=== PATIENT | female | born 1980 | race Caucasian/White ===

== ENCOUNTER 2019-01-19 21:00 | Emergency (ER) | payer SELFPAY ==
[2019-01-19 21:01] VITALS: BP 145/100; PULSE 97; RESP 17; TEMP 36.6; O2SAT 99; BMI 20.9
--- NOTE | 2019-01-19 21:36 | ED.DEP ---
ED Disposition - Plan for ED Patient: Instructions: ED Tooth Pain Prescriptions: Naproxen [Naprosyn] 500 mg PO BID PRN #20 tablet Referrals: Care Physician,No Primary [Primary Care Provider] -
--- NOTE | 2019-01-19 21:39 | ED.VISSUMM ---
- ER Visit Summary Date of Service: 01/19/19 Chief Complaint: Toothache History of Present Illness: The patient is a 38 F presenting with toothache. Patient states she chipped her top left and lower left teeth last week. She went to [facility] urgent care and was started on clindamycin. She has been taking ibuprofen at home. She is going to call tomorrow to try to get into a dentist. She has had no fever or swelling. No other complaints. Physical Examination: Vitals are stable. Patient is afebrile. Alert no acute distress. HEENT exam chip fracture left upper molar and left lower molar. No surrounding fluctuance. No sublingual edema. Widespread dental decay. Neck is supple. Lungs are clear and equal bilaterally. Heart is regular rate and rhythm. Skin is warm and dry. Remainder of exam is unremarkable. Emergency Department Course and Treatment: Patient was given OxyIR x1. She is given a prescription for Naprosyn. She is advised to take her antibiotics until complete. She is given a dental referral list. Advised to return to the ED for worsening complaints. Disposition: Discharge home Impression: Odontalgia This note was generated with [employer] dictation software. It may contain incorrect words, spelling, and punctuation that were not noted in review of the chart prior to signing ED Disposition - Plan for ED Patient: Instructions: ED Tooth Pain Prescriptions: Naproxen [Naprosyn] 500 mg PO BID PRN #20 tablet Referrals: Care Physician,No Primary [Primary Care Provider] -
[2019-01-19 21:53] VITALS: BP 138/90
[2019-01-19] MEDS: oxyCODONE 5 MG Tablet PO (21:53)
== END 2019-01-19 21:54 | disposition home or self-care (01) ==
PROVIDERS: Emergency Provider Emergency Medicine
DX: K08.89 Other specified disorders of teeth and supporting structures (principal); K02.9 Dental caries, unspecified; S02.5XXA Fracture of tooth (traumatic), initial encounter for closed fracture; X58.XXXA Exposure to other specified factors, initial encounter; Y93.9 Activity, unspecified; Y92.9 Unspecified place or not applicable; Y99.9 Unspecified external cause status; Z72.0 Tobacco use
CPT/HCPCS: 99283

== ENCOUNTER 2019-04-04 15:22 | Emergency (ER) | payer MEDICAID, SELFPAY ==
[2019-04-04 15:23] VITALS: BP 129/79; PULSE 107; RESP 16; TEMP 36.8; O2SAT 98; BMI 20.7
--- NOTE | 2019-04-04 15:36 | ED.VIS.DENTA ---
History of Present Illness Informant: Patient Onset: Weeks - 1 Context: Gradual Onset Timing: Continuous Quality: aching Location: right side of mouth Current Severity: Moderate Maximum Severity: Severe Worsened by: eating Relieved by: Topicals Associated Symptoms: Hot, Cold, Sensitivity Narrative: 38-year-old female approximately 5 weeks presents to the emergency department with 1 week of right-sided dental pain. Patient also endorses hot and cold sensitivity. She has no fevers or facial swelling. She has not had any difficulty breathing or swallowing or opening and closing her mouth. She denies trauma. Patient states that this is her first and she has not taken anything for pain yet because she was not sure which she was allowed to take. She has already seen an [facility] and is not having any abdominal pain or vaginal bleeding or vomiting. She has an appointment on Saturday with her dentist Prior similar symptoms: Yes Recent Illness/Hospitalization: No <Grady Devlin - Last Filed: 04/04/19 15:36> <Curtis Parra - Last Filed: 04/04/19 15:55> Chief Complaint: Dental Past Medical History Prior records reviewed: Yes Past Medical History: None Surgical History: no surgical history Smoking Status: Current every day smoker <Grady Devlin - Last Filed: 04/04/19 15:36> <Curtis Parra - Last Filed: 04/04/19 15:55> - Allergies and Home Meds Allergies/Adverse Reactions: Allergies aloe vera Allergy (Verified 01/19/19 21:03) Rash aspirin [ASA] Adverse Reaction (Verified 01/19/19 21:03) Upset Stomach Primary Care Physician: Care Physician,No Primary [Primary Care Provider] - Review of Systems All systems negative except as indicated General: Denies: Chills, Fever ENT: Reports: - - Dental pain <Grady Devlin - Last Filed: 04/04/19 15:36> Physical Exam Vital Signs/Narrative: Vital Signs Temp Pulse Resp BP Pulse Ox 04/04/19 15:23 98.2 F 107 H 16 129/79 H 98 Inital Vital Signs reviewed: Yes General: Well nourished, Well developed Head: Normocephalic, Atraumatic ENT: Moist mucous membranes, No nasal trauma, No rhinorrhea. Negative for: Nasal congestion, Sinus tenderness Mouth/Throat: Normal oral mucosa, No focal abscess, Normal posterior oropharynx, No sublingual edema, Normal Stensen's duct, Widespread dental decay Neck: Supple, No lymphadenopathy, Nontender Cardiovascular: Regular rate, Regular rhythm Respiratory: No distress, CTA bilaterally, Chest nontender Abdomen: Soft, Nontender, Nondistended, Normal bowel sounds, No masses Back: Nontender Extremities: Nontender, No edema Skin: Normal color, No rash Neurological: Alert, Oriented x3 Psychological: Normal affect <Grady Devlin - Last Filed: 04/04/19 15:36> Vital Signs/Narrative: Vital Signs Temp Pulse Resp BP Pulse Ox 04/04/19 15:23 98.2 F 107 H 16 129/79 H 98 <Curtis Parra - Last Filed: 04/04/19 15:55> Diagnostic/Tx/Re-eval - Medical Decision Making Patient has widespread dental decay but there is no focal abscess or dental decay there is no sublingual edema or trismus patient is able to swallow normally. I told her that because she is she should only take Tylenol and we did give her a dose here and she will be prescribed penicillin and have close follow-up on Saturday with her dentist. <Grady Devlin - Last Filed: 04/04/19 15:36> - Medical Decision Making Patient was seen with me. I did a [id number] examination of the patient. Patient presents with right-sided dental pain that has been getting worse. Patient states she is unable to see a dentist. Patient states she is . Patient denies any fevers or chills. Vital signs are stable. Patient is afebrile. Patient is in no acute distress. Oral mucosa is pink and moist. Oropharynx is clear. There is a large dental carry over the right lower second premolar area. There is some gingival edema around the tooth. There is no discharge or drainage. There is no fluctuance. There is no sublingual edema. There is no evidence of any abscess. Patient was given a dose of Tylenol. Patient was given a prescription for Pen-Vee K. Patient was instructed to continue Tylenol as needed for pain. Patient was instructed to follow-up with her dentist in 2 days. Patient understood and was agreeable with the plan. All questions were answered. <Curtis Parra - Last Filed: 04/04/19 15:55> ED Disposition <Grady Devlin - Last Filed: 04/04/19 15:36> <Curtis Parra - Last Filed: 04/04/19 15:55> - Plan for ED Patient: Disposition: Home or Assisted Living Diagnosis: Odontalgia, Dental caries Instructions: Dental Pain Prescriptions: Penicillin V Potassium 500 mg PO 4X/DAY #40 tab Prescription Printed Referrals: Care Physician,No Primary [Primary Care Provider] -
[2019-04-04] MEDS: Penicillin Vk 250 MG Tablet 500 MG PO (16:01)
[2019-04-04] MEDS: Acetaminophen 325 MG Tablet 650 MG PO (16:01)
== END 2019-04-04 16:03 | disposition home or self-care (01) ==
LOC: ED 15:48
PROVIDERS: Emergency Provider Physician Assistant Medical
DX: O99.611 Diseases of the digestive system complicating pregnancy, first trimester (principal); K08.89 Other specified disorders of teeth and supporting structures; K02.9 Dental caries, unspecified; O99.331 Smoking (tobacco) complicating pregnancy, first trimester; F17.200 Nicotine dependence, unspecified, uncomplicated; Z3A.01 Less than 8 weeks gestation of pregnancy
CPT/HCPCS: 99283

== ENCOUNTER 2019-04-04 22:57 | Emergency (ER) | payer MEDICAID, SELFPAY ==
[2019-04-04 15:23] VITALS: BMI 20.7
[2019-04-04 22:58] VITALS: BP 124/82; PULSE 105; RESP 15; TEMP 36.8; BMI 20.5
--- NOTE | 2019-04-04 23:05 | ED.VIS.GEN ---
History of Present Illness Chief Complaint: Dental Informant: Patient Onset: Yesterday Narrative: Worsening right lower dental pain since 430 yesterday. Hot and cold sensitivities. Tobacco history. 5 weeks . On vitamins. Seen early in the ED today started on penicillin status post 2 doses. No fevers. Reports calling a dentist on Saturday. Using Tylenol. Requests dental block. Prior similar symptoms: Yes Past Medical History - Allergies and Home Meds Allergies/Adverse Reactions: Allergies aloe vera Allergy (Verified 04/04/19 23:00) Rash aspirin [ASA] Adverse Reaction (Verified 04/04/19 23:00) Upset Stomach Primary Care Physician: Care Physician,No Primary [Primary Care Provider] - Surgical History: no surgical history Smoking Status: Current every day smoker Review of Systems All systems negative except as indicated General: Denies: Chills, Fever, Sweats Eyes: Denies: Visual changes - bilaterally, Diplopia ENT: Denies: Rhinorrhea, Sore throat Cardiovascular: Denies: Chest pain, Palpitations Respiratory: Denies: Dyspnea, Cough, Dyspnea on exertion Gastrointestinal: Denies: Abdominal pain, Nausea, Vomiting, Diarrhea, Melena, Hematochezia Genitourinary: Denies: Dysuria, Hematuria, Frequency Musculoskeletal: Denies: Back pain, Extremity Pain Skin: Denies: Rash, Wounds Neurological: Denies: Headache, Weakness, Numbness Physical Exam Vital Signs/Narrative: Vital Signs Temp Pulse Resp BP 04/04/19 22:58 98.3 F 105 H 15 124/82 H Inital Vital Signs reviewed: Yes General: Well nourished, Well developed, - - Uncomfortable Head: Normocephalic, Atraumatic, - - Decayed tooth #29, missing 30 and 31. No fluctuance, no sublingual edema. Airway patent. Missing tooth #2 and 3, mild decay of 4 through 6. Eyes: Perrl, EOMI ENT: Moist mucous membranes, No rhinorrhea Neck: Supple, Nontender Cardiovascular: Regular rate, Regular rhythm, No murmurs Respiratory: No distress, CTA bilaterally, Chest nontender Abdomen: Soft, Nontender, Nondistended, Normal bowel sounds Back: Nontender, Normal Inspection Extremities: Nontender, No edema Skin: Normal color, No rash Neurological: Alert, Oriented x3, Cranial nerves II-XII grossly intact, Normal Strength, Normal Sensation Psychological: Normal affect, Normal Mood Diagnostic/Tx/Re-eval - Medical Decision Making Patient nontoxic, here for increasing dental pain both upper and lower. Request dental block, performed with bupivacaine with both inferior alveolar block and local block on the lower with good improvement. Patient will finish her antibiotics. She will continue Tylenol. She will call her dentist on Saturday for follow-up. Procedure note: Verbal consent: Dental block. Normal sterile conditions, 2 cc dental block syringe of bupivacaine 0.5% was used. 1.5 cc inferior right infraorbital was used along with 0.5 cc periapical tooth #29 with good improvement. Patient tolerated procedure well. ED Disposition - Plan for ED Patient: Disposition: Home or Assisted Living Diagnosis: Dental caries subsequent encounter, First trimester Instructions: Dental Cavity Referrals: Care Physician,No Primary [Primary Care Provider] - Additional Instructions: Finish your antibiotics. Continue Tylenol every 6 hours as needed. Status post dental block in the ED. Call your dentist on Saturday for follow-up for definitive treatment.
[2019-04-04] MEDS: Bupivacaine Mpf 0.5% 30 ML VIAL INFILT (23:13)
[2019-04-04 23:40] VITALS: BP 132/75; PULSE 90; O2SAT 100
== END 2019-04-04 23:41 | disposition home or self-care (01) ==
PROVIDERS: Emergency Provider Emergency Medicine
DX: O99.611 Diseases of the digestive system complicating pregnancy, first trimester (principal); K08.89 Other specified disorders of teeth and supporting structures; K02.9 Dental caries, unspecified; O99.331 Smoking (tobacco) complicating pregnancy, first trimester; F17.200 Nicotine dependence, unspecified, uncomplicated; Z3A.01 Less than 8 weeks gestation of pregnancy
CPT/HCPCS: 64402; 99282; 99283

== ENCOUNTER 2019-04-05 12:40 | Emergency (ER) | payer MEDICAID, SELFPAY ==
[2019-04-04 22:58] VITALS: BMI 20.5
[2019-04-05 12:40] VITALS: BP 118/89; PULSE 117; RESP 17; TEMP 37.2; O2SAT 99; BMI 20.7
--- NOTE | 2019-04-05 14:54 | ED.VIS.DENTA ---
History of Present Illness Chief Complaint: Dental Informant: Patient Onset: Days - several Context: Gradual Onset Timing: Continuous Quality: ache/throb Location: right upper row of teeth, and one tooth on bottom right Current Severity: Severe Maximum Severity: Severe Worsened by: eating Narrative: Patient seen here twice recently for the same symptoms, she had a dental injection which helped but now the pain is back and excruciating again. She denies any new symptoms, this is the same pain she was seen for before. She has developed no fevers or bleeding or discharge, and she thinks maybe she had a little bit of swelling in her right face before but states nothing is worse there. She is , first trimester. Past Medical History - Allergies and Home Meds Allergies/Adverse Reactions: Allergies aloe vera Allergy (Verified 04/05/19 12:40) Rash aspirin [ASA] Adverse Reaction (Verified 04/05/19 12:40) Upset Stomach Primary Care Physician: Care Physician,No Primary [Primary Care Provider] - Past Medical History: None Surgical History: no surgical history Lives: Spouse/ Significant Other Smoking Status: Current every day smoker Review of Systems General: Denies: Chills, Fever ENT: Reports: - - dental pain. Denies: Rhinorrhea, Sore throat Respiratory: Denies: Dyspnea, Cough Musculoskeletal: Denies: Neck pain - or stiffness Skin: Denies: Rash, Wounds Neurological: Denies: Headache, Weakness Physical Exam Vital Signs/Narrative: Vital Signs Temp Pulse Resp BP Pulse Ox 04/05/19 12:40 99.0 F 117 H 17 118/89 H 99 Inital Vital Signs reviewed: Yes General: Well nourished, Well developed, - - mild painful distress Head: Normocephalic, Atraumatic ENT: Moist mucous membranes, No rhinorrhea, TM's clear Mouth/Throat: Normal inspection lips/gums, Normal oral mucosa, No focal abscess, No sublingual edema, Tenderness on tooth percussion - Right maxillary row of teeth without obvious dental disease, and tooth #30, approximately. No palpable abscess. No objective facial or jaw swelling.. Negative for: Trismus Neck: Supple, No lymphadenopathy, Nontender Skin: Normal color, No rash, No Trauma Neurological: Alert, Oriented x3, Cranial nerves II-XII grossly intact, Normal Strength, Normal Sensation Psychological: Normal affect, Normal Mood Diagnostic/Tx/Re-eval - Medical Decision Making Regional and Local Dental Anesthesia: Marcaine - 0.5% with epinephrine, Local Supraperiosteal Dental Injection - Total of 1.8 cc from dental cartridge given, the majority of it was deployed in the infraorbital nerve area with intraoral approach, the rest of it was deployed in the supraperiosteal region above the right maxillary teeth. After infraorbital nerve block and periapical block, patient is feeling much better she says her pain is resolved for now and stable to be discharged home. Since she does not have any obvious abscess that would indicate failure of outpatient therapy on the penicillin, I would advise continuing the penicillin as prescribed and follow-up with dentist as soon as she is able. She was given a dental resource list. She is very comfortable with that plan. ED Disposition - Plan for ED Patient: Disposition: Home or Assisted Living Diagnosis: Odontalgia Instructions: Dental Pain Referrals: Care Physician,No Primary [Primary Care Provider] - Irina Arizmendi [NON-STAFF] - As soon as possible (for dental care, or other dentist of your choosing)
== END 2019-04-05 15:00 | disposition home or self-care (01) ==
PROVIDERS: Emergency Provider Emergency Medicine
DX: K08.89 Other specified disorders of teeth and supporting structures (principal); F17.200 Nicotine dependence, unspecified, uncomplicated
CPT/HCPCS: 64402; 99282

== ENCOUNTER 2019-04-06 01:26 | Emergency (ER) | payer MEDICAID, SELFPAY ==
[2019-04-05 12:40] VITALS: BMI 20.7
[2019-04-06 01:26] VITALS: TEMP 37.3
[2019-04-06 01:27] VITALS: BP 148/102; PULSE 113; RESP 19; TEMP 37.6; O2SAT 99; BMI 20.5
--- NOTE | 2019-04-06 01:34 | ED.DCSUM_ITS ---
History of Present Illness Chief Complaint: Dental Onset: Days Context: Sudden Onset Timing: Continuous Quality: Pain Location: Right upper front teeth Current Severity: Severe Maximum Severity: Severe Worsened by: Air and cold Relieved by: - - Nothing Associated Symptoms: Facial Swellling, Cold, - - Otherwise negative Narrative: This is patient's third ER visit no past 48 hours for dental pain. She states she is a walk-in client at [facility] for later today. She is requesting injection to anesthetize her teeth. She denies fever, chills night sweats. She denies a traumatic fever, murmur, SBE, IV drug use or being immune suppressed. She denies inability to open or close her mouth completely. She denies ocular or visual symptoms. Prior similar symptoms: Yes Recent Illness/Hospitalization: Yes - Past Medical History (1) Apical alveolar abscess Status: Acute Past Medical History - Allergies and Home Meds Allergies/Adverse Reactions: Allergies aloe vera Allergy (Verified 04/05/19 12:40) Rash aspirin [ASA] Adverse Reaction (Verified 04/05/19 12:40) Upset Stomach Primary Care Physician: Care Physician,No Primary [Primary Care Provider] - Surgical History: no surgical history Smoking Status: Current every day smoker Review of Systems General: Denies: Chills, Fever, Malaise, Sweats Eyes: Denies: Visual changes - bilaterally, Blurred Vision - bilaterally, Diplopia ENT: Denies: Rhinorrhea, Sore throat Musculoskeletal: Denies: Myalgias, Arthralgias, Neck pain Skin: Denies: Rash, Wounds Neurological: Denies: Headache, Parasthesia, Numbness Physical Exam Vital Signs/Narrative: Vital Signs Temp Pulse Resp BP Pulse Ox 04/06/19 01:27 99.6 F H 113 H 19 H 148/102 H 99 Inital Vital Signs reviewed: Yes General: Well nourished, Well developed Head: Normocephalic, Atraumatic ENT: Moist mucous membranes, Nasal congestion, No nasal trauma, No rhinorrhea, Sinus tenderness, TM's clear. Negative for: TM erythema left, TM erythema right Mouth/Throat: Normal oral mucosa, Normal posterior oropharynx, No sublingual edema, Normal Stensen's duct, Dental abscess, Gingivitis, Tenderness on tooth percussion, Widespread dental decay. Negative for: Normal inspection lips/gums, No dental tenderness, Apthous ulcer, Dental trauma, Dental avulsion, Dentral fracture, Filling loss, Focal dental decay, Trismus Neck: Supple, No lymphadenopathy, Nontender, No JVD, Soft tissue swelling - Upper lip predominantly right side. Negative for: Anterior submandibular lymphadenopathy, Posterior submandibular lymphadenopathy, Anterior submental lymphadenopathy, Posterior submental lymphadenopathy, Submandibular soft tissue swelling, Submental soft tissue swelling, Parotid tenderness Cardiovascular: Regular rhythm, No murmurs, Normal S1, Normal S2, Tachycardia, Bradycardia Respiratory: No distress, CTA bilaterally Skin: Normal color, No rash Neurological: Alert, Oriented x3, Cranial nerves II-XII grossly intact, Normal Strength, Normal Sensation, Normal DTR, Normal Gait Psychological: Normal affect, Normal Mood Diagnostic/Tx/Re-eval - Medical Decision Making Regional and Local Dental Anesthesia: Carbocaine, - - Right infraorbital nerve block Patient has dental caries with apical abscess. There is swelling of the upper lip. Patient was anesthetized by right infraorbital nerve block to numb her upper incisors canine and bicuspid tooth. Patient is . Patient was discharged to home. There is no evidence of facial cellulitis. There is no documented elevated temperature./Fever ED Disposition - Plan for ED Patient: Disposition: Home or Assisted Living Diagnosis: Apical alveolar abscess Instructions: Dental Abscess Referrals: Care Physician,No Primary [Primary Care Provider] -
[2019-04-06 01:53] VITALS: BP 138/90; PULSE 93; RESP 18; O2SAT 100
== END 2019-04-06 01:54 | disposition home or self-care (01) ==
LOC: ED 01:43
PROVIDERS: Emergency Provider Emergency Medicine
DX: K04.7 Periapical abscess without sinus (principal); K02.9 Dental caries, unspecified; F17.200 Nicotine dependence, unspecified, uncomplicated; Z88.6 Allergy status to analgesic agent
CPT/HCPCS: 64402; 99282

== ENCOUNTER → 2019-04-24 08:54 | Outpatient (CLI) | payer MEDICAID, SELFPAY ==
[2019-04-24 08:25] VITALS: BMI 20.9
[2019-04-24 12:34] LABS: Absolute Lymphocyte Count 1.43 X10^3/uL (0.83-4.51); Absolute Neutrophil Count 8.9 X10^3/uL (2.0-7.7); Basophil# 0.02 X10^3/uL; Basophil% 0.2 % (0-1); Eosinophils% 1.8 % (0-5); Hematocrit 35.3 % (37-47); Hemoglobin 11.6 g/dL (12.0-15.0); Lymphocyte # 1.43 X10^3/ul (4.0); Lymphocyte % 12.6 % (19-41); Mean Corp Hgb Conc 32.9 g/dL (32-36); Mean Corpuscular Volume 88.3 fL (81-99); Mean Platelet Vol. 10.1 fl (6.2-12.0); Monocyte% 6.2 % (0-10); NRBC Flagged by Analyzer 0 % (0-5); Neutrophil % 78.6 % (47-70); Platelet Count 338 K/mm3 (150-450); RBC Distribution Width CV 12.4 % (11.6-14.6); White Blood Count 11.3 K/mm3 (4.4-11.0)
[2019-04-24 12:51] LABS: ALB/GLOB Ratio 0.8 RATIO (0.9-2.4); AST(SGOT) 18 U/L (15-37); Alanine Aminotransfer ALT/SGPT 33 U/L (13-56); Alkaline Phosphatase 85 U/L (45-117); Anion Gap 5 (5-15); BUN 9 mg/dL (7-18); Calcium,Total 9.5 mg/dL (8.5-10.1); Chloride 110 mmol/L (98-107); Creatinine, Serum 0.53 mg/dL (0.55-1.02); EST Glomerular Filtration Rate 138 mL/min (>60); Est Glom Filt Rate - Afr Amer 167 mL/min (>60); Globulin 3.6 g/dL (2.2-4.2); Glucose 86 mg/dL (74-106); Potassium 3.5 mmol/L (3.5-5.1); Protein, Total 6.6 g/dL (6.4-8.2); Sodium Level 139 mmol/L (136-145)
== END ==
PROVIDERS: PCP Internal Medicine; Visit Provider Internal Medicine
DX: D13.4 Benign neoplasm of liver (principal)
CPT/HCPCS: 36415; 80053; 85025

== ENCOUNTER → 2019-04-30 09:21 | Outpatient (CLI) | payer MEDICAID, SELFPAY ==
[2019-04-24 08:25] VITALS: BMI 20.9
--- NOTE | 2019-04-30 09:24 | US_ITS ---
STUDY: ABDOMINAL ULTRASOUND REASON FOR EXAM: Female, 38 years old. Liver mass TECHNIQUE: Transabdominal ultrasound was performed with real-time and static chi scale imaging. COMPARISON: None. FINDINGS: Liver: The liver measures 14.2 cm. There is normal echogenicity of the liver. There is no intrahepatic biliary ductal dilatation. Multiple liver masses, heterogeneous, isoechoic to mildly hyperechoic compared to surrounding parenchyma, several having partially obscured margins. Right liver anteriorly 30 x 27 x 29 mm, laterally 62 x 51 53 mm. Left liver 51 51 x 40 mm anteriorly. Each of these exhibits internal vascularity. Gallbladder: Normal distended gallbladder. The gallbladder wall measures 1.8 mm. There is a negative sonographic Diamond's sign. There is no pericholecystic fluid. There are no gallstones. Common Bile Duct (C.B.D.): The common bile duct measures 4.6 mm. Pancreas: There is normal echogenicity of the pancreas. Spleen: Normal size of the spleen. The spleen measures 8.3 cm. Right Kidney: The right kidney measures 12.2 cm. Normal renal cortex. The renal cortex measures 1.4 cm. There is no demonstrated renal mass or cyst. There is no right hydronephrosis. Left Kidney: The left kidney measures 12.0 cm. Normal renal cortex. The renal cortex measures 1.4 cm. There is no demonstrated renal mass or cyst. There is no left hydronephrosis. Aorta: Nondilated I.V.C.: The IVC is patent. US/Abdomen Complete IMPRESSION: Multiple hepatic masses. Follow-up complete characterization is recommended with multiphase contrast-enhanced CT or MRI of the liver, hemangioma/mass protocol. Electronically Signed: Sherif Bautista MD at 12:24 EDT Tel , Service support ,
== END ==
PROVIDERS: Family Provider Internal Medicine; PCP Internal Medicine; Referring Provider Internal Medicine; Visit Provider Internal Medicine
DX: D13.4 Benign neoplasm of liver (principal)
CPT/HCPCS: 76700

== ENCOUNTER → 2019-07-10 18:32 | Outpatient (CLI) | payer MEDICAID, SELFPAY ==
[2019-04-24 08:25] VITALS: BMI 20.9
--- NOTE | 2019-07-10 18:35 | US_ITS ---
HISTORY: WELL BEING ---DECREASED MOVEMENT EXAMINATION: US Biophysical Profile W/O Nonst TECHNIQUE: Transabdominal pelvic ultrasound was performed. COMPARISON: None LMP: 01/15/2019 Beta-hCG: Unknown. Provided EGA: 25 W1D FINDINGS: INTRAUTERINE GESTATION(s): Single. ESTIMATED GESTATIONAL AGE: Not estimated. ESTIMATED DUE DATE (JIGNESH): Not estimated. HEART MOTION is 147 bpm. AMNIOTIC FLUID INDEX (SVETLANA): 15.3 cm. The largest fluid pocket was 4.6 x 6.1 cm. BIOPHYSICAL PROFILE (BPP): 02/14. -- breathin. -- movement: 2/2. -- tone: 2/2. --SVETLANA: 2/2. PRESENTATION: cephalic. CERVIX: The cervix is closed. The closed cervix measured 4 cm US/Biophysical Prof W/O Non Stres IMPRESSION: Single live intrauterine . Biophysical profile: 02/14 breathing was not demonstrated. at [id number] Reported and signed by: Rudy Smith MD Electronically Signed: Rudy Smith MD at 6:05 EDT Tel , Service support ,
== END ==
PROVIDERS: Family Provider Internal Medicine; PCP Internal Medicine
DX: O36.8120 Decreased fetal movements, second trimester, not applicable or unspecified (principal); Z3A.00 Weeks of gestation of pregnancy not specified
CPT/HCPCS: 76819

== ENCOUNTER 2019-10-10 15:30 | Outpatient (CLI) | payer MEDICAID, SELFPAY ==
[2019-04-24 08:25] VITALS: BMI 20.9
[2019-10-10 16:04] LABS: Bacteria 0 SEEN /hpf (None Seen); Mucous, Urine 0 SEEN /hpf (<or=2+)
[2019-10-10 16:13] VITALS: BMI 21.2
[2019-10-10 16:16] LABS: Color, Urine Yellow (Yellow); Glucose, Dipstick Normal (Normal); Ketone-Dipstick Negative (Negative); Leukocyte Esterase-Dipstick 500 /ul (Negative); Nitrite-Dipstick Negative (Negative); Occult Blood-Urine 250 /ul (Negative); Protein-Dipstick 100 mg/dl (Negative); Urine Bilirubin Dipstick Negative (Negative); Urine Clarity Cloudy (Clear); Urine Urobilinogen Normal (Normal); Urine pH 6.5 (5.0 - 8.0)
[2019-10-10 16:20] LABS: Hematocrit 41.9 % (37-47); Hemoglobin 13.1 g/dL (12.0-15.0); Mean Corp Hgb Conc 31.3 g/dL (32-36); Mean Corpuscular Hgb 26.3 pg (27.0-32.0); Mean Corpuscular Volume 84.1 fL (81-99); POSITIVE COUNT YES; RBC Distribution Width SD 39.5 fl (35.1-43.9); Red Blood Count 4.98 M/mm3 (4.2-5.4)
[2019-10-10 16:23] LABS: Protein, Urine (Random) 12.3 mg/dL (<11.9); Protein:Creat Ratio 672 mg/g CRE (0-200)
[2019-10-10 16:25] LABS: Scan Indicated on CBC? Y/N NO
[2019-10-10 16:26] LABS: Platelet Count 795 K/mm3 (150-450)
[2019-10-10 16:35] LABS: AST(SGOT) 21 U/L (15-37); Alanine Aminotransfer ALT/SGPT 34 U/L (13-56); Creatinine, Serum 0.81 mg/dL (0.55-1.02); EST Glomerular Filtration Rate 85 mL/min (>60); Est Glom Filt Rate - Afr Amer 102 mL/min (>60); Estimated Creatinine Clearance 82.12 ml/min; Uric Acid 4.9 mg/dL (2.6-6.0)
[2019-10-10 16:38] LABS: Squamous Epithelial Cells - UA 0-5 SEEN /hpf (5-10); Transitional Epithelial - Ur 5-10 SEEN /hpf (0-5)
[2019-10-10 16:39] LABS: Red Blood Cells-Urine 5-10 SEEN /hpf (0-5); White Blood Cells 25-50 SEEN /hpf (0-5)
[2019-10-10 16:53] LABS: Prothrombin Time (Protime)PT. 13.5 SECONDS (11.7-14.9)
[2019-10-10 16:54] LABS: Partial Thromboplast Time 32.4 Seconds (24.1-36.2)
--- NOTE | 2019-10-10 17:05 | OB.TRI.NOTE ---
- Problem List (1) Hypertension Status: Chronic History of Present Illness Date of Service: 10/10/19 Was patient seen by the physician?: Yes Reason For Visit: PREECLAMPSIA Date of Service: 10/10/19 Final JIGNESH: 09/27/19 Gestational age: delivered History of Present Illness: delivered via 09-27-19 at [facility] for pre-eclampsia at 36 weeks gestation. Went home and was checking BPs. Today BP 152/107 at home. Came into ER where BP was 152/101. On unit in triage first two BPs 153/95 and 153/94. After resting Bps were 128/83, 124/82 and 125/85. Allergies aloe vera Allergy (Verified 04/24/19 08:19) Rash aspirin [ASA] Adverse Reaction (Verified 04/24/19 08:19) Upset Stomach - Pertinent Past Medical History Medical History: Past Medical History (Last Updated 04/24/19 @ 08:24 by Bernie Garcia) Anxiety (Chronic) Weight loss (Chronic) Vision problems (Chronic) Tumors (Resolved) Polycystic ovarian disease (Chronic) Pancreatitis (Resolved) Kidney stones (Resolved) Recurrent infections (Chronic) Hives (Resolved) Chronic headaches (Chronic) GERD (gastroesophageal reflux disease) (Chronic) H/O emotional problems (Chronic) Chronic bronchitis (Chronic) Breast lump (Resolved) Back problem (Chronic) Asthma (Chronic) Allergies (Chronic) Surgical History: Past Surgical History (Last Updated 04/24/19 @ 08:12 by Bernie Garcia) History of knee surgery Metal plate & 5 screws on Rt Knee - 02/09 History of needle biopsy 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, tumor left breast - non cancer Laboratory Studies: Laboratory Tests 10/10/19 10/10/19 10/10/19 Range/Units 16:00 16:00 16:00 WBC (4.4-11.0) K/mm3 RBC (4.2-5.4) M/mm3 Hgb (12.0-15.0) g/dL Hct (37-47) % MCV (81-99) fL MCH (27.0-32.0) pg MCHC (32-36) g/dL RDW Std Deviation (35.1-43.9) fl RDW Coeff of Alfonso (11.6-14.6) % Plt Count (150-450) K/mm3 MPV (6.2-12.0) fl PT (11.7-14.9) SECONDS INR APTT (24.1-36.2) Seconds Creatinine 0.81 (0.55-1.02) mg/dL Estim Creat Clear Calc 82.12 ml/min Est GFR (MDRD) Af Amer 102 (>60) mL/min Est GFR (MDRD) Non-Af 85 (>60) mL/min Uric Acid 4.9 (2.6-6.0) mg/dL AST 21 (15-37) U/L ALT 34 (13-56) U/L Urine Color Yellow (Yellow) Urine Clarity Cloudy (Clear) Urine pH 6.5 (5.0 - 8.0) Ur Specific [place] 1.010 (1.002-1.030) Urine Protein 100 H (Negative) mg/dl Urine Glucose (UA) Normal (Normal) mg/dl Urine Ketones Negative (Negative) mg/dl Urine Occult Blood 250 H (Negative) /ul Urine Nitrite Negative (Negative) Urine Bilirubin Negative (Negative) mg/dL Urine Urobilinogen Normal (Normal) mg/dl Ur Leukocyte Esterase 500 H (Negative) /ul Urine RBC 5-10 SEEN (0-5) /hpf Urine WBC 25-50 SEEN (0-5) /hpf Ur Squamous Epith Cells 0-5 SEEN (5-10) /hpf Ur Transition Epith Cell 5-10 SEEN (0-5) /hpf Urine Bacteria 0 SEEN (None Seen) /hpf Urine Mucus 0 SEEN (<or=2+) /hpf U Random Total Protein 12.3 H (<11.9) mg/dL Urine Creatinine 18.30 (NO RANGE EST.) mg/dL Protein/Creatinin Ratio 672 H (0-200) mg/g CRE 10/10/19 10/10/19 Range/Units 16:00 16:00 WBC 11.0 (4.4-11.0) K/mm3 RBC 4.98 (4.2-5.4) M/mm3 Hgb 13.1 (12.0-15.0) g/dL Hct 41.9 (37-47) % MCV 84.1 (81-99) fL MCH 26.3 L (27.0-32.0) pg MCHC 31.3 L (32-36) g/dL RDW Std Deviation 39.5 (35.1-43.9) fl RDW Coeff of Alfonso 13.0 (11.6-14.6) % Plt Count 795 H* (150-450) K/mm3 MPV 9.0 (6.2-12.0) fl PT 13.5 (11.7-14.9) SECONDS INR 1.0 APTT 32.4 (24.1-36.2) Seconds Creatinine (0.55-1.02) mg/dL Estim Creat Clear Calc ml/min Est GFR (MDRD) Af Amer (>60) mL/min Est GFR (MDRD) Non-Af (>60) mL/min Uric Acid (2.6-6.0) mg/dL AST (15-37) U/L ALT (13-56) U/L Urine Color (Yellow) Urine Clarity (Clear) Urine pH (5.0 - 8.0) Ur Specific [place] (1.002-1.030) Urine Protein (Negative) mg/dl Urine Glucose (UA) (Normal) mg/dl Urine Ketones (Negative) mg/dl Urine Occult Blood (Negative) /ul Urine Nitrite (Negative) Urine Bilirubin (Negative) mg/dL Urine Urobilinogen (Normal) mg/dl Ur Leukocyte Esterase (Negative) /ul Urine RBC (0-5) /hpf Urine WBC (0-5) /hpf Ur Squamous Epith Cells (5-10) /hpf Ur Transition Epith Cell (0-5) /hpf Urine Bacteria (None Seen) /hpf Urine Mucus (<or=2+) /hpf U Random Total Protein (<11.9) mg/dL Urine Creatinine (NO RANGE EST.) mg/dL Protein/Creatinin Ratio (0-200) mg/g CRE Review of Systems Constitutional: Denies: Chills, Fever, Weight Change HEENT: Denies: Head Aches, Sinus Congestion, Sinus Drainage Cardiovascular: Denies: Chest Pain, Palpitations Respiratory: Denies: Cough, Shortness of breath at rest, Sputum production Gastrointestinal: Reports: Abdominal Pain - pain behind incision site. Denies: Nausea, Vomiting Genitourinary: Denies: Dysuria Musculoskeletal: Denies: Joint Pain, Joint Tenderness Skin: Reports: Wounds - csection incision. Denies: Rash Neurological: Denies: Numbness, Tingling, Focal weakness Psychiatric: Denies: Anxiety, Depression, Homicidal Ideations, Suicidal Ideations Hematologic/ Lymphatic: Denies: Easy Bruising, Easy Bleeding Physical Exam General: Alert, Oriented x3, No apparent distress HEENT: Atraumatic, Normocephalic. Negative for: Thyromegaly, Lymphadenopathy Cardiovascular: Regular rate, Regular Rhythm Lungs: Clear to auscultation Abdomen: Bowel Sounds Present, Gravid Neurological: Deep Tendon Reflexes 2+/4 and Symmetrical, Neuro grossly intact ORTHOTIC/PROSTHETIC PRACTITIONER: Normal external genitalia. Negative for: Vulvar lesions Impression/Plan A: Labs suggest UTI and dehydration Hypertension persists at home P: Discussed with attending Dr. Francisco. Will discharge home on bedrest with Procardia XL 30mg and Cipro 500mg BID x 7days. To follow up with OBGYN on Saturday for eval. To continue to monitor BPs at home. Encouraged to increase fluid intake.
--- NOTE | 2019-10-10 17:20 | OB.TRI.PN ---
Progress Notes Date of Service: 10/10/19 Progress Note: On discharge patient asked for prophylactic Diflucan to prevent yeast infection with antibiotic as well as something for bladder pain. Rx sent for Diflucan 150mg x 2 and Pyridium 200mg TID x 3 days. Laboratory Studies: Laboratory Tests 10/10/19 10/10/19 10/10/19 Range/Units 16:00 16:00 16:00 WBC (4.4-11.0) K/mm3 RBC (4.2-5.4) M/mm3 Hgb (12.0-15.0) g/dL Hct (37-47) % MCV (81-99) fL MCH (27.0-32.0) pg MCHC (32-36) g/dL RDW Std Deviation (35.1-43.9) fl RDW Coeff of Alfonso (11.6-14.6) % Plt Count (150-450) K/mm3 MPV (6.2-12.0) fl PT (11.7-14.9) SECONDS INR APTT (24.1-36.2) Seconds Creatinine 0.81 (0.55-1.02) mg/dL Estim Creat Clear Calc 82.12 ml/min Est GFR (MDRD) Af Amer 102 (>60) mL/min Est GFR (MDRD) Non-Af 85 (>60) mL/min Uric Acid 4.9 (2.6-6.0) mg/dL AST 21 (15-37) U/L ALT 34 (13-56) U/L Urine Color Yellow (Yellow) Urine Clarity Cloudy (Clear) Urine pH 6.5 (5.0 - 8.0) Ur Specific [place] 1.010 (1.002-1.030) Urine Protein 100 H (Negative) mg/dl Urine Glucose (UA) Normal (Normal) mg/dl Urine Ketones Negative (Negative) mg/dl Urine Occult Blood 250 H (Negative) /ul Urine Nitrite Negative (Negative) Urine Bilirubin Negative (Negative) mg/dL Urine Urobilinogen Normal (Normal) mg/dl Ur Leukocyte Esterase 500 H (Negative) /ul Urine RBC 5-10 SEEN (0-5) /hpf Urine WBC 25-50 SEEN (0-5) /hpf Ur Squamous Epith Cells 0-5 SEEN (5-10) /hpf Ur Transition Epith Cell 5-10 SEEN (0-5) /hpf Urine Bacteria 0 SEEN (None Seen) /hpf Urine Mucus 0 SEEN (<or=2+) /hpf U Random Total Protein 12.3 H (<11.9) mg/dL Urine Creatinine 18.30 (NO RANGE EST.) mg/dL Protein/Creatinin Ratio 672 H (0-200) mg/g CRE 10/10/19 10/10/19 Range/Units 16:00 16:00 WBC 11.0 (4.4-11.0) K/mm3 RBC 4.98 (4.2-5.4) M/mm3 Hgb 13.1 (12.0-15.0) g/dL Hct 41.9 (37-47) % MCV 84.1 (81-99) fL MCH 26.3 L (27.0-32.0) pg MCHC 31.3 L (32-36) g/dL RDW Std Deviation 39.5 (35.1-43.9) fl RDW Coeff of Alfonso 13.0 (11.6-14.6) % Plt Count 795 H* (150-450) K/mm3 MPV 9.0 (6.2-12.0) fl PT 13.5 (11.7-14.9) SECONDS INR 1.0 APTT 32.4 (24.1-36.2) Seconds Creatinine (0.55-1.02) mg/dL Estim Creat Clear Calc ml/min Est GFR (MDRD) Af Amer (>60) mL/min Est GFR (MDRD) Non-Af (>60) mL/min Uric Acid (2.6-6.0) mg/dL AST (15-37) U/L ALT (13-56) U/L Urine Color (Yellow) Urine Clarity (Clear) Urine pH (5.0 - 8.0) Ur Specific [place] (1.002-1.030) Urine Protein (Negative) mg/dl Urine Glucose (UA) (Normal) mg/dl Urine Ketones (Negative) mg/dl Urine Occult Blood (Negative) /ul Urine Nitrite (Negative) Urine Bilirubin (Negative) mg/dL Urine Urobilinogen (Normal) mg/dl Ur Leukocyte Esterase (Negative) /ul Urine RBC (0-5) /hpf Urine WBC (0-5) /hpf Ur Squamous Epith Cells (5-10) /hpf Ur Transition Epith Cell (0-5) /hpf Urine Bacteria (None Seen) /hpf Urine Mucus (<or=2+) /hpf U Random Total Protein (<11.9) mg/dL Urine Creatinine (NO RANGE EST.) mg/dL Protein/Creatinin Ratio (0-200) mg/g CRE - Problem List (1) Hypertension Status: Chronic
[2019-10-12 13:23] LABS: Pathologist Review Reviewed
== END 2019-10-10 17:10 | disposition home or self-care (01) ==
LOC: WPOUT 15:43 → OBT 15:43
PROVIDERS: Obstetrics & Gynecology; PCP Internal Medicine; Visit Provider Obstetrics & Gynecology
DX: O14.95 Unspecified pre-eclampsia, complicating the puerperium (principal); O86.20 Urinary tract infection following delivery, unspecified
CPT/HCPCS: 81001; 82565; 82570; 84156; 84450; 84460; 84550; 85027; 85610; 85730; 87077; 87086; 87088; 87186; 99218; G0378

== ENCOUNTER → 2020-04-01 09:25 | Outpatient (CLI) | payer MEDICAID, SELFPAY ==
[2020-04-01 09:04] VITALS: BMI 21.2
[2020-04-01 12:48] LABS: Cholesterol 148 mg/dL (200); High Density Lipoprotein 52 mg/dL; Triglycerides 49 mg/dL; Very Low Density Lipoprotein 10 mg/dL (5-40)
== END ==
PROVIDERS: PCP Internal Medicine; Referring Provider Internal Medicine; Visit Provider Internal Medicine
DX: I10 Essential (primary) hypertension (principal)
CPT/HCPCS: 36415; 80061

== ENCOUNTER → 2020-06-24 10:37 | Outpatient (CLI) | payer MEDICAID, SELFPAY ==
[2020-06-24 10:29] VITALS: BMI 24.9
[2020-06-24 12:26] LABS: Absolute Lymphocyte Count 1.43 X10^3/uL (0.83-4.51); Absolute Neutrophil Count 4.7 X10^3/uL (2.0-7.7); Basophil# 0.04 X10^3/uL; Basophil% 0.6 % (0-1); Eosinophil# 0.27 X10^3/uL; Eosinophils% 3.8 % (0-5); Hematocrit 44.2 % (37-47); Lymphocyte # 1.43 X10^3/ul (4.0); Lymphocyte % 20.3 % (19-41); Mean Corp Hgb Conc 31.7 g/dL (32-36); Mean Corpuscular Hgb 27.2 pg (27.0-32.0); Mean Corpuscular Volume 85.8 fL (81-99); Mean Platelet Vol. 9.6 fl (6.2-12.0); Monocyte# 0.55 X10^3/uL; Monocyte% 7.8 % (0-10); NRBC Flagged by Analyzer 0 % (0-5); Neutrophil # 4.72 X10^3/uL (2.7-7.7); Neutrophil % 67.2 % (47-70); Platelet Count 368 K/mm3 (150-450); RBC Distribution Width CV 13.1 % (11.6-14.6); RBC Distribution Width SD 40.9 fl (35.1-43.9); Red Blood Count 5.15 M/mm3 (4.2-5.4)
[2020-06-24 12:52] LABS: AST(SGOT) 13 U/L (15-37); Alanine Aminotransfer ALT/SGPT 31 U/L (13-56); Albumin, Serum 3.6 g/dL (3.2-5.0); Alkaline Phosphatase 122 U/L (45-117); Anion Gap 4 (5-15); BUN 13 mg/dL (7-18); BUN/Creat Ratio 16.6 RATIO (10-20); Calcium,Total 8.5 mg/dL (8.5-10.1); Chloride 113 mmol/L (98-107); Creatinine, Serum 0.78 mg/dL (0.55-1.02); EST Glomerular Filtration Rate 87 mL/min (>60); Est Glom Filt Rate - Afr Amer 106 mL/min (>60); Globulin 3.5 g/dL (2.2-4.2); Glucose 107 mg/dL (74-106); Protein, Total 7.1 g/dL (6.4-8.2); Sodium Level 140 mmol/L (136-145)
== END ==
PROVIDERS: PCP Internal Medicine; Referring Provider Internal Medicine; Visit Provider Internal Medicine
DX: N93.9 Abnormal uterine and vaginal bleeding, unspecified (principal)
CPT/HCPCS: 36415; 80053; 85025

== ENCOUNTER 2020-08-03 00:40 | Emergency (ER) | payer MEDICAID, SELFPAY ==
[2020-08-03 00:40] VITALS: BP 126/82; PULSE 96; RESP 18; TEMP 36.3; O2SAT 97; BMI 23.1
--- NOTE | 2020-08-03 01:01 | ED.DCSUM_ITS ---
- ER Visit Summary Date of Service: 08/03/20 Chief Complaint: Back pain History of Present Illness: The patient is a 39 F who complains of back pain. Started 4 hours ago. She describes sharp pain in her lumbar region up into her lower thoracic region. It does not radiate anywhere else. Does not radiate into her buttock or down her leg. She denies any fecal or urine incontinence. She has not had a fever. Nothing makes the pain better or worse. She denies any history of any back issues. She has been coughing a lot recently due to a diagnosis of bronchitis. She took Tylenol at home without any relief. Physical Examination: Vital signs reviewed. HEENT exam unremarkable. Heart is regular rate and rhythm without murmurs. Lungs are clear to auscultation. Abdomen is soft and nontender. Her back is tender in the lumbar paraspinal regions. She has no spinal tenderness. Extremities reveal no edema. Skin exam normal. Neurologic exam normal. Test Results: None performed Emergency Department Course and Treatment: The patient is tender in her muscular regions of her lower back. She has no spinal tenderness. Do not feel that x- rays are needed as there was no trauma and she has no bony tenderness. I will treat her with Norflex and Toradol. I will give her naproxen and Flexeril to take at home. She will use ice and heat and will follow up with her PCP. This is likely a muscular strain. Treatment Plan: [] Disposition: Discharge Impression: Lumbar strain This note was generated with SnowGate dictation software. It may contain incorrect words, spelling, and punctuation that were not noted in review of the chart prior to signing ED Disposition - Plan for ED Patient: Disposition: Home or Assisted Living Instructions: ED LUMBAR SPRAIN/STRAIN Prescriptions: cycloBENZAPRine HCl [Flexeril] 10 mg PO TID PRN #20 tab PRN Reason: Muscle Spasm Transmission Status: Pending to [facility] Naproxen [Naprosyn] 500 mg PO BID PRN #20 tab Transmission Status: Pending to [facility] Referrals: Sacha Martínez MD [Primary Care Provider] -
[2020-08-03] MEDS: Ketorolac 30 MG/ML Syringe IM (01:03)
[2020-08-03] MEDS: Orphenadrine 60 MG/2 ML Ampul IM (01:05)
== END 2020-08-03 01:30 | disposition home or self-care (01) ==
LOC: ED 01:27
PROVIDERS: Emergency Provider Emergency Medicine; PCP Internal Medicine
DX: S39.012A Strain of muscle, fascia and tendon of lower back, initial encounter (principal); X58.XXXA Exposure to other specified factors, initial encounter; Y93.9 Activity, unspecified; Y92.9 Unspecified place or not applicable; Y99.9 Unspecified external cause status; K21.9 Gastro-esophageal reflux disease without esophagitis; Z72.0 Tobacco use
CPT/HCPCS: 96372; 99282

== ENCOUNTER → 2021-02-14 12:26 | Outpatient (CLI) | payer MEDICAID, SELFPAY ==
[2020-12-08 14:49] VITALS: BMI 24.9
--- NOTE | 2021-02-14 12:27 | MRI_ITS ---
EXAM: MR ABDOMEN WITHOUT AND WITH INTRAVENOUS CONTRAST : 1980 CLINICAL INDICATION: Multiple known non-cancerous liver masses. Pt also has palpable, painful a lump on left side of torso TECHNIQUE: Multiplanar and multisequence MR images of the abdomen without and with intravenous contrast. This report was created using [employer] report generation technology. CONTRAST: 13ml DOtarem via IV COMPARISON: None. FINDINGS: LOWER THORAX: Unremarkable. No pleural effusion. LIVER: Multiple liver lesions are noted within the right and left lobes demonstrating relatively isointense signal intensity on T1, isointense or mildly hyperintense on T2. Contrast images demonstrates prominent hyperintense enhancement on early phase imaging and becoming relatively hypointense to isointense on delayed contrast imaging. The 5 cm lesion involving hepatic segment 2 demonstrates characteristic spoke wheel enhancement pattern with central scar typical of focal nodular hyperplasia. Similar appearing lesion measuring 4 cm within hepatic segment 4B. Uniformly contrast-enhancing 7 cm lesion noted within hepatic segment 5. 2 additional contrast-enhancing lesions within hepatic segment 3 measuring 1.7 and 1.5 cm in diameter. No evidence of hepatic steatosis. GALLBLADDER AND BILE DUCTS: Unremarkable. No gallstones. No gallbladder distention or wall edema. No intra- or extrahepatic biliary ductal dilation. PANCREAS: Unremarkable. No focal cystic or solid mass. SPLEEN: Unremarkable. Normal size without focal cystic or solid mass. ADRENALS: Unremarkable. No nodules. KIDNEYS AND URETERS: Small cystic lesions noted within the left kidney. Normal renal size and position. No hydronephrosis. INTRAPERITONEAL SPACE: Unremarkable. No ascites or other fluid collection. No free air. VASCULATURE: Unremarkable. Abdominal aorta is non-dilated. LYMPH NODES: No enlarged lymph nodes. MRI/MRI Abd WITH and W/O Contrast IMPRESSION: Multiple hepatic mass lesions consistent with focal nodular hyperplasia. at 1354 Reported and signed by: Tanner Yarbrough MD Electronically Signed: Tanner Yarbrough MD at 13:53 EDT Tel , Service support ,
== END ==
PROVIDERS: PCP Internal Medicine; Referring Provider Internal Medicine; Visit Provider Internal Medicine
DX: D13.4 Benign neoplasm of liver (principal)
CPT/HCPCS: 74183; A9575

== ENCOUNTER → 2021-03-09 15:14 | Outpatient (CLI) | payer MEDICAID, SELFPAY ==
[2021-03-09 13:16] VITALS: BMI 24.9
--- NOTE | 2021-03-09 15:16 | RAD_ITS ---
STUDY: X-RAY - RIGHT KNEE REASON FOR EXAM: Female, 40 years old. Right Knee Pain TECHNIQUE: 4 view(s) of the knee. COMPARISON: None. FINDINGS: Normal visualized distal femur. Healed fracture the proximal tibia with a lateral plate and screws. Normal proximal tibiofibular articulation. There is mild degenerative arthrosis of the medial femorotibial compartment. There is mild degenerative arthrosis of the lateral femorotibial compartment. There is mild degenerative arthrosis of the patellofemoral articulation. The soft tissue structures are unremarkable. RAD/Knee 4 or More Views IMPRESSION: Degenerative arthrosis. Electronically Signed: Sherif Medina MD at 10:04 EDT Tel , Service support ,
== END ==
PROVIDERS: PCP Internal Medicine; Referring Provider Internal Medicine; Visit Provider Internal Medicine
DX: M25.561 Pain in right knee (principal)
CPT/HCPCS: 73564

== ENCOUNTER 2021-09-22 10:26 | Outpatient (CLI) | payer MEDICAID, SELFPAY ==
[2021-09-22 11:08] LABS: Absolute Lymphocyte Count 1.53 X10^3/uL (0.83-4.51); Absolute Neutrophil Count 4.5 X10^3/uL (2.0-7.7); Basophil# 0.03 X10^3/uL; Basophil% 0.4 % (0-1); Eosinophil# 0.13 X10^3/uL; Eosinophils% 1.9 % (0-5); Hematocrit 44.9 % (37-47); Hemoglobin 14.5 g/dL (12.0-15.0); Lymphocyte # 1.53 X10^3/ul (0.83-4.51); Mean Corp Hgb Conc 32.3 g/dL (32-36); Mean Corpuscular Hgb 27.9 pg (27.0-32.0); Mean Corpuscular Volume 86.5 fL (81-99); Mean Platelet Vol. 9.5 fl (6.2-12.0); Monocyte# 0.71 X10^3/uL; Monocyte% 10.2 % (0-10); NRBC Flagged by Analyzer 0 % (0-5); Neutrophil # 4.53 X10^3/uL (2.7-7.7); Neutrophil % 65.2 % (47-70); Platelet Count 337 K/mm3 (150-450); RBC Distribution Width CV 13.2 % (11.6-14.6); RBC Distribution Width SD 41.9 fl (35.1-43.9); Red Blood Count 5.19 M/mm3 (4.2-5.4)
[2021-09-22 11:26] LABS: ALB/GLOB Ratio 1.1 RATIO (0.9-2.4); AST(SGOT) 13 U/L (15-37); Alanine Aminotransfer ALT/SGPT 24 U/L (13-56); Albumin, Serum 3.7 g/dL (3.2-5.0); Alkaline Phosphatase 92 U/L (45-117); Anion Gap 2 (5-15); BUN 12 mg/dL (7-18); BUN/Creat Ratio 16.9 RATIO (10-20); Calcium,Total 8.8 mg/dL (8.5-10.1); Chloride 112 mmol/L (98-107); Cholesterol 135 mg/dL (200); Creatinine, Serum 0.71 mg/dL (0.55-1.02); EST Glomerular Filtration Rate 97 mL/min (>60); Est Glom Filt Rate - Afr Amer 117 mL/min (>60); Globulin 3.5 g/dL (2.2-4.2); Glucose 86 mg/dL (74-106); High Density Lipoprotein 54 mg/dL; Potassium 3.9 mmol/L (3.5-5.1); Protein, Total 7.2 g/dL (6.4-8.2); Sodium Level 141 mmol/L (136-145); Triglycerides 92 mg/dL; Very Low Density Lipoprotein 18 mg/dL (5-40)
== END 2021-09-22 23:59 | disposition short-term general hospital (02) ==
LOC: BIMLAB 10:27
PROVIDERS: PCP Internal Medicine; Referring Provider Internal Medicine; Visit Provider Internal Medicine
DX: I10 Essential (primary) hypertension (principal)
CPT/HCPCS: 36415; 80053; 80061; 85025

== ENCOUNTER 2021-10-02 07:11 | Outpatient (RCR) | payer MEDICAID, SELFPAY ==
--- NOTE | 2021-10-02 07:57 | HP.PTEVAL_ITS ---
Patient's Visit Information JOSE CARLOS HAIRSTON is a 40 year old F referred to Physical Therapy by Dr. Sacha Martínez MD with a diagnosis of R knee pain. Date of Evaluation: 10/02/21 Physical Therapist: Curtis Milligan, DPT, OCS, CSCS - Visit Plan Frequency: 2x /Week Duration: 4-6 Weeks Plan: 2x/week for 4-6 weeks for... 1. [place] and progress to HEP hip stab program and knee strength. 2. R quad/hip flexor rollout and stretch. 3. TENS and ice if needed. 4. Will consider knee brace for patellar stabs(pt t ask doctor for script) - Subjective I have issues with my right knee. R knee swells up and hurts. X ray showed mild OA. Wanted to try therapy before ortho. It has been hurting 2-3 years since she got . Not daily but worse with bad weather and activitiy. dislocates more the last couple months. Has h/o knee pain and dislocations when she was a teenager. It also has been broken in and has metal plate and 5 screws in 2002. Today 3/10 whole R knee. Usually 0 in am. Gets up to 7/10 if on it all day. Sleep is fine. Avoids hiking and fun stuff. Has 2 yo who is active. 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 Has 3 steps to get into house which are no problem. - Pain R knee Pain Intensity (Out of 10): 3 Pain Intensity Range: 0, 7 - Objective Walks normal this am and I. Trasnfers ced and bed I. Steps reciprocal without rail easily this am. patella moves well B but distal on R is painful. Full aROM B knees today with slight endrange flexion pain on R. R quad with hip extended much tighter than L. Full extension B knees. 0 ext lag with SLR. reflexes 2/3 patella and achilles B. [id number] LE WNL to gross light touch. Strength ankles 4+/5, knees 4/5 ext and flexion. Hips 4- abd, 4 flexion wbut opposite goes into deep IR, ext 4- B. Ext rotation 3+ and IR 4 B. No pain increase. - varus and valgus. - ant drawer. - post sag. - bounce home. slight positive patellar grind R vs L. - Balance/Special Test Scores Lower Extremity Functional Score: 73 - Goals Goal 1:: I approp HEP for hip stab and strength without increased pain Goal Time Frame: 4-6 Weeks Goal 2:: Pain in knee 0-2/10 at all times Goal Time Frame: 4-6 Weeks Goal 3:: Pt feel knee is 75% improved in pain and function at work. Goal Time Frame: 4-6 Weeks Goal 4:: LEFS 79/80 Goal Time Frame: 4-6 Weeks - Rehabilitation Potential Physical Therapy Diagnosis: R knee pain limiting function later in day with work. Rehabilitation Potential: Fair - Anticipated Interventions Patient/Client Instruction: Educate patient on: Condition, Plan of Care For the Purpose of:: To decrease pain, To improve muscle performance and motor function, To increase tolerance to activity/condition/position, To improve ability of physical actions for home/community/work/leisure Therapeutic Exercise to Include: Strength training, Flexibilty training For the Purpose of:: To decrease pain, To improve muscle performance and motor function, To increase tolerance to activity/condition/position Manual Therapy Techniques to Include: Soft tissue mobilization For the Purpose of:: To improve nutrient delivery to tissue Orthotics: Brace For the Purpose of:: To decrease pain TENS: Yes Cryotherapy (ice pack, ice massage): Yes For the Purpose of:: To decrease pain Thank you for the opportunity to evaluate your patient. For Medicare and Medicare HMO plans, please review the plan of care and approve it. It will need to be FAXED BACK to us at [phone] for Medicare purposes. For Medicare only, by signing this I certify the plan of care. Please let me know if there are questions or concerns regarding this plan of care. Physician Signature: Date:
--- NOTE | 2021-11-30 11:36 | HP.PT.NRP ---
JOSE CARLOS HAIRSTON was seen in my office for initial evaluation on 10/02/21. The following Plan of Care was established for this patient: Initial Frequency: 2x /Week Initial Duration: 4-6 Weeks Patient/Client Instruction: Educate patient on: Condition, Plan of Care For the Purpose of:: To decrease pain, To improve muscle performance and motor function, To increase tolerance to activity/condition/position, To improve ability of physical actions for home/community/work/leisure Therapeutic Exercise to Include: Strength training, Flexibilty training For the Purpose of:: To decrease pain, To improve muscle performance and motor function, To increase tolerance to activity/condition/position Manual Therapy Techniques to Include: Soft tissue mobilization For the Purpose of:: To improve nutrient delivery to tissue Orthotics: Brace For the Purpose of:: To decrease pain TENS: Yes Cryotherapy (ice pack, ice massage): Yes For the Purpose of:: To decrease pain This patient was last seen in our office 10/02/21. Pertinent comments regarding their Physical therapy will appear below: Pt seen for initial evaluation and approval for visits received. Pt did not return for therapy or return phone calls to schedule. At this point it has been two months and I will discontinue due to nonattendance. At this point I will be discontinuing this patient from physical therapy. I would be happy to see this patient again in the future if found appropriate by the physician. Thank you! Curtis Milligan, DPT, OCS, CSCS Balance/Gait/Functional tests - Balance/Special Test Scores Lower Extremity Functional Score: 73
== END 2021-10-02 19:00 | disposition home or self-care (01) ==
LOC: PT 07:11
PROVIDERS: PCP Internal Medicine; Referring Provider Internal Medicine; Visit Provider Internal Medicine
DX: M25.561 Pain in right knee (principal)
CPT/HCPCS: 97110; 97161

== ENCOUNTER 2021-12-25 12:31 | Emergency (ER) | payer MEDICAID, SELFPAY ==
[2021-12-25 12:32] VITALS: BP 127/93; PULSE 96; RESP 18; TEMP 36.3; O2SAT 99; BMI 23.1
--- NOTE | 2021-12-25 13:14 | EX.ED.DYSGE1 ---
HPI History of Present Illness Chief Complaint: Abd Pain Informant: patient Narrative Narrative: 41-year-old female presenting to the emergency department with vomiting and diarrhea. Symptoms began this morning. She notes significant abdominal discomfort. She states she had pancreatitis about 3 years ago has not had a reoccurrence. She states that she still has her gallbladder. She denies any known bad food exposure. No fever or rashes. No blood in the stool or the emesis PFSH [facility] Medical History Allergies Anxiety Asthma Back problem Breast lump Chronic bronchitis Chronic headaches GERD (gastroesophageal reflux disease) H/O emotional problems Hives Kidney stones Pancreatitis Polycystic ovarian disease Recurrent infections Right knee pain Seasonal allergies Tobacco abuse Tumors Vision problems Weight loss Home Medications montelukast 10 mg tablet 10 mg PO DAILY #90 tab 03/09/21 [Rx Last Taken Unknown] Saccharomyces boulardii 250 mg capsule 250 mg PO BID 09/22/21 [History Last Taken Unknown] ProAir HFA 90 mcg/actuation aerosol inhaler 1 - 2 puff INHALATION Q6H PRN #8.5 g NS 09/28/21 [Rx Last Taken Unknown] dicyclomine 20 mg PO TIDAC #20 capsule 12/25/21 [Rx Last Taken Unknown] hydrocodone-acetaminophen 1 tab PO Q6H PRN PRN 3 Days #12 tablet 12/25/21 [Rx Last Taken Unknown] ondansetron 4 mg PO Q6H PRN PRN #15 tab 12/25/21 [Rx Last Taken Unknown] Allergy/AdvReac Type Severity Reaction Status Date / Time aloe vera Allergy Rash Verified 12/25/21 12:33 aspirin [ASA] AdvReac Upset Verified 12/25/21 12:33 Stomach Family History Father Anemia Anxiety Arthritis Blood clot in vein Depression Diabetes Heart disease CVA (cerebral vascular accident) Kidney disease Mother Anxiety Asthma Arthritis Depression Hypertension Severe allergy Grandfather Arthritis Brain aneurysm Leukemia Grandmother Arthritis Hypertension CVA (cerebral vascular accident) Grandfather Arthritis Respiratory disease Grandmother Arthritis Kidney disease Surgical History History of History of esophagogastroduodenoscopy (EGD) History of knee surgery History of needle biopsy history of salivary gland removal Social History Smoking Status: Current every day smoker tobacco type: cigarettes alcohol intake: never substance use type: does not use what type of physical activity do you participate in: none ROS ROS ED Constitutional Constitutional ED: Denies chills, fever(s) or weight loss Eyes Eyes: Denies change in vision or diplopia ENT ENT ED: Denies ear pain, rhinorrhea or sore throat Cardiovascular Cardiovascular: Denies chest pain, orthopnea, palpitations or racing heartbeat Respiratory/Chest Respiratory/Chest: Denies cough, dyspnea or orthopnea Gastrointestinal Gastrointestinal: Reports abdominal pain, diarrhea, nausea and vomiting Genitourinary Genitourinary ED: Denies dysuria, hematuria or urinary frequency Musculoskeletal Musculoskeletal: Denies arthralgias or myalgias Integumentary Denies abscess or rash Neurologic Neurologic: Denies headache(s) or weakness Psychiatric Psychiatric: Denies anxiety, depression, suicidal ideation or suicidal thoughts Endocrine Endocrinology: Denies polydipsia, polyphagia or polyuria Allergic/Immunologic Allergic/Immunologic ED: Denies mouth swelling, tongue swelling or urticaria EXAM Physical Exam Const Vital Signs: 12/25/21 12:32 12/25/21 14:40 12/25/21 15:35 Temperature 97.3 F L Temperature Source Temporal Pulse Rate 96 82 Respiratory Rate 18 16 Blood Pressure 127/93 H 113/84 H 117/75 Blood Pressure Mean 104 93 Pulse Ox 99 100 99 Oxygen Delivery Method Room Air Room Air Positive well nourished and well developed General Appearance ED: well developed HEENT Reports normocephalic, head/scalp atraumatic, TM's clear and moist mucous membranes Negative for trauma Tympanic Membrane ED: Yes TM's clear Eyes PERRL and EOMs intact bilaterally Neck no lymphadenopathy, supple and no JVD Resp normal respiratory effort and clear to auscultation bilaterally Cardio regular rate, regular rhythm and no murmurs GI Palpation: soft, tender and guarding; Negative for rebound tenderness present Back/Spine no CVA tenderness and normal ROM Extremity normal to inspection General Extremety ED: Negative for edema General Extremity: Negative for edema Neuro oriented x3 and CN's II-XII intact bilaterally Sensorium / Orientation: alert Motor Exam: strength 5/5 throughout Psych mental status grossly normal Mood & Affect: Negative for depressed or tearful Skin no rashes or lesions noted and no wounds MDM MDM MDM Narrative Medical decision making narrative: Basic blood work showed a white count of 9.9. Lipase was 87 with an amylase of 54. CO2 of 22 gap of 4. test was negative. Urinalysis with 25-50 white cells but no bacteria negative nitrates. And she is asymptomatic from a urinary standpoint. Patient received IV fluids morphine Zofran Bentyl. Patient most likely has a viral gastroenteritis. Patient to be discharged home with Bentyl Zofran and a few [place]. Follow-up with primary care Imodium as needed Lab Data Attestation: I reviewed the patient's lab results. Labs: Laboratory Results - last 24 hr 12/25/21 12/25/21 12/25/21 13:22 13:22 13:22 WBC 9.9 RBC 5.64 H Hgb 15.4 H Hct 48.0 H MCV 85.1 MCH 27.3 MCHC 32.1 RDW Std Deviation 43.8 RDW Coeff of Alfonso 14.2 Plt Count 332 MPV 9.4 Immature Gran % (Auto) 0.400 Neut % (Auto) 81.1 H Lymph % (Auto) 12.3 L Martin % (Auto) 5.3 Eos % (Auto) 0.7 Baso % (Auto) 0.2 Absolute Neuts (auto) 8.1 H Absolute Lymphs (auto) 1.22 Nucleated RBC % 0 Sodium 140 Potassium 3.9 Chloride 114 H Carbon Dioxide 22.0 Anion Gap 4 L BUN 10 Creatinine 0.66 Estim Creat Clear Calc 97.84 Est GFR (MDRD) Af Amer 126 Est GFR (MDRD) Non-Af 104 BUN/Creatinine Ratio 15.0 Glucose 99 Calcium 8.8 Total Bilirubin 1.00 AST 11 L ALT 28 Alkaline Phosphatase 95 Total Protein 7.8 Albumin 3.9 Globulin 3.9 Albumin/Globulin Ratio 1.0 Amylase 54 Lipase 87 Serum , Qual NEGATIVE Urine Color Urine Clarity Urine pH Ur Specific [place] Urine Protein Urine Glucose (UA) Urine Ketones Urine Occult Blood Urine Nitrite Urine Bilirubin Urine Urobilinogen Ur Leukocyte Esterase Urine RBC Urine WBC Ur Squamous Epith Cells Urine Bacteria Urine Mucus 12/25/21 13:30 WBC RBC Hgb Hct MCV MCH MCHC RDW Std Deviation RDW Coeff of Alfonso Plt Count MPV Immature Gran % (Auto) Neut % (Auto) Lymph % (Auto) Martin % (Auto) Eos % (Auto) Baso % (Auto) Absolute Neuts (auto) Absolute Lymphs (auto) Nucleated RBC % Sodium Potassium Chloride Carbon Dioxide Anion Gap BUN Creatinine Estim Creat Clear Calc Est GFR (MDRD) Af Amer Est GFR (MDRD) Non-Af BUN/Creatinine Ratio Glucose Calcium Total Bilirubin AST ALT Alkaline Phosphatase Total Protein Albumin Globulin Albumin/Globulin Ratio Amylase Lipase Serum , Qual Urine Color Yellow Urine Clarity Clear Urine pH 6.0 Ur Specific [place] 1.010 Urine Protein Negative Urine Glucose (UA) Normal Urine Ketones Negative Urine Occult Blood 50 H Urine Nitrite Negative Urine Bilirubin Negative Urine Urobilinogen Normal Ur Leukocyte Esterase 500 H Urine RBC 0-5 SEEN Urine WBC 25-50 SEEN Ur Squamous Epith Cells 0-5 SEEN Urine Bacteria 0 SEEN Urine Mucus 0 SEEN Discharge Plan Triage Chief Complaint: Abd Pain ED Provider: Sarwat Marin Dx/Rx/DC Orders Clinical Impression: Gastroenteritis, Abdominal pain Instructions: ED Gastroenteritis, Viral (Adult) Prescriptions: New hydrocodone-acetaminophen [hydrocodone-acetaminophen] 1 TABLET tablet 1 tab PO Q6H PRN PRN (Reason: Pain) 3 Days Qty: 12 RF: 0 dicyclomine 10 MG capsule 20 mg PO TIDAC Qty: 20 RF: 0 ondansetron [ondansetron] 4 MG tablet 4 mg PO Q6H PRN PRN (Reason: Nausea) Qty: 15 RF: 0 No Action montelukast [Singulair] 10 mg tablet 10 mg PO DAILY Qty: 90 RF: 3 Saccharomyces boulardii [Daily Probiotic (S. boulardii)] 250 mg capsule 250 mg PO BID RF: 0 albuterol sulfate [ProAir HFA] 90 mcg/actuation HFA aerosol inhaler 1 - 2 puff INHALATION Q6H PRN (Reason: shortness of breath or wheezing) Qty: 8.5 RF: 3 Primary Care Provider: Sacha Martínez Referrals: Sacha Martínez MD [Primary Care Provider] - As Needed Disposition Disposition: Home, Self Care
[2021-12-25] MEDS: Ondansetron 4 MG/2 ML Vial IV (13:28)
[2021-12-25] MEDS: 0.9% Normal Saline 1,000 ML 1000 ML IV (13:28)
[2021-12-25] MEDS: Morphine 4 MG/ML Syringe IV ×2 (13:28→14:36)
[2021-12-25 13:42] LABS: Bacteria 0 SEEN /hpf (None Seen); Mucous, Urine 0 SEEN /hpf (<or=2+)
[2021-12-25 13:44] LABS: Absolute Lymphocyte Count 1.22 X10^3/uL (0.83-4.51); Absolute Neutrophil Count 8.1 X10^3/uL (2.0-7.7); Basophil# 0.02 X10^3/uL; Basophil% 0.2 % (0-1); Eosinophil# 0.07 X10^3/uL; Eosinophils% 0.7 % (0-5); Hemoglobin 15.4 g/dL (12.0-15.0); Lymphocyte # 1.22 X10^3/ul (0.83-4.51); Lymphocyte % 12.3 % (19-41); Mean Corp Hgb Conc 32.1 g/dL (32-36); Mean Corpuscular Hgb 27.3 pg (27.0-32.0); Mean Corpuscular Volume 85.1 fL (81-99); Mean Platelet Vol. 9.4 fl (6.2-12.0); Monocyte# 0.53 X10^3/uL; Monocyte% 5.3 % (0-10); NRBC Flagged by Analyzer 0 % (0-5); Neutrophil # 8.06 X10^3/uL (2.7-7.7); Neutrophil % 81.1 % (47-70); Platelet Count 332 K/mm3 (150-450); RBC Distribution Width CV 14.2 % (11.6-14.6); RBC Distribution Width SD 43.8 fl (35.1-43.9); Red Blood Count 5.64 M/mm3 (4.2-5.4); White Blood Count 9.9 K/mm3 (4.4-11.0)
[2021-12-25 13:51] LABS: AST(SGOT) 11 U/L (15-37); Alanine Aminotransfer ALT/SGPT 28 U/L (13-56); Albumin, Serum 3.9 g/dL (3.2-5.0); Alkaline Phosphatase 95 U/L (45-117); Amylase 54 U/L (25-115); Anion Gap 4 (5-15); BUN 10 mg/dL (7-18); Calcium,Total 8.8 mg/dL (8.5-10.1); Chloride 114 mmol/L (98-107); Creatinine, Serum 0.66 mg/dL (0.55-1.02); EST Glomerular Filtration Rate 104 mL/min (>60); Est Glom Filt Rate - Afr Amer 126 mL/min (>60); Estimated Creatinine Clearance 97.84 ml/min; Globulin 3.9 g/dL (2.2-4.2); Glucose 99 mg/dL (74-106); Lipase 87 U/L (73-393); Potassium 3.9 mmol/L (3.5-5.1); Protein, Total 7.8 g/dL (6.4-8.2); Sodium Level 140 mmol/L (136-145)
[2021-12-25 14:05] LABS: Color, Urine Yellow (Yellow); Glucose, Dipstick Normal (Normal); Ketone-Dipstick Negative (Negative); Leukocyte Esterase-Dipstick 500 /ul (Negative); Nitrite-Dipstick Negative (Negative); Occult Blood-Urine 50 /ul (Negative); Protein-Dipstick Negative (Negative); Urine Bilirubin Dipstick Negative (Negative); Urine Clarity Clear (Clear); Urine Urobilinogen Normal (Normal)
[2021-12-25 14:17] LABS: Internal QC Validated? YES +Cl - CLEAR BKGD; Pregnancy, Serum, hCG Quali. NEGATIVE Negative
[2021-12-25 14:18] LABS: Red Blood Cells-Urine 0-5 SEEN /hpf (0-5); Squamous Epithelial Cells - UA 0-5 SEEN /hpf (5-10); White Blood Cells 25-50 SEEN /hpf (0-5)
[2021-12-25] MEDS: Dicyclomine 10 MG Capsule 20 MG PO (14:36)
[2021-12-25 14:40] VITALS: BP 113/84; PULSE 82; RESP 16; O2SAT 100
[2021-12-25 15:35] VITALS: BP 117/75; O2SAT 99
== END 2021-12-25 15:41 | disposition home or self-care (01) ==
PROVIDERS: Emergency Provider Emergency Medicine; PCP Internal Medicine; Visit Provider Emergency Medicine
DX: K52.9 Noninfective gastroenteritis and colitis, unspecified (principal); F17.210 Nicotine dependence, cigarettes, uncomplicated
CPT/HCPCS: 80053; 81001; 82150; 83690; 84703; 85025; 96361; 96374; 96375; 96376; 99283; A4216; J2405

== ENCOUNTER 2022-02-22 17:49 | Emergency (ER) | payer MEDICAID, SELFPAY ==
[2022-02-22 17:50] VITALS: BP 123/95; PULSE 106; RESP 16; TEMP 36.9; BMI 21.8
--- NOTE | 2022-02-22 18:00 | EDS_ITS ---
HPI History of Present Illness Chief Complaint: Rash Informant: patient Narrative Narrative: Patient states that she has been contact dermatitis due to probable poison pari. She was seen at outside medical facility and prescribed prednisone. She is been taking 40 mg for the past 2 days but states that it continues to spread and is now on her face and chest. She states that she is very sensitive to poison pari. No difficulty breathing. [facility] Medical History Allergies Anxiety Asthma Back problem Breast lump Chronic bronchitis Chronic headaches GERD (gastroesophageal reflux disease) H/O emotional problems Hives Kidney stones Pancreatitis Poison pari Polycystic ovarian disease Recurrent infections Right knee pain Seasonal allergies Tobacco abuse Tumors Vision problems Weight loss Home Medications montelukast 10 mg tablet (Singulair) 10 mg PO DAILY #90 tabs 03/09/21 [Rx Last Taken Unknown] Saccharomyces boulardii 250 mg capsule (Daily Probiotic (S. boulardii)) 250 mg PO BID 09/22/21 [History Last Taken Unknown] ProAir HFA 90 mcg/actuation aerosol inhaler (albuterol sulfate) 1 - 2 puff inhalation Q6H PRN shortness of breath or wheezing #8.5 grams 09/28/21 [Rx Last Taken Unknown] dicyclomine 10 mg capsule 20 mg PO TIDAC #20 CAPSULES 12/25/21 [Rx Last Taken Unknown] hydrocodone-acetaminophen 5-325mg 5mg-325mg 1 tab PO Q6H PRN PRN Pain 3 days #12 TABLETS 12/25/21 [Rx Last Taken Unknown] ondansetron 4 mg disintegrating tablet 4 mg PO Q6H PRN PRN Nausea #15 tabs 12/25/21 [Rx Last Taken Unknown] prednisone 10 mg tablet 10 mg PO QDAY 12 days #30 tabs 02/19/22 [Rx Last Taken Unknown] prednisone 20 mg tablet See Rx Instructions .Route .COMPLEX #24 TABLETS 02/22/22 [Rx Last Taken Unknown] Allergy/AdvReac Type Severity Reaction Status Date / Time aloe vera Allergy Rash Verified 12/25/21 12:33 aspirin [ASA] AdvReac Upset Verified 12/25/21 12:33 Stomach Family History Father Anemia Anxiety Arthritis Blood clot in vein Depression Diabetes Heart disease CVA (cerebral vascular accident) Kidney disease Mother Anxiety Asthma Arthritis Depression Hypertension Severe allergy Grandfather Arthritis Brain aneurysm Leukemia Grandmother Arthritis Hypertension CVA (cerebral vascular accident) Grandfather Arthritis Respiratory disease Grandmother Arthritis Kidney disease Surgical History History of History of esophagogastroduodenoscopy (EGD) History of knee surgery History of needle biopsy history of salivary gland removal Social History Smoking Status: Current every day smoker tobacco type: cigarettes alcohol intake: never substance use type: does not use what type of physical activity do you participate in: none ROS ROS ED Constitutional Constitutional ED: Denies chills or weight loss Eyes Eyes: Denies change in vision or diplopia ENT ENT ED: Denies ear pain, rhinorrhea or sore throat Cardiovascular Cardiovascular: Denies chest pain, orthopnea, palpitations or racing heartbeat Respiratory/Chest Respiratory/Chest: Denies cough, dyspnea or orthopnea Gastrointestinal Gastrointestinal: Denies abdominal pain, diarrhea, nausea or vomiting Genitourinary Genitourinary ED: Denies dysuria, hematuria or urinary frequency Musculoskeletal Musculoskeletal: Denies arthralgias or myalgias Integumentary Reports rash; Denies abscess Neurologic Neurologic: Denies headache(s) or weakness Psychiatric Psychiatric: Denies anxiety, depression, suicidal ideation or suicidal thoughts Endocrine Endocrinology: Denies polydipsia, polyphagia or polyuria Allergic/Immunologic Allergic/Immunologic ED: Denies mouth swelling, tongue swelling or urticaria EXAM Physical Exam Const Vital Signs: 02/22/22 17:50 02/22/22 17:50 Temperature 98.4 F 98.4 F Temperature Source Temporal Temporal Pulse Rate 106 H 106 H Respiratory Rate 16 16 Blood Pressure 123/95 H 123/95 H Blood Pressure Mean 104 104 Positive well nourished and well developed General Appearance ED: well developed HEENT Reports normocephalic, head/scalp atraumatic and moist mucous membranes Eyes PERRL and EOMs intact bilaterally Neck no lymphadenopathy, supple and no JVD Resp normal respiratory effort and clear to auscultation bilaterally Cardio regular rate, regular rhythm and no murmurs GI normal to inspection, nondistended, normoactive bowel sounds and non-tender Palpation: soft Back/Spine no CVA tenderness and normal ROM Extremity normal to inspection General Extremety ED: Negative for edema General Extremity: Negative for edema Neuro oriented x3 and CN's II-XII intact bilaterally Sensorium / Orientation: alert Motor Exam: strength 5/5 throughout Psych mental status grossly normal Mood & Affect: Negative for depressed or tearful Skin no wounds Skin Narrative: Patient has evidence of contact dermatitis on the face chest and arms. MDM MDM MDM Narrative Medical decision making narrative: Patient will be given a dose of Kenalog and we will start her on higher dose prednisone. Discharge Plan Triage Chief Complaint: Rash ED Provider: Sarwat Marin Dx/Rx/DC Orders Clinical Impression: Contact dermatitis Instructions: ED Poison Pari Rash Prescriptions: New prednisone 20 MG tablet See Rx Instructions .ROUTE .COMPLEX Qty: 24 0RF Rx Instructions: 3 tabs p.o. daily days 1 through 4, then 2 tabs p.o. daily days 5 through 8, then 1 tab p.o. daily day 9 through 12 No Action montelukast [Singulair] 10 mg tablet 10 mg PO DAILY Qty: 90 3RF Saccharomyces boulardii [Daily Probiotic (S. boulardii)] 250 mg capsule 250 mg PO BID prednisone 10 mg tablet 10 mg PO QDAY 12 Days Qty: 30 0RF Rx Instructions: Take 4 tabs once daily days 1-3 3 tabs once daily days 4-6 2 tabs once daily days 7-9 and 1 tab once daily days 10-12. hydrocodone-acetaminophen [hydrocodone-acetaminophen] 1 TABLET tablet 1 tab PO Q6H PRN PRN (Reason: Pain) 3 Days Qty: 12 0RF dicyclomine 10 MG capsule 20 mg PO TIDAC Qty: 20 0RF ondansetron [ondansetron] 4 MG tablet 4 mg PO Q6H PRN PRN (Reason: Nausea) Qty: 15 0RF albuterol sulfate [ProAir HFA] 90 mcg/actuation HFA aerosol inhaler 1 - 2 puff INHALATION Q6H PRN (Reason: shortness of breath or wheezing) Qty: 8.5 3RF Primary Care Provider: Sacha Martínez Referrals: Sacha Martínez MD [Primary Care Provider] - As Needed Activity Restrictions/Additional Instructions: Ideally we would want to use prednisone 60 mg daily day 1 through 4 Then 40 mg day 5 through 8 then 20 mg day 9 through 12. Since you have 10 mg tablets I have written this standardized prednisone plan for you out and you can use the combination of the new prednisone or the old prednisone tablets to complete the course but you will have leftover pills. Disposition Disposition: Home, Self Care
[2022-02-22] MEDS: Triamcinolone Acetonide 40 MG/ML Vial 80 MG IM (18:05)
== END 2022-02-22 18:28 | disposition home or self-care (01) ==
LOC: ED 18:12
PROVIDERS: Emergency Provider Emergency Medicine; PCP Internal Medicine; Visit Provider Emergency Medicine
DX: L23.7 Allergic contact dermatitis due to plants, except food (principal); F17.210 Nicotine dependence, cigarettes, uncomplicated
CPT/HCPCS: 96372; 99282

== ENCOUNTER → 2022-04-03 | Outpatient (CLI) | payer MEDICAID, SELFPAY ==
--- NOTE | 2022-04-03 07:23 | MRI_ITS ---
STUDY: MRI ABDOMEN WITH AND WITHOUT CONTRAST REASON FOR EXAM: Female, 41 years old. Liver Masses. Focal nodular hyperplasia TECHNIQUE: Standardized fat and water weighted pulse sequences were obtained in all 3 orthogonal planes post contrast administration. IV contrast (type and volume not documented by technologist) was administered for the contrast portion of the examination. COMPARISON: 02/14/2021 FINDINGS: Visualized lung bases are unremarkable. Multiple slightly hypointense T1 and hyperintense T2 signal intensity masses in the left and right hepatic lobes are redemonstrated. The largest mass is in the right hepatic lobe measuring 5.0 x 6.4 cm, not significantly changed. Hypointense capsule identified abdominal left and right hepatic lesions. Postcontrast imaging again demonstrates early arterial enhancement with lesions becoming inconspicuous on venous and delayed images. One of the lesions in the anterior left hepatic lobe demonstrates fibrotic scar with contrast retention on delayed images, typical of FNH. There are also 2 subcentimeter lesions in the anterior right hepatic lobe on image [id number] of series 1001 with imaging pattern typical of hemangiomata. No new lesion is identified. Normal gallbladder and extrahepatic biliary system. Normal spleen. Normal pancreas. Normal bilateral adrenal glands. No hydronephrosis. Nonenhancing simple cysts of the left kidney (Bosniak I). No required imaging follow-up needed given high likelihood of benign nature. Visualized hollow viscus structures are unremarkable. Normal abdominal aorta. Normal inferior vena cava. Normal retroperitoneum. Normal abdominal wall. Normal osseous structures. MRI/MRI Abd WITH and W/O Contrast IMPRESSION: 1. Stable multifocal typical focal nodular hyperplasia (FNH) of the liver. Lesions are considered benign with no imaging follow-up recommendations; recommend follow-up according to clinical guidelines. 2. Subcentimeter hemangiomata of the right hepatic lobe, stable. 3. No suspicious or enlarging hepatic mass. Electronically Signed: Leandro Salazar MD ([place]) at 15:32 EDT ,
== END | disposition home or self-care (01) ==
LOC: MRI 07:23
PROVIDERS: PCP Internal Medicine; Referring Provider Internal Medicine; Visit Provider Internal Medicine
DX: K76.89 Other specified diseases of liver (principal); D13.4 Benign neoplasm of liver
CPT/HCPCS: 74183; A9575; A4216

== ENCOUNTER → 2022-04-06 | Outpatient (CLI) | payer MEDICAID, SELFPAY ==
--- NOTE | 2022-04-06 10:13 | BI_ITS ---
MAMMOGRAPHY - BILATERAL SCREENING REASON FOR EXAM: Female, 41 years old. Routine annual screening examination. PERTINENT HISTORY: Non-contributory. Remote left needle biopsy. TECHNIQUE: Digital bilateral breast evans (3D mammographic acquisition) in the CC and MLO projections. 2-D mediolateral oblique (MLO) and craniocaudad (CC) views of both breasts were obtained. CAD: Full Field Digital Mammography with Computer Added Detection was performed. COMPARISON: No comparison mammograms available at this time. If any prior films become available, an addendum to this report can be generated. FINDINGS: Breast Composition: The breasts are extremely dense, which lowers the sensitivity of mammography. There are no dominant masses or suspicious calcifications. No other significant abnormalities are identified. BI/SCRN MAMM (CAD)W/EVANS BILAT IMPRESSION: Negative screening mammogram. Yearly followup mammogram recommended. (A) ASSESSMENT CATEGORY: BIRADS Category 1: Negative. A letter regarding these results will be sent to the patient by the facility within 30 days. Approximately 10% of breast cancers are not detected by mammography. A normal mammogram should not delay biopsy of a clinically suspicious abnormality. [id number] Electronically Signed: Antonio Clark MD at 12:13 EDT ,
== END | disposition home or self-care (01) ==
LOC: OPBI 10:12
PROVIDERS: PCP Internal Medicine; Visit Provider Internal Medicine
DX: Z12.31 Encounter for screening mammogram for malignant neoplasm of breast (principal)
CPT/HCPCS: 77063; 77067

== ENCOUNTER 2022-04-13 15:30 | Outpatient (RCR) | payer MEDICAID, SELFPAY ==
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
--- NOTE | 2022-07-11 09:52 | HP.PT.NRP ---
JOSE CARLOS HAIRSTON was seen in my office for initial evaluation on 01/29/22. The following Plan of Care was established for this patient: Initial Frequency: 2x /Week Initial Duration: 4 Weeks Patient/Client Instruction: Educate patient on: Benefits of Fitness Program Therapeutic Exercise to Include: Strength training, Endurance training, Balance training, Coordination, Agility training, Body mechanics, Postural training, Flexibilty training, Gait and locomotor training, Neuromotor development, In an aquatic setting, Passive ROM, Active ROM, Dynamic Lumbar Stabilization, Scapular Strength/Stabilization For the Purpose of:: To improve muscle performance and motor function This patient was last seen in our office . Pertinent comments regarding their Physical therapy will appear below: Patient has not attended PT in over 30 days appropriate for d/c and return to MD for further evaluation PRN At this point I will be discontinuing this patient from physical therapy. I would be happy to see this patient again in the future if found appropriate by the physician. Thank you! Jana Genao DPT Balance/Gait/Functional tests - Balance/Special Test Scores Lower Extremity Functional Score: 77 Tug Test: <10 sec.=free mobile
== END 2022-04-13 19:00 | disposition home or self-care (01) ==
LOC: PT 15:30
PROVIDERS: PCP Internal Medicine; Referring Provider Internal Medicine; Visit Provider Internal Medicine
DX: M25.561 Pain in right knee (principal)
CPT/HCPCS: 97113; 97161

== ENCOUNTER 2022-04-20 05:12 | Emergency (ER) | payer MEDICAID, SELFPAY ==
[2022-04-20 05:12] VITALS: BP 126/88; PULSE 93; RESP 18; TEMP 36.9; O2SAT 97; BMI 22.4
--- NOTE | 2022-04-20 05:19 | EDS_ITS ---
HPI History of Present Illness Chief Complaint: Complaint Detail of Chief Complaint: hematuria Informant: patient Onset/Context/Timing Onset: Today Context: Sudden Onset (when urinated this AM) Timing: Continuous Quality: burning Location: suprapubic Current Severity: Moderate Maximum Severity: Moderate Worsened by: urinating Relieved by: nothing Associated Symptoms Associated Symptoms: hematuria w/ a few clots; left flank pain; nausea Narrative Narrative: Patient states she started having dysuria, burning suprapubic pain, hematuria this morning just prior to coming into the ER. She has had nausea for 3 weeks, she states that she has annual abdominal MRI is in order to follow noncancerous masses in her liver, and the contrast often makes her nauseated, she is not sure if it was related to that or not it was done 2 or 3 weeks ago. She states for longer than that, she has been having intermittent pain in her left flank without associated urinary symptoms at the time or vomiting. She states that for the past 2 months she has had abnormal menstrual cycles; she had a normal cycle and then only went 3 days or so without bleeding and then has bled heavily for 3 weeks, that stopped 2 days ago. She has felt a little malaised but not had any lightheadedness or dyspnea with exertion. No abrupt onset of pains. No fevers or chills. No vomiting. [facility] Medical History Allergies Anxiety Asthma Back problem Breast lump Chronic bronchitis Chronic headaches Contact dermatitis due to poison oak Contact dermatitis due to poison [place] Focal nodular hyperplasia of liver Generalized anxiety disorder with panic attacks GERD (gastroesophageal reflux disease) H/O emotional problems Hives Kidney stones Oral thrush Pancreatitis Poison taylor Polycystic ovarian disease Recurrent infections Right knee pain Seasonal allergies Tobacco abuse Tumors Vision problems Weight loss Home Medications montelukast 10 mg tablet (Singulair) 10 mg PO DAILY #90 tabs 03/09/21 [Rx Last Taken Unknown] Saccharomyces boulardii 250 mg capsule (Daily Probiotic (S. boulardii)) 250 mg PO BID 09/22/21 [History Last Taken Unknown] ProAir HFA 90 mcg/actuation aerosol inhaler (albuterol sulfate) 1 - 2 puff inhalation Q6H PRN shortness of breath or wheezing #8.5 grams 09/28/21 [Rx Last Taken Unknown] hydrocodone-acetaminophen 5-325mg 5mg-325mg 1 tab PO Q6H PRN PRN Pain 3 days #12 TABLETS 12/25/21 [Rx Last Taken Unknown] fluoxetine 20 mg capsule 20 mg PO DAILY #30 caps 03/23/22 [Rx Last Taken Unknown] hydroxyzine HCl 50 mg tablet 50 mg PO TID PRN anxiety #90 tabs 03/23/22 [Rx Last Taken Unknown] fluconazole 150 mg tablet 150 mg PO .once #1 TAB 04/20/22 [Rx Last Taken Unknown] phenazopyridine 200 mg tablet (Pyridium) 200 mg PO TID #10 tabs 04/20/22 [Rx Last Taken Unknown] sulfamethoxazole 800 mg-trimethoprim 160 mg tablet 1 tab PO BID #20 TABLETS 04/20/22 [Rx Last Taken Unknown] Allergy/AdvReac Type Severity Reaction Status Date / Time aloe vera Allergy Rash Verified 04/20/22 05:15 aspirin [ASA] AdvReac Upset Verified 04/20/22 05:15 Stomach Family History Father Anemia Anxiety Arthritis Blood clot in vein Depression Diabetes Heart disease CVA (cerebral vascular accident) Kidney disease Mother Anxiety Asthma Arthritis Depression Hypertension Severe allergy Grandfather Arthritis Brain aneurysm Leukemia Grandmother Arthritis Hypertension CVA (cerebral vascular accident) Grandfather Arthritis Respiratory disease Grandmother Arthritis Kidney disease Surgical History History of History of esophagogastroduodenoscopy (EGD) History of knee surgery History of needle biopsy history of salivary gland removal Social History Smoking Status: Current every day smoker tobacco type: cigarettes alcohol intake: never substance use type: does not use what type of physical activity do you participate in: none ROS ROS ED Constitutional Constitutional ED: Denies chills or fever(s) Eyes Eyes: Denies change in vision or diplopia ENT ENT ED: Denies rhinorrhea or sore throat Cardiovascular Cardiovascular: Denies chest pain or palpitations Respiratory/Chest Respiratory/Chest: Denies cough or dyspnea Gastrointestinal Gastrointestinal: Reports abdominal pain and nausea; Denies diarrhea or vomiting Genitourinary Genitourinary ED: Reports as per HPI, dysuria, flank pain and hematuria Musculoskeletal Musculoskeletal: Reports back pain; Denies neck pain Integumentary Denies abscess or rash Neurologic Neurologic: Denies headache(s), paresthesias or weakness Psychiatric Psychiatric: Reports anxiety; Denies suicidal thoughts EXAM Physical Exam Const Vital Signs: 04/20/22 05:12 Temperature 98.5 F Temperature Source Temporal Pulse Rate 93 Respiratory Rate 18 Blood Pressure 126/88 H Blood Pressure Mean 100 Pulse Ox 97 Oxygen Delivery Method Room Air Positive well nourished and well developed General Appearance ED: well developed and NAD HEENT Reports moist mucous membranes normocephalic and atraumatic Eyes PERRL and EOMs intact bilaterally Neck full ROM and supple Resp normal respiratory effort and clear to auscultation bilaterally Cardio regular rate, regular rhythm and no murmurs GI non-tender and non-distended Auscultation: normoactive bowel sounds Palpation: soft Back/Spine no CVA tenderness General Back: other FROM Extremity normal to inspection General Extremety ED: Negative for edema, pulses abnormal or tenderness General Extremity: Negative for edema or pulses abnormal Neuro oriented x3, CN's II-XII intact bilaterally, no sensory deficits noted and gait normal Sensorium / Orientation: awake and alert Motor Exam: strength 5/5 throughout Skin no rashes or lesions noted and no wounds MDM MDM MDM Narrative Medical decision making narrative: Urinalysis and were obtained, the is negative, the urinalysis is significantly positive for infection. Culture was sent, she was started on Bactrim and since she has been having lots of flank pain and nausea, I am extending her course to 10 days to cover against the possibility of an upper tract involvement. She has normal vital signs, and no significant symptoms of dangerous anemia, so with regards to the menorrhagia that is now resolved, she can follow-up. She was asking for a prescription for Diflucan due to getting yeast infections with antibiotics in the past. Lab Data Attestation: I reviewed the patient's lab results. Labs: Laboratory Results - last 24 hr 04/20/22 04/20/22 05:22 05:22 Urine Color Yellow Urine Clarity Cloudy Urine pH 6.0 Ur Specific [place] 1.015 Urine Protein 100 H Urine Glucose (UA) Normal Urine Ketones Negative Urine Occult Blood 250 H Urine Nitrite Negative Urine Bilirubin Negative Urine Urobilinogen 1 H Ur Leukocyte Esterase 500 H Urine RBC > 100 SEEN Urine WBC >100 SEEN Ur Squamous Epith Cells 0-5 SEEN Urine Bacteria 3+ Urine Mucus 0 SEEN Urine Test Negative Discharge Plan Triage Chief Complaint: Complaint ED Provider: Kamran Kamara Dx/Rx/DC Orders Clinical Impression: Acute hemorrhagic cystitis, Left flank pain, Menorrhagia Instructions: ED Cystitis Female Adult Prescriptions: New phenazopyridine [Pyridium] 200 mg tablet 200 mg PO TID Qty: 10 0RF sulfamethoxazole-trimethoprim [sulfamethoxazole-trimethoprim] 800-160 mg tablet 1 tab PO BID Qty: 20 0RF fluconazole 150 mg tablet 150 mg PO .once Qty: 1 0RF Continued montelukast [Singulair] 10 mg tablet 10 mg PO DAILY Qty: 90 3RF Saccharomyces boulardii [Daily Probiotic (S. boulardii)] 250 mg capsule 250 mg PO BID fluoxetine 20 mg capsule 20 mg PO DAILY Qty: 30 2RF hydrocodone-acetaminophen 1 TABLET tablet 1 tab PO Q6H PRN PRN (Reason: Pain) 3 Days Qty: 12 0RF albuterol sulfate [ProAir HFA] 90 mcg/actuation HFA aerosol inhaler 1 - 2 puff INHALATION Q6H PRN (Reason: shortness of breath or wheezing) Qty: 8.5 3RF Held hydroxyzine HCl 50 mg tablet 50 mg PO TID PRN (Reason: anxiety) Qty: 90 1RF Hold Instructions: Resume on 04/27/22. if you take the yeast infection prevention pill Primary Care Provider: Sacha Martínez Referrals: Sacha Martínez MD [Primary Care Provider] - 3-5 Days if not improving Disposition Disposition: Home, Self Care
[2022-04-20 05:27] LABS: Mucous, Urine 0 SEEN /hpf (<or=2+)
[2022-04-20 05:29] LABS: Color, Urine Yellow (Yellow); Glucose, Dipstick Normal (Normal); Ketone-Dipstick Negative (Negative); Leukocyte Esterase-Dipstick 500 /ul (Negative); Nitrite-Dipstick Negative (Negative); Occult Blood-Urine 250 /ul (Negative); Protein-Dipstick 100 mg/dl (Negative); Specific Gravity, Urine 1.015 (1.002-1.030); Urine Bilirubin Dipstick Negative (Negative); Urine Clarity Cloudy (Clear); Urine Urobilinogen 1 mg/dl (Normal)
[2022-04-20 05:40] LABS: Bacteria 3+ /hpf (None Seen); Internal QC Validated? YES +Cl - CLEAR BKGD; Pregnancy, Urine Negative Negative; Red Blood Cells-Urine > 100 SEEN /hpf (0-5); Squamous Epithelial Cells - UA 0-5 SEEN /hpf (5-10); White Blood Cells >100 SEEN /hpf (0-5)
[2022-04-20] MEDS: Smz/Tmp Ds Tablet 1 TABLET PO (06:02)
[2022-04-20] MEDS: Phenazopyridine 95 MG Tablet 190 MG PO (06:02)
[2022-04-20 06:06] VITALS: BP 124/80; PULSE 79; RESP 18; O2SAT 96
== END 2022-04-20 06:07 | disposition home or self-care (01) ==
PROVIDERS: Emergency Provider Emergency Medicine; PCP Internal Medicine; Visit Provider Emergency Medicine
DX: N30.01 Acute cystitis with hematuria (principal); N92.0 Excessive and frequent menstruation with regular cycle; F17.210 Nicotine dependence, cigarettes, uncomplicated
CPT/HCPCS: 81001; 81025; 87086; 87088; 87186; 99282

== ENCOUNTER → 2022-05-02 | Outpatient (CLI) | payer MEDICAID, SELFPAY ==
[2022-05-02 12:20] LABS: Bacteria 0 SEEN /hpf (None Seen); Mucous, Urine 0 SEEN /hpf (<or=2+)
[2022-05-02 15:09] LABS: Color, Urine Yellow (Yellow); Glucose, Dipstick Normal (Normal); Ketone-Dipstick Negative (Negative); Leukocyte Esterase-Dipstick 25 /ul (Negative); Nitrite-Dipstick Negative (Negative); Occult Blood-Urine 150 /ul (Negative); Protein-Dipstick 15 mg/dl (Negative); Urine Bilirubin Dipstick Negative (Negative); Urine Clarity Clear (Clear); Urine Urobilinogen Normal (Normal)
[2022-05-02 15:10] LABS: Absolute Lymphocyte Count 1.82 X10^3/uL (0.83-4.51); Absolute Neutrophil Count 5.7 X10^3/uL (2.0-7.7); Basophil# 0.05 X10^3/uL; Basophil% 0.6 % (0-1); Eosinophil# 0.12 X10^3/uL; Eosinophils% 1.5 % (0-5); Lymphocyte # 1.82 X10^3/ul (0.83-4.51); Mean Corp Hgb Conc 33.3 g/dL (32-36); Mean Corpuscular Hgb 29.9 pg (27.0-32.0); Mean Corpuscular Volume 89.6 fL (81-99); Mean Platelet Vol. 10.2 fl (6.2-12.0); Monocyte# 0.53 X10^3/uL; Monocyte% 6.4 % (0-10); NRBC Flagged by Analyzer 0 % (0-5); Neutrophil # 5.72 X10^3/uL (2.7-7.7); Neutrophil % 69.1 % (47-70); Platelet Count 360 K/mm3 (150-450); RBC Distribution Width SD 42.4 fl (35.1-43.9); Red Blood Count 5.02 M/mm3 (4.2-5.4); White Blood Count 8.3 K/mm3 (4.4-11.0)
[2022-05-02 15:15] LABS: Red Blood Cells-Urine 0-5 SEEN /hpf (0-5); Squamous Epithelial Cells - UA 0-5 SEEN /hpf (5-10); White Blood Cells 0-5 SEEN /hpf (0-5)
[2022-05-02 15:29] LABS: ALB/GLOB Ratio 1.1 RATIO (0.9-2.4); AST(SGOT) 16 U/L (15-37); Alanine Aminotransfer ALT/SGPT 28 U/L (13-56); Albumin, Serum 3.7 g/dL (3.2-5.0); Alkaline Phosphatase 96 U/L (45-117); Anion Gap 4 (5-15); BUN 11 mg/dL (7-18); BUN/Creat Ratio 14.6 RATIO (10-20); Calcium,Total 8.9 mg/dL (8.5-10.1); Chloride 111 mmol/L (98-107); Creatinine, Serum 0.75 mg/dL (0.55-1.02); EST Glomerular Filtration Rate 90 mL/min (>60); Est Glom Filt Rate - Afr Amer 109 mL/min (>60); Globulin 3.4 g/dL (2.2-4.2); Glucose 86 mg/dL (74-106); Potassium 4.4 mmol/L (3.5-5.1); Protein, Total 7.1 g/dL (6.4-8.2); Sodium Level 142 mmol/L (136-145)
== END | disposition home or self-care (01) ==
LOC: BIMLAB 12:02
PROVIDERS: PCP Internal Medicine; Referring Provider Internal Medicine; Visit Provider Internal Medicine
DX: N39.0 Urinary tract infection, site not specified (principal)
CPT/HCPCS: 36415; 80053; 81001; 85025; 87077; 87086; 87088

== ENCOUNTER 2022-05-03 00:27 | Emergency (ER) | payer MEDICAID, SELFPAY ==
[2022-05-03 00:27] VITALS: BP 134/95; PULSE 99; RESP 15; TEMP 36.6; O2SAT 99; BMI 22.6
[2022-05-03 00:29] VITALS: BP 134/95; PULSE 99; RESP 15; TEMP 36.6; O2SAT 99
--- NOTE | 2022-05-03 00:51 | CT_ITS ---
EXAM: CT ABDOMEN AND PELVIS WITHOUT INTRAVENOUS CONTRAST CLINICAL INDICATION: flank pain TECHNIQUE: Helically acquired images were obtained of the abdomen and pelvis without intravenous contrast. This CT exam was performed using one or more of the following dose reduction techniques: automated exposure control, adjustment of the mA and/or kV according to patient size, and/or use of iterative reconstruction technique. This report was created using [employer] report generation technology. COMPARISON: None. FINDINGS: LOWER THORAX: Unremarkable. Lung bases are clear. No cardiomegaly. No significant pericardial effusion. ABDOMEN: LIVER: Unremarkable. Homogeneous. GALLBLADDER AND BILE DUCTS: Unremarkable. No calcified gallstones. No gallbladder distention or wall edema. No intra- or extrahepatic biliary ductal dilation. PANCREAS: Unremarkable. No focal cystic mass. SPLEEN: Unremarkable. Normal size without focal cystic or solid mass. ADRENALS: Unremarkable. No nodules. KIDNEYS AND URETERS: There is mild right-sided hydronephrosis. The ureter is normal in caliber. There is no obstructing stone identified. Normal renal size and position. STOMACH AND BOWEL: Unremarkable. No stomach or bowel distention. No focal inflammatory change. PELVIS: APPENDIX: No evidence of acute appendicitis. BLADDER: Unremarkable. REPRODUCTIVE: Unremarkable as visualized. No mass. ABDOMEN and PELVIS: INTRAPERITONEAL SPACE: Unremarkable. No ascites or other fluid collection. No free air. BONES/JOINTS: Unremarkable. No suspicious lytic or blastic abnormality. SOFT TISSUES: Unremarkable. No discrete abdominal or pelvic wall hernia. VASCULATURE: Unremarkable. Abdominal aorta is non-dilated. LYMPH NODES: Unremarkable. No enlarged lymph nodes. CT/Abdomen/Pelvis without Cont IMPRESSION: Mild right-sided hydronephrosis. There is no obstructing stone identified. If indicated further evaluation with retrograde pyelogram may be beneficial. No other acute abnormalities are identified. Electronically Signed: Alessio Leiva MD at 1:53 EDT ,
[2022-05-03] MEDS: Ondansetron 4 MG/2 ML Vial IV (00:58)
[2022-05-03] MEDS: Ketorolac 30 MG/ML Syringe IV (00:59)
[2022-05-03] MEDS: 0.9% Normal Saline 1,000 ML 1000 ML IV (01:00)
--- NOTE | 2022-05-03 01:04 | EX.ED.DYSGE1 ---
HPI History of Present Illness Chief Complaint: Complaint Informant: patient Onset/Context/Timing Onset: Weeks Context: Gradual Onset Timing: Waxes and wanes Current Severity: Moderate Maximum Severity: Moderate Narrative Narrative: Which.Patient presents secondary to continued flank pain and now nausea and vomiting. 2 weeks ago she developed flank pain. She was found to have hematuria and was diagnosed with a kidney infection. She completed 10 days of Bactrim. She completed this antibiotic approximately 3 days ago. Has resolved but she continues to have pain. She was seen by her PCP and had repeat lab work and urinalysis performed. She was also given a antibiotic. Patient states she was told if she develops nausea or vomiting she should come to the emergency room. She was scheduled for a CT scan of the flank tomorrow. Patient states approximate hour prior to arrival she developed nausea and vomiting. [facility] Medical History Allergies Anxiety Asthma Back problem Breast lump Chronic bronchitis Chronic headaches Contact dermatitis due to poison [place] Contact dermatitis due to poison [place] Focal nodular hyperplasia of liver Generalized anxiety disorder with panic attacks GERD (gastroesophageal reflux disease) H/O emotional problems Hematuria Hives Kidney stones Left flank pain Oral thrush Pancreatitis Poison taylor Polycystic ovarian disease Recurrent infections Right knee pain Seasonal allergies Tobacco abuse Tumors UTI (urinary tract infection) Vision problems Weight loss Home Medications montelukast 10 mg tablet (Singulair) 10 mg PO DAILY #90 tabs 03/09/21 [Rx Last Taken Unknown] Saccharomyces boulardii 250 mg capsule (Daily Probiotic (S. boulardii)) 250 mg PO BID 09/22/21 [History Last Taken Unknown] ProAir HFA 90 mcg/actuation aerosol inhaler (albuterol sulfate) 1 - 2 puff inhalation Q6H PRN shortness of breath or wheezing #8.5 grams 09/28/21 [Rx Last Taken Unknown] hydrocodone-acetaminophen 5-325mg 5mg-325mg 1 tab PO Q6H PRN PRN Pain 3 days #12 TABLETS 12/25/21 [Rx Last Taken Unknown] fluoxetine 20 mg capsule 20 mg PO DAILY #30 caps 03/23/22 [Rx Last Taken Unknown] hydroxyzine HCl 50 mg tablet 50 mg PO TID PRN anxiety #90 tabs 03/23/22 [Rx Last Taken Unknown] phenazopyridine 200 mg tablet (Pyridium) 200 mg PO TID #10 tabs 04/20/22 [Rx Last Taken Unknown] sulfamethoxazole 800 mg-trimethoprim 160 mg tablet 1 tab PO BID #20 TABLETS 04/20/22 [Rx Last Taken Unknown] ciprofloxacin HCl 500 mg tablet 500 mg PO BID #14 tabs 05/02/22 [Rx Last Taken Unknown] hydrocodone-acetaminophen 5-325mg 5mg-325mg 1 tab PO Q6H PRN pain 3 days #10 tabs 05/03/22 [Rx Last Taken Unknown] Allergy/AdvReac Type Severity Reaction Status Date / Time aloe vera Allergy Rash Verified 05/03/22 00:30 aspirin [ASA] AdvReac Upset Verified 05/03/22 00:30 Stomach Family History Father Anemia Anxiety Arthritis Blood clot in vein Depression Diabetes Heart disease CVA (cerebral vascular accident) Kidney disease Mother Anxiety Asthma Arthritis Depression Hypertension Severe allergy Grandfather Arthritis Brain aneurysm Leukemia Grandmother Arthritis Hypertension CVA (cerebral vascular accident) Grandfather Arthritis Respiratory disease Grandmother Arthritis Kidney disease Surgical History History of History of esophagogastroduodenoscopy (EGD) History of knee surgery History of needle biopsy history of salivary gland removal Social History Smoking Status: Current every day smoker tobacco type: cigarettes alcohol intake: never substance use type: does not use what type of physical activity do you participate in: none ROS ROS ED Constitutional Constitutional ED: Denies chills or fever(s) Eyes Eyes: Denies change in vision or discharge from eye(s) ENT ENT ED: Denies discharge from eye(s), rhinorrhea or sore throat Cardiovascular Cardiovascular: Denies chest pain or palpitations Respiratory/Chest Respiratory/Chest: Denies cough or dyspnea Gastrointestinal Gastrointestinal: Reports abdominal pain, nausea and vomiting; Denies diarrhea Genitourinary Genitourinary ED: Reports dysuria; Denies difficulty urinating Musculoskeletal Musculoskeletal: Reports back pain; Denies extremity pain Integumentary Denies Abrasions or rash Neurologic Neurologic: Denies headache(s) or weakness Psychiatric Psychiatric: Denies anxiety or depression Allergic/Immunologic Allergic/Immunologic ED: Denies lip swelling or urticaria EXAM Physical Exam Const Vital Signs: 05/03/22 00:27 05/03/22 00:29 Temperature 97.9 F 97.9 F Temperature Source Temporal Temporal Pulse Rate 99 99 Respiratory Rate 15 15 Blood Pressure 134/95 H 134/95 H Blood Pressure Mean 108 108 Pulse Ox 99 99 Oxygen Delivery Method Room Air Room Air Positive well nourished and well developed General Appearance ED: well developed HEENT Reports normocephalic and head/scalp atraumatic Eyes PERRL and EOMs intact bilaterally Neck supple Chest Wall inspection of chest normal and palpation of chest normal Resp normal respiratory effort and clear to auscultation bilaterally Cardio regular rate and regular rhythm GI normal to inspection, nondistended, normoactive bowel sounds Palpation: soft Back/Spine Back/Spine Narrative: Bilateral flank pain, left greater than right Extremity normal to inspection Neuro oriented x3 and no sensory deficits noted Sensorium / Orientation: alert Motor Exam: strength 5/5 throughout Psych mental status grossly normal Skin no rashes or lesions noted MDM MDM MDM Narrative Medical decision making narrative: Patient is given Toradol, morphine, Zofran, IV fluids. Lab work and urinalysis from earlier today are reviewed. Renal function is normal. No white count. Urinalysis reveals 0 bacteria. Patient sent for CT scan of the flank. Radiography Diagnostic Testing: Clinical Impression(s) from Imaging Studies Abdomen/Pelvis CT 05/03/22 00:51 IMPRESSION: Mild right-sided hydronephrosis. There is no obstructing stone identified. If indicated further evaluation with retrograde pyelogram may be beneficial. No other acute abnormalities are identified. Electronically Signed: Alessio Leiva MD at 1:53 EDT , Treatment and Re-Evaluation Narrative: CT flank reveals mild right-sided hydronephrosis with no obstructing stone. Retrograde pyelogram recommended for further testing. Test results are discussed with the patient. I will write her for some analgesics to help control pain and refer her to urology for follow-up. At this time with no sign of infection I do not feel she needs to be on this antibiotic that she was started on. I did advise her that if her urine culture grows something that may change her course of treatment. Patient comfortable with the plan. Return instructions provided. Discharge Plan Triage Chief Complaint: Complaint ED Provider: Michelle Vizcaino Dx/Rx/DC Orders Clinical Impression: Flank pain Instructions: ED Flank Pain, Uncertain Cause Prescriptions: New hydrocodone-acetaminophen 5-325 mg tablet 1 tab PO Q6H PRN (Reason: pain) 3 Days Qty: 10 0RF No Action montelukast [Singulair] 10 mg tablet 10 mg PO DAILY Qty: 90 3RF Saccharomyces boulardii [Daily Probiotic (S. boulardii)] 250 mg capsule 250 mg PO BID fluoxetine 20 mg capsule 20 mg PO DAILY Qty: 30 2RF hydroxyzine HCl 50 mg tablet 50 mg PO TID PRN (Reason: anxiety) Qty: 90 1RF Hold Instructions: Resume on 04/27/22. if you take the yeast infection prevention pill ciprofloxacin HCl 500 mg tablet 500 mg PO BID Qty: 14 0RF hydrocodone-acetaminophen 1 TABLET tablet 1 tab PO Q6H PRN PRN (Reason: Pain) 3 Days Qty: 12 0RF phenazopyridine [Pyridium] 200 mg tablet 200 mg PO TID Qty: 10 0RF sulfamethoxazole-trimethoprim [sulfamethoxazole-trimethoprim] 800-160 mg tablet 1 tab PO BID Qty: 20 0RF albuterol sulfate [ProAir HFA] 90 mcg/actuation HFA aerosol inhaler 1 - 2 puff INHALATION Q6H PRN (Reason: shortness of breath or wheezing) Qty: 8.5 3RF Primary Care Provider: Sacha Martínez Referrals: Sacha Martínez MD [Primary Care Provider] - Aicha Maya MD [Med Staff - Active Staff] - As soon as possible Disposition Disposition: Home, Self Care
[2022-05-03] MEDS: Morphine 4 MG/ML Syringe IV (01:56)
[2022-05-03 02:32] VITALS: BP 122/78; PULSE 86; RESP 15; O2SAT 98
== END 2022-05-03 02:37 | disposition home or self-care (01) ==
PROVIDERS: Emergency Provider Emergency Medicine; PCP Internal Medicine; Visit Provider Emergency Medicine
DX: R10.9 Unspecified abdominal pain (principal); R11.2 Nausea with vomiting, unspecified; F17.210 Nicotine dependence, cigarettes, uncomplicated; Z87.440 Personal history of urinary (tract) infections
CPT/HCPCS: 74176; 96361; 96374; 96375; 99282; J7030; A4216; J2405

== ENCOUNTER → 2022-05-04 | Outpatient (CLI) | payer MEDICAID, SELFPAY ==
--- NOTE | 2022-05-04 14:25 | CT_ITS ---
STUDY: CT ABDOMEN AND PELVIS WITH AND WITHOUT CONTRAST REASON FOR EXAM: Female, 41 years old. HYDRONEPHROSIS RADIATION DOSAGE (If Supplied By Facility): CTDIvol = ( 9.69 ) mGy, DLP = ( 1100.99 ) mGycm TECHNIQUE: Transaxial images were obtained from the dome of the diaphragm to the symphysis pubis without oral contrast. IV 100mL Isovue-300 was administered. Sagittal and coronal images were reconstructed. Individualized dose optimization techniques were used for this CT. COMPARISON: Comparison is made with prior examination 05/03/2022. FINDINGS: The visualized lung bases are unremarkable. The visualized portions of the heart are within normal limits. Normal liver. Normal gallbladder and extrahepatic biliary system. Normal spleen. Normal pancreas. Normal bilateral adrenal glands. Normal right kidney. There is a 1.6 mL cyst in the anterior midportion of the left kidney. There is a 1.2 cm cyst in the mid posterior aspect of the left kidney as well as a 1 7 m cyst in the anterior midportion of the left kidney. Normal visualized stomach. Normal small intestine. There are multiple colonic diverticula consistent with diverticulosis. The appendix is visualized and appears normal. Normal abdominal aorta. Normal inferior vena cava. Normal retroperitoneum. Normal urinary bladder. Normal abdominal wall. Normal osseous structures. CT/CT Abd/Pelvis W/WO Contrast IMPRESSION: Left renal cysts. Electronically Signed: Antonio Clark MD at 15:07 EDT ,
== END | disposition home or self-care (01) ==
LOC: CT 14:23
PROVIDERS: PCP Internal Medicine; Referring Provider Urology; Visit Provider Urology
DX: N13.30 Unspecified hydronephrosis (principal); R31.9 Hematuria, unspecified
CPT/HCPCS: 74178; Q9967

== ENCOUNTER 2022-05-08 13:15 | Emergency (ER) | payer MEDICAID, SELFPAY ==
[2022-05-08 13:17] VITALS: BP 115/86; PULSE 103; RESP 16; TEMP 36.4; O2SAT 100; BMI 21.4
[2022-05-08 13:57] LABS: Absolute Lymphocyte Count 1.83 X10^3/uL (0.83-4.51); Absolute Neutrophil Count 7.3 X10^3/uL (2.0-7.7); Basophil# 0.04 X10^3/uL; Basophil% 0.4 % (0-1); Eosinophil# 0.12 X10^3/uL; Eosinophils% 1.2 % (0-5); Lymphocyte # 1.83 X10^3/ul (0.83-4.51); Lymphocyte % 18.1 % (19-41); Mean Corp Hgb Conc 33.3 g/dL (32-36); Mean Corpuscular Hgb 29.2 pg (27.0-32.0); Mean Corpuscular Volume 87.5 fL (81-99); Mean Platelet Vol. 9.3 fl (6.2-12.0); Monocyte# 0.74 X10^3/uL; Monocyte% 7.3 % (0-10); NRBC Flagged by Analyzer 0 % (0-5); Neutrophil # 7.33 X10^3/uL (2.7-7.7); Neutrophil % 72.6 % (47-70); Platelet Count 385 K/mm3 (150-450); RBC Distribution Width CV 12.7 % (11.6-14.6); RBC Distribution Width SD 40.7 fl (35.1-43.9); Red Blood Count 5.14 M/mm3 (4.2-5.4); White Blood Count 10.1 K/mm3 (4.4-11.0)
[2022-05-08 14:16] LABS: Anion Gap 6 (5-15); BUN 10 mg/dL (7-18); BUN/Creat Ratio 14.5 RATIO (10-20); Calcium,Total 9.4 mg/dL (8.5-10.1); Chloride 112 mmol/L (98-107); Creatinine, Serum 0.69 mg/dL (0.55-1.02); EST Glomerular Filtration Rate 100 mL/min (>60); Est Glom Filt Rate - Afr Amer 121 mL/min (>60); Estimated Creatinine Clearance 93.59 ml/min; Glucose 94 mg/dL (74-106); Potassium 3.8 mmol/L (3.5-5.1); Sodium Level 142 mmol/L (136-145)
--- NOTE | 2022-05-08 14:40 | EDS_ITS ---
HPI History of Present Illness Chief Complaint: Nausea/Vomiting Narrative Narrative: 41-year-old female with past medical history of GERD, nephrolithiasis, pancreatitis presents with nausea vomiting the patient states she has had 2 days of epigastric pain is constant severe nonradiating. Pain is rated as 10/10 associateed with nonbloody nonbilious vomitus. Denies any trouble urinating any change in bowel or bladder habits. Denies any chest pain or shortness of breath. Denies any recent alcohol or other drug use. States she had similar symptoms in the past and has been told she is without hydronephrosis. Old chart reviewed: Frequent ED utilizer Patient recently seen on 05/03/2022 for flank . Noted to have just completed a 10-day course of Bactrim pain. CT scan at that visit revealed hydronephrosis. Patient was discharged on analgesics and urology follow-up No urology follow-up noted in the chart Prior similar symptoms: Yes PFSH PFSH Medical History Allergies Anxiety Asthma Back problem Breast lump Chronic bronchitis Chronic headaches Contact dermatitis due to poison oak Contact dermatitis due to poison sumac Focal nodular hyperplasia of liver Generalized anxiety disorder with panic attacks GERD (gastroesophageal reflux disease) H/O emotional problems Hematuria Hives Kidney stones Left flank pain Oral thrush Pancreatitis Poison taylor Polycystic ovarian disease Recurrent infections Right knee pain Seasonal allergies Tobacco abuse Tumors UTI (urinary tract infection) Vision problems Weight loss Home Medications montelukast 10 mg tablet (Singulair) 10 mg PO DAILY #90 tabs 03/09/21 [Rx Last Taken Unknown] Saccharomyces boulardii 250 mg capsule (Daily Probiotic (S. boulardii)) 250 mg PO BID 09/22/21 [History Last Taken Unknown] ProAir HFA 90 mcg/actuation aerosol inhaler (albuterol sulfate) 1 - 2 puff inhalation Q6H PRN shortness of breath or wheezing #8.5 grams 09/28/21 [Rx Last Taken Unknown] fluoxetine 20 mg capsule 20 mg PO DAILY #30 caps 03/23/22 [Rx Last Taken Unknown] hydroxyzine HCl 50 mg tablet 50 mg PO TID PRN anxiety #90 tabs 03/23/22 [Rx Last Taken Unknown] phenazopyridine 200 mg tablet (Pyridium) 200 mg PO TID #10 tabs 04/20/22 [Rx Last Taken Unknown] promethazine 25 mg tablet 25 mg PO BID PRN nausea and vomiting #20 tabs 05/04/22 [Rx Last Taken Unknown] Allergy/AdvReac Type Severity Reaction Status Date / Time aloe vera Allergy Rash Verified 05/08/22 13:17 aspirin [ASA] AdvReac Upset Verified 05/08/22 13:17 Stomach Family History Father Anemia Anxiety Arthritis Blood clot in vein Depression Diabetes Heart disease CVA (cerebral vascular accident) Kidney disease Mother Anxiety Asthma Arthritis Depression Hypertension Severe allergy Grandfather Arthritis Brain aneurysm Leukemia Grandmother Arthritis Hypertension CVA (cerebral vascular accident) Grandfather Arthritis Respiratory disease Grandmother Arthritis Kidney disease Surgical History History of History of esophagogastroduodenoscopy (EGD) History of knee surgery History of needle biopsy history of salivary gland removal Social History Smoking Status: Current every day smoker tobacco type: cigarettes alcohol intake: never substance use type: does not use what type of physical activity do you participate in: none ROS ROS ED Eyes Eyes: Denies other visual disturbances ENT ENT ED: Denies ear pain Cardiovascular Cardiovascular: Denies chest pain Respiratory/Chest Respiratory/Chest: Denies dyspnea Gastrointestinal Gastrointestinal: Reports abdominal pain, nausea and vomiting; Denies constipation, diarrhea or melena Genitourinary Genitourinary ED: Denies dysuria, hematuria or urinary frequency Musculoskeletal Musculoskeletal: Denies joint pain Integumentary Denies rash Neurologic Neurologic: Denies dizziness, focal weakness, numbness, syncope or weakness Psychiatric Psychiatric: Denies homicidal ideation or suicidal ideation EXAM Physical Exam Const Vital Signs: 05/08/22 13:17 05/08/22 15:16 05/08/22 17:16 Temperature 97.6 F L Temperature Source Temporal Pulse Rate 103 H Respiratory Rate 16 16 16 Blood Pressure 115/86 H Blood Pressure Mean 95 Pulse Ox 100 Oxygen Delivery Method Room Air Negative for alert or oriented x3 General Appearance ED: Negative for comfortable Orientation / Consciousness: Negative for awake HEENT Denies normocephalic Face and Sinus: Negative for face symmetric External Ear: Negative for external ears normal Mouth ED: No moist mucous membranes normal Throat: Negative for posterior oropharynx normal Eyes Negative for PERRL or EOMs intact bilaterally Neck No full ROM Carotids: other Other Details: no carotid bruits Chest Wall Negative for inspection of chest normal Resp No normal respiratory effort, No no retractions, No no use of accessory muscles and No clear to auscultation bilaterally Cardio Negative for no murmurs or peripheral pulses 2+ throughout GI Negative for normal to inspection, nondistended, normoactive bowel sounds, non- tender, non-distended, hepatosplenomegaly, no masses or no bruits GI Narrative: no pulsatile abdominal masses mild epigastric tenderness noted no peritoneal signs Inspection: Negative for abdominal distention Palpation: soft and tender Negative for no CVA tenderness Back/Spine Cervical Spine: Negative for cervical ROM normal Extremity Negative for normal to inspection or full ROM MDM MDM MDM Narrative Medical decision making narrative: 41-year-old female here with 2 days of epigastric abdominal pain. She was hemodynamically stable, afebrile, nontoxic-appearing. Abdominal exam was benign and not consistent with an acute intra-abdominal surgical process. Considered dehydration, electrode abnormalities, pancreatitis. There is no Diamond sign or jaundice to suggest hepatobiliary pathology did obtain LFTs which showed no evidence of hepatobiliary pathology. Renal function within normal limits. Obtain urinalysis and urine test however patient cannot provide urine sample while in the emergency department. Lipase WNL. Repeat abdominal exam was benignn. symptoms improved after Phenergan, fluids, pepcid. Dc's with pepcid and PCP f/u I see nothing that would suggest an acute abdomen at this time. Based on history physical exam, risk factors, I have a low for bowel obstruction, incarcerated hernia, acute pancreatitis, intra-abdominal abscess, perforated viscus, diverticulitis, cholecystitis, appendicitis, PID, ovarian torsion, ectopic and tubo-ovarian abscess is very low. There is no evidence of peritonitis sepsis or toxicity at this time. I feel the patient can be managed as an outpatient with follow-up with her primary physician in the next 24 to 40 hours or soon as possible. Instructions have been given for the patient to return to the ED for worsening pain high fevers intractable vomiting or bleeding Lab Data Attestation: I reviewed the patient's lab results. Lab results narrative: CBC without leukocytosis, severe anemia, no thrombocytopenia. Urine test is negative BMP without evidence of significant electrolyte abnormalities, no anion gap, no acute kidney injury. Lipase within normal limits, not suggestive of acute pancreatitis CMP without evidence of acute kidney injury, significant electrolyte abnormality, anion gap, no evidence hepatobiliary pathology. Labs: Laboratory Results - last 24 hr 05/08/22 05/08/22 05/08/22 13:35 13:35 13:35 WBC 10.1 RBC 5.14 Hgb 15.0 Hct 45.0 MCV 87.5 MCH 29.2 MCHC 33.3 RDW Std Deviation 40.7 RDW Coeff of Alfonso 12.7 Plt Count 385 MPV 9.3 Immature Gran % (Auto) 0.400 Neut % (Auto) 72.6 H Lymph % (Auto) 18.1 L [place] % (Auto) 7.3 Eos % (Auto) 1.2 Baso % (Auto) 0.4 Absolute Neuts (auto) 7.3 Absolute Lymphs (auto) 1.83 Nucleated RBC % 0 Sodium 142 Potassium 3.8 Chloride 112 H Carbon Dioxide 24.0 Anion Gap 6 BUN 10 Creatinine 0.69 Estim Creat Clear Calc 93.59 Est GFR (MDRD) Af Amer 121 Est GFR (MDRD) Non-Af 100 BUN/Creatinine Ratio 14.5 Glucose 94 Calcium 9.4 Total Bilirubin Direct Bilirubin AST ALT Alkaline Phosphatase Total Protein Albumin Globulin Lipase Serum , Qual NEGATIVE 05/08/22 13:35 WBC RBC Hgb Hct MCV MCH MCHC RDW Std Deviation RDW Coeff of Alfonso Plt Count MPV Immature Gran % (Auto) Neut % (Auto) Lymph % (Auto) [place] % (Auto) Eos % (Auto) Baso % (Auto) Absolute Neuts (auto) Absolute Lymphs (auto) Nucleated RBC % Sodium Potassium Chloride Carbon Dioxide Anion Gap BUN Creatinine Estim Creat Clear Calc Est GFR (MDRD) Af Amer Est GFR (MDRD) Non-Af BUN/Creatinine Ratio Glucose Calcium Total Bilirubin 1.00 Direct Bilirubin 0.24 AST 14 L ALT 28 Alkaline Phosphatase 86 Total Protein 7.2 Albumin 4.0 Globulin 3.2 Lipase 125 Serum , Qual Treatment and Re-Evaluation Narrative: Repeat abdominal exam was benign, appropriate for discharge home. Discharge Plan Triage Chief Complaint: Nausea/Vomiting ED Provider: Luke Wing Dx/Rx/DC Orders Clinical Impression: Abdominal pain, Nausea & vomiting Prescriptions: No Action montelukast [Singulair] 10 mg tablet 10 mg PO DAILY Qty: 90 3RF Saccharomyces boulardii [Daily Probiotic (S. boulardii)] 250 mg capsule 250 mg PO BID fluoxetine 20 mg capsule 20 mg PO DAILY Qty: 30 2RF hydroxyzine HCl 50 mg tablet 50 mg PO TID PRN (Reason: anxiety) Qty: 90 1RF Hold Instructions: Resume on 04/27/22. if you take the yeast infection prevention pill phenazopyridine [Pyridium] 200 mg tablet 200 mg PO TID Qty: 10 0RF albuterol sulfate [ProAir HFA] 90 mcg/actuation HFA aerosol inhaler 1 - 2 puff INHALATION Q6H PRN (Reason: shortness of breath or wheezing) Qty: 8.5 3RF promethazine 25 mg tablet 25 mg PO BID PRN (Reason: nausea and vomiting) Qty: 20 0RF Primary Care Provider: Sacha Martínez Referrals: Sacha Martínez MD [Primary Care Provider] - Disposition Disposition: Home, Self Care
[2022-05-08 14:47] LABS: Internal QC Validated? YES +Cl - CLEAR BKGD; Pregnancy, Serum, hCG Quali. NEGATIVE Negative
[2022-05-08] MEDS: proMETHazine 25 MG/ML Syringe IM (15:09)
[2022-05-08] MEDS: 0.9% Normal Saline 1,000 ML 1000 ML IV (15:09)
[2022-05-08] MEDS: Morphine 4 MG/ML Syringe IV (15:09)
[2022-05-08 15:16] VITALS: RESP 16
[2022-05-08 17:16] VITALS: RESP 16
[2022-05-08 17:27] LABS: AST(SGOT) 14 U/L (15-37); Alanine Aminotransfer ALT/SGPT 28 U/L (13-56); Alkaline Phosphatase 86 U/L (45-117); Bilirubin, Direct 0.24 mg/dL (0.00-0.30); Globulin 3.2 g/dL (2.2-4.2); Lipase 125 U/L (73-393); Protein, Total 7.2 g/dL (6.4-8.2)
[2022-05-08] MEDS: Famotidine 20 MG Tablet 40 MG PO (17:51)
[2022-05-08 18:02] VITALS: RESP 14
== END 2022-05-08 18:15 | disposition home or self-care (01) ==
PROVIDERS: Emergency Provider Emergency Medicine; PCP Internal Medicine; Visit Provider Emergency Medicine
DX: R11.2 Nausea with vomiting, unspecified (principal); K21.9 Gastro-esophageal reflux disease without esophagitis; Z79.899 Other long term (current) drug therapy; N13.30 Unspecified hydronephrosis; R10.13 Epigastric pain; J45.909 Unspecified asthma, uncomplicated; F17.210 Nicotine dependence, cigarettes, uncomplicated
CPT/HCPCS: 80048; 80076; 83690; 84703; 85025; 96361; 96374; 96375; 99282; J7030; A4216

== ENCOUNTER → 2022-05-31 | Outpatient (CLI) | payer MEDICAID, SELFPAY ==
--- NOTE | 2022-05-31 07:30 | US_ITS ---
STUDY: ULTRASOUND OF THE FEMALE PELVIS - COMPLETE REASON FOR EXAM: Female, 41 years old. AUB LMP: 05/08/2022 TECHNIQUE: Transabdominal TECHNICAL QUALITY: Adequate. COMPARISON: None. FINDINGS: The uterus is anteverted and is in a midline position. The uterus measures 9.6 x 6.4 x 3.1 cm. Normal uterine cervix. The endometrium measures 8 mm in thickness, and is hyperechoic. There is no demonstrated endometrial mass. There is no demonstrated myometrial mass. I.U.D. - The patient does not have an I.U.D. The right ovary is visualized. The right ovary measures 4.1 x 2.5 x 2.5 cm. There is no right ovarian cyst or ovarian mass. There is no visualized right adnexal mass or complex lesion. There is normal arterial and normal venous vascularity. The left ovary is visualized. The left ovary measures 3.2 x 2.4 x 2.1 cm. There is no left ovarian cyst or ovarian mass. There is no visualized left adnexal mass or complex lesion. There is normal arterial and normal venous vascularity. There is no fluid in the cul-de-sac. The pre void volume of the bladder was ml. The post void volume of the bladder was ml. Polycystic ovary disease: No. US/Pelvic (Non ) IMPRESSION: Normal female pelvis. Electronically Signed: Sherif Medina MD at 9:41 EDT ,
== END | disposition home or self-care (01) ==
PROVIDERS: PCP Internal Medicine
DX: N92.1 Excessive and frequent menstruation with irregular cycle (principal)
CPT/HCPCS: 76856

== ENCOUNTER 2022-10-26 17:22 | Emergency (ER) | payer MEDICAID, SELFPAY ==
[2022-10-26 17:24] VITALS: BP 107/75; PULSE 131; RESP 26; TEMP 38.8; O2SAT 100; BMI 21.3
--- NOTE | 2022-10-26 18:33 | EKG12_ITS ---
Test Reason : DYSRHYTHMIA Blood Pressure : / mmHG Vent. Rate : 106 BPM Atrial Rate : 106 BPM P-R Int : 130 ms QRS Dur : 082 ms QT Int : 336 ms P-R-T Axes : 065 090 053 degrees QTc Int : 446 ms Sinus tachycardia Otherwise normal ECG Confirmed by MODESTA HERNANDEZ, CISCO ([id number]), medical editor MARYLIN JOHN ([id number]) on 10/29/2022 1:56:53 PM Referred By: KAREN Confirmed By:CISCO BYERS MD
--- NOTE | 2022-10-26 18:35 | EX.ED.DYSGE1 ---
HPI History of Present Illness Chief Complaint: Nausea/Vomiting Informant: patient and spouse/S.O. Narrative Narrative: Presenting with nausea and vomiting started this morning at least 10 times no hematemesis. No diarrhea. Yesterday with a cough. On presentation ED fever 102. No urinary symptoms. Reports myalgias. Nonvaccinated for COVID or flu had COVID back in 2019. Denies asthma or COPD. Denies abdominal pain. Denies sick contacts. PFSH PFS Medical History Allergies Anxiety Asthma Back problem Breast lump Chronic bronchitis Chronic headaches Contact dermatitis due to poison [place] Contact dermatitis due to poison [place] Focal nodular hyperplasia of liver Generalized anxiety disorder with panic attacks GERD (gastroesophageal reflux disease) H/O emotional problems Hematuria Hives Kidney stones Left flank pain Oral thrush Pancreatitis Poison taylor Polycystic ovarian disease Recurrent infections Right knee pain Seasonal allergies Tobacco abuse Tumors UTI (urinary tract infection) Vision problems Weight loss Home Medications nirmatrelvir 300 mg (150 mg x2)-ritonavir 100 mg tablet,dose pack(EUA) (Paxlovid) See Rx Instructions PO .COMPLEX #30 tabs 10/26/22 [Rx Last Taken Unknown] ondansetron 4 mg disintegrating tablet 4 mg PO Q8H PRN PRN Nausea #10 tabs 10/26/22 [Rx Last Taken Unknown] Allergy/AdvReac Type Severity Reaction Status Date / Time aloe vera Allergy Rash Verified 10/26/22 17:24 aspirin [ASA] AdvReac Upset Verified 10/26/22 17:24 Stomach Family History Father Anemia Anxiety Arthritis Blood clot in vein Depression Diabetes Heart disease CVA (cerebral vascular accident) Kidney disease Mother Anxiety Asthma Arthritis Depression Hypertension Severe allergy Grandfather Arthritis Brain aneurysm Leukemia Grandmother Arthritis Hypertension CVA (cerebral vascular accident) Grandfather Arthritis Respiratory disease Grandmother Arthritis Kidney disease Surgical History History of History of esophagogastroduodenoscopy (EGD) History of knee surgery History of needle biopsy history of salivary gland removal Social History Smoking Status: Current every day smoker tobacco type: cigarettes alcohol intake: never substance use type: does not use what type of physical activity do you participate in: none ROS ROS ED Constitutional Constitutional ED: Reports fever(s); Denies chills or sweats Eyes Eyes: Denies change in vision ENT ENT ED: Denies dysphagia or sore throat Cardiovascular Cardiovascular: Denies chest pain, leg edema, palpitations or racing heartbeat Respiratory/Chest Respiratory/Chest: Reports cough; Denies dyspnea or dyspnea on exertion Gastrointestinal Gastrointestinal: Reports nausea and vomiting; Denies abdominal pain or diarrhea Genitourinary Genitourinary ED: Denies dysuria, hematuria or urinary frequency Musculoskeletal Musculoskeletal: Reports myalgias; Denies back pain, extremity pain or neck pain Integumentary Denies rash or wounds Neurologic Neurologic: Denies headache(s), paresthesias or weakness EXAM Physical Exam Const Vital Signs: 10/26/22 17:24 10/26/22 18:52 10/26/22 20:53 Temperature 102 F H Temperature Source Temporal Pulse Rate 131 H 107 H 85 Respiratory Rate 26 H 16 19 H Blood Pressure 107/75 108/75 110/60 Blood Pressure Mean 85 86 Pulse Ox 100 99 95 Oxygen Delivery Method Room Air Room Air Positive well nourished and well developed Constitutional Narrative: Nontoxic General Appearance ED: well developed HEENT Reports moist mucous membranes normocephalic and atraumatic Eyes PERRL, EOMs intact bilaterally and conjunctivae normal General Eye ED: Yes normal appearance of both eyes Neck no lymphadenopathy and supple General: Negative for tenderness Chest Wall Chest: Negative for tenderness Resp normal respiratory effort and normal air movement Effort and Inspection: symmetric chest movement; Negative for respiratory distress Auscultation: Negative for rales, rhonchi or wheezes Cardio regular rhythm and no murmurs Rate: tachycardic Peripheral Pulses: pulses 2+ throughout GI normal to inspection, nondistended, normoactive bowel sounds and non-tender GI Narrative: Negative Diamond's or McBurney's tenderness Palpation: Negative for guarding or rebound tenderness present Back/Spine no CVA tenderness and no thoracic nor lumbar tenderness Extremity normal to inspection General Extremety ED: Negative for edema or tenderness General Extremity: Negative for edema Neuro oriented x3, CN's II-XII intact bilaterally and no sensory deficits noted Sensorium / Orientation: awake and alert Skin no rashes or lesions noted and no wounds MDM MDM MDM Narrative Medical decision making narrative: Interventions / MDM: Differential diagnosis: COVID, influenza, pneumonia, viral syndrome, gastritis Diagnosis considered but do not suspect: No signs otitis media or posterior pharyngeal erythema for concerns for strep. No urine symptoms for UTI concerns. My EKG interpretation: Sinus rate of 106, no ST or T wave changes. Imaging independently reviewed and interpreted by myself: 1 view chest x-ray no acute process. External documents reviewed: N/A Test considered but not ordered:N/A ED course: Patient febrile and tachycardic EKG sinus rate of 106. She meets SIRS criteria however she is not toxic or septic appearing. She was given IV fluids antiemetics. Labs are stable white 7.7 creatinine 175. She had no symptoms or concerns for infection. Chest x-ray negative for infection. Influenza is negative however COVID did return positive. She has history of asthma. She is day 2 of symptoms. I discussed treatment with Paxlovid with side effects for which she agreed. Meds to bed medications along with prescription for Zofran to take. She will monitor for worsening respiratory symptoms with return precautions. All questions were answered. Re-evaluation: stable Disposition discussed with patient/family/significant other: Patient and significant other Case discussed with consulting clinician: N/A Lab Data Labs: Laboratory Results - last 24 hr 10/26/22 10/26/22 18:44 18:44 WBC 7.7 RBC 5.08 Hgb 14.2 Hct 43.2 MCV 85.0 MCH 28.0 MCHC 32.9 RDW Std Deviation 41.6 RDW Coeff of Alfonso 13.3 Plt Count 310 MPV 9.6 Immature Gran % (Auto) 0.400 Neut % (Auto) 87.5 H Lymph % (Auto) 2.5 L [place] % (Auto) 8.7 Eos % (Auto) 0.6 Baso % (Auto) 0.3 Absolute Neuts (auto) 6.8 Absolute Lymphs (auto) 0.19 L Nucleated RBC % 0 Differential Comment SCANNED Sodium 140 Potassium 3.6 Chloride 110 H Carbon Dioxide 21.0 Anion Gap 9 BUN 7 Creatinine 0.75 Estim Creat Clear Calc 86.10 Est GFR (MDRD) Af Amer 109 Est GFR (MDRD) Non-Af 90 BUN/Creatinine Ratio 9.3 L Glucose 92 Calcium 9.1 Total Bilirubin 0.70 AST 14 L ALT 24 Alkaline Phosphatase 84 Total Protein 7.5 Albumin 4.0 Globulin 3.5 Albumin/Globulin Ratio 1.1 Radiography Diagnostic Testing: Clinical Impression(s) from Imaging Studies Chest X-Ray 10/26/22 18:50 IMPRESSION: No radiographic evidence of acute cardiopulmonary disease. Electronically Signed: Darci Nair MD at 19:10 EST , EKG Initial EKG: Attestation: I personally reviewed and interpreted this EKG as follows: Comments: Sinus rate of 106, no ST or T wave changes. Discharge Plan Triage Chief Complaint: Nausea/Vomiting ED Provider: Jack Francisco Dx/Rx/DC Orders Clinical Impression: COVID-19 virus infection, Fever, Nausea & vomiting, Myalgia Instructions: Coronavirus Disease 2019 (COVID-19): Caring for Yourself or Others, ED Vomiting (Adult) Prescriptions: New Paxlovid (EUA) 300 mg (150 mg x 2)-100 mg tablets,dose pack See Rx Instructions .ROUTE .COMPLEX Qty: 30 0RF Rx Instructions: take TWO 150 mg tablets of nirmatrelvir with ONE 100 mg tablet of ritonavir twice daily for 5 days ondansetron [ondansetron] 4 mg tablet,disintegrating 4 mg PO Q8H PRN PRN (Reason: Nausea) Qty: 10 0RF Primary Care Provider: Sacha Martínez Referrals: Sacha Martínez MD [Primary Care Provider] - 1 Week if not improving Activity Restrictions/Additional Instructions: COVID-positive. Take medications as prescribed. X-ray negative. Continue oral fluids for hydration. Tylenol or ibuprofen as needed. Monitor respiratory symptoms return if worsens. Otherwise follow-up with your doctor. Disposition Disposition: Home, Self Care Discharge Date/Time: 10/26/22 21:25
[2022-10-26] MEDS: Ondansetron 4 MG/2 ML Vial IV (18:46)
[2022-10-26] MEDS: 0.9% Normal Saline 1,000 ML 1000 ML IV (18:46)
[2022-10-26] MEDS: Ketorolac 15 MG/ML Vial IV (18:46)
--- NOTE | 2022-10-26 18:50 | RAD_ITS ---
EXAM: XR CHEST, 1 VIEW CLINICAL INDICATION: cough TECHNIQUE: Frontal view of the chest. This report was created using [employer] report generation technology. COMPARISON: None. FINDINGS: LUNGS AND PLEURAL SPACES: Unremarkable. No consolidation or edema. No pneumothorax. No effusion. HEART: Unremarkable. Cardiac silhouette not enlarged. MEDIASTINUM: Central airways and mediastinal contour are unremarkable. BONES/JOINTS: Unremarkable. SOFT TISSUES: Unremarkable. RAD/Chest 1 View (Portable) IMPRESSION: No radiographic evidence of acute cardiopulmonary disease. Electronically Signed: Darci Nair MD at 19:10 EST ,
[2022-10-26 18:52] VITALS: BP 108/75; PULSE 107; RESP 16; O2SAT 99
[2022-10-26 19:05] LABS: Absolute Lymphocyte Count 0.19 X10^3/uL (0.83-4.51); Absolute Neutrophil Count 6.8 X10^3/uL (2.0-7.7); Basophil# 0.02 X10^3/uL; Basophil% 0.3 % (0-1); Eosinophil# 0.05 X10^3/uL; Eosinophils% 0.6 % (0-5); Hematocrit 43.2 % (37-47); Hemoglobin 14.2 g/dL (12.0-15.0); Lymphocyte # 0.19 X10^3/ul (0.83-4.51); Lymphocyte % 2.5 % (19-41); Mean Corp Hgb Conc 32.9 g/dL (32-36); Mean Platelet Vol. 9.6 fl (6.2-12.0); Monocyte# 0.67 X10^3/uL; Monocyte% 8.7 % (0-10); NRBC Flagged by Analyzer 0 % (0-5); Neutrophil # 6.78 X10^3/uL (2.7-7.7); Neutrophil % 87.5 % (47-70); POSITIVE DIFFERENTIAL YES; Platelet Count 310 K/mm3 (150-450); RBC Distribution Width CV 13.3 % (11.6-14.6); RBC Distribution Width SD 41.6 fl (35.1-43.9); Red Blood Count 5.08 M/mm3 (4.2-5.4); White Blood Count 7.7 K/mm3 (4.4-11.0)
[2022-10-26 19:07] LABS: Differential Indicated SCAN CRITERIA MET
[2022-10-26 19:26] LABS: ALB/GLOB Ratio 1.1 RATIO (0.9-2.4); AST(SGOT) 14 U/L (15-37); Alanine Aminotransfer ALT/SGPT 24 U/L (13-56); Alkaline Phosphatase 84 U/L (45-117); Anion Gap 9 (5-15); BUN 7 mg/dL (7-18); BUN/Creat Ratio 9.3 RATIO (10-20); Calcium,Total 9.1 mg/dL (8.5-10.1); Chloride 110 mmol/L (98-107); Creatinine, Serum 0.75 mg/dL (0.55-1.02); EST Glomerular Filtration Rate 90 mL/min (>60); Est Glom Filt Rate - Afr Amer 109 mL/min (>60); Globulin 3.5 g/dL (2.2-4.2); Glucose 92 mg/dL (74-106); Potassium 3.6 mmol/L (3.5-5.1); Protein, Total 7.5 g/dL (6.4-8.2); Sodium Level 140 mmol/L (136-145)
[2022-10-26 19:32] LABS: Differential Comment SCANNED
[2022-10-26 20:53] VITALS: BP 110/60; PULSE 85; RESP 19; O2SAT 95
--- NOTE | 2022-10-26 21:24 | ED.RN ---
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
== END 2022-10-26 21:25 | disposition home or self-care (01) ==
PROVIDERS: Emergency Provider Emergency Medicine; PCP Internal Medicine; Visit Provider Emergency Medicine
DX: U07.1 COVID-19 (principal); F17.210 Nicotine dependence, cigarettes, uncomplicated
CPT/HCPCS: 71045; 80053; 85025; 87428; 93005; 96361; 96374; 96375; 99284; J7030; A4216; J2405

== ENCOUNTER 2022-10-27 12:36 | Emergency (ER) | payer MEDICAID, SELFPAY ==
[2022-10-27 12:36] VITALS: BP 122/85; PULSE 106; RESP 22; TEMP 37.2; O2SAT 98; BMI 20.5
--- NOTE | 2022-10-27 13:07 | EDS_ITS ---
HPI HPI - URI History of Present Illness Chief Complaint: Other, Pain/Inj Detail of Chief Complaint: Complaining of bilateral flank pain. Diagnosed with COVID yesterday. Informant: patient Onset/Context/Timing Onset: Days Context: Gradual Onset Timing: Continuous Current Severity: Moderate Maximum Severity: Moderate Associated Symptoms Associated Symptoms: Positive for Nausea, Vomiting and Diarrhea Narrative Narrative: 41-year-old female history of anxiety and kidney stones. Was seen and treated yesterday in this emergency department for nausea vomiting diarrhea. Was diagnosed with COVID. She states she just cannot take the flank pain she is having now. She developed bilateral flank pain. Said the nausea and vomiting is much better since she was treated with Zofran yesterday. She denies any dysuria or hematuria. Prior similar symptoms: No Recent Illness/Hospitalization: No ROS ROS ED ROS Narrative Nausea and vomiting resolved. Flank pain. URI symptoms. Review of Systems ROS Unobtainable: Denies due to encephalopathy Constitutional Constitutional ED: Reports chills and fever(s) Eyes Eyes: Denies blurry vision ENT ENT ED: Denies ear pain Cardiovascular Cardiovascular: Denies chest pain Respiratory/Chest Respiratory/Chest: Reports cough Gastrointestinal Gastrointestinal: Reports nausea and vomiting; Denies abdominal pain Genitourinary Genitourinary ED: Denies dysuria or hematuria Musculoskeletal Musculoskeletal: Reports back pain; Denies arthralgias Integumentary Denies abscess Neurologic Neurologic: Denies headache(s) Psychiatric Psychiatric: Denies anxiety Endocrine Endocrinology: Denies cold intolerance Hematologic/Lymphatic Hematologic/Lymphatic: Denies easy bleeding Allergic/Immunologic Allergic/Immunologic ED: Denies mouth swelling or tongue swelling PFSH PFSH Medical History Allergies Anxiety Asthma Back problem Breast lump Chronic bronchitis Chronic headaches Contact dermatitis due to poison [place] Contact dermatitis due to poison [place] Focal nodular hyperplasia of liver Generalized anxiety disorder with panic attacks GERD (gastroesophageal reflux disease) H/O emotional problems Hematuria Hives Kidney stones Left flank pain Oral thrush Pancreatitis Poison taylor Polycystic ovarian disease Recurrent infections Right knee pain Seasonal allergies Tobacco abuse Tumors UTI (urinary tract infection) Vision problems Weight loss Home Medications nirmatrelvir 300 mg (150 mg x2)-ritonavir 100 mg tablet,dose pack(EUA) (Paxlovid) See Rx Instructions PO .COMPLEX #30 tabs 10/26/22 [Rx Last Taken Unknown] ondansetron 4 mg disintegrating tablet 4 mg PO Q8H PRN PRN Nausea #10 tabs 10/26/22 [Rx Last Taken Unknown] Allergy/AdvReac Type Severity Reaction Status Date / Time aloe vera Allergy Rash Verified 10/27/22 12:45 aspirin [ASA] AdvReac Upset Verified 10/27/22 12:45 Stomach Family History Father Anemia Anxiety Arthritis Blood clot in vein Depression Diabetes Heart disease CVA (cerebral vascular accident) Kidney disease Mother Anxiety Asthma Arthritis Depression Hypertension Severe allergy Grandfather Arthritis Brain aneurysm Leukemia Grandmother Arthritis Hypertension CVA (cerebral vascular accident) Grandfather Arthritis Respiratory disease Grandmother Arthritis Kidney disease Surgical History History of History of esophagogastroduodenoscopy (EGD) History of knee surgery History of needle biopsy history of salivary gland removal Social History Smoking Status: Current every day smoker tobacco type: cigarettes alcohol intake: never substance use type: does not use what type of physical activity do you participate in: none EXAM Physical Exam Narrative Exam Narrative: 41-year-old female no acute distress. Complaining of pain. Vital signs are stable and afebrile. Pulse ox 90% on room air no hypoxia. She does not look septic. She does not look toxic. Does not look severely dehydrated. H EENT exam mild dry mucous membranes. Neck nontender no lymphadenopathy. No meningismus. Lungs clear to auscultation bilaterally. Heart tachycardic rate of 105 no murmur. Chest wall nontender. Abdomen soft, nontender, nondistended, normal bowel sounds no peritoneal signs. No signs of obstruction. Back she has bilateral flank tenderness. There is no signs of trauma. Spines nontender. Moving all 4 extremities. Nontender without edema. Neurologically she is awake and alert. Const Vital Signs: 10/27/22 12:36 Temperature 98.9 F Temperature Source Temporal Pulse Rate 106 H Respiratory Rate 22 H Blood Pressure 122/85 H Blood Pressure Mean 97 Pulse Ox 98 Oxygen Delivery Method Room Air Positive well nourished and well developed General Appearance ED: well developed; Negative for pallor HEENT Reports dry mucous membranes; Denies moist mucous membranes normocephalic and atraumatic Face and Sinus: Negative for sinus tenderness Mouth ED: Yes dry mucous membranes Mouth: dry mucous membranes Teeth and Gingiva: Negative for caries Throat: posterior oropharynx normal Eyes PERRL and EOMs intact bilaterally General Eye ED: Negative for pale conjunctiva or scleral icterus Neck no lymphadenopathy, supple, no meningeal signs and no JVD General: Negative for anterior neck swelling or lymphadenopathy Resp normal respiratory effort and clear to auscultation bilaterally Effort and Inspection: Negative for retractions Auscultation: Negative for rales, rhonchi or wheezes Cardio S1 normal heart sound, S2 normal heart sound and no murmurs Rate: tachycardic Rhythm: regular rhythm GI non-tender, non-distended and no masses Inspection: Negative for abdominal distention Auscultation: normoactive bowel sounds Palpation: soft; Negative for tender or guarding Back/Spine no CVA tenderness and normal ROM Back/Spine Narrative: Bilateral flank pain. No signs of trauma. General Back: Negative for CVA tenderness Cervical Spine: Negative for cervical spine tenderness Thoracic Spine / Upper Back: Negative for thoracic spinal tenderness Lumbar Spine / Lower Back: Negative for lumbar spinal tenderness Sacrum: Negative for tenderness Extremity normal to inspection and full ROM General Extremety ED: Yes cyanosis; Negative for tenderness General Extremity: cyanosis Neuro oriented x3, CN's II-XII intact bilaterally and no sensory deficits noted Sensorium / Orientation: alert, oriented to person, oriented to place and oriented to time Sensory Exam: No sensory level loss detected Motor Exam: strength 5/5 throughout Psych mental status grossly normal Appearance: Negative for other Attitude: No agitated Mood & Affect: Negative for depressed, anxious or tearful Skin General Skin Exam: Negative for jaundice or pallor Lesions: no lesions Rashes: no rashes MDM MDM MDM Narrative Medical decision making narrative: 41-year-old female COVID complaining of body aches primarily flank pain. I think this is primarily from the COVID. However I will obtain a urinalysis and screening labs. Treated with IV Toradol. Repeat exam at 2:00 and 2:45 PM. Patient is doing well. Improved after IV fluids and IV Toradol. She and I went over her labs. They are unremarkable no significant change from yesterday. Her urinalysis is negative. She does not need any imaging. She does not need a CAT scan because she has normal kidney function and no signs of infection. Patient is comfortable being discharged home. Her abdomen is benign. A repeat exam she clinically looks improved. She has Zofran at home for nausea. She will use Tylenol and Motrin for the body aches. Follow-up as needed. Return if worse. Lab Data Attestation: I reviewed the patient's lab results. Lab results narrative: CBC shows a white count 3.3. H&H 13.9 and 41. Platelets 249. No significant change from prior labs from yesterday. Electrolytes show potassium 3.4 gap is 7 normal BUN 10 creatinine 0.82 liver enzymes are unremarkable. Again no significant change from Labs reviewed from yesterday. Urinalysis negative for any signs of infection. Is occult blood on the macroscopic but no white or red cells or bacteria nor nitrates on the microscopic. Labs: Laboratory Results - last 24 hr 10/27/22 10/27/22 10/27/22 13:20 13:20 14:10 WBC 3.3 L RBC 4.86 Hgb 13.9 Hct 41.8 MCV 86.0 MCH 28.6 MCHC 33.3 RDW Std Deviation 41.9 RDW Coeff of Alfonso 13.4 Plt Count 249 MPV 9.3 Immature Gran % (Auto) 0.300 Neut % (Auto) 74.3 H Lymph % (Auto) 9.4 L Holmes % (Auto) 15.4 H Eos % (Auto) 0.3 Baso % (Auto) 0.3 Absolute Neuts (auto) 2.5 Absolute Lymphs (auto) 0.31 L Nucleated RBC % 0 [address] Review May foll Sodium 142 Potassium 3.4 L Chloride 111 H Carbon Dioxide 24.0 Anion Gap 7 BUN 10 Creatinine 0.82 Estim Creat Clear Calc 78.36 Est GFR (MDRD) Af Amer 100 Est GFR (MDRD) Non-Af 82 BUN/Creatinine Ratio 12.3 Glucose 95 Calcium 8.4 L Total Bilirubin 0.60 AST 13 L ALT 23 Alkaline Phosphatase 75 Total Protein 7.1 Albumin 3.8 Globulin 3.3 Albumin/Globulin Ratio 1.2 Urine Color Yellow Urine Clarity Clear Urine pH 6.5 Ur Specific [place] 1.015 Urine Protein 15 H Urine Glucose (UA) Normal Urine Ketones 15 H Urine Occult Blood 150 H Urine Nitrite Negative Urine Bilirubin Negative Urine Urobilinogen Normal Ur Leukocyte Esterase 25 H Urine RBC 0 SEEN Urine WBC 0-5 SEEN Ur Squamous Epith Cells 0-5 SEEN Urine Bacteria 0 SEEN Urine Mucus 0 SEEN Discharge Plan Triage Chief Complaint: Other, Pain/Inj ED Provider: Marcell Islas Dx/Rx/DC Orders Clinical Impression: COVID, Bilateral flank pain, History of renal calculi Instructions: Human Coronaviruses Prescriptions: No Action Paxlovid (EUA) 300 mg (150 mg x 2)-100 mg tablets,dose pack See Rx Instructions .ROUTE .COMPLEX Qty: 30 0RF Rx Instructions: take TWO 150 mg tablets of nirmatrelvir with ONE 100 mg tablet of ritonavir twice daily for 5 days ondansetron [ondansetron] 4 mg tablet,disintegrating 4 mg PO Q8H PRN PRN (Reason: Nausea) Qty: 10 0RF Primary Care Provider: Sacha Martínez Referrals: Sacha Martínez MD [Primary Care Provider] - 1 Week if not improving Activity Restrictions/Additional Instructions: Plenty of fluids and rest. Zofran that you have at home as needed for nausea. Tylenol 3-4 times a day. Motrin 3-4 times a day as needed. You may alternate every 2-3 hours. Follow-up with your doctor if not improving. Your labs today were unremarkable. No significant change from yesterday. Your urine showed no signs of infection. Disposition Disposition: Home, Self Care
[2022-10-27] MEDS: Ketorolac 30 MG/ML Syringe IV (13:27)
[2022-10-27] MEDS: 0.9% Normal Saline 1,000 ML 1000 ML IV (13:27)
[2022-10-27 13:28] LABS: Absolute Lymphocyte Count 0.31 X10^3/uL (0.83-4.51); Absolute Neutrophil Count 2.5 X10^3/uL (2.0-7.7); Basophil# 0.01 X10^3/uL; Basophil% 0.3 % (0-1); Eosinophil# 0.01 X10^3/uL; Eosinophils% 0.3 % (0-5); Hematocrit 41.8 % (37-47); Hemoglobin 13.9 g/dL (12.0-15.0); Lymphocyte # 0.31 X10^3/ul (0.83-4.51); Lymphocyte % 9.4 % (19-41); Mean Corp Hgb Conc 33.3 g/dL (32-36); Mean Corpuscular Hgb 28.6 pg (27.0-32.0); Mean Platelet Vol. 9.3 fl (6.2-12.0); Monocyte# 0.51 X10^3/uL; Monocyte% 15.4 % (0-10); NRBC Flagged by Analyzer 0 % (0-5); Neutrophil # 2.46 X10^3/uL (2.7-7.7); Neutrophil % 74.3 % (47-70); POSITIVE DIFFERENTIAL YES; Platelet Count 249 K/mm3 (150-450); RBC Distribution Width CV 13.4 % (11.6-14.6); RBC Distribution Width SD 41.9 fl (35.1-43.9); Red Blood Count 4.86 M/mm3 (4.2-5.4); White Blood Count 3.3 K/mm3 (4.4-11.0)
[2022-10-27 13:30] LABS: Differential Indicated SCAN CRITERIA MET
[2022-10-27 13:45] LABS: ALB/GLOB Ratio 1.2 RATIO (0.9-2.4); AST(SGOT) 13 U/L (15-37); Alanine Aminotransfer ALT/SGPT 23 U/L (13-56); Albumin, Serum 3.8 g/dL (3.2-5.0); Alkaline Phosphatase 75 U/L (45-117); Anion Gap 7 (5-15); BUN 10 mg/dL (7-18); BUN/Creat Ratio 12.3 RATIO (10-20); Calcium,Total 8.4 mg/dL (8.5-10.1); Chloride 111 mmol/L (98-107); Creatinine, Serum 0.82 mg/dL (0.55-1.02); EST Glomerular Filtration Rate 82 mL/min (>60); Est Glom Filt Rate - Afr Amer 100 mL/min (>60); Estimated Creatinine Clearance 78.36 ml/min; Globulin 3.3 g/dL (2.2-4.2); Glucose 95 mg/dL (74-106); Potassium 3.4 mmol/L (3.5-5.1); Protein, Total 7.1 g/dL (6.4-8.2); Sodium Level 142 mmol/L (136-145)
[2022-10-27 14:21] LABS: Bacteria 0 SEEN /hpf (None Seen); Mucous, Urine 0 SEEN /hpf (<or=2+); Red Blood Cells-Urine 0 SEEN /hpf (0-5)
[2022-10-27 14:22] LABS: Color, Urine Yellow (Yellow); Glucose, Dipstick Normal (Normal); Ketone-Dipstick 15 mg/dl (Negative); Leukocyte Esterase-Dipstick 25 /ul (Negative); Nitrite-Dipstick Negative (Negative); Occult Blood-Urine 150 /ul (Negative); Protein-Dipstick 15 mg/dl (Negative); Specific Gravity, Urine 1.015 (1.002-1.030); Urine Bilirubin Dipstick Negative (Negative); Urine Clarity Clear (Clear); Urine Urobilinogen Normal (Normal); Urine pH 6.5 (5.0 - 8.0)
[2022-10-27 14:29] LABS: Squamous Epithelial Cells - UA 0-5 SEEN /hpf (5-10); White Blood Cells 0-5 SEEN /hpf (0-5)
[2022-10-29 13:25] LABS: Pathologist Review Reviewed
== END 2022-10-27 15:01 | disposition home or self-care (01) ==
PROVIDERS: Emergency Provider Emergency Medicine; PCP Internal Medicine; Visit Provider Emergency Medicine
DX: U07.1 COVID-19 (principal); R10.9 Unspecified abdominal pain; F17.210 Nicotine dependence, cigarettes, uncomplicated
CPT/HCPCS: 80053; 81001; 85025; 96361; 96374; 99283

== ENCOUNTER → 2023-08-14 | Outpatient (CLI) | payer MEDICAID, SELFPAY ==
--- NOTE | 2023-08-14 09:46 | BI_ITS ---
MAMMOGRAPHY - BILATERAL SCREENING REASON FOR EXAM: Female, 42 years old. Routine annual screening examination. PERTINENT HISTORY: Non-contributory. TECHNIQUE: Digital bilateral breast evans (3D mammographic acquisition) in the CC and MLO projections. 2-D mediolateral oblique (MLO) and craniocaudad (CC) views of both breasts were obtained. CAD: Full Field Digital Mammography with Computer Added Detection was performed. COMPARISON: Comparison is made with prior study dated April 06, 2022. FINDINGS: Breast Composition: The breasts are extremely dense, which lowers the sensitivity of mammography. There are no dominant masses or suspicious calcifications. No other significant abnormalities are identified. There has been no significant change since the prior study. BI/SCRN MAMM (CAD)W/EVANS BILAT IMPRESSION: Stable bilateral screening mammogram. Yearly follow-up mammogram recommended. (A) ASSESSMENT CATEGORY: BIRADS Category 1: Negative. A letter regarding these results will be sent to the patient by the facility within 30 days. Approximately 10% of breast cancers are not detected by mammography. A normal mammogram should not delay biopsy of a clinically suspicious abnormality. [id number] Electronically Signed: Antonio Clark MD at 10:51 EST ,
== END | disposition home or self-care (01) ==
LOC: OPBI 09:43
PROVIDERS: PCP Internal Medicine; Referring Provider Internal Medicine; Visit Provider Internal Medicine
DX: Z12.31 Encounter for screening mammogram for malignant neoplasm of breast (principal)
CPT/HCPCS: 77063; 77067

== ENCOUNTER 2023-11-08 21:40 | Emergency (ER) | payer MEDICAID, SELFPAY ==
[2023-11-08 21:43] VITALS: TEMP 37.5; BMI 19.9
--- NOTE | 2023-11-08 22:14 | EDS_ITS ---
HPI History of Present Illness Chief Complaint: Meds Only Informant: patient Narrative Narrative: Patient is a 43-year-old female who states she struggles with recurrent ear infections and fluid on the ears. She states she went to an urgent care a few days ago secondary to the congestion and ear pain as well as sore throat. She states they did a strep swab which was negative but started her on Augmentin secondary to the sinus congestion pressure and ear pain. She states she has had roughly 1 day of this and has had improvement she still feels a large amount of pressure. She reports in the past steroids have helped with this and therefore presents at this time to discuss obtaining those. [facility] Medical History (Updated 11/08/23 @ 22:[address] Silvano Mosquera, DO) Acute sinusitis, unspecified Allergies Anxiety Asthma Back problem Breast lump Chronic bronchitis Chronic headaches Contact dermatitis due to poison [place] Contact dermatitis due to poison [place] Focal nodular hyperplasia of liver Generalized anxiety disorder with panic attacks GERD (gastroesophageal reflux disease) H/O emotional problems Hematuria Hives Impetigo Kidney stones Left flank pain Oral thrush Pancreatitis Pharyngitis Poison taylor Polycystic ovarian disease Recurrent infections Right knee pain Seasonal allergies Tobacco abuse Tumors UTI (urinary tract infection) Vision problems Weight loss Home Medications albuterol sulfate 90 mcg/actuation aerosol inhaler 2 puff inhalation Q6H PRN 03/15/23 [History Last Taken Unknown] fluconazole 200 mg tablet 200 mg PO DAILY #1 TAB 10/01/23 [Rx Last Taken Unknown] amoxicillin 875 mg-potassium clavulanate 125 mg tablet 1 tab PO Q12H 10 days #20 tabs 11/07/23 [Rx Last Taken Unknown] fluconazole 150 mg tablet 150 mg PO Q3D 2 doses #2 tabs 11/07/23 [Rx Last Taken Unknown] prednisone 20 mg tablet 40 mg (2 x 20 mg) PO DAILY 5 days #10 tabs 11/08/23 [Rx Last Taken Unknown] Allergy/AdvReac Type Severity Reaction Status Date / Time aloe vera Allergy Rash Verified 11/08/23 21:43 aspirin [ASA] AdvReac Upset Verified 11/08/23 21:43 Stomach Family History Father Anemia Anxiety Arthritis Blood clot in vein Depression Diabetes Heart disease CVA (cerebral vascular accident) Kidney disease Mother Anxiety Asthma Arthritis Depression Hypertension Severe allergy Grandfather Arthritis Brain aneurysm Leukemia Grandmother Arthritis Hypertension CVA (cerebral vascular accident) Grandfather Arthritis Respiratory disease Grandmother Arthritis Kidney disease Surgical History History of History of esophagogastroduodenoscopy (EGD) History of knee surgery History of needle biopsy history of salivary gland removal Social History Smoking Status: Current every day smoker tobacco type: cigarettes alcohol intake: never substance use type: does not use what type of physical activity do you participate in: none ROS ROS ED Constitutional Constitutional ED: Denies chills or fever(s) Eyes Eyes: Denies change in vision ENT ENT ED: Reports ear pain, rhinorrhea and sore throat Cardiovascular Cardiovascular: Denies chest pain Respiratory/Chest Respiratory/Chest: Denies cough or dyspnea Gastrointestinal Gastrointestinal: Denies abdominal pain, diarrhea, nausea or vomiting Genitourinary Genitourinary ED: Denies dysuria Musculoskeletal Musculoskeletal: Denies myalgias Integumentary Denies rash Neurologic Neurologic: Reports headache(s) Hematologic/Lymphatic Hematologic/Lymphatic: Denies easy bleeding or easy bruising EXAM Physical Exam Const Vital Signs: 11/08/23 21:43 11/08/23 22:30 11/08/23 22:32 Temperature 99.5 F H 99.5 F H Temperature Source Temporal Pulse Rate 81 81 Respiratory Rate 16 16 Blood Pressure 121/82 H 121/82 H Blood Pressure Mean 95 95 Pulse Ox 98 98 Oxygen Delivery Method Room Air Positive well nourished and well developed General Appearance ED: well developed; Negative for pallor HEENT HEENT Narrative: Bilateral TMs are retracted left greater than right without obvious signs of secondary infection. No mastoid tenderness bilaterally Nasal mucosa is hyperemic and boggy with enlarged inferior nasal turbinates Posterior pharynx displays diffuse erythema with right-sided tonsil hypertrophy and loss of the tonsillar crypt concerning for small peritonsillar abscess. Patient also has slight derangement to her voice but there is no trismus or difficulty with secretions. Eyes PERRL and EOMs intact bilaterally Neck supple Neck Narrative: Positive anterior cervical with adenopathy noted No nuchal rigidity or meningeal signs present Resp normal respiratory effort and clear to auscultation bilaterally Cardio regular rate and regular rhythm Extremity normal to inspection Neuro oriented x3, CN's II-XII intact bilaterally and no sensory deficits noted Sensorium / Orientation: alert Motor Exam: strength 5/5 throughout Psych mental status grossly normal Skin no rashes or lesions noted General Skin Exam: Negative for jaundice or pallor MDM MDM MDM Narrative Medical decision making narrative: Patient arrived to the ER with low-grade temperature but otherwise stable vitals. She reported she is already on Augmentin and has had mild improvement of symptoms after just 1 day of treatment. She was requesting steroids as she has been on these in the past to help with her pressure sensation. Her exam does show eustachian tube dysfunction without obvious signs of otitis media. As she also reported sore throat when that exam was performed she does show changes concerning for small peritonsillar abscess. She is currently on a proper antibiotic she does not have trismus or difficulty with secretions and this would indicate that the abscess is small less than 2 cm not requiring intervention. Also there is no obvious physical exam findings to suggest epiglottitis. Therefore at this time I do not feel there is need for further testing or CT scan of the neck but she can be prescribed steroids to reduce inflammation and pressure and follow-up with her ENT in the next few days especially as she is on proper antibiotics History & Record Review Discussion w/independent historian: Patient Discharge Plan Triage Chief Complaint: Meds Only ED Provider: Silvano Mosquera Dx/Rx/DC Orders Clinical Impression: Peritonsillar abscess, Acute dysfunction of both eustachian tubes Instructions: Anatomy of the Ear, ED Peritonsillar Abscess Prescriptions: New prednisone 20 mg tablet 40 mg PO DAILY 5 Days Qty: 10 0RF No Action albuterol sulfate 90 mcg/actuation HFA aerosol inhaler 2 puff inhalation Q6H PRN fluconazole 200 mg tablet 200 mg PO DAILY Qty: 1 0RF Rx Instructions: AFTER finishing antibiotic should symptoms develop as discussed in office today amoxicillin-pot clavulanate 875-125 mg tablet 1 tab PO Q12H 10 Days Qty: 20 0RF fluconazole 150 mg tablet 150 mg PO Q3D 0 Days Qty: 2 0RF Rx Instructions: may repeat second dose 72 hrs after first dose if symptoms persist Primary Care Provider: Sacha Martínez Referrals: Sacha Martínez MD [Primary Care Provider] - Activity Restrictions/Additional Instructions: Please continue your Augmentin secondary to your physical exam showing signs of infection in your throat. Add the steroid for improved inflammatory and pressure control. Keep your appointment with the ENT for repeat evaluation and return to the ER should you have any further concerns or worsening of symptoms Disposition Disposition: Home, Self Care Discharge Date/Time: 11/08/23 22:32
--- OUTSIDE RECORDS SUMMARY | 2023-11-08 22:20 | XMS RPT_ITS | CCD ---
Demographics Address [address] [place] [address] Preferred Language en Marital Status Single Zoroastrian Affiliation Unknown Race White Ethnic Group Not or Lati no Author Name Unknown Address [address] [place] [address] Organization [facility] Care Team Providers Care Detective Narcotics And Vice Name Role Phone GEETHA TORRES Unavailable Unavailable WILIAM, LO WO [id number] Unavailable Unava ilable GEETHA TORRES Unavailable Unavailable PHYSICIAN, NONE Unavailable Unavailable GEETHA TORRES Unavailable Unavailable PHYSICIAN, NONE Unavailable Unavailable ELIN PRUITT Unavailable Unavailable PHYSICIAN, NONE Unavailable Unavailable Sacha Martínez Primary Care Provider Unavailable Primary Care Provider SCAHA Charles MD Primary Care Physician [phone] Allergies Allergy Classification Reported Allergen(s) Allergy Type Date of Onset Reaction(s) Facility (2 sources) Aloe Extract Drug Allergy 0 Anaphylaxis [facility] Work Phone: (2 sources) Aluminum aspirin Drug Allergy 0 Other (See Comments) [facility] Work Phone: (1 source) Aspirin; Translations: [aspirin] Drug Allergy [facility] (1 source) aloe vera topical; Translations: [aloe vera topical] Allergy to substance Hives [facility] Medications Current Medications Medication Drug Class(es) Dates Sig (Normalized) Sig (Original) acetaminophen 325 mg oral tablet (2 sources) Start: 09-28-2019 take 325 mg by mouth every four hours 325 mg, Oral, EVERY 4 HOURS, First dose on 09/28/19 at 0130 Maximum dose of acetaminophen is 4000 mg from all sources in 24 hours. Completed/Discontinued Medications Medication Drug Class(es) Dates Sig (Normalized) Sig (Original) aluminum hydroxide 40 mg/ml / magnesium hydroxide 40 mg/ml / simethicone 4 mg/ml oral suspension (1 source) Start: 09-25-2019 End: 09-25-2019 aluminum & magnesium hydroxide-simethic one (MAALOX) 200-200-20 MG/5ML suspension 30 mL atropine sulfate 0.44514 mg/ml / hyoscyamine sulfate 0.0207 mg/ml / PHENobarbital 3.24 mg/ml / scopolamine hydrobromide 0.0013 mg/ml oral solution (1 source) Anticholinergic, Cholinergic Muscarinic Antagonist Start: 09-25-2019 End: 09-25-2019 PHENobarbital-hutchins adonna alkaloids elixir 10 mL azithromycin 500 mg injection (1 source) Macrolide Antimicrobial Start: 09-27-2019 End: 09-27-2019 azithromycin (ZITHROMAX) 500 MG injection calcium chloride 0.0014 meq/ml / potassium chloride 0.004 meq/ml / sodium chloride 0.103 meq/ml / sodium lactate 0.028 meq/ml injectable solution (1 source) Start: 09-25-2019 End: 09-28-2019 Intravenous, at 125 mL/hr, CONTINUOUS, Starting Sat09/25/19 at 2245, Labor and Delivery citric acid 66.8 mg/ml / sodium citrate 100 mg/ml oral solution (3 sources) Calculi Dissolution Agent, Anti-coagulant Start: 09-27-2019 End: 09-27-2019 citric acid-sodium citrate (BICITRA) solution 30 mL Problems Active Problems Problem Classification Problem Date Documented Da te Episodic/Chronic Disorders of teeth and jaw (1 source) Disorder of teeth AND/OR supporting structures; Translations: [Other specified disorders of teeth and supporting structures] Onset: 10-11-2023 Episodic Hypertension complicating ; childbirth and the puerperium (3 sources) Pre-eclampsia; Translations: [Pre-eclampsia in third trimester] 09-28-2019 Episodic Other and unspecified benign neoplasm (1 source) Hemangioma of liver; Translations: [Hemangioma of liver] Episodic Other liver diseases (4 sources) Lesion of liver; Translations: [Liver lesion] 09-28-2019 Chronic Other liver diseases (1 source) Focal nodular hyperplasia of liver; Translations: [Focal nodular hyperplasia of liver] Chronic Past or Other Problems Problem Classification Problem Date Documented Da te Episodic/Chronic distress and abnormal forces of labor (3 sources) Arrested active phase of labor; Translations: [Arrest of dilation, delivered, current hospitalization] Resolved: 09-30-2019 09-30-2019 Episodic Other complications of ; puerperium affecting management of mother (3 sources) Indication for care AND/OR intervention in labor AND/OR delivery; Translations: [Labor and delivery, indication for care] Onset: 09-25-2019 Resolved: 09-30-2019 09-30-2019 Episodic Other conditions (3 sources) dysrhythmia; Translations: [Abnormal heart rate complicating ] Resolved: 09-30-2019 09-30-2019 Episodic Results Test Name Value Interpretation Reference Range Facil ity Vital Signs Date Time Vital Sign Value Performing Clinician Faci lity 10-11-2023 12:14-0500 Body temperature 97.34 [degF] DR ELIN PRUITT MD [facility] 10-11-2023 12:14-0500 Body weight 54.[address] ELIN PRUITT MD [facility] 10-11-2023 12:14-0500 Diastolic Blood Pressure Non-Invasive 81 mm[Hg] DR ELIN PRUITT MD [facility] 10-11-2023 12:14-0500 Heart rate 94 /min DR ELIN PRUITT MD [facility] 10-11-2023 12:14-0500 Respiratory rate 16 /min DR ELIN PRUITT MD [facility] 10-11-2023 12:14-0500 Systolic Blood Pressure Non-Invasive 141 mm[Hg] DR ELIN PRUITT MD [facility] 09-30-2019 08:48-0500 Body temperature 98.2 [degF] Celena Garcia MD Work Phone: [employer] Work Phone: 09-30-2019 08:48-0500 Diastolic blood pressure 88 mm[Hg] Celena Garcia MD Work Phone: [employer] Work Phone: 09-30-2019 08:48-0500 Heart rate 85 /min Celena Garcia MD Work Phone: [employer] Work Phone: 09-30-2019 08:48-0500 Respiratory rate 18 /min Celena Garcia MD Work Phone: [employer] Work Phone: 09-30-2019 08:48-0500 SaO2% (BldA) [Mass fraction] 98 % Celena Garcia MD Work Phone: [employer] Work Phone: 09-30-2019 08:48-0500 Systolic blood pressure 130 mm[Hg] Celena Garcia MD Work Phone: [employer] Work Phone: 09-25-2019 22:15-0500 Body height 162.6 cm Celena Garcia MD Work Phone: [employer] Work Phone: 09-25-2019 22:15-0500 Body mass index (BMI) [Ratio] 25.83 kg/m2 Celena Garcia MD Work Phone: [employer] Work Phone: 09-25-2019 22:15-0500 Body weight 68.27 kg Celena Garcia MD Work Phone: [employer] Work Phone: Encounters Encounter Date Encounter Type Care Provider Facility Start: 10-11-2023 End: 10-11-2023 Emergency department patient visit DR ELIN PRUITT [facility] Start: 02-19-2020 End: 02-19-2020 Subsequent hospital visit by physician Amberly Farrell Work Phone: [facility] Procedures Date Procedure Procedure Detail Performing Clinician Start: 02-19-2020 Mri abdomen w/o & w/contrast material Amberly Farrell Work Phone: Start: 02-19-2020 Blood count complete auto&auto difrntl wbc Amberly Farrell Work Phone: Start: 02-19-2020 Comprehensive metabo lic panel Amberly Farrell Work Phone: Start: 09-28-2019 Mri abdomen w/o & w/contrast material Nohmei Herrera MD Work Phone: Start: 09-28-2019 Alpha-fetoprotein serum Nohemi Herrera MD Work Phone: Start: 09-28-2019 Us abdominal real ti me w/image limited Rebecca Durbin MD Work Phone: Start: 09-28-2019 Comprehensive metabo lic panel Kip Low MD Work Phone: Start: 09-27-2019 Assay of magnesium Gustavo derrell Low MD Work Phone: Start: 09-27-2019 ADD ON LAB TEST Suresh Arana MD Work Phone: Start: 09-27-2019 Comprehensive metabo lic panel Suresh Arana MD Work Phone: Start: 09-27-2019 Ecg routine ecg w/le ast 12 lds w/i&r Suresh Arana MD Work Phone: Start: 09-26-2019 Blood count platelet automated Karri Ha MD Work Phone: Start: 09-26-2019 Blood count platelet automated Karri Ha MD Work Phone: Start: 09-26-2019 Iaad ia hepatitis b surface antigen Jewel Marroquin MD Work Phone: Start: 09-26-2019 Comprehensive metabo lic panel Jewel Marroquin MD Work Phone: Start: 09-26-2019 PROTIME/INR & PTT Vonda kilo Marroquin MD Work Phone: Start: 09-26-2019 Antibody screen Celena montez MD Work Phone: Plan of Treatment Date Care Activity Detail Author Start: 09-30-2029 DTaP/Tdap/Td vaccine (2 - Td) DTaP/Tdap/Td vaccine (2 - Td) [facility] Work Phone: Start: 05-10-2020 Influenza vaccination Flu vacc ine (Season Ended) [place], [place] Start: 05-10-2019 Influenza vaccination Flu vaccine (# 1) [facility] Work Phone: Start: 2002 Cervical cancer screen Cervical canc er screen [facility] Work Phone: Start: 2002 Screening for malign ant neoplasm of cervix Cervical cancer screen [place], [place] Start: 1996 HIV screen HIV screen [facility] Work Phone: Start: 1996 [facility] [place] [place] Start: 1987 Pneumococcal 0-64 ye ars Vaccine (1 of 1 - PPSV23) Pneumococcal 0-64 years Vaccine (1 of 1 - PPSV23) [place], [place] Start: 1982 Varicella vaccine (1 of 2 - 2-dose childhood series) Varicella vaccine (1 of 2 - 2-dose childhood series) [facility] Work Phone: End: 02-19-2020 AFP Tumor Marker AFP Tumor Marker Lab Routine Liver lesion 1 Occurrences starting 02/19/2020 until 02/19/2020 [place], [place] Immunizations Immunization Date Immunization Notes Care Provider Fa cility 09-30-2019 tetanus toxoid, reduced diphtheria toxoid, and acellular pertussis vaccine, adsorbed Celena Garcia MD Work Phone: [facility] Work Phone: 09-28-2019 diphtheria, tetanus toxoids and acellular pertussis vaccine, unspecified formulation Celena Garcia MD Work Phone: [facility] Work Phone: 09-28-2019 measles, mumps and rubella virus vaccine Celena Garcia MD Work Phone: [facility] Work Phone: NEGATED: Highlighted row has not occurred!09-30-2019 measles, mumps and rubella virus vaccine Celena Garcia MD Work Phone: [facility] Work Phone: Payers Date Payer Category Payer Private Health Insurance [facility] xxxxxxxxx 2019-Present [phone] [address] [place] [address] xxxxxxxxx [id number] 2017 Self-pay Social History Date Type Detail Facility Start: 02-05-2020 Tobacco smoking stat [facility] Current every day smoker [employer] Work Phone: History of tobacco use Cigarette Smoker M [place] Start: 02-05-2020 Cigarettes smoked current (pack per day) - Reported [place], [place] Start: 02-05-2020 Alcohol intake Ex-drinker (finding) [place], [place] Start: 02-05-2020 Alcohol Comment quit in year 2008 Me [place], [place] Sex Assigned At Not on file [employer] Work Phone: Start: 09-28-2019 Tobacco smoking stat [facility] Unknown if ever smoked [facility] Phone: Start: 10-11-2023 Tobacco smoking status Heavy t obacco smoker (finding) [facility] Sex Assigned At Sex [facility] Functional Status Date Assessment Result Facility 10-11-2023 Functional Status Standard Safet y ID band on, Call device within reach, Bed in low position, Wheels locked, Upper/Half-Length side-rails up, Bedside Cart Locked, Safety level maintained [facility] Mental Status Date Assessment Result Facility 10-11-2023 Mental Status Orientation Oriented x 4 [facility] Discharge instructions 10-11-2023 Note Date & Type Note Facility 10-11-2023 Hospital Discharg e instructions Patient Education 10/11/2023 12:28:15 Dental Pain Dental Pain A crack or cavity in a tooth can cause tooth pain. This is because the crack or cavity exposes the sensitive inner area of the tooth. An infection in the gum or the root of the tooth can cause pain and swelling. The pain is often made worse when you drink hot or cold beverages. It can also be worse when you bite on hard foods. Pain may spread from the tooth to your ear or the area of the jaw on the same side. Home care Follow these tips when caring for yourself at home: Don't have hot and cold foods and drinks. Your tooth may be sensitive to changes in temperature. Use toothpaste made for sensitive teeth. [place] gently up and down instead of sideways. Brushing sideways can wear away root surfaces if they are exposed. If your tooth is chipped or cracked, or if there is a large open cavity, put oil of cloves directly on the tooth to relieve pain. You can buy oil of cloves at drugstores. Some pharmacies carry an zagg-ool-tszyvtd toothache kit. This contains a paste that you can put on the exposed tooth to make it less sensitive. Put a cold pack on your jaw over the sore area to help reduce pain. You may use pdwd-nup-dhbpazi medicine to ease pain, unless your doctor prescribed another medicine. If you have chronic liver or kidney disease, talk with your healthcare provider before using acetaminophen or ibuprofen. Also talk with your provider if you ve had a stomach ulcer or GI bleeding. If you have signs of an infection, you will be given an antibiotic. Take it as directed. Follow-up care Follow up with your dentist, or as advised. Your pain may go away with the treatment given today. But only a dentist can fully look at and treat the cause of your pain. This will keep the pain from coming back. Call 911 Call 911 if any of these occur: Unusual drowsiness Headache or stiff neck Weakness or fainting Difficulty swallowing or breathing When to seek medical advice Call your health care provider right away if any of these occur: Your face becomes swollen or red Pain gets worse or spreads to your neck Fever of 100.4 F (38.0 C) or higher, or as directed by your healthcare provider Pus drains from the tooth [phone] The [employer]. [address] [place] [address], [place] [address]. All rights reserved. This information is not intended as a substitute for professional medical care. Always follow your healthcare professional's instructions. Follow Up Care 10/11/2023 12:12:25 With:SACHA MARTÍNEZ Address: [address] [place] [address] [place] [address]- [phone] Business (1) When:2-4 days Comments:Follow-up closely with your dentist, return if any worsening or concerning symptoms. [facility] Clinical Note 10-11-2023 Note Date & Type Note Facility 10-11-2023 Note Discharge Instructions Thank you for allowing [facility] to assist you with your healthcare needs. The following is important discharge information regarding your hospital visit. Diagnosis from Today's Visit Mouth pain Pain, dental What to Do Next Instructions from Your Care Team No qualifying data available. Post Acute Orders No qualifying data available. You Need to Schedule the Following Appointments Follow Up with SACHA MARTÍNEZ When Within 2-4 days Why: Follow-up closely with your dentist, return if any worsening or concerning symptoms. Where: [address] [place] [address]- [phone] [facility] (1) Allergies aloe vera topical (Hives) aspirin Medications Please ask your primary doctor or pharmacist before taking any other medication not listed, including over the counter drugs, herbal medications, vitamins and or supplements as they may interact with your home medications. Please take this list to your next doctor s visit. Bring all medications you take, including over the counter medications, herbals and other supplements with you to your doctor s visit. Patients and families are reminded to discard old lists and to update any records with all medication providers or retail pharmacies. Education Materials Dental Pain A crack or cavity in a tooth can cause tooth pain. This is because the crack or cavity exposes the sensitive inner area of the tooth. An infection in the gum or the root of the tooth can cause pain and swelling. The pain is often made worse when you drink hot or cold beverages. It can also be worse when you bite on hard foods. Pain may spread from the tooth to your ear or the area of the jaw on the same side. Home care Follow these tips when caring for yourself at home: Don't have hot and cold foods and drinks. Your tooth may be sensitive to changes in temperature. Use toothpaste made for sensitive teeth. [place] gently up and down instead of sideways. Brushing sideways can wear away root surfaces if they are exposed. If your tooth is chipped or cracked, or if there is a large open cavity, put oil of cloves directly on the tooth to relieve pain. You can buy oil of cloves at drugstores. Some pharmacies carry an tizp-diy-vtlyaez toothache kit. This contains a paste that you can put on the exposed tooth to make it less sensitive. Put a cold pack on your jaw over the sore area to help reduce pain. You may use pcvt-yqr-wrzylpq medicine to ease pain, unless your doctor prescribed another medicine. If you have chronic liver or kidney disease, talk with your healthcare provider before using acetaminophen or ibuprofen. Also talk with your provider if you ve had a stomach ulcer or GI bleeding. If you have signs of an infection, you will be given an antibiotic. Take it as directed. Follow-up care Follow up with your dentist, or as advised. Your pain may go away with the treatment given today. But only a dentist can fully look at and treat the cause of your pain. This will keep the pain from coming back. Call 911 Call 911 if any of these occur: Unusual drowsiness Headache or stiff neck Weakness or fainting Difficulty swallowing or breathing When to seek medical advice Call your health care provider right away if any of these occur: Your face becomes swollen or red Pain gets worse or spreads to your neck Fever of 100.4 F (38.0 C) or higher, or as directed by your healthcare provider Pus drains from the tooth [phone] The [employer]. [address] [place] [address]. All rights reserved. This information is not intended as a substitute for professional medical care. Always follow your healthcare professional's instructions. Additional Information VACCINATE! IT SAVES LIVES! Members of the community who have not yet received the COVID-19 vaccine and would like to receive it can visit one of [facility] vaccine clinics. There are many vaccine clinic locations within the [facility]. For locations and available times, please visit www.gettheshot.coronavirus.[place].gov/. It is important to note that some COVID mobile vaccine clinics are held outdoors and may be canceled in rainy or stormy conditions. To learn more about pediatric vaccinations (ages 5-11), we invite you to visit the [facility] webpage. [email or web address].[email or web address].org/pages/2 754-Jldam-Qfepjthueoh-Frequently-Asked -Questions.html To learn more about the COVID-19 vaccine, we invite you to visit the CDC website for a list of frequently asked questions. https://www.cdc.gov/coronavirus/2019-n cov/vaccines/faq.html [facility] Patient Portal Access Instructions: Stay connected with your healthcare team and access your personal medical information anytime with the [facility] Patient Portal. If you would like a full copy of your medical records please contact the [facility] Medical Records Department Saturday through Saturday between 8a.m. and 4:30p.m. Please follow the directions below to access the portal: 1.Access the email account you provided upon registration to the [facility].2.Look for an invitation email from [facility].3.Open the email and access the invitation link: Accept Invitation to [facility]4.Fill in the required avery to create your account. Sign into www.Vend with your username and password that you created in the above steps to stay up to date. You can then view a summary of results, a summary of your visits, and the ability to download your summaries to your computer or send the information securely to a physician. Remember that your healthcare information is confidential, so carefully consider who you will allow to register on the [facility] Patient Portal for access to your information. You can also access the [facility] Patient Portal on the [employer]. Simply click on Health Records under Health Data and then click on the [employer] logo. HOW TO SAFELY DISPOSE OF PRESCRIPTION MEDICATIONS Please use one of the following methods to safely dispose of your unused medications. 1.Use a drug disposal kit: the drug disposal pouch allows you to safely discard your old and unused drugs. Ask your nurse to give you one when you are discharged.2.Visit a local take-back location: Many local pharmacies and police departments have programs that collect old and unwanted prescription drugs. Call your local pharmacy or go to http://bit.Hoard/8G3Pp6f to find one close to you.3.Make use of household items: Use cat litter or old coffee grounds to dispose medications if other options are not available. Mix your drugs with these household products, seal them in an airtight container and throw it into the garbage. Call [facility]: [phone] to be sure your drugs can be disposed of in this way. Some medicines may require a different approach.4.Never flush your medications down the toilet. IF YOU HAVE BEEN PRESCRIBED AN OPIOIDS FOR PAIN If you have been prescribed an opioid (such as hydrocodone, oxycodone or morphine), it is critical to understand the possible side effects and risks of opioid pain medications. Even when taken as directed, opioids can have several side effects including: Tolerance, meaning you might need to take more of a medication for the same pain relief. Nausea, vomiting and/or constipation. Sleepiness, dizziness, dry mouth, confusion, depression or itching. Physical dependence, meaning you have withdrawal symptoms when a medication is stopped ? this can develop within a few days. KNOW YOUR RESPONSIBILITIES It is important to know exactly how much and how often to take the opioid pain medications you are prescribed. Never take opioids in higher amounts or more often than prescribed. Do not combine opioids with alcohol or other drugs that cause drowsiness, such as benzodiazepines, also known as benzos, including diazepam and alprazolam, muscle relaxants or sleep aids. Never sell or share prescription opioids. This is illegal. Store opioids in a secure place and out of reach of others (including children, family, friends and visitors). The last page(s) of this document has been signed and retained as a CHART COPY Signatures Patient Education Materials Dental Pain Medication Leaflets My discharge plan and instructions have been reviewed and explained to me and IYOVANNY GWEN understand my current condition and have read and understand these discharge instructions. I have received a written copy of the plan/instructions. If I have questions, I am aware that I should contact my doctor. Patient/Legal Executive Assistant Signature: _ Date/Time: Relationship to Patient: Witness Name/Signature: Date/Time: [facility] History of Present illness Narrative 09-30-2019 Luisa Doran, SHAHNAZ - 09/30/2019 10:20 AM Caitlin Baptiste DO - 09/30/2019 6:08 AM Luisa Bucio IBCLC - 09/29/2019 11:44 AM Nina Keating PA-C - 09/29/2019 8:38 AM EST Note Date & Type Note Facility 09-30-2019 History of Present illness Narrative Pt states baby is nursing well and she is now able to feed the baby her pumped milk. She continues to bf, pump and supplement d/t weight loss of 8%. Discussed signs of mature milk arrival. Reviewed plan, questions answered. Reviewed feeding cues, I&O. Enc bf group for pre and post weight checks. Questions answered about pumping bra. Denies questions or needs. Informed of availability and contact phone number after dc. Informed of bf center in [place]. Verbalizes understanding. POST DAY # 3 Jose Carlos Troy is a 38 y.o. female This patient was seen & examined today. Her was complicated by: Patient Active Problem List Diagnosis Labor and delivery, indication for care Arrest of dilation, delivered, current hospitalization Abnormal heart rate complicating Pre-eclampsia in third trimester Liver lesion Today she is doing well without any chief complaint. Her lochia is light. She denies chest pain, shortness of breath, headache, lightheadedness and blurred vision. She is ambulating well. Flatus present. Bowel movement absent. Voiding without difficulty yes. She is tolerating solids. Pain is controlled yes. Vital Signs: Vitals: 09/29/19 1219 09/29/19 1614 09/29/19 2115 09/30/19 0136 BP: (!) 140/95 (!) 132/97 (!) 141/93 (!) 143/78 Pulse: 102 101 98 90 Resp: 16 16 16 Temp: 98.5 F (36.9 C) 98.1 F (36.7 C) 99.1 F (37.3 C) TempSrc: Temporal Temporal Temporal Temporal SpO2: 98% 96% 98% Weight: Height: Urine Input & Output last 24hrs: Intake/Output Summary (Last 24 hours) at 09/30/2019 0608 Last data filed at 09/29/2019 2111 Gross per 24 hour Intake 960 ml Output 925 ml Net 35 ml Physical Exam: General: no apparent distress, alert and cooperative Affect: appropriate Lungs: No increased work of breathing, good air exchange, clear to auscultation bilaterally, no crackles or wheezing Heart: regular rate and rhythm Abdomen: abdomen soft, non-distended, non-tender Fundus: non-tender, normal size, firm, below umbilicus Incision: clean, dry and intact Extremities: no calf tenderness, non edematous Labs: Lab Results Component Value Date WBC 21.1 (H) 09/26/2019 HGB 9.5 (L) 09/28/2019 HCT 35.5 09/26/2019 MCV 82.0 09/26/2019 PLT 405 09/27/2019 O POS Antibody Screen: Antibody Screen Date Value Ref Range Status 09/25/2019 NEG NA Final Comment: Test Performed by [facility], [address] [place] [id number] No results found for: RUBELLAIGG Assessment/Plan: 1. Jose Carlos Troy is a POD # 3 s/p pLTCS 2/2 Failed Induction - Doing well, VSS - female infant - Encourage ambulation and use of incentive spirometer - D/C montalvo catheter and saline lock IV on POD #1 - Postop Hb 9.5 2. PreEwSF - s/p magnesium sulfate for seizure prophylaxis - pre E labs wnl on admission - bps mild range 140s/90s 3. Liver Tumors - known liver masses since 2012; bx benign - antepartum seen by GI; hepatic masses increased in size and quantity on 08/19/19 - GI c/s recs appreciated AFp 130 - RUQ u/s Multiple lesions; mild right calectasis; and mild gallbladder dilation - MRI: multiple lesions likely representing focal nodular hyperplasia and small flash filling hemangioma; no suspicious liver lesions seen - pt to f/u outpatient with GI 4. Ventricular Bigeminy - EKG ordered intrapartum - reviewed with residential sales rep; no actue intervention at this time ; electrolytes wnl 5. Bottle feeding 6. Contraception:per private attending 7. VTE Prophylaxis: Not Indicate 8. Anticipate discharge today per private attending's discretion pending bps remain stable Provider's Name: MD Caitlin Hdz DO 09/30/2019, 6:08 AM Pt instructed to pump and dumb d/t MRI today for 24 hours. Her baby is [id number], she is bf , pumping and offering sayda when permitted. Reviewed pump regimen, settings, flange fit and breast milk storage guidelines. Questions answered about settings. Pt states baby is latching well with bf and she denies need for assistance. Pt has her own personal use pump at home, questions answered about storage containers for the freezer. Reviewed feeding cues, I&O, late infant and . Denies further questions at this time. Bf mother's groups encouraged. Department of Internal Medicine Gastroenterology Attending Progress Note SUBJECTIVE: No acute events overnight. States she is tolerating her diet but advancing slowly as she is still experiencing some lower abdominal pain. Otherwise no nausea or vomiting. No bowel movements. Significant other at bedside Medications Current Facility-Administered Medications: sodium chloride flush 0.9 % injection 10 mL, 10 mL, Intravenous, 2 times per day sodium chloride flush 0.9 % injection 10 mL, 10 mL, Intravenous, PRN acetaminophen (TYLENOL) tablet 325 mg, 325 mg, Oral, Q4H ibuprofen (ADVIL;MOTRIN) tablet 600 mg, 600 mg, Oral, Q6H oxyCODONE (ROXICODONE) immediate release tablet 5 mg, 5 mg, Oral, Q4H PRN OR oxyCODONE (ROXICODONE) immediate release tablet 10 mg, 10 mg, Oral, Q4H PRN HYDROmorphone (DILAUDID) injection 0.25 mg, 0.25 mg, Intravenous, Q3H PRN OR HYDROmorphone (DILAUDID) injection 0.5 mg, 0.5 mg, Intravenous, Q3H PRN diphenhydrAMINE (BENADRYL) injection 25 mg, 25 mg, Intravenous, Q6H PRN simethicone (MYLICON) chewable tablet 80 mg, 80 mg, Oral, Q6H PRN docusate sodium (COLACE) capsule 100 mg, 100 mg, Oral, BID PRN ondansetron (ZOFRAN) injection 4 mg, 4 mg, Intravenous, Q6H PRN vitamin 27-1 MG tablet 1 tablet, 1 tablet, Oral, Daily oxytocin (PITOCIN) 30 units in 500 mL infusion, 125 mL/hr, Intravenous, Continuous ferrous sulfate tablet 325 mg, 325 mg, Oral, BID WC lanolin ointment, , Topical, Q1H PRN measles, mumps & rubella vaccine (MMR) injection 0.5 mL, 0.5 mL, Subcutaneous, Prior to discharge Thtxmpi-Pjwcly-Vryhb Pertussis (BOOSTRIX) injection 0.5 mL, 0.5 mL, Intramuscular, Prior to discharge naloxone (NARCAN) injection 0.4 mg, 0.4 mg, Intravenous, PRN diphenhydrAMINE (BENADRYL) injection 25 mg, 25 mg, Intravenous, Q6H PRN nalbuphine (NUBAIN) injection 5 mg, 5 mg, Intravenous, Q4H PRN nicotine (NICODERM CQ) 14 MG/24HR 1 patch, 1 patch, Transdermal, Daily OBJECTIVE VITALS: BP (!) 134/91 Pulse 85 Temp 98.6 F (37 C) (Temporal) Resp 16 Ht 5' 4 (1.626 m) Wt 150 lb 8 oz (68.3 kg) LMP (Exact Date) SpO2 96% Unknown BMI 25.83 kg/m TEMPERATURE: Current - Temp: 98.6 F (37 C); Max - Temp Av.4 F (36.9 C) Min: 97.9 F (36.6 C) Max: 98.9 F (37.2 C) RESPIRATIONS RANGE: Resp Av Min: 16 Max: 16 PULSE RANGE: Pulse Av.5 Min: 85 Max: 107 BLOOD PRESSURE RANGE: Systolic (24hrs), Av , Min:119 , Max:135 ; Diastolic (24hrs), Av, Min:72, Max:91 PULSE OXIMETRY RANGE: SpO2 Av.3 % Min: 96 % Max: 99 % 24HR INTAKE/OUTPUT: Intake/Output Summary (Last 24 hours) at 09/29/2019 0838 Last data filed at 09/29/2019 0556 Gross per 24 hour Intake 640 ml Output 1550 ml Net -910 ml GENERAL: Pleasant and NAD, sitting up holding infant HEENT: NCAT, PERRLA, EOMI, Scleral anicteric. Oropharhynx clear with no erythema or exudate. Neck supple, no cervical LAD or thyromegaly. CV: RRR, NL S1/S2, no murmurs. Distal pulses palpable and equal b/l. LUNGS: CTA b/l. Normal palpation. No W/R/R. ABD: + BS, soft, moderate LQ tenderness to palpation and non-distended. No hepatosplenomegaly. No mass felt. No rebound or guarding. EXT: No C/C/E. No muscle atrophy. Skin: No skin lesion or breakdown. Lymph: No cervical or supraclavicular LAD. Musculoskeletal: Strength 5/5 in all exts. No joint tenderness or effusions in LEs. Neurologic: A&O x 3, CN II-XII grossly intact. DTR +2 symmetric in patella. Normal cerebellar fxn. Non-focal. Data Recent blood work and radiologic study were reviewed with the patient. CBC: Recent Labs 09/26/19 2105 09/27/19 1836 09/28/19 0554 HGB -- -- 9.5* PLT 409 405 -- CMP: Recent Labs 09/27/19 1836 09/28/19 0554 NA 130* 133* K 3.7 3.7 CL 101 103 CO2 16* 23 BUN 9 10 CREATININE 0.97 0.89 GLUCOSE 78 137* CALCIUM 8.3* 8.1* PROT 6.7 5.8* LABALBU 3.4* 3.0* BILITOT 1.3 0.8 ALKPHOS 263* 178* AST 35 29 ALT 37 31 PT/INR: No results for input(s): INR in the last 72 hours. Radiology Review: MRI Abdomen W WO Contrast 09/28/2019 IMPRESSION: 1. Multiple liver lesions likely representing focal nodular hyperplasia, as well as a small flash filling hemangioma. No suspicious liver lesions are seen. Compare with the patient's prior imaging, if available. 2. Bilateral renal cysts including a left hemorrhagic cyst. 3. uterus, incompletely evaluated on this study. ASSESSMENT AND PLAN - Multiple livers masses - first diagnosed 2012, was told benign. MRI confirmed focal nodular hyperplasia. - Hx recurrent pancreatitis - Pre-eclampsia with recent - s/p failed labor induction resulting in PLAN - Obtain records from [facility] - AFP pending - Patient will need close f/u with PCP and GI clinic. Patient will contact own GI physician or call our GI clinic at [phone] to make f/u appointment as soon as patient is d/c'ed home. Patient voiced understanding and agreed of this recommendation. The GI/Liver consult service will sign off. Please call if there are any questions, concerns or change of patient's GI condition. Thanks. POST DAY # 2 Jose Carlos Troy is a 38 y.o. female This patient was seen & examined today. Her was complicated by: Patient Active Problem List Diagnosis Labor and delivery, indication for care Arrest of dilation, delivered, current hospitalization Abnormal heart rate complicating Pre-eclampsia in third trimester Liver lesion Today she is doing well without any chief complaint. Her lochia is light. She denies chest pain, shortness of breath, headache, lightheadedness, blurred vision and peripheral edema. She is ambulating well. Flatus present. Bowel movement absent. Voiding without difficulty yes. She is tolerating solids. Pain is controlled yes. Vital Signs: Vitals: 09/28/19 1239 09/28/19 1607 09/28/193 09/29/19 0015 BP: 122/80 135/89 119/72 126/80 Pulse: 107 98 105 95 Resp: 16 16 16 16 Temp: 98.9 F (37.2 C) 98.9 F (37.2 C) 98.1 F (36.7 C) 98.2 F (36.8 C) TempSrc: Temporal Temporal Temporal Temporal SpO2: 97% 98% 97% 97% Weight: Height: Urine Input & Output last 24hrs: Intake/Output Summary (Last 24 hours) at 09/29/2019 0609 Last data filed at 09/29/2019 0556 Gross per 24 hour Intake 690 ml Output 1550 ml Net -860 ml Physical Exam: General: no apparent distress, alert and cooperative Affect: appropriate Lungs: No increased work of breathing, good air exchange, clear to auscultation bilaterally, no crackles or wheezing Heart: regular rate and rhythm Abdomen: abdomen soft, non-distended, non-tender Fundus: non-tender, normal size, firm, below umbilicus Incision: clean, dry and intact , steri strips in place Extremities: no calf tenderness, non edematous Labs: Lab Results Component Value Date WBC 21.1 (H) 09/26/2019 HGB 9.5 (L) 09/28/2019 HCT 35.5 09/26/2019 MCV 82.0 09/26/2019 PLT 405 09/27/2019 O POS Antibody Screen: Antibody Screen Date Value Ref Range Status 09/25/2019 NEG NA Final Comment: Test Performed by [facility], [address] [place] [id number] No results found for: RUBELLAIGG LABOR DELIVERY ??? SCD's ONLY (labor through ambulation) SCD's PLUS Prophylactic Anticoagulation until discharge SCD's PLUS Prophylactic Anticoagulation for 6 weeks SCD's PLUS Therapeutic Anticoagulation for 6 weeks Vaginal Delivery [] BMI ? 40 kg/m2 Delivery All patients Vaginal Delivery [] BMI ? 40 kg/m2 AND [] Antepartum hospitalization ? 72 hours within the past month Delivery 1 Major Risk Factor: [] BMI ? 35 kg/m2 [] Low Risk Thrombophilia [] PPH+RBCs, IR, or operation [] Infection+Antibiotics [] Antepartum hospitalization ? 72 hours within the past month [] PMH: Sickle Cell, SLE, Cardiac Dz, Active IBD, Active Cancer, Nephrotic Syndrome OR 2 Minor Risk Factors: [] Multiple gestation [] Age > 40 [] PPH ? 1,000cc [] (+)FMH of VTE [] Smoker [x] Preeclampsia [] BMI ? 40 kg/m2 AND [] Low Risk Thrombophilia OR ANY OF THE FOLLOWING: [] High Risk Thrombophilia without prior VTE [] Low Risk Thrombophilia with (+)FMH of VTE [] Any single prior VTE ANY OF THE FOLLOWING: [] Already on LMWH/UFH [] Multiple prior VTE [] High Risk Thrombophilia with prior VTE Low Risk Thrombophilia: FVL (heterozygous), Prothrombin (heterozygous), Protein C, Protein S High Risk Thrombophilia: FVL (homozygous), Prothrombin (homozygous), FVL+Prothrombin (heterozygous), Antithrombin III, APLS Assessment/Plan: 1. Jose Carlos Troy is a POD # 2 s/p PLTCS 2/2 failed Induction - Doing well, VSS - female infant, - Encourage ambulation and use of incentive spirometer - D/C montalvo catheter and saline lock IV on POD #1 - Postop Hb 9.5 2. PreEwSF - s/p magnesium sulfate for seizure prophylaxis - pre E labs wnl on admission - bps rare mild range mainly normotensive 3. Liver Tumors - known liver masses since 2012; bx benign - antepartum seen by GI; hepatic masses increased in size and quantity on 08/19/19 - GI c/s recs appreciated AFp pending - RUQ u/s Multiple lesions; mild right calectasis; and mild gallbladder dilation - MRI: multiple lesions likely representing focal nodular hyperplasia and small flash filling hemangioma; no suspicious liver lesions seen 4. Ventricular Bigeminy - EKG ordered intrapartum - reviewed with residential sales rep; no actue intervention at this time recommended checking electrolytes - CMP with mild hyponatremia otherwise wnl 5. Bottle feeding 6. Contraception:per private attending 7. VTE Prophylaxis: Not Indicated 8. Continue current care Provider's Name: MD Caitlin Hdz DO 09/29/2019, 6:09 AM ATTENDING NOTE: I personally saw and evaluated the patient. I reviewed the care provided by the resident including the patient's medical history, physical exam findings, diagnosis and treatment plan. I also agree with the resident's documentation unless otherwise indicated: ? Liver tumor -- pt to f/u with GI outpt. ? Ventricular Bigeminy -- cardiology not concerned and told pt that it was d/t the stress of the IOL. ? PreEwSF -- currently stable and asymptomatic. --- Total time spent with the patient was 15 minutes, of which greater than 50% of the time was spent counseling and coordinating care. Patient to MRI with transport and [place] STONE @ 1610. Dr. Herrera to see patient @ 1604 to discuss order for MRI Shown section of Taking Care of Yourself and Baby booklet.Reviewed: hunger cues, feeding frequency, output parameters, breast engorgement, hand expression, contact information, and bf mothers group. Encouraged patient to call for assistance prn. Patient verbalized understanding. Discussed bf with pt. Infant has not latched to the breast yet. was fed in the nursery for a low blood sugar. Discussed bf with pt. Pt states she will bf. Discussed use of the breast pump as pt will be bf and pumping. Pt called to receive her personal use breast pump. Enc pt to call for assistance with pumping when her breast pump is available. Patient taken via transporter to ultrasound at this time. Baby taken to nursery. Per mom it is okay to feed formula while she is at ultrasound if infant is hungry. [facility] updated on POC and is aware patient will need nicoderm patch when back from ultrasound. POST DAY # 1 Jose Carlos Troy is a 38 y.o. female This patient was seen & examined today. Her was complicated by: Patient Active Problem List Diagnosis Labor and delivery, indication for care Arrest of dilation, delivered, current hospitalization Abnormal heart rate complicating Today she is doing well without any chief complaint. Her lochia is moderate. She denies chest pain, shortness of breath, headache, lightheadedness and blurred vision. She is ambulating well. Flatus absent. Bowel movement absent. Montalvo catheter still in place . She is tolerating solids. Pain is controlled yes. Vital Signs: Vitals: 09/27/19 2330 09/27/19 2345 09/28/19 0120 09/28/19 0549 BP: 131/77 (!) 140/72 (!) 148/92 123/82 Pulse: 108 110 109 108 Resp: 18 Temp: 98.4 F (36.9 C) 98.4 F (36.9 C) TempSrc: Oral Temporal SpO2: 96% 95% Weight: Height: Urine Input & Output last 24hrs: Intake/Output Summary (Last 24 hours) at 09/28/2019 0620 Last data filed at 09/28/2019 0200 Gross per 24 hour Intake 50 ml Output 2030 ml Net -1980 ml Physical Exam: General: no apparent distress, alert and cooperative Affect: appropriate Lungs: No increased work of breathing, good air exchange, clear to auscultation bilaterally, no crackles or wheezing Heart: regular rate and rhythm Abdomen: abdomen soft, non-distended, non-tender Fundus: non-tender, normal size, firm, below umbilicus Incision: clean, dry and intact , dressing still in place Extremities: no calf tenderness, non edematous Labs: Lab Results Component Value Date WBC 21.1 (H) 09/26/2019 HGB 11.8 09/26/2019 HCT 35.5 09/26/2019 MCV 82.0 09/26/2019 PLT 405 09/27/2019 O POS Antibody Screen: Antibody Screen Date Value Ref Range Status 09/25/2019 NEG NA Final Comment: Test Performed by [facility], [address] [place] [id number] No results found for: RUBELLAIGG LABOR DELIVERY ??? SCD's ONLY (labor through ambulation) SCD's PLUS Prophylactic Anticoagulation until discharge SCD's PLUS Prophylactic Anticoagulation for 6 weeks SCD's PLUS Therapeutic Anticoagulation for 6 weeks Vaginal Delivery [] BMI ? 40 kg/m2 Delivery All patients Vaginal Delivery [] BMI ? 40 kg/m2 AND [] Antepartum hospitalization ? 72 hours within the past month Delivery 1 Major Risk Factor: [] BMI ? 35 kg/m2 [] Low Risk Thrombophilia [] PPH+RBCs, IR, or operation [] Infection+Antibiotics [] Antepartum hospitalization ? 72 hours within the past month [] PMH: Sickle Cell, SLE, Cardiac Dz, Active IBD, Active Cancer, Nephrotic Syndrome OR 2 Minor Risk Factors: [] Multiple gestation [] Age > 40 [] PPH ? 1,000cc [] (+)FMH of VTE [] Smoker [x] Preeclampsia [] BMI ? 40 kg/m2 AND [] Low Risk Thrombophilia OR ANY OF THE FOLLOWING: [] High Risk Thrombophilia without prior VTE [] Low Risk Thrombophilia with (+)FMH of VTE [] Any single prior VTE ANY OF THE FOLLOWING: [] Already on LMWH/UFH [] Multiple prior VTE [] High Risk Thrombophilia with prior VTE Low Risk Thrombophilia: FVL (heterozygous), Prothrombin (heterozygous), Protein C, Protein S High Risk Thrombophilia: FVL (homozygous), Prothrombin (homozygous), FVL+Prothrombin (heterozygous), Antithrombin III, APLS Assessment/Plan: 1. Jose Carlos Troy is a POD # 1 s/p pLTCS 2/2 Failed Induction - Doing well, VSS - female , - Encourage ambulation and use of incentive spirometer - D/C montalvo catheter and saline lock IV on POD #1 - Postop Hb pending 2. Bottle feeding 3. PreEwSF - met criteria with persistent severe bps >4 hrs apart required no acute IV treatment - Pre E labs wnl on admission - Magnesium sulfate for seizure prophylaxis at 1g/hr through 09/28 @ 2200 - bps occasional mild range ; normotensive this am 4. Liver tumors - known liver masses since 2012; bx benign - antepartum seen by GI; hepatic masses increased in size and quantity on 08/19/19 - GI consulted recs appreciated; RUQ u/s Ordered 5. Ventricular Bigeminy - EKG ordered intrapartum - reviewed with residential sales rep; no actue intervention at this time recommended checking electrolytes - Cmp ordered for AM pending 6. Contraception:per private attending 7. VTE Prophylaxis: Not Indicated 8. Continue current care Provider's Name: MD Caitlin Hdz, 09/28/2019, 6:20 AM MFM I reviewed and agree with the care provided by the resident including the patient's medical history, the resident's findings in the physical exam, patient's diagnosis and treatment plan. She is currently , desires progesterone only OCP for contraception. BP all mild range currently and routine cares. Await formal consultation from GI regarding plan for liver tumors. Assisted patient in getting up to bathroom at this time and performing boni care. Patient tolerated well. Bleeding is scant, no clots present. Montalvo remains in place at this time. Encouraged patient to ask for staff assistance when getting out of bed while she still has montalvo in and IV running. No needs voiced currently, call light within reach. Pt received from L&D. Pt oriented to room and call light. Admission packet, It's My Health folder and A Guide To Caring for Yourself and Baby reviewed. Pt understands she is not to get out of bed without staff assistance later this morning around 0600. Reviewed intake parameters with patient while she is on magnesium and pitocin. Call light is within reach. Pt has no further questions at this time. Reviewed patient's labor course. Cervix 7 cm dilated with swelling, -1 station. +bloody urine. Contractions inadequate despite decreased magnesim dose and max pit dose. Multiple position changes were utilized. Membranes were ruptured 20 hours ago. Cat 2 heart rate tracing with minimal variability, occasional accelerations, and no decelerations. Given arrest of dilation for 4 hours and heart rate tracing category 2 remote from delivery I recommend primary C section. The patient is very grateful for being offered a C section. I reviewed the risks, benefits and alternatives to C section. She declines tubal ligation. She states understanding of our entire conversation. All her questions (and her family's questions) were answered to her stated satisfaction. We plan to proceed with C section. A safety huddle was called with resident, nurse, and anesthesia present. NICU was notified. Patient checked at now 6-7/80/-1, feels like baby is LOP. Pitocin at 30 mu/min, MVUs 150-186 over past few hours, but has changed since last check. Some bloody show also. Periods of minimal variability, but no decels in last hour, and +scalp stim/15X15 accel with check. Discussed labor not adequate but at limits of pitocin and magnesium likely making this harder to achieve, however cervix is changing and is now hopefully transitioning into a more rapid active labor. Given OP positioning, we discussed trying knee chest positioning and patient is agreeable to trying, nursing staff in to help move patient. Will continue to monitor. Nutrition rescreen completed. Chart reviewed. Patient here for induction. Patient to be monitored and followed by the diet catheterization laboratory technician. Dietitian available upon request. Cx:50/-3 FHT: Cat I Condon: none A/P: 1. IOL - PreEwSF - 60 cc FB placed at this note time with cytotec. BP continues to be mild range. Asymptotic, Magnesium for seizure prophylaxis. UO 300/2hrs deferred, FB in place. Now past 4h. Ctx 2 min, will start low dose pitocin when contractions decrease in frequency. Intermittent mild range BPs. PreE labs wnl at 0400. Will continue to trend q6h. Magnesium running for seizure ppx. CCM Cx:defer FHP:defer FHT: Cat I Condon:q2-3min A/P: 1. IOL-PreEwSF FB still in place at this time. Blood pressures mild range since last note time UOP 600 cc over last 4 hours. Patient concerned about increased heart rate. Heart rate 110s. She is asymptomatic. Also feeling some epigastric pain and states it is no different than her usual liver pain. States grasshopper she was given last night helped the pain. Ordered bicitra. Will continue to monitor. Cx: defer FHP: defer FHT: Cat I Condon: Q3min A/P: 1. IOL-PreEwSF: FB still in place, juan j Q2-3min. If Ctx space, will plan for low dose pitocin. Magnesium sulfate for seizure PPx. UOP adequate with 775cc out in last 4 hours. BPs mild range. CCM Cx: defer FHP: defer FHT: Cat I Condon: irregular, Q3-6min A/P: 1. IOL-PreEwSF: FB out at this time, will plan to start pitocin. Magnesium sulfate for seizure PPx. UOP adequate. BPs mild range. CCM Cx: defer FHP: defer FHT: Cat I Condon: Q4min A/P: 1. IOL-PreEwSF: Pit at 2mu/min, titrate per protocol. Magnesium sulfate for seizure PPx. UOP adequate with 200cc out in last 4 hours. BPs mild range to normotensive. Will plan to repeat SVE when becomes more uncomfortable. CCM Cx:defer FHP: defer FHT: Cat II Condon: irritable A/P: 1. IOL-PreEwSF: Pit at 8mu/min, titrate per protocol. Patient very comfortable, will defer SVE. Magnesium sulfate for seizure PPx. UOP adequate 200 cc in last 4 hours. BPs mild range. CCM Cx:defer FHT: Cat I Condon:q2-3mins A/P: 1. IOL-PreEwSF: Patient currently comfortable and asleep. Pit @ 12 mu/min and juan j regularly but patient not feeling them. Will plan to recheck and assess for AROM once patient awake. On mag for seizure prophylaxis. BP normotensive most recently. UOP 200cc over the past 4 hours. Cx:defer FHT: Cat II Condon:q2-3mins A/P: 1. IOL-PreEwSF: Patient remains very comfortable. Pit at 12 mu/min. Cat II for periods of minimal variability but otherwise reassuring with spontaneous accels. Will continue to titrate pitocin and recheck to assess for AROM once more uncomfortable. BP normotensive. Remains on maintenance mag. UOP 400cc over past 4 hours. Cx: defer FHP: defer FHT: Cat I Condon: Q2-3min A/P: 1. IOL-PreEwSF: Pit at 14mu/min, titrate per protocol. On magnesium sulfate for seizure PPx. BPs mild range to normotensive. UOP adequate with 200cc out in last 4 hours. CCM Cx: 4/70/-3 FHP: defer FHT: Cat II Condon: Q2min A/P: 1. IOL-PreEwSF: Pit at 18mu/min. Cat II FHT for recurrent late decels for 10 minutes with minimal variability. Patient repositioned. Accel noted with scalp stimulation. Will continue to use conservative interventions. Patient not feeling contractions despite frequency and 18mu/min of pitocin. Will switch out pitocin bag and consider pitocin holiday vs AROM when get to 20mu/min of pitocin. Magnesium sulfate for seizure PPx. BPs normotensive to mild range. UOP has been adequate, no recent UOP recorded - will discuss with RN. Will continue to monitor closely. Cx:defer FHT: Cat II Condon:not tracing well A/P: 1. IOL-PreEwSF: Pit @ 20mu/min for past hour. Patient more uncomfortable. Discussed labor plan with patient. She is desiring epidural at this time and then will assess for AROM once comfortable with epidural for 30mins. Bps normotensive most recently. Maintenance mag running. UOP 600cc over past 4hours. See Previous notes on paper 2 Epic downtime Cx: defer (SVE at 470/-3 aat 0132) FHP: defer FHT: Cat I Condon: Q4-5min A/P: 1. IOL-PreEwSF: Pit at 8mu/min, titrate per protocol (after pitocin holiday at 0210 for 1 hr). Comfortable and sleeping with epidural. Magnesium sulfate for seizure PPx. BPs normotensive. UOP adequate with 300cc out in last 4 hours. CCM Cx: defer FHP: defer FHT: Cat I Condon: Q5min A/P: 1. IOL-PreEwSF: pit at 10mu/min, titrate per protocol. MVUs inadeaute at 103. Magnesium sulfate for seizure PPx. BPs normotensive. UOP adequate with 300cc out in last 4 hours. CCM Cx:unchanged FHP:defer FHT: Cat II Condon:q5min A/P: 1. IOL-PreEwSF Cat II for periods of minimal variability. Otherwise reassuring with moderate variability and accels also present. Pit at 14cc/h, continue to titrate per standard protocol. Blood pressures normal since last note time UOP 300 cc over the last 4 hours. Will continue to monitor on IV Mag. Dr vargas updated at this time. Plan to recheck when pitocin at 20 and increase above 20 if unchanged and MVU inadequate. Cx:defer FHT: Cat I Condon: q 6 min A/P: 1. IOL - PreEwSF - pitocin now at 20 MVU inadequate will ensure epidural adequate and then evaluate for increasing pitocin above 20. Magnesium for seizure prophylaxis. UO 500/4hrs, asymptomatic. Cx: 4/70/-3 FHT: Cat I Condon: q 4 min A/P: 1. IOL - PreEwSF - pitocin remains at 20 pt very uncomfortable epidural redosed. Early decelerations noted. MVU remain inadequate but contractions increasing in frequency. Plan to increase pitocin above 20 when pt more comfortable. BP WNL overall, remains asymptomatic. Magnesium for seizure prophylaxis. UO adequate. Intermittent late decels for 20 minutes with moderate variability. Fluid bolus given and pt repositioned. Plan to safety huddle and increase pitocin above 20 after pattern improves. Continues to have periods of minimal variability but overall moderate. Intermittent late decels with contractions. Will continue conservative interventions. Dr Vargas in house with another patient will discuss labor course when available. AROM at 0100 therefore has been on pitocin after AROM for 11 hours at this time. Dr Vargas in to evaluate pt. Now 5-6/[address] Vargas, cervix soft and stretchy, appears to be making cervical change therefore no need to increase pitocin. MVU remain inadequate. Scalp stim achieved. Will continue with conservative interventions. Cx:unchanged FHP:defer FHT: Cat II Condon:q2-3min A/P: 1. IOL-PreEwSF Cat II for minimal variability and intermittent late decels. Periods of moderate variability still present. Acoustic stim without response. Scalp stim with positive response, accel present. Pit at 20cc/h, continue to titrate per standard protocol. Blood pressures normotensive since last note time. UOP not recorded over the last four hours. Safety huddle at this time with Dr Vargas, pe electrical engineer and primary RN. All concerns addressed. Plan to increase pitocin above 20 given unchanged and inadequate MVU. Periods of minimal variability with minimal scalp stim. Plan to do BPP at 1400 and recheck at 1430. Defer BPP at this time as FHT currently cat I with moderate variability for [address] Vargas remains in house. Cat II again with minimal variability. Cvx checked and unchanged. Pt feeling more pressure. Pit at 28cc/h. Dr. Vargas notified via [employer]. Cx:6-/-[address] Vargas FHP: OP FHT: Cat II Condon: q3-4m A/P: 1. IOL-PreEwSF. Cat II for periods of minimal variability. Overall reassuring with most recent moderate variability and accelerations. BP normotensive, on mag sulfate for seizure ppx with adequate UOP. Per Dr. Vargas fetus feels OP, currently being repositioned in attempt to turn fetus. MVUs inadequate at 150 however pt making change and now in active labor. Pit at 30cc/hr. Patient with abnormal heart rate at times 120 bpm others 60 bpm in room patient is currently asymptomatic, denies palpitations. On auscultation, sinus rhythm with no murmurs, rubs or gallops. EKG ordered with ventricular bigeminy, discussed with Dr. Vargas, Pitocin currently at 30cc/hr. Will half magnesium at this time, also will give 250cc bolus. CCU residents paged Reviewed EKG with CCU fellow. Bigeminy with PVCs, patient is asymptomatic. They state that at this time no further management. Recommend blood pressure control and repeat electrolyte panel. Will order CMP. Patient with severe range blood pressure 160/76, currently lying on side uncomfortable with contractions anesthesia has adjusted epidural. Repeat Normotensive Cx: /-1 FHT: Cat II Condon: q3-5m A/P: 1. IOL-PreEwSF. Cat II for periods of minimal variability and recurrent late decels for 20 minutes. Repositioned to right side, no late decel with last 2 ctx. Pit remains at 30cc/hr, maternal O2 on, receiving fluid bolus. Most recently normotensive. Mag level 8.8, Mag infusion rate halved. MVUs inadequate at 186. Reviewed labor course. Now making change in active phase labor. Pit at 30 cc/hr, MVUs remain inadequate (most recently 186). PreEwSF diagnosed based on severe range BPs >4 hrs apart, has never required acute treatment. Currently normotensive, did have non-persistent severe range BP at 1825. On mag sulfate for seizure ppx at 1g/hr per attending preference. Mag therapeutic at 8.8. Of note, Cr is increased at 0.97 (previously 0.65 yesterday morning). UOP adequate, 300 mL out at 1900. Recent EKG remarkable for ventricular bigeminy as noted above. Electrolytes checked and within normal limits: K 3.6, corrected Ca 8.8, phos 2.5. Per residential sales rep who reviewed EKG, no other interventions indicated in the absence of symptoms. FHT remains cat II for period of minimal variability and now intermittent late decels. Conservative interventions in place. Overall reassuring with periods of moderate variability - will continue to monitor and if this does not return will attempt to obtain scalp stim. Will continue conservative interventions and labor induction as moderate variability reliably rules out ongoing acidemia and she is making adequate progress in active phase labor. Positive scalp stimulation with acceleration and return of moderate variability. Negative scalp stim per Dr. Arana. Dr. Vargas updated and reviewed labor course. In light of prolonged induction, minimal variability, negative scalp stim, ROM for 19hr, Dr. Vargas will come and assess patient. Likely moving toward PCD, will reassess after Dr. Vargas evaluates pt. Per Dr. Vargas's SVE, pt unchanged and cervix becoming more edematous. Discussed with patient that we would recommend proceeding with a primary delivery for failed induction of labor given that she has had a prolonged induction course, been broken and on pit for 20 hours. MVUs remain inadequate and she has been 6-7 since 1714 today. FHT overall Cat II for minimal variability and now negative scalp stim at 2022. Safety huddle performed with Dr. Vargas, nurse discharge, patient's RN, and anesthesia to proceed with PCD. Does not need to be a 30min section. Consent signed at 2114. Patient consented for PCD and counseled on risks, including risk of bleeding, infection, and injury to surrounding structures. Pt also consented for blood products. Department of Obstetrics and Gynecology Labor and Delivery Triage Note CHIEF COMPLAINT: Elevated BP at home HISTORY OF PRESENT ILLNESS: Jose Carlos Troy is a 38 y.o. 36w1d OB History 1 Para Term AB Living SAB TAB Ectopic Molar Multiple Live Births Patient presents with a chief complaint as above. Elevated BP at home . Currently asymptomatic. Denies DFM/, VB, LOF and CTX No other complaints Detailed OB History: OB History Para Term AB Living 1 0 0 0 0 0 SAB TAB Ectopic Molar Multiple Live Births 0 0 0 0 0 0 # Outcome Date GA Lbr Varun/2nd Weight Sex Delivery Anes PTL Lv 1 Current Estimated Due Date: Estimated Date of Delivery: None noted., No LMP recorded. Patient is . PAST MEDICAL HISTORY: No past medical history on file. PAST SURGICAL HISTORY: No past surgical history on file. SOCIAL HISTORY: MEDICATIONS: Prior to Admission medications Not on File CARE: Complicated by: elevated BP and liver lesions REVIEW OF SYSTEMS: See HPI APPEARANCE: Pain: Resting comfortably PHYSICAL EXAM: Vital Signs: BP There were no vitals filed for this visit. Abdomen/Uterus: gravid/non-tender Edema: None Speculum Exam: defer heart rate: Category I Cervix: defer Contraction frequency: None Membranes: Intact RESULTS: NST: Reactive DVP: defer BPP: defer Lab Results Component Value Date WBC 14.3 (H) 09/25/2019 HGB 12.3 09/25/2019 HCT 36.9 09/25/2019 PLT 433 09/25/2019 No results found for: CREATININE, GLUCOSE, AST, ALT GENERAL LABS: Recent Results (from the past 24 hour(s)) CBC Collection Time: 09/25/19 8:16 PM Result Value Ref Range WBC 14.3 (H) 3.6 - 10.7 10*3/uL RBC 4.46 3.80 - 5.20 10*6/uL Hemoglobin 12.3 11.7 - 16.0 g/dL Hematocrit 36.9 35.0 - 47.0 % MCV 82.7 79.0 - 98.0 fL MCH 27.5 26.0 - 34.0 pg MCHC 33.3 32.0 - 36.0 % RDW 13.3 11.5 - 14.5 % Platelets 433 140 - 440 10*3/uL MPV 8.5 7.4 - 10.4 fL Creatinine, Random Urine Collection Time: 09/25/19 8:17 PM Result Value Ref Range CREATININE, RANDOM URINE 46.9 No Range mg/dL Protein, urine, random Collection Time: 09/25/19 8:17 PM Result Value Ref Range Protein, Urine, Random 30 (H) No Range mg/dL TRIAGE COURSE: Pt was seen in triage for elevated BP at home. Asymptomatic. Intermittently severe range BP. PreE labs pending. Admit for PreEwSF for induction IMPRESSION: Preeclampsia-with severe features DISCUSSED WITH PNC PROVIDER: Dr Garcia DISPOSITION: Admit to L&D Associated attestation - Roderick Jose MD - 09/28/2019 8:23 AM EST I reviewed and agree with the care provided by the resident/CNM/BECCA during the visit including the patient's medical history, the resident's findings in the physical exam, patient's diagnosis and treatment plan. documented in this encounter [facility] Work Phone: Hospital course Narrative 09-30-2019 Diogenes Lambert MD - 09/30/2019 9:44 AM EST Note Date & Type Note Facility 09-30-2019 Hospital course Narrative Obstetric Discharge Summary Jose Carlos Troy 09/25/2019 Reasons for Admission on 09/25/2019 7:04 PM Labor and delivery, indication for care [O75.9] No comment available Section (Primary) Surgical Operations & Procedures: Delivery Type: with labor Laceration(s): n/a Delivery Complications: none Pertinent Findings & Procedures: Information for the patient's : Lobito Troy [[id number]] female Weight: 6 lb 3.3 oz (2.815 kg) Apgars: Information for the patient's : Lobito Troy [[id number]] One Minute : 7 Five Minute : 8 course elevated BPs. Blood Type/Rh: No results found for: ABORH Antibody Screen: Antibody Screen Date Value Ref Range Status 09/25/2019 NEG NA Final Comment: Test Performed by [facility], [address] [place] [id number] Rubella: No results found for: RUBELLAIGG Discharge to: Home Contraception: no method : yes Meds: Jose Carlos Troy Home Medication Instructions JAYLAN:[id number] Printed on:09/30/19 0944 Medication Information famotidine (PEPCID) 40 MG tablet Take 40 mg by mouth daily oxyCODONE (ROXICODONE) 5 MG immediate release tablet Take 1 tablet by mouth every 4 hours as needed for Pain for up to 3 days. MV-Min-Fe Fum-FA-DHA ( 1 PO) Take by mouth Activity: activity as tolerated Diet: regular diet Follow up: [facility] within 1 week Condition on discharge: good and stable Discharge date: 09/30/19 Labor and delivery, indication for care [O75.9] Patient Active Problem List Diagnosis Pre-eclampsia in third trimester Liver lesion Diogenes Lambert MD on 09/30/2019 at 9:44 AM Comments: Home care, Follow-up care and control were reviewed. Signs and symptoms of mastitis and Post Depression were reviewed. The patient is to notify her physician if any of these occur. I reviewed and agree with the care provided by the resident/CNM/BECCA during the visit including the patient's medical history, the resident's findings in the physical exam, patient's diagnosis and treatment plan. documented in this encounter [facility] Work Phone: Hospital Discharge instructions 09-29-2019 Instructions Note Date & Type Note Facility 09-29-2019 Hospital Discharg e instructions Meghan Feliz, DO - 09/29/2019 After Your Delivery (the Period): Your Care Instructions Congratulations on the of your baby. Like , the period can be a time of excitement, mildred, and exhaustion. You may look at your wondrous little baby and feel happy. You may also be overwhelmed by your new sleep hours and new responsibilities. In these first weeks after delivery, try to take good care of yourself. It may take 4 to 6 weeks to feel like yourself again, and possibly longer if you had a . You will likely feel very tired for several weeks. Your days will be full of ups and downs, but lots of mildred as well. FOLLOW-UP: Your follow-up care is a parsons part of your treatment and safety. Follow-up with your OB doctor in 4-6 weeks or as specified by your physician. Be sure to make and go to all appointments, and call your doctor if you are having problems. It's also a good idea to know your test results and keep a list of the medicines you take. BLEEDING ? Vaginal bleeding will decrease in amount over the next few weeks but be present for as long as 8 weeks after delivery. Bleeding may pickling tank operator and then decrease again around 7-10 days . ? Use pads instead of tampons for the bloody flow that may last as long as 2 weeks. ? You will notice that as your activity increases, your flow may increase. ? Call your doctor if you are saturating one maxi pad in an hour & passing large clots for 3 hours or more. ACTIVITY ? NO SEXUAL activity for 6 weeks or until advised by your doctor. ? Nothing in the vagina vagina for 6 weeks: intercourse, tampons, or douching. ? Showering is okay; NO tub baths, swimming, or hot tubs. ? Gradually increase your activity. Resume exercise regimen only after advice by your doctor. ? Avoid lifting anything heavier than your baby or a gallon of milk for six weeks. ? Avoid driving 1 week for vaginal delivery and 2 weeks for section, or longer if you are on prescription pain medicine unless otherwise instructed by your doctor. ? Rise slowly from a lying to sitting and then a standing position. ? Climb stairs carefully. Use caution when carrying your baby up and down the stairs. ? You may feel tired or have a lack of energy. Nap when baby naps to catch up on sleep. ? You may continue your vitamin to replenish nutrients post delivery. EMOTIONS You may feel carrasquillo, sad, teary, & overwhelmed for the first 2 weeks ; however, feelings of post depression may occur any time within the first year after delivery. Contact your OB provider if you feel you may be showing signs of depression, or have thoughts of harming yourself or your . If will not stop crying, contact another adult for help or place infant in their crib on their back and take a break. NEVER shake your infant. WOUND CARE For Vaginal Delivery: ? Shower daily, and cleanse your perineum (bottom) with mild soap from front to Back. Use the plastic squirt bottle until bleeding stops each time you use the restroom instead of wiping with toilet paper. ? Ease soreness of hemorrhoids and the area between your vagina and rectum with ice compresses or witch karen pads. ? If used, stitches will dissolve in 4-6 weeks on their own. You may use a sitz bath or soak in a clean tub with drain open and water running for comfort. ? Kegel exercises will help restore bladder control. To do these tighten your muscles as if you were stopping your urine flow. Hold for a few seconds and then relax. Do these throughout the day. For Section Delivery: ? Keep your incision clean and dry. If you had steri-strips you may remove these once they start peeling off. If you have kodak they need to be removed 3-10 days after delivery. If you have steri-strips, remove after 10-14 days. ? Do not wear clothing that irritates the incision line. If your incision in in a crease that is not dry, use a hair-dryer to dry the area 3 times a day. ? If you develop fever, shaking chills, redness, swelling, drainage or discharge from your wound, or if your wound looks like it's coming apart call your doctor immediately. For Tubal Ligation: ? Remove dressing 3 days after being discharged from the hospital. ? If you develop fever, shaking chills, redness, swelling, drainage or discharge from your wound, or if your wound looks like it's coming apart call your doctor immediately. BREAST CARE If you develop a warm, red, tender area on your breast or develop a fever contact your doctor. For moms: ? If you become engorged, feeding may be more difficult or painful for 1-2 days. ? You may find it helpful to hand express some milk so that the can latch on more easily or ease soreness with wet, warm washcloths. ? While , continue to take your vitamins as directed by your doctor. For non- moms: ? You may apply ice packs to your breasts over you bra for twenty minutes at a time for comfort. ? Cabbage leaves may be applied to breasts, replace when wilted. ? Avoid stimulation to your breasts, when showering allow the water to strike your back not your breasts. ? Do not express milk or your body will make more. ? Wear a good fitting bra until your milk dries, such as a sports bra. DIET & CONSTIPATION ? Eat a well balanced diet focusing on foods high in fiber and protein such as: whole grain cereals and breads, fruits and vegetables and legumes (eg, beans, lentils) ? Drink 8-10 glasses of fluids daily, especially water. ? To avoid constipation you may take a mild goov-byk-rvmyfak stool softener (such as colace) as recommended by your doctor. SWELLING ? Try to keep your legs elevated when you are sitting or lying down. ? Stay hydrated and take walks. BABY ? Babies sleep safest on their back in a crib without bumpers, blankets or stuffed animals. ? DO NOT sleep with your baby in your bed or the couch. ? DO NOT expose baby to smoke, this can increase risks of asthma and sudden syndrome. If you or someone around baby smokes have them change their shirt and wash any facial hair before holding baby. Do not smoke inside the house and change the ventilation filters in the house before bringing baby home. WHEN TO CALL THE DOCTOR Signs of infection, including fever (101oF) and chills Increased bleeding: soaking more than one sanitary pad an hour Wounds that become red, swollen or drain pus Vaginal discharge that smells foul Headaches that lasts several hours and will not go away even with headache medications. Visual changes that last several hours and will not go away. Significant pain immediately below your rib cage. New pain, swelling, or tenderness in your legs Pain that you can't control with the medications you've been given Pain, burning, urgency or frequency of urination, or persistent bleeding in the urine Cough, shortness of breath, or chest pain Depression, suicidal thoughts, or feelings of harming your baby Breasts that are hot, red and accompanied by fever Any cracking or bleeding from the nipple or areola (the dark-colored area of the breast) You may have been given a magnet like this: If so, we encourage you to use it on your refrigerator as a reminder of when to call the doctor. In case of an emergency, call 911 immediately. documented in this encounter [facility] Work Phone: Evaluation + Plan note Note Date & Type Note Facility Evaluation + Plan note No data available for this section [facility] Evaluation note Note Date & Type Note Facility documented in this encounter [employer] Work Phone: Summary Purpose Family History No Family History Records FoundNo Family History Records FoundNo Family History Records FoundNo Family History Records FoundNo Family History Records Found No data available for this section Advance Directives Documents on File Type Date Recorded Patient Legal Executive Assistant Expl anation Advance Directives and Living Will Power of Library Services Dean Latest Code Status on File Code Status Date Activated Date Inactivated Comments Full Code 09/28/2019 1:02 AM 09/30/2019 5:55 PM Full Code 09/25/2019 10:25 PM 09/28/2019 1:01 AM Latest Code Status on File Code Status Date Activated Date Inactivated Comments Full Code 09/28/2019 1:02 AM Full Code 09/25/2019 10:25 PM 09/28/2019 1:01 AM Reason for Referral Status Reason Specialty Diagnoses / Procedures Referre d By Contact Referred To Contact Closed Radiology Diagnoses Liver lesion Focal nodular hyperplasia of liver Hemangioma of liver Procedures MRI Abdomen W WO Contrast Amberly Farrell PA-C [address] [place] [address] Assessments Diagnosis Liver lesion Other specified disorders of liver Focal nodular hyperplasia of liver Other specified disorders of liver Hemangioma of liver Hemangioma of intra-abdominal structures Additional Source Comments INFORMATION SOURCE (unrecogn ized section and content) DATE CREATED AUTHOR AUTHOR'S ORGANIZ ATION 08/19/2019 [employer] DATE CREATED AUTHOR AUTHOR'S ORGANIZ ATION 10/03/2019 [facility] DATE CREATED AUTHOR AUTHOR'S ORGANIZ ATION 11/18/2019 [facility] DATE CREATED AUTHOR AUTHOR'S ORGANIZ ATION 02/23/2020 [facility] Reason for Visit (unrecogniz ed section and content) Patient Care team informatio n (unrecognized section and content) Care Team Personnel Name: SACHA MARTÍNEZ MD Member Role: Primary Care Physician Address: Address: [address] [place] [id number]- Care Team Related Persons Name: NONE, Name: LA PEARL FOR RECORDS PERTAINING TO PATIENTS WHO ARE OR HAVE BEEN ENROLLED IN A CHEMICAL DEPENDENCY/SUBSTANCEABUSE PROGRAM, SOME INFORMATION MAY BE OMITTED. This clinical summary was aggregated from multiple sources. Caution should be exercised in using it in the provision of clinical care. This summary normalizes information from multiple sources, and as a consequence, information in this document may materially change the coding, format and clinical context of patient data. In addition, data may be omitted in some cases. CLINICAL DECISIONS SHOULD BE BASED ON THE PRIMARY CLINICAL RECORDS. [employer] provides no warranty or guarantee of the accuracy or completeness of information in this document.
[2023-11-08] MEDS: dexAMETHasone 10 MG/ML Vial PO.IVFORM (22:28)
[2023-11-08 22:30] VITALS: BP 121/82; PULSE 81; RESP 16; O2SAT 98
[2023-11-08 22:32] VITALS: BP 121/82; PULSE 81; RESP 16; TEMP 37.5; O2SAT 98
== END 2023-11-08 22:32 | disposition home or self-care (01) ==
LOC: ED 22:17
PROVIDERS: Emergency Provider Emergency Medicine; PCP Internal Medicine; Visit Provider Emergency Medicine
DX: J36 Peritonsillar abscess (principal); H69.83 Other specified disorders of Eustachian tube, bilateral; F17.210 Nicotine dependence, cigarettes, uncomplicated
CPT/HCPCS: 99281

== ENCOUNTER → 2023-11-20 | Outpatient (CLI) | payer MEDICAID, SELFPAY ==
[2023-11-20 15:46] LABS: Hematocrit 48.1 % (37-47); Hemoglobin 14.9 g/dL (12.0-15.0); Mean Corpuscular Hgb 27.9 pg (27.0-32.0); Mean Corpuscular Volume 89.9 fL (81-99); Mean Platelet Vol. 9.6 fl (6.2-12.0); Platelet Count 389 K/mm3 (150-450); RBC Distribution Width CV 12.6 % (11.6-14.6); RBC Distribution Width SD 41.1 fl (35.1-43.9); Red Blood Count 5.35 M/mm3 (4.2-5.4); White Blood Count 10.8 K/mm3 (4.4-11.0)
[2023-11-20 16:09] LABS: ALB/GLOB Ratio 1.1 RATIO (0.9-2.4); AST(SGOT) 18 U/L (15-37); Alanine Aminotransfer ALT/SGPT 26 U/L (13-56); Albumin, Serum 3.9 g/dL (3.2-5.0); Alkaline Phosphatase 90 U/L (45-117); Anion Gap 4 (5-15); BUN 14 mg/dL (7-18); BUN/Creat Ratio 16.9 RATIO (10-20); Calcium,Total 9.1 mg/dL (8.5-10.1); Chloride 109 mmol/L (98-107); Cholesterol 155 mg/dL (200); Creatinine, Serum 0.83 mg/dL (0.55-1.02); EST Glomerular Filtration Rate 81 mL/min (>60); Est Glom Filt Rate - Afr Amer 98 mL/min (>60); Globulin 3.6 g/dL (2.2-4.2); Glucose 105 mg/dL (74-106); High Density Lipoprotein 72 mg/dL; Potassium 4.6 mmol/L (3.5-5.1); Protein, Total 7.5 g/dL (6.4-8.2); Sodium Level 139 mmol/L (136-145); Triglycerides 52 mg/dL; Very Low Density Lipoprotein 10 mg/dL (5-40)
== END | disposition home or self-care (01) ==
LOC: BIMLAB 12:20
PROVIDERS: PCP Internal Medicine; Visit Provider Physician Assistant
DX: K76.89 Other specified diseases of liver (principal); Z83.49 Family history of other endocrine, nutritional and metabolic diseases; Z83.438 Family history of other disorder of lipoprotein metabolism and other lipidemia
CPT/HCPCS: 36415; 80053; 80061; 84443; 85027

== ENCOUNTER 2024-06-22 12:08 | Emergency (ER) | payer MEDICAID, SELFPAY ==
[2024-06-22 12:09] VITALS: BP 117/83; PULSE 84; RESP 18; TEMP 36.6; O2SAT 100; BMI 20.1
--- NOTE | 2024-06-22 12:50 | RAD_ITS ---
STUDY: X-RAY CHEST REASON FOR EXAM: Female, 43 years old. cough sob TECHNIQUE: Frontal and lateral views of the chest. COMPARISON: 10/26/2022. FINDINGS: The lungs are clear and expanded. There is no demonstrated pleural abnormality. Normal size heart. Normal mediastinum and magalie. Normal visualized pulmonary arteries. Normal visualized aortic arch and descending thoracic aorta. Normal visualized thoracic spine. Normal visualized ribs, clavicles, and shoulders. There is no demonstrated abnormality of the visualized soft tissue structures of the upper abdomen. RAD/Chest PA and Lateral IMPRESSION: Normal x-ray examination of the chest. Electronically Signed: Roosevelt Sampson MD at 14:44 EDT ,
--- NOTE | 2024-06-22 12:50 | EKG12_ITS ---
Test Reason : Blood Pressure : / mmHG Vent. Rate : 074 BPM Atrial Rate : 074 BPM P-R Int : 108 ms QRS Dur : 086 ms QT Int : 392 ms P-R-T Axes : 056 087 066 degrees QTc Int : 435 ms Poor data quality, interpretation may be adversely affected Sinus rhythm with short OK Otherwise normal ECG Confirmed by Anjum Marroquin ([id number]), editor continuity and script PETER HAIRSTON ([id number]) on 06/23/2024 8:25:49 AM Referred By: Confirmed By:Anjum Marroquin
--- NOTE | 2024-06-22 12:53 | ED.VIS.DYS ---
HPI History of Present Illness Chief Complaint: Shortness of Breath Informant: patient Narrative Narrative: 43-year-old female 3-4 days of illness where she is having a productive cough without blood and feeling short of breath with activities. She has some random left-sided sharp chest pains that are nonpleuritic and occur without an obvious trigger such as movement or coughing, last for maybe a minute or less and go away. She states she has had several sick contacts lately, they have been diagnosed with viral syndrome as well as pneumonia. She has asthma feels like it is worse but she does not feel like she needs a breathing treatment right now. She has been having some wheezing with this which has been the majority of her dyspnea. She denies any history of DVT or PE or recent leg pain or swelling or recent immobilization/surgery/hospitalization. [facility] Medical History Impetigo Pharyngitis Acute sinusitis, unspecified Left flank pain Hematuria UTI (urinary tract infection) Oral thrush Generalized anxiety disorder with panic attacks Focal nodular hyperplasia of liver Contact dermatitis due to [place] Contact dermatitis due to poison [place] Poison [place] Tobacco abuse Seasonal allergies Right knee pain Anxiety Weight loss Vision problems Tumors Polycystic ovarian disease Pancreatitis Kidney stones Recurrent infections Hives Chronic headaches GERD (gastroesophageal reflux disease) H/O emotional problems Chronic bronchitis Breast lump Back problem Asthma Allergies Home Medications ?Medication ?Instructions ?Recorded ?Last Taken ?Type fluconazole 150 mg tablet 150 mg PO Q3D 2 doses #2 tabs 11/07/23 Unknown Rx albuterol sulfate 90 mcg/actuation 2 puff inhalation Q6H PRN 04/20/24 Unknown Rx aerosol inhaler bronchospasm #8.5 grams prednisone 10 mg tablet 10 mg PO UD #30 tabs 06/22/24 Unknown Rx Allergy/AdvReac Type Severity Reaction Status Date / Time aloe vera Allergy Rash Verified 06/22/24 12:08 aspirin (ASA) AdvReac Upset Verified 06/22/24 12:08 Stomach Family History Father Anemia Anxiety Arthritis Blood clot in vein Depression Diabetes Heart disease CVA (cerebral vascular accident) Kidney disease Mother Anxiety Asthma Arthritis Depression Hypertension Severe allergy Grandfather Arthritis Brain aneurysm Leukemia Grandmother Arthritis Hypertension CVA (cerebral vascular accident) Grandfather Arthritis Respiratory disease Grandmother Arthritis Kidney disease Surgical History History of History of esophagogastroduodenoscopy (EGD) History of knee surgery History of needle biopsy history of salivary gland removal Social History Smoking Status: Current every day smoker tobacco type: cigarettes alcohol intake: never substance use type: does not use what type of physical activity do you participate in: none ROS ROS ED Constitutional Constitutional ED: Denies chills or fever(s) Eyes Eyes: Denies change in vision or diplopia ENT ENT ED: Denies rhinorrhea or sore throat Cardiovascular Cardiovascular: Reports chest pain; Denies leg edema, palpitations, radiating jaw, neck or arm pain or syncope Respiratory/Chest Respiratory/Chest: Reports cough, dyspnea and sputum Gastrointestinal Gastrointestinal: Denies abdominal pain, diarrhea, nausea or vomiting Genitourinary Genitourinary ED: Denies dysuria or hematuria Musculoskeletal Musculoskeletal: Denies back pain or neck pain Integumentary Denies abscess or rash Neurologic Neurologic: Denies headache(s), paresthesias or weakness Psychiatric Psychiatric: Denies anxiety or suicidal thoughts EXAM Physical Exam Const Vital Signs: 06/22/24 12:09 Temperature 97.9 F Temperature Source Oral Pulse Rate 84 Respiratory Rate 18 Blood Pressure 117/83 H Blood Pressure Mean 94 Pulse Ox 100 Oxygen Delivery Method Room Air Positive well nourished and well developed General Appearance ED: well developed and NAD HEENT Reports moist mucous membranes normocephalic and atraumatic Eyes PERRL and EOMs intact bilaterally Neck full ROM and supple Chest Wall Chest Narrative: No reproducible tenderness or subcutaneous emphysema. Not currently having chest discomfort. No splinting with deep inspiration. Resp normal respiratory effort and clear to auscultation bilaterally Cardio regular rate, regular rhythm and no murmurs GI non-tender and non-distended Auscultation: normoactive bowel sounds Palpation: soft Back/Spine no CVA tenderness General Back: other FROM Extremity normal to inspection Extremity Narrative: No calf tenderness or palpable cords. General Extremety ED: Negative for edema, pulses abnormal or tenderness General Extremity: Negative for edema or pulses abnormal Neuro oriented x3, CN's II-XII intact bilaterally and no sensory deficits noted Sensorium / Orientation: awake and alert Motor Exam: strength 5/5 throughout Skin no rashes or lesions noted and no wounds MDM MDM MDM Narrative Medical decision making narrative: Per PERC score is 0, thereby ruling out pulmonary embolus without further testing deemed necessary for this atypical intermittent left-sided chest pain she is having. Her EKG is normal. Her chest x-ray 2 views on interpretation shows no acute pneumonia, radiology in agreement. I ordered a troponin as well as basic labs and a COVID/influenza swab, however she is refusing all of that. We did discuss the possibility that this atypical pain is cardiac etiologies, which I think she is at relatively low risk for, that I would not be able to tell her without blood test she understands that and in shared decision making, she prefers to just take the medication I recommend and go home to her sick child. She understands antibiotics are not indicated for this if it is viral which I think it is. She understands that prednisone should help the asthma but not necessarily the URI symptoms. She is comfortable with that overall plan and treated with prednisone 40 mg here to begin with and then a taper. Rhythm Strip Rhythm Strip: Sinus Rhythm Ectopy: None EKG Initial EKG: Attestation: I personally reviewed and interpreted this EKG as follows: Interpretation: Sinus Rhythm and No Acute Injury Pattern Discharge Plan Triage Chief Complaint: Shortness of Breath ED Provider: Kamran Kamara Dx/Rx/DC Orders Clinical Impression: Acute asthma exacerbation, Viral URI with cough Instructions: ED Asthma, Acute (Adult), ED Bronchitis, No Antibiotic (Adult) Prescriptions: New prednisone 10 mg tablet 10 mg PO UD Qty: 30 0RF Rx Instructions: Take 4 tablets daily for 3 days, then 3 daily for 3 days, then 2 daily for 3 days, then 1 a day for 3 days No Action fluconazole 150 mg tablet 150 mg PO Q3D 0 Days Qty: 2 0RF Rx Instructions: may repeat second dose 72 hrs after first dose if symptoms persist albuterol sulfate 90 mcg/actuation HFA aerosol inhaler 2 puff inhalation Q6H PRN (Reason: bronchospasm) Qty: 8.5 1RF Primary Care Provider: Sacha Martínez Referrals: Sacha Martínez MD [Primary Care Provider] - 3-5 Days if not improving Print Language: Welsh Disposition Disposition: Home, Self Care
--- NOTE | 2024-06-22 13:23 | ED.RN ---
This RN in to collect covid, flu, rsv swab, start iv and collect bloodwork. Pt states I don't have covid, i've had covid 5 times this is not covid. When infomed that MD ordered bloodwork and an iv pt states why the fuck do I need any of that!!?? I have asthma! I'm just here for an xray and medicine so I can get home to my sick kid. This RN asked if pt was ok with telemetry monitoring as the md ordered. Pt states if you want to put it on for a few minutes you can but that's it.
[2024-06-22] MEDS: predniSONE 20 MG Tablet 40 MG PO (13:47)
[2024-06-22 13:52] VITALS: PULSE 66; RESP 18; O2SAT 99
== END 2024-06-22 13:53 | disposition home or self-care (01) ==
PROVIDERS: Emergency Provider Emergency Medicine; PCP Internal Medicine; Visit Provider Emergency Medicine
DX: J45.901 Unspecified asthma with (acute) exacerbation (principal); J06.9 Acute upper respiratory infection, unspecified; F17.210 Nicotine dependence, cigarettes, uncomplicated; Z20.828 Contact with and (suspected) exposure to other viral communicable diseases
CPT/HCPCS: 71046; 93005; 99282; A4216

== ENCOUNTER → 2024-08-11 | Outpatient (CLI) | payer MEDICAID, SELFPAY ==
--- NOTE | 2024-08-11 09:37 | BI_ITS ---
MAMMOGRAPHY - BILATERAL DIAGNOSTIC REASON FOR EXAM: Female, 43 years old. Pain/lump in the lateral aspect of the right breast. PERTINENT HISTORY: Non-contributory. TECHNIQUE: Digital bilateral breast laron (3D mammographic acquisition) in the CC and MLO projections. 2-D mediolateral oblique (MLO) and craniocaudad (CC) views of both breasts were obtained. CAD: Full Field Digital Mammography with Computer Added Detection was performed. COMPARISON: Comparison is made with prior study of August 14, 2023. FINDINGS: Breast Composition: The breasts are extremely dense, which lowers the sensitivity of mammography. There are no dominant masses or suspicious calcifications. No other significant abnormalities are identified. There has been no significant change since the prior study. BI/DIAG MAMM W/CAD, BILAT IMPRESSION: Negative diagnostic mammogram. With the patient''s history of a palpable lump in the right breast, targeted correlation with ultrasound recommended. ASSESSMENT CATEGORY: BIRADS Category 0: Incomplete. Need additional imaging evaluation. A letter regarding these results will be sent to the patient by the facility within 30 days. Approximately 10% of breast cancers are not detected by mammography. A normal mammogram should not delay biopsy of a clinically suspicious abnormality. Electronically Signed: Antonio Clark MD at 10:35 EST ,
--- NOTE | 2024-08-11 09:37 | US_ITS ---
STUDY: ULTRASOUND BREAST - RIGHT REASON FOR EXAM: Female, 43 years old. Painful lump in the lateral aspect of the right breast. TECHNIQUE: Axial and longitudinal images of the RIGHT breast were performed with a high resolution ultrasound transducer. # OF IMAGES: 21 COMPARISON: Comparison is made with prior mammogram done earlier today. FINDINGS: RIGHT Breast: The lateral aspect of the right breast was examined with ultrasound. There is an 8 mm x 9 mm x 5 mm cyst at the 11:00 position of the breast at 6 cm from the nipple. There is a 8 mm x 7 mm x 5 mm cyst at the 12:00 position breast at 6 cm from the nipple. US/Breast Limited Unilateral IMPRESSION: There are 2, subcentimeter cysts at the 11 and 12:00 position of the right breast. Routine annual mammogram recommended. ASSESSMENT CATEGORY: BIRADS Category 2: Benign. A letter regarding these results will be sent to the patient by the facility within 30 days. Electronically Signed: Antonio Clark MD at 13:56 EST ,
== END | disposition home or self-care (01) ==
LOC: OPBI 09:36
PROVIDERS: PCP Internal Medicine; Referring Provider Internal Medicine; Visit Provider Internal Medicine
DX: N64.4 Mastodynia (principal)
CPT/HCPCS: 77062; 76642; 77066; G0279

== ENCOUNTER 2024-08-21 11:14 | Day surgery (SDC) | payer MEDICAID, SELFPAY ==
[2024-08-21 11:32] VITALS: BP 119/69; PULSE 88; RESP 16; TEMP 37; O2SAT 100; BMI 20.4
--- NOTE | 2024-08-21 11:55 | CYST_PTH ---
PATIENT: JOSE CARLOS HAIRSTON LOC: [facility] [place] U#:[id number] AGE/SX: 43/F ROOM: RE08/21/[address]: Dr. La Nena Alcaraz MD : 1980 BED: DIS: 08/21/2024 SPEC #: [id number] RECD: 08/21/24 18:22 STATUS: MIMI PRICE #: [id number] MJ: 08/21/24 11:[address]: La Nena Alcaraz DEPT: SURGICAL PATHOLOGY RECD BY: Laci Parry ENTERED: 08/24/24 09:01 SP TYPE: Cyst OTHR DR: Dr. 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 AM. 08/25/2024 MICROSCOPIC DESCRIPTION Slides are reviewed. GROSS DESCRIPTION Received in fixative is one container labeled with the patient's name and designated Connective tissue neoplasm of scalp. The specimen consists of a piece of skin with underlying tissue measuring 2.0 x 0.5cm and up to 1.0cm in thickness. This specimen is inked, serially sectioned and reveal a cyst filled with whitish material. Kiln Placer sections are submitted in one cassette. 08/24/2024 TC:5 CPT:37661
--- NOTE | 2024-08-21 12:06 | PCM.HP.BLA ---
History and Physical Date of Admission: 08/21/24 The patient is examined and there are no changes from the H&P dated 08/11/2024. She presents with a subcutaneous lump on her scalp. Informed consent was obtained for excision of the lump of the scalp with submission for pathologic evaluation. 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
[2024-08-21 12:30] VITALS: BP 112/78; BP 115/90; O2SAT 100; O2SAT 98; O2SAT 99
[2024-08-21] MEDS: Lidocaine 1% /Epi 1:100 9 ML, Sodium Bicarbonate 1 MEQ OPERA.SITE (12:49)
[2024-08-21] MEDS: BACITRACIN/POLYMYXIN B 15 GM Tube 1 APPLIC (13:08)
--- NOTE | 2024-08-21 13:12 | EX.PCM.DISCH ---
Discharge Instructions Dressing / Incision Additional Dressing/Incision Instructions:: Keep your head elevated (recliner position) for the next 3-4 nights to prevent bleeding and swelling. May shower over the area??but do not scrub. Apply a thin layer of antibiotic ointment (like Neosporin, bacitracin, or triple antibiotic ointment) once a day. You can take Tylenol or ibuprofen as needed for pain. Follow Up Care Test Results: Test results from this visit will be discussed in further detail at your follow-up appointment, if applicable. Discharge Plan Admission Attending Provider: La Nena Alcaraz Primary Care Provider: Sacha Martínez Instructions Print Language: Austrian Discharge Orders/Prescriptions Prescriptions: No Action albuterol sulfate 90 mcg/actuation HFA aerosol inhaler 2 puff inhalation Q6H PRN (Reason: bronchospasm) Qty: 8.5 1RF budesonide-formoterol [Symbicort] 160-4.5 mcg/actuation HFA aerosol inhaler 2 puff inhalation BID Qty: 10.2 2RF (DME) Spacer See Rx Instructions .Route .MEDSUPPLY Qty: 1 0RF Rx Instructions: As directed fluconazole 150 mg tablet 150 mg PO ONCE Qty: 2 0RF Rx Instructions: can repeat in 3-5 days with continued symptoms. (DME) nebulizer Machine / compressor See Rx Instructions .Route .MEDSUPPLY Qty: 1 0RF Rx Instructions: As directed Referrals / Follow Up: Sacha Martínez MD [Primary Care Provider] - Disposition Disposition (needs filled in before D/C Order can be placed): Home, Self Care
--- NOTE | 2024-08-21 13:14 | OP.PCM_ITS ---
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: Operative Report (Standard) Operative Information Date of Procedure: 08/21/24 Pre-Operative Diagnosis: Subcutaneous neoplasm of posterior scalp Post-Operative Diagnosis: Same Surgery/Procedure Performed: Excision subcutaneous cyst of scalp (2.5 cm) melt room operator: No Type of Anesthesia: Local RN Documented Start/Stop Times: Operation Date: 08/21/24 11:55 Case Time Into Pre-Op 08/21/24 11:17 Into Room 08/21/24 12:27 Procedure Start 08/21/24 12:53 Procedure End 08/21/24 13:09 Procedure Start Time: :53 Procedure Stop Time: :09 Select all DRAINS/GRAFTS/IMPLANTS that apply: None Estimated Blood Loss: Minimal Specimen collected: Yes Description of specimen(s) removed: Subcutaneous cyst of scalp Description of surgery: The patient presents with a enlarging mass of the posterior scalp. She has had previous cysts of the scalp. The patient is brought to the operating room and placed on the operating room table in the supine position. The posterior scalp was prepped and draped in the usual sterile fashion. 1% Xylocaine with epinephrine is used for local anesthetic. Following this, an elliptical incision is made over top of the cyst and carried down through the subcutaneous tissue until the wall of the cyst is encountered. It is then excised and enucleated from its bed. Hemostasis is controlled with cautery. The site is then closed with a running chromic suture. Antibiotic ointment is placed on the site. She tolerated the procedure well was taken to the recovery area in an awake and stable condition. Needle and sponge counts are correct. Surgical Findings: Same as above Complications Complications: No Admit VTE Documentation VTE Mechan Device Prophylaxis: None Reason prophylaxis not ordered: Treatment Not Indicated
[2024-08-21 13:19] VITALS: BP 119/69; PULSE 88; RESP 16; TEMP 36.4; O2SAT 100
[2024-08-21 13:25] VITALS: BP 119/69
== END 2024-08-21 13:26 | disposition home or self-care (01) ==
LOC: SDC 11:15 → AC 11:16
PROVIDERS: PCP Internal Medicine; Referring Provider Plastic Surgery; Visit Provider Plastic Surgery
PROC: (CPT 21012; principal; 2024-08-21 11:45)
DX: L72.12 Trichodermal cyst (principal)
CPT/HCPCS: 21012; 88304

== ENCOUNTER 2024-12-03 14:56 | Emergency (ER) | payer MEDICAID, SELFPAY ==
[2024-12-03 14:57] VITALS: BP 118/91; PULSE 69; RESP 15; TEMP 36.5; O2SAT 100; BMI 21.4
[2024-12-03 15:08] VITALS: BP 118/91; PULSE 69; RESP 15; TEMP 36.5; O2SAT 100
--- NOTE | 2024-12-03 15:11 | CT_ITS ---
PROCEDURE: ABDOMEN/PELVIS WITHOUT CONT 12/03/2024 REASON FOR EXAM: PAIN TECHNIQUE: Abdomen and pelvis CT without intravenous contrast. Noncontrast technique limits evaluation of the abdominal and pelvic viscera. Coronal and Sagittal reconstruction series were provided. One or more dose reduction techniques were used (e.g., Automated exposure control, adjustment of the mA and/or kV according to patient size, use of iterative reconstruction technique). COMPARISON: 05/04/2022 FINDINGS: Lower chest: Unremarkable. Liver: Unremarkable. Biliary/gallbladder: Unremarkable. Pancreas: Unremarkable. Spleen: Unremarkable. Adrenal glands: Unremarkable. Kidneys: An intermediate density cyst at the upper pole of the left kidney appears similar to the prior exam measuring approximately 1 cm, possibly due to a proteinaceous cyst. A couple of additional cystic lesions also appear stable from the previous exam. No renal calculus or hydronephrosis is identified. Gastrointestinal/peritoneum: No acute abnormality.The appendix is unremarkable.No free air or free fluid. Vascular: Unremarkable. Lymph nodes: No enlarged lymph nodes by CT size criteria. Pelvic organs: Unremarkable. Bladder: Unremarkable. Bones: There is a chronic compression fracture at the superior endplate of L2. a benign appearing sclerotic lesion is present in the left iliac wing measuring 2.2 cm as well as a small bone island, both stable from the previous exam. Soft tissues: There is a small fat containing umbilical hernia measuring 1.[address]/Abdomen/Pelvis without Cont IMPRESSION: 1. No acute abnormality of the abdomen and pelvis. Reading Location: [facility]
--- NOTE | 2024-12-03 15:12 | EDS_ITS ---
HPI HPI - GI History of Present Illness Chief Complaint: Flank Pain Informant: patient Abdominal Pain/Flank Pain Onset: Days Context: Gradual Onset Timing: Continuous Quality: Sharp Location: See Diagram (Suprapubic abdominal pain radiating to both flanks.) Current Severity: Mild Maximum Severity: Moderate Worsened by: Nothing Relieved by: Nothing Nausea/Vomiting/Emesis GI Symptom: Positive for Nausea Onset: Days Severity: Mild Diarrhea/Melena/Hematochezia GI Symptom: Negative for Diarrhea, Melena or Hematochezia Associated Symptoms Associated Symptoms: Positive for Dysuria Narrative Narrative: 44-year-old female history of 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 States she has had lower pelvic pain suprapubic for the last 3 days. Radiates to both sides. Associated nausea. No vomiting or diarrhea. No constipation. Mild dysuria. No fever. Prior pain with UTI and/or kidney stone. The pain has been for 3 days and waxes and wanes. Nothing particular makes it better or worse. Prior similar symptoms: Yes Recent Illness/Hospitalization: No [facility] Medical History Skin lesion of scalp Breast pain, right Impetigo Pharyngitis Acute sinusitis, unspecified Left flank pain Hematuria UTI (urinary tract infection) Oral thrush Generalized anxiety disorder with panic attacks Focal nodular hyperplasia of liver Contact dermatitis due to [place] Contact dermatitis due to poison [place] Poison [place] Tobacco abuse Seasonal allergies Right knee pain Anxiety Weight loss Vision problems Tumors Polycystic ovarian disease Pancreatitis Kidney stones Recurrent infections Hives Chronic headaches GERD (gastroesophageal reflux disease) H/O emotional problems Chronic bronchitis Breast lump Back problem Asthma Allergies Home Medications ?Medication ?Instructions ?Recorded ?Last Taken ?Type Spacer #1 ea 07/17/24 Unknown Rx albuterol sulfate 90 mcg/actuation 2 puff inhalation Q 6H PRN 07/17/24 Unknown Rx aerosol inhaler bronchospasm #8.5 grams budesonide-formoterol HFA 160 2 puff inhalation BID #1 0.2 grams 07/17/24 08/21/24 Rx mcg-4.5 mcg/actuation aerosol inhaler (Symbicort) albuterol sulfate 2.5 mg/3 mL 2.5 mg (3 mL) inhalation Q4-6H PRN 08/31/24 Unknown Rx (0.083 %) solution for nebulization bronchospasm #30 m L nebulizer Machine / compressor #1 ea 10/23/24 Unknown Rx Allergy/AdvReac Type Severity Reaction Status Date / Time aloe vera Allergy Severe Rash Verified 12/03/24 15:00 aspirin (ASA) AdvReac Upset Verified 12/03/24 15:00 Stomach Family History Father Anemia Anxiety Arthritis Blood clot in vein Depression Diabetes Heart disease CVA (cerebral vascular accident) Kidney disease Mother Anxiety Asthma Arthritis Depression Hypertension Severe allergy Grandfather Arthritis Brain aneurysm Leukemia Grandmother Arthritis Hypertension CVA (cerebral vascular accident) Grandfather Arthritis Respiratory disease Grandmother Arthritis Kidney disease Surgical History history of salivary gland removal History of esophagogastroduodenoscopy (EGD) History of History of knee surgery History of needle biopsy Social History Smoking Status: Current every day smoker tobacco type: e-cigarettes how long ago did patient quit smoking: pt vapes alcohol intake: never substance use type: does not use what type of physical activity do you participate in: none additional social history: pt denies marijuana use, denies edibles, does use ibuprofen, does not use aspirin ROS ROS ED ROS Narrative Nausea. Suprapubic abdominal pain. Constitutional Constitutional ED: Denies chills or fever(s) ENT ENT ED: Denies ear pain Cardiovascular Cardiovascular: Denies chest pain Respiratory/Chest Respiratory/Chest: Denies cough or dyspnea Gastrointestinal Gastrointestinal: Reports abdominal pain and nausea; Denies constipation, diarrhea, melena or vomiting Genitourinary Genitourinary ED: Reports dysuria; Denies hematuria Musculoskeletal Musculoskeletal: Denies arthralgias or back pain Integumentary Denies abscess or Abrasions Neurologic Neurologic: Denies headache(s) Psychiatric Psychiatric: Denies anxiety Endocrine Endocrinology: Denies polydipsia Hematologic/Lymphatic Hematologic/Lymphatic: Denies easy bleeding Allergic/Immunologic Allergic/Immunologic ED: Denies mouth swelling, tongue swelling or urticaria EXAM Physical Exam Narrative Exam Narrative: Well-appearing 44-year-old female. Vital signs stable afebrile. H EENT exam pupils round react light. Moist with membranes. Neck nontender no lymphadenopathy. Lungs there to auscultation bilaterally. Heart regular rhythm no murmur. Chest wall ribs nontender. Back nontender. No CVA tenderness. No rashes. Abdomen is soft, nontender, nondistended, normal bowel sounds without peritoneal signs. No reproducible pain. No hernia or mass. No distention. Both the right upper and right lower quadrants are unremarkable. Moving all 4 extremities. Normal strength. Normal range of motion. She is awake and alert. Answering questions following commands. is present in the room. Const Vital Signs: 12/03/24 14:57 12/03/24 15:08 Temperature 97.7 F L 97.7 F L Temperature Source Oral Oral Pulse Rate 69 69 Respiratory Rate 15 15 Blood Pressure 118/91 H 118/91 H Blood Pressure Mean 100 100 Pulse Ox 100 100 Oxygen Delivery Method Room Air Room Air Positive well nourished and well developed; Negative for obese, cachectic, contractures or unkempt General Appearance ED: well developed and NAD; Negative for unkempt, cachectic, contractures or pallor Nutritional Appearance: Negative for cachectic or obese HEENT Reports moist mucous membranes normocephalic and atraumatic Eyes PERRL and EOMs intact bilaterally General Eye ED: Negative for pale conjunctiva or scleral icterus Neck no lymphadenopathy, supple and no JVD General: Negative for tenderness Carotids: Negative for other Resp normal respiratory effort and clear to auscultation bilaterally Effort and Inspection: Negative for respiratory distress Auscultation: Negative for rales, rhonchi or wheezes Cardio regular rate, regular rhythm, S1 normal heart sound, S2 normal heart sound and no murmurs Rate: Negative for bradycardia or tachycardic Rhythm: Negative for abnormal rhythm GI non-tender, non-distended and no masses Inspection: Negative for abdominal distention Auscultation: normoactive bowel sounds Palpation: soft; Negative for tender, guarding, rigid, hepatomegaly, splenomegaly, hernia, mass, pulsatile mass or rebound tenderness present Back/Spine no CVA tenderness General Back: Negative for CVA tenderness Cervical Spine: Negative for cervical spine tenderness Thoracic Spine / Upper Back: Negative for thoracic spinal tenderness Lumbar Spine / Lower Back: Negative for lumbar spinal tenderness Extremity full ROM General Extremety ED: Negative for edema or tenderness General Extremity: Negative for edema Neuro CN's II-XII intact bilaterally and moves all extremities Sensorium / Orientation: alert, oriented to person, oriented to place and oriented to time; Negative for orientation impaired, confused, lethargic or stuporous Motor Exam: strength 5/5 throughout Psych mental status grossly normal and thought process normal Appearance: Negative for unkempt Attitude: No agitated Mood & Affect: Negative for depressed, anxious or tearful Skin no wounds General Skin Exam: Negative for jaundice or pallor Lesions: no lesions and No lesion noted Rashes: no rashes Trauma: Negative for abrasion Nails: Negative for discolored MDM MDM MDM Narrative Medical decision making narrative: 44-year-old female with suprapubic abdominal pain that radiates to both flanks. Differential would include UTI, kidney stones, ovarian cyst. Clinically I do not think this is appendicitis. She has had a cholecystectomy. It is not a bowel obstruction clinically. UA and labs to be obtained. CT. Treated with Zo maycol for nausea. Morphine and Toradol for pain. Repeat exam patient is doing well at 5:16 PM. We went over her test results and her CAT scan. There is no specific cause for her pain. She be discharged home. Motrin and Tylenol for pain. She will follow-up with her primary care physician Dr. Martínez for further evaluation. History & Record Review Discussion w/independent historian: Patient Additional record(s) reviewed:: Prior inpatient record, Prior outpatient record, Prior ED visit and Prior labs Lab Data Attestation: I reviewed the patient's lab results. Lab results narrative: CBC shows white count 12.7. H&H 13 and 40. Platelets 324. Chemistries show a gap of 12. Normal BUN and creatinine. Glucose 95. Liver enzymes normal. Lipase 18. Serum test negative. UA shows 25 occult blood. No nitrites. 5-10 reds. No whites. 1+ bacteria. CT no acute abnormality. Labs: Laboratory Results - last 24 hr 12/03/24 12/03/24 15:18 15:43 WBC 12.7 H RBC 4.80 Hgb 13.7 Hct 40.8 MCV 85.0 MCH 28.5 MCHC 33.6 RDW Std Deviation 37.5 RDW Coeff of Alfonso 12.2 Plt Count 324 MPV 9.2 Immature Gran % (Auto) 0.500 Neut % (Auto) 77.7 H Lymph % (Auto) 13.8 L [place] % (Auto) 6.5 Eos % (Auto) 1.2 Baso % (Auto) 0.3 Absolute Neuts (auto) 9.9 H Absolute Lymphs (auto) 1.75 Nucleated RBC % 0 Sodium 140 Potassium 3.6 Chloride 108 Carbon Dioxide 19.9 L Anion Gap 12 BUN 10 Creatinine 0.74 Estim Creat Clear Calc 84.65 Est GFR (MDRD) Non-Af 103 BUN/Creatinine Ratio 13.3 Glucose 95 Calcium 8.7 Total Bilirubin 0.63 AST 16 ALT 18 Alkaline Phosphatase 89 Total Protein 6.1 Albumin 4.0 Globulin 2.0 L Albumin/Globulin Ratio 2.0 Lipase 18 Serum , Qual NEGATIVE Urine Color Yellow Urine Clarity Sl Cldy Urine pH 7.0 Ur Specific [place] 1.010 Urine Protein 15 H Urine Glucose (UA) Normal Urine Ketones Negative Urine Occult Blood 25 H Urine Nitrite Negative Urine Bilirubin Negative Urine Urobilinogen Normal Ur Leukocyte Esterase Negative Urine RBC 5-10 SEEN Urine WBC 0-5 SEEN Ur Squamous Epith Cells 5-10 SEEN Urine Bacteria 1+ Urine Mucus 0 SEEN Radiography Diagnostic Testing: Clinical Impression(s) from Imaging Studies Abdomen/Pelvis CT 12/03/24 15:11 IMPRESSION: 1. No acute abnormality of the abdomen and pelvis. Reading Location: [facility] Discharge Plan Triage Chief Complaint: Flank Pain ED Provider: Marcell Islas Dx/Rx/DC Orders Clinical Impression: Pelvic pain Instructions: Abdominal Pain, ED Pelvic Pain, Unknown Cause Prescriptions: No Action albuterol sulfate 90 mcg/actuation HFA aerosol inhaler 2 puff inhalation Q6H PRN (Reason: bronchospasm) Qty: 8.5 1RF budesonide-formoterol [Symbicort] 160-4.5 mcg/actuation HFA aerosol inhaler 2 puff inhalation BID Qty: 10.2 2RF (DME) Spacer See Rx Instructions .Route .MEDSUPPLY Qty: 1 0RF Rx Instructions: As directed albuterol sulfate 2.5 mg /3 mL (0.083 %) solution for nebulization 2.5 mg inhalation Q4-6H PRN (Reason: bronchospasm) Qty: 30 0RF (DME) nebulizer Machine / compressor See Rx Instructions .Route .MEDSUPPLY Qty: 1 0RF Rx Instructions: As directed Primary Care Provider: Sacha Martínez Referrals: Sacha Martínez MD [Primary Care Provider] - 3-5 Days if not improving Activity Restrictions/Additional Instructions: Your blood work, urinalysis and CAT scan look good. No specific cause for your pain. Motrin and Tylenol for your pain. Follow-up with your doctor. They may need to do further testing such as a pelvic ultrasound. Print Language: Moroccan Disposition Disposition: Home, Self Care
[2024-12-03 15:26] LABS: Mucous, Urine 0 SEEN /hpf (<or=2+)
[2024-12-03 15:30] LABS: Glucose, Dipstick Normal (Normal); Ketone-Dipstick Negative (Negative); Leukocyte Esterase-Dipstick Negative /ul (Negative); Nitrite-Dipstick Negative (Negative); Occult Blood-Urine 25 /ul (Negative); Protein-Dipstick 15 mg/dl (Negative); Urine Bilirubin Dipstick Negative (Negative); Urine Urobilinogen Normal (Normal)
[2024-12-03 15:40] LABS: Color, Urine Yellow (Yellow); Urine Clarity Sl Cldy (Clear)
[2024-12-03] MEDS: Morphine 4 MG/ML Syringe IV (15:48)
[2024-12-03] MEDS: Ketorolac 30 MG/ML Syringe IV (15:48)
[2024-12-03] MEDS: Ondansetron 4 MG/2 ML Vial IV (15:48)
[2024-12-03 15:57] LABS: Absolute Lymphocyte Count 1.75 X10^3/uL (0.83-4.51); Absolute Neutrophil Count 9.9 X10^3/uL (2.0-7.7); Basophil# 0.04 X10^3/uL; Basophil% 0.3 % (0-1); Eosinophil# 0.15 X10^3/uL; Eosinophils% 1.2 % (0-5); Hematocrit 40.8 % (37-47); Hemoglobin 13.7 g/dL (12.0-15.0); Lymphocyte # 1.75 X10^3/ul (0.83-4.51); Lymphocyte % 13.8 % (19-41); Mean Corp Hgb Conc 33.6 g/dL (32-36); Mean Corpuscular Hgb 28.5 pg (27.0-32.0); Mean Platelet Vol. 9.2 fl (6.2-12.0); Monocyte# 0.83 X10^3/uL; Monocyte% 6.5 % (0-10); NRBC Flagged by Analyzer 0 % (0-5); Neutrophil # 9.85 X10^3/uL (2.7-7.7); Neutrophil % 77.7 % (47-70); Platelet Count 324 K/mm3 (150-450); RBC Distribution Width CV 12.2 % (11.6-14.6); RBC Distribution Width SD 37.5 fl (35.1-43.9); White Blood Count 12.7 K/mm3 (4.4-11.0)
[2024-12-03 16:14] LABS: Internal QC Validated? YES +Cl - CLEAR BKGD; Pregnancy, Serum, hCG Quali. NEGATIVE Negative
[2024-12-03 16:20] LABS: AST(SGOT) 16 U/L (<=31); Alanine Aminotransfer ALT/SGPT 18 U/L (<=34); Alkaline Phosphatase 89 U/L (35-104); Anion Gap 12 (5-15); BUN 10 mg/dL (4-19); BUN/Creat Ratio 13.3 RATIO (10-20); Calcium,Total 8.7 mg/dL (7.6-11.0); Carbon Dioxide 19.9 mmol/L (21.0-32.0); Chloride 108 mmol/L (98-108); Creatinine, Serum 0.74 mg/dL (0.70-1.20); EST Glomerular Filtration Rate 103 (>60); Estimated Creatinine Clearance 84.65 ml/min (50-250); Glucose 95 mg/dL (70-99); Lipase 18 U/L (13-75); Potassium 3.6 mmol/L (3.3-5.1); Protein, Total 6.1 g/dL (5.9-8.4); Sodium Level 140 mmol/L (133-145); Total Bilirubin 0.63 mg/dL (0.00-1.30)
[2024-12-03 16:53] LABS: Squamous Epithelial Cells - UA 5-10 SEEN /hpf (5-10)
[2024-12-03 16:54] LABS: Bacteria 1+ /hpf (None Seen); White Blood Cells 0-5 SEEN /hpf (0-5)
[2024-12-03 16:55] LABS: Red Blood Cells-Urine 5-10 SEEN /hpf (0-5)
[2024-12-03 16:57] VITALS: BP 135/79; PULSE 85; RESP 14; O2SAT 100
[2024-12-03 17:29] VITALS: BP 132/81; PULSE 79; RESP 14; TEMP 36.6; O2SAT 100
== END 2024-12-03 17:35 | disposition home or self-care (01) ==
PROVIDERS: Emergency Provider Emergency Medicine; PCP Internal Medicine; Referring Provider Emergency Medicine; Visit Provider Emergency Medicine
DX: R10.2 Pelvic and perineal pain (principal); F17.290 Nicotine dependence, other tobacco product, uncomplicated
CPT/HCPCS: 74176; 80053; 81001; 83690; 84703; 85025; 96374; 96375; 99283; A4216; J2405

== ENCOUNTER → 2024-12-28 | Outpatient (CLI) | payer MEDICAID, SELFPAY ==
--- NOTE | 2024-12-28 | CYSPIN_PTH ---
PATIENT: JOSE CARLOS HAIRSTON LOC: [facility] U#:[id number] AGE/SX: 44/F ROOM: RE12/28/[address]: Dr. Aicha Maya MD : 1980 BED: DIS: 12/28/2024 SPEC #: [id number] RECD: 12/28/24 17:22 STATUS: MIMI REJodee #: [id number] MJ: 12/28/24 00:[address]: Aicha Maya DEPT: CYTOLOGY RECD BY: Laci Parry ENTERED: 12/29/24 07:21 SP TYPE: CYSPIN FL OTHR DR: Dr. Sacha Martínez MD Tissues: A - Urine Procedures: Pap Stain (control) Special Stain Group II Cytospin Fluid HEADER OPERATION: Not noted PRE-OP DIAGNOSIS: Gross hematuria TISSUE SUBMITTED: A- Urine for cytology - voided DIAGNOSIS CYTOLOGY A. Urine, voided: * No malignant cells are identified A. CYTOLOGY STUDY Slides are reviewed. CYTOLOGY GROSS A. Received is 70 ml of yellow-cloudy fluid labeled with the patient's name and and designated per the requisition as urine. Submitted for cytology preparation. Mr 12/29/2024 CPT: 47991
[2024-12-28 17:24] LABS: Cytology, Body Fluid / CSF SEE PATHOLOGY REPORT
== END | disposition home or self-care (01) ==
LOC: LABSPEC 17:20
PROVIDERS: PCP Internal Medicine; Visit Provider Urology
DX: R31.0 Gross hematuria (principal)
CPT/HCPCS: 88108; 88313

== ENCOUNTER → 2025-02-16 | Outpatient (CLI) | payer MEDICAID, SELFPAY ==
--- NOTE | 2025-02-16 13:06 | US_ITS ---
PROCEDURE: PELVIC (NON ) 02/16/2025 REASON FOR EXAM: ABNORMAL UTERINE AND VAGINAL BLEEDING, UNSPECIFIED TECHNIQUE: Transabdominal pelvic ultrasound COMPARISON: CT scan on 12/03/2024. FINDINGS: Uterus: Unremarkable measuring 8.8 x 5 x 3 cm. Endometrial Thickness: 2.1 mm Right Ovary: Unremarkable measuring 2.7 x 2 x 1.8 cm. Left Ovary: Unremarkable measuring 2.1 x 2.5 x 2.2 cm. Normal bilateral ovarian flow without evidence of ovarian torsion. No free fluid in the pelvic cul-de-sac. US/Pelvic (Non ) IMPRESSION: Unremarkable exam. [facility]
== END | disposition home or self-care (01) ==
LOC: US 13:05
PROVIDERS: PCP Internal Medicine; Referring Provider Urology; Visit Provider Urology
DX: N93.9 Abnormal uterine and vaginal bleeding, unspecified (principal)
CPT/HCPCS: 76856

== ENCOUNTER → 2025-04-05 | Outpatient (CLI) | payer MEDICAID, SELFPAY ==
--- OUTSIDE RECORDS SUMMARY | 2025-04-05 22:17 | XMS RPT_ITS | CCD ---
Author Organization [facility] Care Team Providers Care Director Sales Name Role Phone GEETHA TORRES Unavailable Unavailable REFERRING, LO WO ID~[id number] Unavailable Unava ilable GEETHA TORRES Unavailable Unavailable PHYSICIAN, NONE Unavailable Unavailable GEETHA TORRES Unavailable Unavailable PHYSICIAN, NONE Unavailable Unavailable ELIN PRUITT Unavailable Unavailable PHYSICIAN, NONE Unavailable Unavailable Lei Martínez Primary Care Provider Dr. Lei Martínez Primary Care Provider [phone] Dr. Lei Martínez Referring Provider [phone] DEIDER Coleman Attending Provider Dr. Lei Martínez Attending Provider [phone] Unavailable Primary Care Provider UnavailDr. Lei Rodas Primary Care Provider [phone]) Dr. Lei Martínez Referring Provider [phone] Dr. Lei Martínez Primary Care Provider [phone]) Dr. Lei Martínez Referring Provider [phone] DEIDRE Coleman Attending Provider Dr. Lei Martínez Attending Provider [phone] Dr. Lei Martínez Primary Care Provider [phone]) Dr. Lei Martínez Referring Provider [phone] Dr. Lei Martínez Primary Care Provider [phone] Dr. Lei Martínez Referring Provider [phone] DEIDRE Coleman Attending Provider Tyree DELICATESSEN CLERK, DELICATESSEN CLERK-C Jose Luis Thakkar Attending Provider LEI MARTÍNEZ MD Primary Care [phone] Dr. Lei Martínez Primary Care Provider [phone] Dr. Lei Martínez Referring Provider [phone] DEIDRE Pickens Attending Provider DEIDRE Coleman Attending Provider Dr. Lei Martínez Primary Care Provider [phone] Dr. Lei Martínez Referring Provider [phone] DEIDRE Pickens Attending Provider DEIDRE Coleman Attending Provider DEIDRE Martin Attending Provider [phone] Dr. Lei Martínez MD Primary Care Provider Tanya HERNANDEZ, Dr. Goncalves Referring Provider [phone] Dr. La Nena Alcaraz MD Attending Provider Tanya HERNANDEZ, Dr. Goncalves Attending Provider [phone] Lissa HERNANDEZ, Dr. Deutsch Referring Provider Lissa HERNANDEZ, Dr. Deutsch Other Provider Sedrick Martin Attending Provider Roshan HERNANDEZ, Dr. Faith Referring Provider Roshan HERNANDEZ, Dr. Faith Emergency Provider Tanya HERNANDEZ, Dr. Goncalves Primary Care Provider Roshan HERNANDEZ, Dr. Faith Attending Provider Francesco HERNANDEZ, Dr. Holcomb Attending Provider Dr. Aicha Maya MD Referring Provider Lei Martínez Primary Care Unavailable Aicha Maya Attending Unavailable Kamran Kamara Attending Unavailable Oleghe, Efewongbe Primary Care Unavailable Oleghe, Efewongbe Primary Care Unavailable Marcell Islas Referring Unavailable Marcell Islas Attending Unavailable Oleghe, Efewongbe Primary Care Unavailable Ghazoul, La Nena Attending Unavailable Ghazoul, La Nena Referring Unavailable Oleghe, Efewongbe Primary Care Unavailable Oleghe, Efewongbe Referring Unavailable Oleghe, Efewongbe Attending Unavailable Oleghe, Efewongbe Referring Unavailable Sedrick Martin Attending Unavailable Oleghe, Efewongbe Primary Care Unavailable Oleghe, Efewongbe Primary Care Unavailable Michelle Díaz Attending Unavailabl e Oleghe, Efewongbe Referring Unavailable Oleghe, Efewongbe Primary Care Unavailable Ghazoul, La Nena Referring Unavailable Ghazoul, La Nena Attending Unavailable Ghazoul, La Nena Consulting Unavailable Oleghe, Efewongbe Primary Care Unavailable Oleghe, Efewongbe Referring Unavailable Ghazoul, La Nena Attending Unavailable Oleghe, Efewongbe Primary Care Unavailable Oleghe, Efewongbe Referring Unavailable Ghazoul, La Nena Attending Unavailable Oleghe, Efewongbe Primary Care Unavailable Oleghe, Efewongbe Referring Unavailable Sedrick Martin Attending Unavailable Oleghe, Efewongbe Primary Care Unavailable Oleghe, Efewongbe Referring Unavailable Ghazoul, La Nena Attending Unavailable Oleghe, Efewongbe Primary Care Unavailable Oleghe, Efewongbe Referring Unavailable Oleghe, Efewongbe Attending Unavailable Oleghe, Efewongbe Primary Care Unavailable Aicha Maya Referring Unavailable Aicha Maya Attending Unavailable Dr. Lei Martínez MD Primary Care Provider Dr. Aciha Maya MD Attending Provider Dr. Aicha Maya MD Referring Provider Dr. Lei Martínez MD Referring Provider Dr. Michelle Díaz DO Attending Provider Allergies Allergy Classification Reported Allergen(s) Allergy Type Date of Onset Reaction(s) Facility (2 sources) Aloe Extract Drug Allergy 0 Anaphylaxis [facility] Work Phone: (2 sources) Aluminum aspirin Drug Allergy 0 Other (See Comments) [facility] Work Phone: (15 sources) Aloe vera preparation Drug Allergy 2 Rash, throat swelling [facility] Comment on above: breathing issues hives (16 sources) Aspirin; Translations: [aspirin] Drug Allergy 2 Upset Stomach [facility] (1 source) aloe vera topical; Translations: [aloe vera topical] Allergy to substance Hives [facility] (1 source) Aloe Extract Drug Allergy 5 [facility] Repository (1 source) Aspirin Drug Allergy 5 [facility] Medications Current Medications Medication Drug Class(es) Dates Sig (Normalized) Sig (Original) acetaminophen 325 mg oral tablet (2 sources) Start: 09-28-2019 take 325 mg by mouth every four hours 325 mg, Oral, EVERY 4 HOURS, First dose on 09/28/19 at 0130 Maximum dose of acetaminophen is 4000 mg from all sources in 24 hours. Start: 09-25-2019 End: 09-28-2019 take 650 mg by mouth every four hours as needed for pain, then take 4000 mg by mouth every twenty-four hours as needed for pain 650 mg, Oral, EVERY 4 HOURS PRN, Pain Mild (1-3), Fever, Fever >100.5 F (38 C), Starting Sat09/25/19 at 2222 Maximum dose of acetaminophen is 4000 mg from all sources in 24 hours. Labor and Delivery ascorbic acid 1000 mg oral capsule (1 source) Vitamin C Start: 04-05-2025 take 1 capsule by mouth once daily Ascorbic Acid (Vitamin C) 1,000 mg capsule Active 1000 mg PO daily April 05, 2025 12:00am clotrimazole 10 mg oral lozenge (13 sources) Azole Antifungal Start: 03-23-2022 Clotrimazole Active 10 MG MUCOUS MEM THREE TIMES A DAY March 23, 2022 12:00am Start: 02-28-2022 End: 03-14-2022 Clotrimazole 10 mg joseline Di scontinued 10 mg MUCOUS MEM THREE TIMES A DAY 42 14 0 February 28, 2022 12:00am March 13, 2022 12:00am March 14, 2022 12:02am d-mannose 350 mg capsule (1 source) Start: 04-05-2025 take 1 capsule by mouth once daily d-mannose 350 mg capsule Active PO .once a day April 05, 2025 12:00am 1 ml diphenhydrAMINE hydrochloride 50 mg/ml cartridge (3 sources) Histamine-1 Receptor Antagonist Start: 09-28-2019 diphenhydrAMINE (BENADRYL) injection 25 mg Start: 09-26-2019 End: 09-26-2019 diphenhydrAMINE (BENADRYL) i njection 25 mg docusate sodium 100 mg oral capsule (1 source) Start: 09-28-2019 take 100 mg by mouth twice daily as needed for constipation 100 mg, Oral, 2 TIMES DAILY PRN, Constipation, Starting Sat09/28/19 at 0101 Do not crush or break. famotidine 40 mg oral tablet (2 sources) Histamine-2 Receptor Antagonist take 1 tablet by mouth once daily famotidine (PEPCID) 40 MG tablet Take 40 mg by mouth daily 0 Active ferrous sulfate 325 mg oral tablet (1 source) Start: 09-28-2019 take 325 mg by mouth twice daily at mealtime 325 mg, Oral, 2 TIMES DAILY WITH MEALS, First dose on Sat09/28/19 at 0800 Start if Hgb less than 10. HYDROmorphone (DILAUDID) injection 0.25 mg (1 source) Start: 09-28-2019 HYDROmorphone (DILAUDID) injection 0.25 mg ibuprofen 600 mg oral tablet (1 source) Nonsteroidal Anti-inflammatory Drug Start: 09-28-2019 take 600 mg by mouth every six hours 600 mg, Oral, EVERY 6 HOURS, First dose on Sat09/28/19 at 0130 Do not crush or chew. Lactobacillus Combination No.4 (Probiotic) 3 billion cell capsule (1 source) Start: 04-05-2025 take 3 capsules by mouth once daily Lactobacillus Combination No.4 (Probiotic) 3 billion cell capsule Active 3000 NMA PO daily April 05, 2025 12:00am administer with a meal lanolin 0.5 mg/mg topical ointment (1 source) Start: 09-28-2019 Topical, EVERY 1 HOUR PRN, Dry Skin, nipple discomfort, Starting Sat09/28/19 at 0101, Multivitamin tablet (1 source) Start: 04-05-2025 Multivitamin tablet Active 1 {tbl} PO daily April 05, 2025 12:00am 1 ml nalbuphine hydrochloride 10 mg/ml injection (1 source) Opioid Agonist/Antagonis t Start: 09-28-2019 nalbuphine (NUBAIN) injection 5 mg 1 ml naloxone hydrochloride 0.4 mg/ml injection (1 source) Opioid Antagonist Start: 09-28-2019 naloxone (NARCAN) injection 0.4 mg oxyCODONE hydrochloride 5 mg oral tablet (2 sources) Opioid Agonist Start: 09-30-2019 End: 10-03-2019 take 1 tablet by mouth every four hours as needed for pain oxyCODONE (ROXICODONE) 5 MG immediate release tablet Indications: S/P section Take 1 tablet by mouth every 4 hours as needed for Pain for up to 3 days. 20 tablet 0 09/30/2019 10/03/2019 Active Start: 09-28-2019 oxyCODONE (STAR ICODONE) immediate release tablet 5 mg oxytocin (PITOCIN) 30 units in 500 mL infusion (3 sources) Start: 09-28-2019 125 mL/hr, Int ravenous, at 125 mL/hr, CONTINUOUS, Starting Sat09/28/19 at 0130 For Post Use Only To follow initial bolus immediately after delivery. Verify patient received oxytocin 250cc bolus at delivery followed by an additional 250ccover 1 hour (250cc/hr). Give after delivery of placenta. Start: 09-26-2019 End: 09-28-2019 oxytocin (PITOCIN) 30 units in 500 mL infusion Start: 09-25-2019 End: 09-28-2019 250 mL/hr, Intravenous, at 2 50 mL/hr, CONTINUOUS PRN, Bleeding, Starting Sat09/25/19 at 2222 For Post Use Only. Give after delivery of placenta. Oxytocin 250cc is administered as an IV bolus at delivery followed by an additional 250cc over 1 hour (250cc/hr) Post Delivery phenazopyridine hydrochloride 200 mg oral tablet (18 sources) Start: 04-20-2022 take 1 tablet by mouth three times daily Phenazopyridine (Pyridium) 200 mg tablet Active 200 MG PO THREE TIMES A DAY April 20, 2022 12:00am Start: 10-10-2019 End: 04-19-2020 take 1 tablet by mouth three times daily after mealtime Phenazopyridine 200 MG tablet Discontinued 200 mg PO THREE TIMES A DAY 9 0 October 10, 2019 1:00am April 19, 2020 9:33am Take three times a day after meals MV-Min-Fe Fum-FA-DHA ( 1 PO) (2 sources) MV-Min- Fe Fum-FA-DHA ( 1 PO) Take by mouth 0 Active vitamin 27-1 MG tablet 1 tablet (1 source) Start: 09-28-2019 take 1 tablet by mouth once daily 1 tablet, Oral, DAILY, First dose on Sat09/28/19 at 0900 Begin when normal bowel activity resumes. promethazine hydrochloride 25 mg oral tablet (3 sources) Phenothiazine Start: 05-04-2022 take 25 mg by mouth twice daily Promethazine Active 25 MG PO TWICE A DAY May 04, 2022 12:00am saccharomyces boulardii 250 mg oral capsule (7 sources) Start: 09-22-2021 take 1 capsule by mouth twice daily Saccharomyces Boulardii (Daily Probiotic (S. Boulardii)) 250 mg capsule Active 250 MG PO TWICE A DAY September 22, 2021 1:00am simethicone 80 mg chewable tablet (1 source) Start: 09-28-2019 take 80 mg by mouth every six hours as needed 80 mg, Oral, EVERY 6 HOURS PRN, Cramping, Flatulence, Starting Sat09/28/19 at 0101, 3 ml sodium chloride 9 mg/ml injection (2 sources) Start: 09-28-2019 10 mL, Intravenous, EVERY 12 HOURS SCHEDULED (2 times per day), First dose on Sat09/28/19 at 0900, Start: 09-28-2019 take 10 mL intravenously once 10 mL, Intravenous, PRN, Line Care, Starting Sat09/28/19 at 0101 After every IV line use Completed/Discontinued Medications Medication Drug Class(es) Dates Sig (Normalized) Sig (Original) acetaminophen 325 mg / HYDROcodone bitartrate 5 mg oral tablet (20 sources) Opioid Agonist Start: 12-25-2021 End: 05-08-2022 Hydrocodone-Acetami nophen 5-325 mg tablet Discontinued 1 {tbl} PO EVERY 6 HOURS as needed for pain 10 3 0 May 03, 2022 May 08, 2022 12:36pm Flank pain Unspecified abdominal pain Start: 12-25-2021 End: 05-08-2022 take 1 tablet by mouth every six hours Hydrocodone-Acetaminophen Discontinued 1 TABLET PO EVERY 6 HOURS 10 3 May 03, 2022 May 08, 2022 12:36pm [id number] 200 actuat albuterol 0.09 mg/actuat metered dose inhaler (20 sources) beta2-Adrenergic Agonist Start: 03-15-2023 End: 04-05-2025 Albuterol Sulfate 90 mcg/actuation HFA aerosol inhaler Discontinued 2 NMA INHALATION EVERY 6 HOURS as needed for bronchospasm 8.5 0 June 22, 2024 4:10pm July 17, 2024 9:44am Start: 03-15-2023 take 1 puff(s) by in halation every six hours Albuterol Sulfate Active 2 PUFF INHALATION EVERY 6 HOURS March 15, 2023 12:00am Start: 09-28-2021 take 1 puff(s) by in halation every six hours Albuterol Sulfate (Proair Hfa) 90 mcg/actuation HFA aerosol inhaler Active 1 - 2 PUFF INHALATION EVERY 6 HOURS 8.5 September 28, 2021 10:58am Start: 09-22-2021 End: 09-28-2021 take 1 puff(s) by inhalation every six hours Albuterol Sulfate (Proair Hfa) 90 mcg/actuation HFA aerosol inhaler Discontinued 1 - 2 PUFF INHALATION EVERY 6 HOURS 8.5 September 22, 2021 11:15am September 28, 2021 10:58am Start: 07-27-2020 End: 10-22-2022 Albuterol Sulfate (Proair Hf a) 90 mcg/actuation HFA aerosol inhaler Discontinued 1 - 2 NMA INHALATION EVERY 6 HOURS as needed for shortness of breath or wheezing 8.5 3 September 28, 2021 10:58am October 22, 2022 9:19am Start: 07-27-2020 End: 10-22-2022 take 1 puff(s) by inhalation every six hours Albuterol Sulfate (Proair Hfa) 90 mcg/actuation HFA aerosol inhaler Discontinued 1 - 2 PUFF INHALATION EVERY 6 HOURS 8.5 September 28, 2021 10:58am October 22, 2022 9:19am Albuterol Sulfate 2.5 mg /3 mL (0.083 %) solution for nebulization (3 sources) Start: 08-31-2024 End: 04-05-2025 take 2.5 mg by inhalation every four to six hours as needed Albuterol Sulfate 2.5 mg /3 mL (0.083 %) solution for nebulization Discontinued 2.5 mg INHALATION EVERY 4-6 HOURS as needed for bronchospasm August 31, 2024 1:00am April 05, 2025 11:39am Start: 08-31-2024 take 2.5 mg by inhal ation every four to six hours as needed Albuterol Sulfate 2.5 mg /3 mL (0.083 %) solution for nebulization Active 2.5 mg INHALATION EVERY 4-6 HOURS as needed for bronchospasm August 31, 2024 1:00am aluminum hydroxide 40 mg/ml / magnesium hydroxide 40 mg/ml / simethicone 4 mg/ml oral suspension (1 source) Start: 09-25-2019 End: 09-25-2019 aluminum & magnesium hydroxide-simethicone (MAALOX) 200-200-20 MG/5ML suspension 30 mL amoxicillin 500 mg oral capsule (5 sources) Penicillin-class Antibacterial Start: 10-01-2023 End: 10-11-2023 take 1 capsule by mouth three times daily Amoxicillin 500 mg capsule Discontinued 500 mg PO THREE TIMES A DAY 30 10 0 October 01, 2023 1:00am October 10, 2023 1:00am October 11, 2023 1:05am amoxicillin 875 mg / clavulanate 125 mg oral tablet (5 sources) Penicillin-class Antibacterial Start: 11-07-2023 End: 11-17-2023 Amoxicillin-Pot Clavulanate 875-125 mg tablet Discontinued 1 {tbl} PO Q12H 20 10 0 November 07, 2023 1:00am November 16, 2023 1:00am November 17, 2023 1:04am Acute sinusitis, unspecified Start: 11-07-2023 End: 11-17-2023 take 1 tablet by mouth every twelve hours Amoxicillin-Pot Clavulanate Discontinued 1 TABLET PO Q12H 20 November 07, 2023 1:00am November 17, 2023 1:04am atropine sulfate 0.83842 mg/ml / hyoscyamine sulfate 0.0207 mg/ml / PHENobarbital 3.24 mg/ml / scopolamine hydrobromide 0.0013 mg/ml oral solution (1 source) Anticholinergic, Cholinergic Muscarinic Antagonist Start: 09-25-2019 End: 09-25-2019 PHENobarbital-belladonna alkaloids elixir 10 mL azithromycin 500 mg injection (1 source) Macrolide Antimicrobial Start: 09-27-2019 End: 09-27-2019 azithromycin (ZITHROMAX) 500 MG injection Budesonide-Formote rol (3 sources) Corticosteroid, beta2-Adrenergic Agonist Start: 07-17-2024 End: 04-05-2025 Budesonide-Formoterol (Symbicort) 160-4.5 mcg/actuation HFA aerosol inhaler Discontinued 2 NMA INHALATION TWICE A DAY 10.2 2 July 17, 2024 1:00am April 05, 2025 11:39am Start: 07-17-2024 Budesonide-For moterol (Symbicort) 160-4.5 mcg/actuation HFA aerosol inhaler Active 2 NMA INHALATION TWICE A DAY 10.2 July 17, 2024 1:00am calcium chloride 0.0014 meq/ml / potassium chloride 0.004 meq/ml / sodium chloride 0.103 meq/ml / sodium lactate 0.028 meq/ml injectable solution (1 source) Start: 09-25-2019 End: 09-28-2019 Intravenous, at 125 mL/hr, CONTINUOUS, Starting Sat09/25/19 at 2245, Labor and Delivery ciprofloxacin 500 mg oral tablet (20 sources) Quinolone Antimicrobial Start: 05-02-2022 End: 05-08-2022 take 1 tablet by mouth twice daily Ciprofloxacin Hcl 500 mg tablet Discontinued 500 mg PO TWICE A DAY 14 0 May 02, 2022 12:00am May 08, 2022 12:36pm Start: 10-10-2019 End: 04-01-2020 take 1 tablet by mouth twice daily Ciprofloxacin Hcl 500 MG tablet Discontinued 500 mg PO TWICE A DAY 14 October 10, 2019 1:00am April 01, 2020 8:59am citric acid 66.8 mg/ml / sodium citrate 100 mg/ml oral solution (3 sources) Calculi Dissolution Agent, Anti-coagulant Start: 09-27-2019 End: 09-27-2019 citric acid-sodium citrate (BICITRA) solution 30 mL Start: 09-27-2019 End: 09-27-2019 citric acid-sodium citrate ( BICITRA) 500-334 MG/5ML solution Start: 09-26-2019 End: 09-26-2019 citric acid-sodium citrate ( BICITRA) solution 30 mL cyclobenzaprine hydrochloride 10 mg oral tablet (15 sources) Muscle Relaxant Start: 08-03-2020 End: 12-08-2020 take 1 tablet by mouth three times daily as needed for muscle spasms Cyclobenzaprine 10 MG tablet Discontinued 10 mg PO THREE TIMES A DAY as needed for Muscle Spasm August 03, 2020 1:00am December 08, 2020 2:35pm dexamethasone 6 mg oral tablet (6 sources) Corticosteroid Start: 11-02-2022 End: 11-12-2022 take 1 tablet by mouth once daily Dexamethasone 6 mg tablet Discontinued 6 mg PO DAILY 10 November 02, 2022 1:00am November 11, 2022 1:00am November 12, 2022 1:04am dicyclomine hydrochloride 10 mg oral capsule (14 sources) Anticholinergic Start: 12-25-2021 End: 03-23-2022 take 2 capsules by mouth three times daily before mealtime Dicyclomine 10 MG capsule Discontinued 20 mg PO THREE TIMES DAILY BEFORE MEALS December 25, 2021 12:00am March 23, 2022 8:47am Start: 12-25-2021 End: 03-23-2022 take 20 mg by mouth three times daily before mealtime Dicyclomine Discontinued 20 MG PO THREE TIMES DAILY BEFORE MEALS December 25, 2021 12:00am March 23, 2022 8:47am fluconazole 150 mg oral tablet (20 sources) Azole Antifungal Start: 07-17-2024 End: 08-28-2024 Fluconazole 150 mg tablet Discontinued 150 mg PO ONCE 2 0 July 17, 2024 1:00am August 28, 2024 9:04am can repeat in 3-5 days with continued symptoms. Start: 11-07-2023 End: 06-22-2024 Fluconazole 150 mg tablet Discontinued 150 mg PO Every 3 Days 2 0 0 November 07, 2023 1:00am June 22, 2024 1:53pm may repeat second dose 72 hrs after first dose if symptoms persist Start: 10-01-2023 End: 11-20-2023 take 1 tablet by mouth once daily Fluconazole 200 mg tablet Discontinued 200 mg PO DAILY 1 0 October 01, 2023 1:00am November 20, 2023 11:39am AFTER finishing antibiotic should symptoms develop as discussed in office today Start: 04-20-2022 End: 05-02-2022 take 1 tablet by mouth once Fluconazole 150 mg tablet Discontinued 150 mg PO .once 1 April 20, 2022 12:00am May 02, 2022 11:57am Start: 08-18-2021 End: 09-22-2021 Fluconazole (Diflucan) 150 m g tablet Discontinued 150 mg PO Every 3 Days 2 0 August 18, 2021 1:00am September 22, 2021 11:04am may repeat second dose 72 hrs after first dose if symptoms persist Start: 12-08-2020 End: 03-09-2021 Fluconazole 150 mg tablet Discontinued 150 mg PO Every 3 Days 2 0 0 December 08, 2020 12:00am March 09, 2021 1:15pm may repeat second dose 72 hrs after first dose if symptoms persist Start: 10-10-2019 End: 04-01-2020 Fluconazole 150 MG tablet Discontinued 150 mg PO DAILY 2 0 October 10, 2019 1:00am April 01, 2020 8:59am Take one tablet on day one and repeat in 72 hours Start: 09-30-2019 End: 09-30-2019 fluconazole (DIFLUCAN) table t 150 mg FLUoxetine 20 mg oral capsule (13 sources) Serotonin Reuptake Inhibitor Start: 03-23-2022 End: 06-15-2022 take 1 capsule by mouth once daily Fluoxetine 20 mg capsule Discontinued 20 mg PO DAILY 30 2 March 23, 2022 12:00am June 15, 2022 10:20am gadobutrol (GADAVIST) injection 6 mL (1 source) Start: 02-19-2020 End: 02-19-2020 gadobutrol (GADAVIST) injection 6 mL gadobutrol (GADAVIST) injection 7 mL (1 source) Start: 09-28-2019 End: 09-28-2019 gadobutrol (GADAVIST) injection 7 mL hydrOXYzine hydrochloride 50 mg oral tablet (4 sources) Antihistamine Start: 03-23-2022 take 1 dose by mouth three times daily Hydroxyzine Hcl Active 50 MG PO THREE TIMES A DAY March 23, 2022 12:00am On Hold: Resume on 04/27/22. if you take the yeast infection prevention pill 1 ml ketorolac tromethamine 30 mg/ml cartridge (1 source) Nonsteroidal Anti-inflammatory Drug, Cyclooxygenase Inhibitor Start: 09-28-2019 End: 09-29-2019 30 mg, Intravenous, EVERY 6 HOURS, First dose on Sat09/28/19 at 0130, For 24 hours Do not administer for more than 5 days. First dose should be administered 6 hours after anesthesia's administered dose in OR or PACU. Do NOT give with ibuprofen. lidocaine hydrochloride 20 mg/ml mucous membrane topical solution (1 source) Antiarrhythmic, Amide Local Anesthetic Start: 09-25-2019 End: 09-25-2019 lidocaine viscous hcl (XYLOCAINE) 2 % solution 5 mL 500 ml magnesium sulfate 40 mg/ml injection (3 sources) Start: 09-28-2019 End: 09-28-2019 1 g/hr (25 mL/hr), Intravenous, at 25 mL/hr, CONTINUOUS, Starting Sat09/28/19 at 0130 Start: 09-25-2019 End: 09-25-2019 magnesium sulfate 4 g in 100 mL IVPB premix Start: 09-25-2019 End: 09-28-2019 magnesium sulfate (20 G/500 mL) infusion methylPREDNISolone 4 mg oral tablet (6 sources) Corticosteroid Start: 03-15-2023 End: 03-21-2023 take 1 tablet by mouth once Methylprednisolone (Medrol (Issa)) 4 mg tablets,dose pack Discontinued 4 mg PO per package directions 21 6 0 March 15, 2023 12:00am March 20, 2023 12:00am March 21, 2023 12:04am 2 ml metoclopramide 5 mg/ml prefilled syringe (2 sources) Dopamine-2 Receptor Antagonist Start: 09-26-2019 End: 09-26-2019 metoclopramide (REGLAN) injection 10 mg misoprostol (CYTOTEC) pre-split tablet TABS 25 mcg (1 source) Start: 09-25-2019 End: 09-26-2019 25 mcg, Vaginal, EVERY 4 HOURS, First dose on Sat09/25/19 at 2245 montelukast 10 mg oral tablet (16 sources) Leukotriene Receptor Antagonist Start: 03-09-2021 End: 05-09-2022 take 1 tablet by mouth once daily Montelukast (Singulair) 10 mg tablet Discontinued 10 mg PO DAILY 90 March 09, 2021 12:00am May 09, 2022 1:45pm naproxen 500 mg oral tablet (15 sources) Nonsteroidal Anti-inflammatory Drug Start: 08-03-2020 End: 12-08-2020 take 1 tablet by mouth twice daily as needed Naproxen 500 MG tablet Discontinued 500 mg PO TWICE DAILY NEEDED August 03, 2020 1:00am December 08, 2020 2:35pm nebulizer (3 sources) Start: 07-17-2024 End: 07-17-2024 nebulizer Discontinued 0 .Route .MEDSUPPLY 1 0 July 17, 2024 1:00am July 17, 2024 4:56pm Asthma Unspecified asthma, uncomplicated asthma As directed Start: 07-17-2024 End: 07-17-2024 nebulizer Discontinued 0 .Ro prema .MEDSUPPLY 1 July 17, 2024 1:00am July 17, 2024 4:56pm As directed nebulizer Machine / compress or (6 sources) Start: 10-23-2024 End: 04-05-2025 nebulizer Machine / compress or Discontinued 0 .Route .MEDSUPPLY 1 0 October 23, 2024 4:14pm April 05, 2025 11:39am Asthma Unspecified asthma, uncomplicated asthma As directed Start: 10-23-2024 nebulizer Mach ine / compressor Active 0 .Route .MEDSUPPLY 1 October 23, 2024 4:14pm As directed Start: 07-17-2024 End: 10-23-2024 nebulizer Machine / compress or Discontinued 0 .Route .MEDSUPPLY 1 0 July 17, 2024 4:56pm October 23, 2024 4:14pm Asthma Unspecified asthma, uncomplicated asthma As directed Start: 07-17-2024 End: 10-23-2024 nebulizer Machine / compress or Discontinued 0 .Route .MEDSUPPLY July 17, 2024 4:56pm October 23, 2024 4:14pm As directed Nicotine (10 sources) Cholinergic Nicotinic Agonist Start: 09-15-2022 End: 09-15-2022 apply 1 dose transdermal route once daily, then apply 1 dose transdermal route once daily Nicotine 21-14-7 mg/24 hr patch, TD daily, sequential Discontinued 0 TD .COMPLEX 56 September 15, 2022 1:00am September 15, 2022 11:36am apply 1-21 mg NICOTINE PATCH daily for 28 days; follow with 1-14 mg PATCH daily for 14 days, then 1-7mg PATCH daily for 14 days transdermal Start: 09-15-2022 End: 09-15-2022 apply 1 dose transdermal route once daily, then apply 1 dose transdermal route once daily Nicotine 21-14-7 mg/24 hr patch, TD daily, sequential Discontinued 0 TD .COMPLEX September 15, 2022 1:00am September 15, 2022 11:36am apply 1-21 mg NICOTINE PATCH daily for 28 days; follow with 1-14 mg PATCH daily for 14 days, then 1-7mg PATCH daily for 14 days transdermal Start: 09-15-2022 End: 09-15-2022 apply 1 dose transdermal route once daily, then apply 1 dose transdermal route once daily Nicotine Discontinued 0 TD .COMPLEX September 15, 2022 1:00am September 15, 2022 11:36am apply 1-21 mg NICOTINE PATCH daily for 28 days; follow with 1-14 mg PATCH daily for 14 days, then 1-7mg PATCH daily for 14 days transdermal Start: 09-15-2022 End: 09-15-2022 apply 1 dose transdermal route once daily, then apply 1 dose transdermal route once daily Nicotine Discontinued 0 TD .COMPLEX September 15, 2022 12:00am September 15, 2022 10:36am apply 1-21 mg NICOTINE PATCH daily for 28 days; follow with 1-14 mg PATCH daily for 14 days, then 1-7mg PATCH daily for 14 days transdermal Start: 09-26-2019 End: 09-28-2019 nicotine (NICODERM CQ) 14 MG /24HR 1 patch NIFEdipine 30 mg osmotic 24 hr extended release oral tablet (15 sources) Dihydropyridine Calcium Channel Itzel Start: 10-10-2019 End: 04-19-2020 take 1 tablet by mouth once daily Nifedipine 30 MG tablet extended release 24hr Discontinued 30 mg PO DAILY 7 October 10, 2019 1:00am April 19, 2020 9:33am Nirmatrelvir-Jeff navir (8 sources) Start: 10-26-2022 End: 11-02-2022 Nirmatrelvir-Riton avir (Paxlovid (Eua)) 300 mg (150 mg x 2)-100 mg tablets,dose pack Discontinued 0 PO .COMPLEX 30 October 26, 2022 1:00am November 02, 2022 12:31pm take TWO 150 mg tablets of nirmatrelvir with ONE 100 mg tablet of ritonavir twice daily for 5 days Start: 10-26-2022 End: 11-02-2022 Nirmatrelvir-Ritonavir (Paxl ovid (Eua)) 300 mg (150 mg x 2)-100 mg tablets,dose pack Discontinued 0 PO .COMPLEX October 26, 2022 1:00am November 02, 2022 12:31pm take TWO 150 mg tablets of nirmatrelvir with ONE 100 mg tablet of ritonavir twice daily for 5 days Start: 10-26-2022 End: 11-02-2022 Nirmatrelvir-Ritonavir (Paxl ovid (Eua)) 300 mg (150 mg x 2)-100 mg tablets,dose pack Discontinued 0 PO .COMPLEX October 26, 2022 12:00am November 02, 2022 11:31am take TWO 150 mg tablets of nirmatrelvir with ONE 100 mg tablet of ritonavir twice daily for 5 days Start: 10-26-2022 Nirmatrelvir-R itonavir (Paxlovid (Eua)) 300 mg (150 mg x 2)- 100 mg tablets,dose pack Active 0 PO .COMPLEX October 26, 2022 12:00am take TWO 150 mg tablets of nirmatrelvir with ONE 100 mg tablet of ritonavir twice daily for 5 days omeprazole 20 mg delayed release oral tablet (15 sources) Proton Pump Inhibitor Start: 10-10-2019 End: 09-22-2021 take 1 tablet by mouth once daily Omeprazole 20 MG tablet,delayed release (DR/EC) Discontinued 20 mg PO DAILY October 10, 2019 1:00am September 22, 2021 11:04am Check with primary doctor ondansetron 4 mg disintegrating oral tablet (13 sources) Serotonin-3 Receptor Antagonist Start: 10-26-2022 End: 03-15-2023 take 1 tablet by mouth every eight hours as needed for nausea Ondansetron 4 mg tablet,disintegratin g Discontinued 4 mg PO EVERY 8 HOURS NEEDED as needed for Nausea 10 0 October 26, 2022 1:00am March 15, 2023 3:58pm Start: 12-25-2021 take 4 mg by mouth e very six hours as needed Ondansetron Active 4 MG PO EVERY 6 HOURS NEEDED December 25, 2021 3:34pm Start: 09-25-2019 End: 09-28-2019 4 mg, Intravenous, EVERY 6 H OURS PRN, Nausea, Starting 09/28/19 at 0101, penicillin v potassium 500 mg oral tablet (15 sources) Start: 04-04-2019 End: 04-24-2019 take 1 tablet by mouth four times daily Penicillin V Potassium 500 MG tablet Discontinued 500 mg PO 4 TIMES DAILY 40 0 April 04, 2019 12:00am April 24, 2019 8:05am predniSONE 10 mg oral tablet (20 sources) Start: 06-22-2024 End: 07-17-2024 take 4 tablets by mouth once daily, then take 3 tablets by mouth once daily, then take 2 tablets by mouth once daily, then take 1 tablet by mouth once daily Prednisone 10 mg tablet Discontinued 10 mg PO DIRECTED 30 0 June 22, 2024 12:00am July 17, 2024 9:29am Take 4 tablets daily for 3 days, then 3 daily for 3 days, then 2 daily for 3 days, then 1 a day for 3 days Start: 11-08-2023 End: 11-20-2023 take 2 tablets by mouth once daily Prednisone 20 mg tablet Discontinued 40 mg PO DAILY 10 5 November 08, 2023 1:00am November 20, 2023 11:39am Start: 11-08-2023 End: 11-20-2023 take 40 mg by mouth once daily Prednisone Discontinued 40 MG PO DAILY 10 November 08, 2023 1:00am November 20, 2023 11:39am Start: 02-22-2022 Prednisone Act chet 0 .ROUTE .COMPLEX February 22, 2022 12:00am 3 tabs p.o. daily days 1 through 4, then 2 tabs p.o. daily days 5 through 8, then 1 tab p.o. daily day 9 through 12 Start: 02-19-2022 End: 03-03-2022 Prednisone 10 mg tablet Disc ontinued 10 mg PO daily 30 12 0 February 19, 2022 12:00am March 02, 2022 12:00am March 03, 2022 12:05am Unspecified contact dermatitis, unspecified cause Take 4 tabs once daily days 1-3 3 tabs once daily days 4-6 2 tabs once daily days 7-9 and 1 tab once daily days 10-12. Start: 07-27-2020 End: 12-08-2020 Prednisone 10 mg tablet Disc ontinued 0 PO daily 30 July 27, 2020 1:00am December 08, 2020 2:35pm 4 tabs for 3 days, then 3 tabs for 3 days, then 2 tabs for 3 days, then 1 tab for 3 days PO QDAY; administer with food or milk Spacer (3 sources) Start: 07-17-2024 End: 04-05-2025 Spacer Discontinued 0 .Route .MEDSUPPLY 1 July 17, 2024 1:00am April 05, 2025 11:39am Asthma Unspecified asthma, uncomplicated asthma / wheezing As directed Start: 07-17-2024 Spacer Active 0 .Route .MEDSUPPLY July 17, 2024 1:00am As directed Problems Active Problems Problem Classification Problem Date Documented Date Episodic/Chronic Abdominal pain (20 sources) Abdominal pain; Translations: [Unspecified abdominal pain] Onset: 02-18-2025 Episodic Acute and chronic tonsillitis (5 sources) Peritonsillar abscess; Translations: [Peritonsillar abscess] 11-08-2023 Episodic Acute bronchitis (10 sources) Acute bronchitis; Translations: [Acute bronchitis, unspecified] 08-01-2022 Episodic Allergic reactions (20 sources) Urticaria; Translations: [Urticaria, unspecified] Episodic Anxiety disorders (20 sources) Anxiety; Translations: [Anxiety disorder, unspecified] Chronic Asthma (20 sources) Asthma; Translations: [Unspecified asthma, uncomplicated] Onset: 07-17-2024 10-10-2019 Chronic Blindness and vision defects (15 sources) Disorder of vision; Translations: [Unspecified visual loss] 10-10-2019 Chronic Calculus of urinary tract (20 sources) Kidney stone; Translations: [Calculus of kidney] 10-10-2019 Episodic Chronic obstructive pulmonary disease and bronchiectasis (15 sources) Chronic bronchitis; Translations: [Unspecified chronic bronchitis] 10-10-2019 Chronic Disorders of teeth and jaw (20 sources) Dental caries; Translations: [Dental caries, unspecified] Onset: 10-11-2023 04-05-2019 Episodic Esophageal disorders (15 sources) Gastroesophageal reflux disease; Translations: [Gastro-esophageal reflux disease without esophagitis] 10-10-2019 Chronic Essential hypertension (17 sources) Hypertensive disorder; Translations: [Essential (primary) hypertension] Chronic Fever of unknown origin (8 sources) Fever; Translations: [Fever, unspecified] 10-26-2022 Episodic Genitourinary symptoms and ill-defined conditions (15 sources) Blood in urine; Translations: [Hematuria, unspecified] Onset: 12-31-2024 Episodic Headache; including migraine (15 sources) Chronic headache disorder; Translations: [Chronic headache disorder] 10-10-2019 Episodic Hypertension complicating ; childbirth and the puerperium (3 sources) Pre-eclampsia; Translations: [Pre-eclampsia in third trimester] 09-28-2019 Episodic Immunizations and screening for infectious disease (9 sources) Contact with and (suspected) exposure to other viral communicable diseases; Translations: [Contact with or suspected exposure to other viral communicable disease] 08-01-2022 Episodic Menstrual disorders (11 sources) Menorrhagia; Translations: [Excessive and frequent menstruation with regular cycle] 04-28-2022 Chronic Mycoses (20 sources) Candidiasis of vagina; Translations: [Candidiasis of vulva and vagina] Episodic Nausea and vomiting (19 sources) Nausea and vomiting; Translations: [Nausea with vomiting, unspecified] 10-26-2022 Episodic Neoplasms of unspecified nature or uncertain behavior (20 sources) Neoplastic disease; Translations: [Neoplasm of unspecified behavior of unspecified site] 10-10-2019 Episodic Noninfectious gastroenteritis (14 sources) Gastroenteritis; Translations: [Noninfective gastroenteritis and colitis, unspecified] 04-26-2022 Episodic Nonmalignant breast conditions (19 sources) Breast lump; Translations: [Unspecified lump in unspecified breast] Onset: 09-12-2024 10-10-2019 Episodic Other and unspecified benign neoplasm (1 source) Hemangioma of liver; Translations: [Hemangioma of liver] Episodic Other and unspecified benign neoplasm (15 sources) Benign neoplasm of liver; Translations: [Benign neoplasm of liver] 04-01-2020 Episodic Other and unspecified benign neoplasm (2 sources) Benign neoplasm of liver; Translations: [Benign neoplasm of liver and biliary passages] Episodic Other connective tissue disease (8 sources) Muscle pain; Translations: [Myalgia, unspecified site] 10-26-2022 Episodic Other endocrine disorders (15 sources) Polycystic ovary syndrome; Translations: [Polycystic ovarian syndrome] 10-10-2019 Chronic Other female genital disorders (15 sources) Abnormal uterine bleeding; Translations: [Abnormal uterine and vaginal bleeding, unspecified] 06-24-2020 Chronic Other female genital disorders (1 source) Abnormal uterine and vaginal bleeding, unspecified; Translations: [Abnormal uterine and vaginal bleeding, unspecified] Onset: 02-24-2025 Chronic Other infections; including parasitic (9 sources) Disorder due to infection; Translations: [Unspecified infectious disease] 10-10-2019 Episodic Other infections; including parasitic (6 sources) Recurrent infectious disease; Translations: [Unspecified infectious disease] 10-10-2019 Episodic Other liver diseases (4 sources) Lesion of liver; Translations: [Liver lesion] 09-28-2019 Chronic Other liver diseases (13 sources) Focal nodular hyperplasia of liver; Translations: [Other specified diseases of liver] 03-23-2022 Chronic Other liver diseases (5 sources) Other specified diseases of liver; Translations: [Other specified disorders of liver] Chronic Other non-traumatic joint disorders (17 sources) Pain in right knee; Translations: [Right knee pain] Episodic Other nutritional; endocrine; and metabolic disorders (12 sources) Weight loss; Translations: [Abnormal weight loss] 10-10-2019 Episodic Other nutritional; endocrine; and metabolic disorders (3 sources) Weight decreased; Translations: [Abnormal weight loss] 04-24-2019 Episodic Other and delivery including normal (15 sources) First trimester ; Translations: [Encounter for supervision of normal , unspecified, first trimester] 04-05-2019 Episodic Other skin disorders (3 sources) Lesion of scalp; Translations: [Disorder of the skin and subcutaneous tissue, unspecified] 07-29-2024 Episodic Other skin disorders (5 sources) Trichilemmal cyst; Translations: [Trichodermal cyst] 09-01-2024 Episodic Other upper respiratory disease (15 sources) Seasonal allergy; Translations: [Other seasonal allergic rhinitis] 03-09-2021 Chronic Other upper respiratory infections (20 sources) Upper respiratory infection; Translations: [Acute upper respiratory infection, unspecified] 09-15-2022 Episodic Otitis media and related conditions (20 sources) Acute right otitis media; Translations: [Otitis media, unspecified, right ear] 09-10-2022 Episodic Pancreatic disorders (not diabetes) (15 sources) Pancreatitis; Translations: [Acute pancreatitis without necrosis or infection, unspecified] 10-10-2019 Episodic Residual codes; unclassified (15 sources) Tobacco user; Translations: [Tobacco use] 09-22-2021 Episodic Residual codes; unclassified (2 sources) Tobacco use; Translations: [Tobacco use disorder] Episodic Residual codes; unclassified (4 sources) FH: Thyroid disorder; Translations: [Family history of other endocrine, nutritional and metabolic diseases] 11-20-2023 Episodic Residual codes; unclassified (4 sources) Family history of hyperlipidemia; Translations: [Family history of other disorder of lipoprotein metabolism and other lipidemia] 11-20-2023 Episodic Screening and history of mental health and substance abuse codes (15 sources) History of clinical finding in subject; Translations: [Personal history of other mental and behavioral disorders] 10-10-2019 Episodic Skin and subcutaneous tissue infections (6 sources) Impetigo; Translations: [Impetigo, unspecified] 10-01-2023 Episodic Spondylosis; intervertebral disc disorders; other back problems (15 sources) Back problem; Translations: [Dorsopathy, unspecified] 10-10-2019 Episodic Sprains and strains (5 sources) Strain of knee; Translations: [Strain of unspecified muscle(s) and tendon(s) at lower leg level, left leg, initial encounter] 03-15-2023 Episodic Unclassified (2 sources) Other specified neoplasm of uncertain behavior of connective and other soft tissue; Translations: [Other specified neoplasm of uncertain behavior of connective and other soft tissue] Onset: 09-22-2024 Urinary tract infections (20 sources) Urinary tract infectious disease; Translations: [Urinary tract infection, site not specified] Episodic Viral infection (13 sources) Disease caused by 2019-nCoV; Translations: [COVID-19] 10-26-2022 Episodic Past or Other Problems Problem Classification Problem [...] Onset: 09-25-2019 Resolved: 09-30-2019 09-30-2019 Episodic Other lower respiratory disease (1 source) Shortness of breath; Translations: [Shortness of breath] Onset: 07-17-2024 Episodic Other conditions (3 sources) dysrhythmia; Translations: [Abnormal heart rate complicating ] Resolved: 09-30-2019 09-30-2019 Episodic Other skin disorders (1 source) Disorder of the skin and subcutaneous tissue, unspecified; Translations: [Disorder of the skin and subcutaneous tissue, unspecified] Onset: 07-29-2024 Episodic Unclassified (12 sources) history of salivary gland removal 03-29-2022 Results Test Name Value Interpretation Reference Range Facility Pelvic (Non )on 02-07 Pelvic (Non ) [facility] Imaging Services [address] [place] [address] [id number] Pelvic (Non ) MR#: [id number] Acct: [id number] Name: MEG TROY Rep #: [id number] : 1980 F 44 From: Abel scott MD PCP: Dr. Lei Martínez MD Status: REG CLI Study: Pelvic (Non ) Date of Exam: 02/16/25 Exam# [id number] Ordering Dr: Aicha Maya MD PROCEDURE: PELVIC (NON ) 02/16/2025 REASON FOR EXAM: ABNORMAL UTERINE AND VAGINAL BLEEDING, UNSPECIFIED TECHNIQUE: Transabdominal pelvic ultrasound COMPARISON: CT scan on 12/03/2024. FINDINGS: Uterus: Unremarkable measuring 8.8 x 5 x 3 cm. Endometrial Thickness: 2.1 mm Right Ovary: Unremarkable measuring 2.7 x 2 x 1.8 cm. Left Ovary: Unremarkable measuring 2.1 x 2.5 x 2.2 cm. Normal bilateral ovarian flow without evidence of ovarian torsion. No free fluid in the pelvic cul-de-sac. US/Pelvic (Non ) IMPRESSION: Unremarkable exam. Reading Location: [place] [address] CC: Dr. Lei Martínez MD; Dr. Aicha Maya MD Mechanical Fitter: Signed Normal [facility] Cytology report of Body flui d Cyto stainOrdered By: Aicha Maya on 12-28-2024 Cytology report Cyto stain Doc (Body fld) SEE PATHOLOGY REPORT [facility] Comment on above: Specimen submitted t o Anatomical Pathology Department for testing. Cytology, Body Fluid / CSFon 12-28-2024 CYTOLOGY,BF/CSF SEE PATHOLOGY REPORT Normal [facility] Comment on above: Order Comment: URINE URINE Result Comment: Spec imen submitted to Anatomical Pathology Department for testing. Performed By: #### L 350.1000 #### [facility] [address] [place], [address] Pap Stain (control)on 2024 Pap Stain (control) ------- Patient Age/Sex Location Account Attending Physician MEG TROY 44/F LABSPEC [id number] Dr. Aicha Maya MD Specimen: [id number] Received: 12/28/24 Status: MIMI Alvarado Num: [id number] Spec Type: ARGENTINA Baum Dr: Dr. Aicha Maya MD HEADER OPERATION: Not noted PRE-OP DIAGNOSIS: Gross hematuria TISSUE SUBMITTED: A- Urine for cytology - voided DIAGNOSIS CYTOLOGY A. Urine, voided: * No malignant cells are identified A. CYTOLOGY STUDY Slides are reviewed. CYTOLOGY GROSS A. Received is 70 ml of yellow-cloudy fluid labeled with the patient's name and and designated per the requisition as urine. Submitted for cytology preparation. 12/29/2024 CPT: 03542 Signed (signature on file) Dr. Samira Jones DO 12/29/24 1056 Normal [facility] Comment on above: Performed By: #### P PAPS #### [facility] [address] [place], [place], [address] Abdomen/Pelvis without Conto n 12-03-2024 Abdomen/Pelvis without Cont [facility] Imaging Services [address] [place] [address] Abdomen/Pelvis without Cont MR#: [id number] Acct: [id number] Name: MEG TROY Rep #: [id number] : 1980 F 44 From: Tasha Kelsey MD PCP: Dr. Lei Martínez MD Status: REG ER Study: Abdomen/Pelvis without Cont Date of Exam: 11/08 04/02 Exam# [id number] Ordering Dr: Marcell Islas MD PROCEDURE: ABDOMEN/PELVIS WITHOUT CONT 12/03/2024 REASON FOR EXAM: PAIN TECHNIQUE: Abdomen and pelvis CT without intravenous contrast. Noncontrast technique limits evaluation of the abdominal and pelvic viscera. Coronal and Sagittal reconstruction series were provided. One or more dose reduction techniques were used (e.g., Automated exposure control, adjustment of the mA and/or kV according to patient size, use of iterative reconstruction technique). COMPARISON: 05/04/2022 FINDINGS: Lower chest: Unremarkable. Liver: Unremarkable. Biliary/gallbladder: Unremarkable. Pancreas: Unremarkable. Spleen: Unremarkable. Adrenal glands: Unremarkable. Kidneys: An intermediate density cyst at the upper pole of the left kidney appears similar to the prior exam measuring approximately 1 cm, possibly due to a proteinaceous cyst. A couple of additional cystic lesions also appear stable from the previous exam. No renal calculus or hydronephrosis is identified. Gastrointestinal/peritoneum : No acute abnormality.The appendix is unremarkable.No free air or free fluid. Vascular: Unremarkable. Lymph nodes: No enlarged lymph nodes by CT size criteria. Pelvic organs: Unremarkable. Bladder: Unremarkable. Bones: There is a chronic compression fracture at the superior endplate of L2. a benign appearing sclerotic lesion is present in the left iliac wing measuring 2.2 cm as well as a small bone island, both stable from the previous exam. Soft tissues: There is a small fat containing umbilical hernia measuring 1.[address]/Abdomen/Pelvis without Cont IMPRESSION: 1. No acute abnormality of the abdomen and pelvis. Reading Location: [facility] CC: Dr. Lei Martínez MD; Dr. Marcell Islas MD Mechanical Fitter: Signed Normal [facility] Absolute lymphocyte countOrd ered By: Marcell Islas on 12-03-2024 Lymphocytes Auto (Unsp spec) [#/Vol] 1.75 10*3/uL 0.83-4.51 [facility] Absolute neutrophil countOrd ered By: Marcell Islas on 12-03-2024 Neutrophils (Bld) [#/Vol] 9.9 10*3/uL High 2.0-7.7 [facility] Anion gap in Serum or Plasma Ordered By: Marcell Islas on 12-03-2024 Anion gap [Moles/Vol] 12 mmol/L 5-15 [facility] Automated lymphocyte count a s percentage of total leukocytesOrdered By: Marcell Islas on 12-03-2024 Lymphocytes/100 WBC Auto (Unsp spec) 13.8 % Low 19-41 [facility] BUN/creatinine ratioOrdered By: Marcell Islas on 12-03-2024 Urea nitrogen/Creatinine [Mass ratio] 13.3 mg/mg 10-20 [facility] Basophil percentageOrdered B y: Marcell Islas on 12-03-2024 Basophils/100 WBC (Bld) 0.3 % 0-1 [facility] Beta HCG ( test) Ql Ordered By: Marcell Islas on 12-03-2024 Serum Test, Qualitative Negative [facility] Bilirubin Test strip Ql (U)O rdered By: Marcell Islas on 12-03-2024 Bilirubin Ql (U) Negative Negative [facility] Bilirubin, totalOrdered By: Marcell Islas on 12-03-2024 Bilirubin [Mass/Vol] 0.63 mg/dL 0.00-1.30 [facility] CBC W/Diff, Automatedon 11-08 Absolute Lymph 1.75 X10 3/uL Normal 0.83-4.51 [facility] Comment on above: Performed By: #### L 700.6800, L100.0100, L501.2450, L500.4050 #### [facility] [address] [place], [address] Absolute Neut 9.9 X10 3/uL High 2.0-7.7 [facility] Comment on above: Performed By: #### L 700.6800, L100.0100, L501.2450, L500.4050 #### [facility] [address] [place], [address] Basophils/100 WBC (Bld) 0.3 % Normal 0-1 [facility] Comment on above: Performed By: #### L 700.6800, L100.0100, L501.2450, L500.4050 #### [facility] [address] [place], [address] Eosinophils/100 WBC (Bld) 1.2 % Normal 0-5 [facility] Comment on above: Performed By: #### L 700.6800, L100.0100, L501.2450, L500.4050 #### [facility] [address] [place], [address] Erythrocyte distribution width (RBC) [Ratio] 12.2 % Normal 11.6-14.6 [facility] Comment on above: Performed By: #### L 700.6800, L100.0100, L501.2450, L500.4050 #### [facility] [address] [place], [address] Hematocrit (Bld) [Volume fraction] 40.8 % Normal 37-47 [facility] Comment on above: Performed By: #### L 700.6800, L100.0100, L501.2450, L500.4050 #### [facility] [address] [place], [address] Hemoglobin (Bld) [Mass/Vol] 13.7 g/dL Normal 12.0-15.0 [facility] Comment on above: Performed By: #### L 700.6800, L100.0100, L501.2450, L500.4050 #### [facility] [address] [place], [address] IG% 0.500 Normal 0.0-0.9 [facility] Comment on above: Result Comment: IG% - Immature Granulocytes (promyelocytes, myelocytes and metamyelocytes) > 1% indicates that a LEFT SHIFT is Present. Performed By: #### L 700.6800, L100.0100, L501.2450, L500.4050 #### [facility] [address] [place], [address] Lymphocytes/100 WBC (Bld) 13.8 % Low 19-41 [facility] Comment on above: Performed By: #### L 700.6800, L100.0100, L501.2450, L500.4050 #### [facility] [address] [place], [address] MCH (RBC) [Entitic mass] 28.5 pg Normal 27.0-32.0 [facility] Comment on above: Performed By: #### L 700.6800, L100.0100, L501.2450, L500.4050 #### [facility] [address] [place], [address] MCHC (RBC) [Mass/Vol] 33.6 g/dL Normal 32-36 [facility] Comment on above: Performed By: #### L 700.6800, L100.0100, L501.2450, L500.4050 #### [facility] [address] [place], [address] MCV (RBC) [Entitic vol] 85.0 fL Normal 81-99 [facility] Comment on above: Performed By: #### L 700.6800, L100.0100, L501.2450, L500.4050 #### [facility] [address] [place], [address] Monocytes/100 WBC (Bld) 6.5 % Normal 0-10 [facility] Comment on above: Performed By: #### L 700.6800, L100.0100, L501.2450, L500.4050 #### [facility] [address] [place], [address] Neutrophils/100 WBC (Bld) 77.7 % High 47-70 [facility] Comment on above: Performed By: #### L 700.6800, L100.0100, L501.2450, L500.4050 #### [facility] [address] [place], [address] Nucleated RBC (Bld) [#/Vol] 0 10*3/uL Normal 0-5 [facility] Comment on above: Performed By: #### L 700.6800, L100.0100, L501.2450, L500.4050 #### [facility] [address] [place], [address] Platelet mean volume (Bld) [Entitic vol] 9.2 fL Normal 6.2-12.0 [facility] Comment on above: Performed By: #### L 700.6800, L100.0100, L501.2450, L500.4050 #### [facility] [address] [place], [address] Platelets (Bld) [#/Vol] 324 10*3/uL Normal 150-450 [facility] Comment on above: Performed By: #### L 700.6800, L100.0100, L501.2450, L500.4050 #### [facility] [address] [place], [address] RBC (Bld) [#/Vol] 4.80 10*6/uL Normal 4.2-5.4 [facility] Comment on above: Performed By: #### L 700.6800, L100.0100, L501.2450, L500.4050 #### [facility] [address] [place], [address] RDW SD 37.5 fl Normal 35.1-43.9 [facility] Comment on above: Performed By: #### L 700.6800, L100.0100, L501.2450, L500.4050 #### [facility] [address] [place], [address] WBC (Bld) [#/Vol] 12.7 10*3/uL High 4.4-11.0 [facility] Comment on above: Performed By: #### L 700.6800, L100.0100, L501.2450, L500.4050 #### [facility] [address] [place], [address] Carbon dioxide, total [Moles /volume] in Central venous bloodOrdered By: Marcell Islas on 12-03-2024 CO2 [Moles/Vol] 19.9 mmol/L Low 21.0-32.0 [facility] Chloride assayOrdered By: Pranav Islas on 12-03-2024 Chloride [Moles/Vol] 108 mmol/L 98-108 [facility] Comprehensive Metabolic Prof ilon 12-03-2024 Albumin [Mass/Vol] 4.0 g/dL Normal 3.5-5.0 [facility] Comment on above: Performed By: #### L 700.6800, L100.0100, L501.2450, L500.4050 ####[facility] [address] [place], [address] Albumin/Globulin [Mass ratio] 2.0 {ratio} Normal 0.9-2.4 [facility] Comment on above: Performed By: #### L 700.6800, L100.0100, L501.2450, L500.4050 ####[facility] [address] [place], [address] ALK PHOS 89 U/L Normal 35-104 [facility] Comment on above: Performed By: #### L 700.6800, L100.0100, L501.2450, L500.4050 ####[facility] [address] [place], [address] ALT [Catalytic activity/Vol] 18 U/L Normal <=34 [facility] Comment on above: Performed By: #### L 700.6800, L100.0100, L501.2450, L500.4050 ####[facility] [address] [place], [address] AST [Catalytic activity/Vol] 16 U/L Normal <=31 [facility] Comment on above: Performed By: #### L 700.6800, L100.0100, L501.2450, L500.4050 ####[facility] [address] [place], [address] Bilirubin [Mass/Vol] 0.63 mg/dL Normal 0.00-1.30 [facility] Comment on above: Performed By: #### L 700.6800, L100.0100, L501.2450, L500.4050 ####[facility] [address] [place], [address] BUN/CRE 13.3 RATIO Normal 10-20 [facility] Comment on above: Performed By: #### L 700.6800, L100.0100, L501.2450, L500.4050 ####[facility] [address] [place], [address] Calcium [Mass/Vol] 8.7 mg/dL Normal 7.6-11.0 [facility] Comment on above: Performed By: #### L 700.6800, L100.0100, L501.2450, L500.4050 ####[facility] [address] [place], [address] Chloride [Moles/Vol] 108 mmol/L Normal 98-108 [facility] Comment on above: Performed By: #### L 700.6800, L100.0100, L501.2450, L500.4050 ####[facility] [address] [place], [address] CO2 [Moles/Vol] 19.9 mmol/L Low 21.0-32.0 [facility] Comment on above: Performed By: #### L 700.6800, L100.0100, L501.2450, L500.4050 ####[facility] [address] [place], [address] Creatinine [Mass/Vol] 0.74 mg/dL Normal 0.70-1.20 [facility] Comment on above: Performed By: #### L 700.6800, L100.0100, L501.2450, L500.4050 ####[facility] [address] [place], [address] ECRCL 84.65 ml/min Normal 50-250 [facility] Comment on above: Performed By: #### L 700.6800, L100.0100, L501.2450, L500.4050 ####[facility] [address] [place], [address] GAP 12 Normal 5-15 [facility] Comment on above: Performed By: #### L 700.6800, L100.0100, L501.2450, L500.4050 ####[facility] [address] [place], [address] GFR/1.73 sq M.predicted among non-blacks MDRD (S/P/Bld) [Vol rate/Area] 103 mL/min/{1.73_m2} Normal >60 [facility] Comment on above: Result Comment: mL/m in/1.73m2 CKD-EPI Creatinine Equation (2020) Performed By: #### L 700.6800, L100.0100, L501.2450, L500.4050 ####[facility] [address] [place], [address] Globulin (S) [Mass/Vol] 2.0 g/dL Low 2.2-4.2 [facility] Comment on above: Performed By: #### L 700.6800, L100.0100, L501.2450, L500.4050 ####[facility] [address] [place], [address] Glucose [Mass/Vol] 95 mg/dL Normal 70-99 [facility] Comment on above: Performed By: #### L 700.6800, L100.0100, L501.2450, L500.4050 ####[facility] [address] [place], [address] Potassium [Moles/Vol] 3.6 mmol/L Normal 3.3-5.1 [facility] Comment on above: Performed By: #### L 700.6800, L100.0100, L501.2450, L500.4050 ####[facility] [address] [place], [address] Sodium [Moles/Vol] 140 mmol/L Normal 133-145 [facility] Comment on above: Performed By: #### L 700.6800, L100.0100, L501.2450, L500.4050 ####[facility] [address] [place], [address] T PROT 6.1 g/dL Normal 5.9-8.4 [facility] Comment on above: Performed By: #### L 700.6800, L100.0100, L501.2450, L500.4050 ####[facility] [address] [place], [address] Urea nitrogen [Mass/Vol] 10 mg/dL Normal 4-19 [facility] Comment on above: Performed By: #### L 700.6800, L100.0100, L501.2450, L500.4050 ####[facility] [address] [place], [address] Emergency Department Summary on 12-03-2024 Emergency Department Summary [facility] Medical Records Department [address] [place] [address] Emergency Department Summary 12/03/24 MR#: [id number] Acct: [id number] Name: MEG TROY Rep #: [id number] : 1980 44 From: Marcell Islas MD PCP: Dr. Lei Martínez MD Status:REG ER Location: ED HPI HPI - GI History of Present Illness Chief Complaint: Flank Pain Informant: patient Abdominal Pain/Flank Pain Onset: Days Context: Gradual Onset Timing: Continuous Quality: Sharp Location: See Diagram (Suprapubic abdominal pain radiating to both flanks.) Current Severity: Mild Maximum Severity: Moderate Worsened by: Nothing Relieved by: Nothing Nausea/Vomiting/Emesis GI Symptom: Positive for Nausea Onset: Days Severity: Mild Diarrhea/Melena/Hematochezi a GI Symptom: Negative for Diarrhea, Melena or Hematochezia Associated Symptoms Associated Symptoms: Positive for Dysuria Narrative Narrative: 44-year-old female history of 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 States she has had lower pelvic pain suprapubic for the last 3 days. Radiates to both sides. Associated nausea. No vomiting or diarrhea. No constipation. Mild dysuria. No fever. Prior pain with UTI and/or kidney stone. The pain has been for 3 days and waxes and wanes. Nothing particular makes it better or worse. Prior similar symptoms: Yes Recent Illness/Hospitalization: No PFSH PFSH Medical History Skin lesion of scalp Breast pain, right Impetigo Pharyngitis Acute sinusitis, unspecified Left flank pain Hematuria UTI (urinary tract infection) Oral thrush Generalized anxiety disorder with panic attacks Focal nodular hyperplasia of liver Contact dermatitis due to poison [place] Contact dermatitis due to poison [place] Poison taylor Tobacco abuse Seasonal allergies Right knee pain Anxiety Weight loss Vision problems Tumors Polycystic ovarian disease Pancreatitis Kidney stones Recurrent infections Hives Chronic headaches GERD (gastroesophageal reflux disease) H/O emotional problems Chronic bronchitis Breast lump Back problem Asthma Allergies Home Medications ???Medication ???Instructions ???Recorded ???Last Taken ???Type Spacer #1 ea 07/17/24 Unknown Rx albuterol sulfate 90 mcg/actuation 2 puff inhalation Q6H PRN Unknown Rx aerosol inhaler bronchospasm #8.5 grams budesonide-formoterol HFA 160 2 puff inhalation BID #10.2 grams 07/17/24 08/21/24 Rx mcg-4.5 mcg/actuation aerosol inhaler (Symbicort) albuterol sulfate 2.5 mg/3 mL 2.5 mg (3 mL) inhalation Q4-6H PRN 08/31/24 Unknown Rx (0.083 %) solution for nebulization bronchospasm #30 mL nebulizer Machine / compressor #1 ea 10/23/24 Unknown Rx Allergy/AdvReac Type Severity Reaction Status Date / Time aloe vera Allergy Severe Rash Verified 12/03/24 15:00 aspirin (ASA) AdvReac Upset Verified 12/03/24 15:00 Stomach Family History Father Anemia Anxiety Arthritis Blood clot in vein Depression Diabetes Heart disease CVA (cerebral vascular accident) Kidney disease Mother Anxiety Asthma Arthritis Depression Hypertension Severe allergy Grandfather Arthritis Brain aneurysm Leukemia Grandmother Arthritis Hypertension CVA (cerebral vascular accident) Grandfather Arthritis Respiratory disease Grandmother Arthritis Kidney disease Surgical History history of salivary gland removal History of esophagogastroduodenoscopy (EGD) History of History of knee surgery History of needle biopsy Social History Smoking Status: Current every day smoker tobacco type: e-cigarettes how long ago did patient quit smoking: pt vapes alcohol intake: never substance use type: does not use what type of physical activity do you participate in: none additional social history: pt denies marijuana use, denies edibles, does use ibuprofen, does not use aspirin ROS ROS ED ROS Narrative Nausea. Suprapubic abdominal pain. Constitutional Constitutional ED: Denies chills or fever(s) ENT ENT ED: Denies ear pain Cardiovascular Cardiovascular: Denies chest pain Respiratory/Chest Respiratory/Chest: Denies cough or dyspnea Gastrointestinal Gastrointestinal: Reports abdominal pain and nausea; Denies constipation, diarrhea, melena or vomiting Genitourinary Genitourinary ED: Reports dysuria; Denies hematuria Musculoskeletal Musculoskeletal: Denies arthralgias or back pain Integumentary Denies abscess or Abrasions Neurologic Neurologic: Denies headache(s) Psychiatric Psychiatric: Denies an (more content not included)... Normal [facility] Eosinophil percentageOrdered By: Marcell Islas on 12-03-2024 Eosinophils/100 WBC (Bld) 1.2 % 0-5 [facility] Epithelial cells.squamous LM Ql (Urine sed)Ordered By: Marcell Islas on 12-03-2024 Epithelial cells.squamous LM.HPF (Urine sed) [#/Area] 5 /[HPF] 5-10 [facility] Erythrocyte distribution wid th ratioOrdered By: Marcell Islas on 12-03-2024 Erythrocyte distribution width (RBC) [Ratio] 12.2 % 11.6-14.6 [facility] Erythrocyte distribution wid th standard deviationOrdered By: Marcell Islas on 12-03-2024 Erythrocyte distribution width (RBC) [Entitic vol] 37.5 fL 35.1-43.9 [facility] Erythrocyte distribution width (RBC) [Ratio] 37.5 fl 35.1-43.9 [facility] Estimation of creatinine reyes aranceOrdered By: Marcell Islas on 12-03-2024 Estimated Creatinine Clearance Calc 84.65 ml/min 50-250 [facility] GFR/1.73 sq M.predicted marychuy g non-blacks MDRD (S/P/Bld) [Vol rate/Area]Ordered By: Marcell Islas on 12-03-2024 Estimated GFR (MDRD) Non-Af Amer 103 >60 [facility] Comment on above: mL/min/1.73m2 CKD-EP I Creatinine Equation (2020) Glomerular filtration rate ( GFR) estimation/1.73 sq m using serum, plasma, or whole bOrdered By: Marcell Islas on 12-03-2024 GFR/1.73 sq M.predicted among non-blacks MDRD (S/P/Bld) [Vol rate/Area] 103 mL/min/{1.73_m2} >60 [facility] Comment on above: mL/min/1.73m2 CKD-EP I Creatinine Equation (2020) Glucose Ql (U)Ordered By: Pranav Islas on 12-03-2024 Urine Glucose (UA) Normal mg/dl Normal [facility] Hematocrit Auto (Bld) [Volum e fraction]Ordered By: Marcell Islas on 12-03-2024 Hematocrit (Bld) [Volume fraction] 40.8 % 37-47 [facility] Hemoglobin measurementOrdere d By: Marcell Islas on 12-03-2024 Hemoglobin (Bld) [Mass/Vol] 13.7 g/dL 12.0-15.0 [facility] Immature granulocytes/100 WB C Auto (Bld)Ordered By: Marcell Islas on 12-03-2024 Immature granulocytes/100 WBC (Bld) 0.500 % 0.0-0.9 [facility] Comment on above: IG% - Immature Granu locytes (promyelocytes, myelocytes and metamyelocytes) > 1% indicates that a LEFT SHIFT is Present. Ketones Test strip Ql (U)Ord ered By: Marcell Islas on 12-03-2024 Ketones Ql (U) Negative Negative [facility] - Chemistry and C hemistry - challengeOrdered By: Marcell Islas on 12-03-2024 AST [Catalytic activity/Vol] 16 U/L <32 [facility] Lipaseon 12-03-2024 Lipase [Catalytic activity/Vol] 18 U/L Normal 13-75 [facility] Comment on above: Result Comment: Edelmira zamudio note: LIPASE revised reference range effective 22. New Lipase methodology. Expected to produce lower values than the previous assay method. NEW Reference Range: 13 - 75 U/L Performed By: #### L 700.6800, L100.0100, L501.2450, L500.4050 ####[facility] [address] [place], [address] Lipase measurementOrdered By : Marcell Islas on 12-03-2024 Lipase [Catalytic activity/Vol] 18 U/L 13-75 [facility] Comment on above: Please note:LIPASE r evised reference range effective 22. New Lipase methodology. Expected to produce lower values than the previous assay method. NEW Reference Range: 13 - 75 U/L Lymphocytes Auto (Unsp spec) [#/Vol]Ordered By: Marcell Islas on 12-03-2024 Lymphocytes (Bld) [#/Vol] 1.75 10*3/uL 0.83-4.51 [facility] Lymphocytes/100 WBC Auto (Un sp spec)Ordered By: Marcell Islas on 12-03-2024 Lymphocytes/100 WBC (Bld) 13.8 % Low 19-41 [facility] MCV (mean corpuscular volume ) determinationOrdered By: Marcell Islas on 12-03-2024 MCV (RBC) [Entitic vol] 85.0 fL 81-99 [facility] Mean corpuscular hemoglobin (MCH) determinationOrdered By: Marcell Islas on 12-03-2024 MCH (RBC) [Entitic mass] 28.5 pg 27.0-32.0 [facility] Mean corpuscular hemoglobin concentration (MCHC) determinationOrdered By: Marcell Islas on 12-03-2024 MCHC (RBC) [Mass/Vol] 33.6 g/dL 32-36 [facility] Mean platelet volume determi nationOrdered By: Marcell Islas on 12-03-2024 Platelet mean volume (Bld) [Entitic vol] 9.2 fL 6.2-12.0 [facility] Microscopic analysis of urin e for red blood cells (RBC)Ordered By: Marcell Islas on 12-03-2024 Microscopic analysis of urine for red blood cells (RBC) 5-10 SEEN /hpf 0-5 [facility] Urine RBC 5-10 SEEN /hpf 0-5 [facility] Monocyte percentageOrdered B y: Marcell Islas on 12-03-2024 Monocytes/100 WBC (Bld) 6.5 % 0-10 [facility] Mucus LM Ql (Urine sed)Order ed By: Marcell Islas on 12-03-2024 Mucus Ql (Urine sed) 0 SEEN /hpf [facility] Neutrophil percentageOrdered By: Marcell Islas on 12-03-2024 Neutrophils/100 WBC (Bld) 77.7 % High 47-70 [facility] Nitrite Test strip Ql (U)Ord ered By: Marcell Islas on 12-03-2024 Nitrite Ql (U) Negative Negative [facility] Nucleated red blood cell per centageOrdered By: Marcell Islas on 12-03-2024 Nucleated RBC/100 WBC (Bld) [Ratio] 0 % 0-5 [facility] Platelet countOrdered By: Pranav Islas on 12-03-2024 Platelets (Bld) [#/Vol] 324 10*3/uL 150-450 [facility] Potassium (Unsp spec) [Mass/ Vol]Ordered By: Marcell Islas on 12-03-2024 Potassium [Moles/Vol] 3.6 mmol/L 3.3-5.1 [facility] Potassium measurement (mass/ volume)Ordered By: Marcell Islas on 12-03-2024 Potassium (Unsp spec) [Mass/Vol] 3.6 mmol/L 3.3-5.1 [facility] ,Serum,hCG Quali.on 12-03-2024 HCG, SERUM QUAL Negative Normal [facility] Comment on above: Performed By: #### L 700.6800, L100.0100, L501.2450, L500.4050 ####[facility] [id number] [facility] [place], [address] Protein Test strip Ql (U)Ord ered By: Marcell Islas on 12-03-2024 Protein Ql (U) 15 mg/dl High Negative [facility] RBC Auto (Bld) [#/Vol]Ordere d By: Marcell Islas on 12-03-2024 RBC (Bld) [#/Vol] 4.80 10*6/uL 4.2-5.4 [facility] Serum beta-hCG test, qualita tiveOrdered By: Marcell Islas on 12-03-2024 Beta HCG ( test) Ql Negative [facility] Serum creatinine measurement (mass/volume)Ordered By: Marcell Islas on 12-03-2024 Creatinine [Mass/Vol] 0.74 mg/dL 0.70-1.20 [facility] Serum globulin measurementOr dered By: Marcell Islas on 12-03-2024 Globulin (S) [Mass/Vol] 2.0 g/dL Low 2.2-4.2 [facility] Serum glucose measurement (m ass/volume)Ordered By: Marcell Islas on 12-03-2024 Glucose [Mass/Vol] 95 mg/dL 70-99 [facility] Serum or plasma alanine souza otransferase (ALT) measurementOrdered By: Marcell Islas on 12-03-2024 ALT [Catalytic activity/Vol] 18 U/L <35 [facility] Serum or plasma albumin felisha urement (mass/volume)Ordered By: Marcell Islas on 12-03-2024 Albumin [Mass/Vol] 4.0 g/dL 3.5-5.0 [facility] Serum or plasma albumin/glob ulin mass ratioOrdered By: Marcell Islas on 12-03-2024 Albumin/Globulin [Mass ratio] 2.0 {ratio} 0.9-2.4 [facility] Serum or plasma alkaline elsa sphatase measurementOrdered By: Marcell Islas on 12-03-2024 ALP [Catalytic activity/Vol] 89 U/L 35-104 [facility] Serum or plasma calcium felisha urement (mass/volume)Ordered By: Mracell Islas on 12-03-2024 Calcium [Mass/Vol] 8.7 mg/dL 7.6-11.0 [facility] Serum or plasma urea nitroge n measurement (mass/volume)Ordered By: Marcell Islas on 12-03-2024 Urea nitrogen [Mass/Vol] 10 mg/dL 4-19 [facility] Sodium levelOrdered By: Marcell Islas on 12-03-2024 Sodium [Moles/Vol] 140 mmol/L 133-145 [facility] Squamous epithelial cells de tection in urine sediment by light microscopyOrdered By: Marcell Islas on 12-03-2024 Epithelial cells.squamous LM Ql (Urine sed) 5-10 SEEN /hpf 5-10 [facility] Total proteinOrdered By: Brandon Islas on 12-03-2024 Protein [Mass/Vol] 6.1 g/dL 5.9-8.4 [facility] Urinalysis, Completeon 03-27 -2025 RBC 5-10 SEEN Normal 0-5 [facility] Comment on above: Order Comment: CLEAN CATCH Performed By: #### L 400.0001 #### [facility] [address] [place], [address] BACTERIA 1+ /hpf Normal None Seen [facility] Comment on above: Order Comment: CLEAN CATCH Performed By: #### L 400.0001 #### [facility] [address] [place], [address] WBC 0-5 SEEN Normal 0-5 [facility] Comment on above: Order Comment: CLEAN CATCH Performed By: #### L 400.0001 #### [facility] [address] [place], [address] EPI,SQUAMOUS 5-10 SEEN Normal 5-10 [facility] Comment on above: Order Comment: CLEAN CATCH Performed By: #### L 400.0001 #### [facility] [address] [place], [address] Mucus Ql (Urine sed) 0 SEEN Normal [facility] Comment on above: Order Comment: CLEAN CATCH Performed By: #### L 400.0001 #### [facility] [address] [place], [address] Urine blood detectionOrdered By: Marcell Islas on 12-03-2024 Urine Occult Blood 25 /ul High Negative [facility] Urine clarityOrdered By: Brandon Islas on 12-03-2024 Clarity (U) Sl Cldy Clear [facility] Urine color determinationOrd ered By: Marcell Islas on 12-03-2024 Color (U) Yellow Yellow [facility] Urine glucose detectionOrder ed By: Marcell Islas on 12-03-2024 Glucose Ql (U) Normal mg/dl Normal [facility] Urine leukocyte esterase det ection by dipstickOrdered By: Marcell Islas on 12-03-2024 Leukocyte esterase Test strip Ql (U) Negative Negative [facility] Urine pHOrdered By: Marcell calvillo on 12-03-2024 pH (U) 7.0 [pH] 5.0 - 8.0 [facility] Urine sediment bacteria coun t by microscopy (number/high power field)Ordered By: Marcell Islas on 12-03-2024 Bacteria LM.HPF (Urine sed) [#/Area] 1 /[HPF] None Seen [facility] Urine specific gravity measu rementOrdered By: Marcell Islas on 12-03-2024 Specific gravity (U) [Rel density] 1.010 1.002-1.03 0 [facility] Urine urobilinogen measureme ntOrdered By: Marcell Islas on 12-03-2024 Urobilinogen Ql (U) Normal mg/dl Normal [facility] Urobilinogen Ql (U)Ordered B y: Marcell Islas on 12-03-2024 Urine Urobilinogen Normal mg/dl Normal [facility] White blood cell (WBC) count Ordered By: Marcell Islas on 12-03-2024 WBC (Bld) [#/Vol] 12.7 10*3/uL High 4.4-11.0 [facility] White blood cell countOrdere d By: Marcell Islas on 12-03-2024 Urine WBC 0-5 SEEN /hpf 0-5 [facility] White blood cell count 0-5 SEEN /hpf 0-5 [facility] Plastic Surgery Visit Report on 09-23-2024 Plastic Surgery Visit Report [facility] Plastic Reconstructive Surgery [address], [address] [place] [address] OFFICE VISIT Date of Service: 09/23/24 MR#: [id number] Acct: [id number] Name: MEG TROY Rep #: [id number] : 1980 Provider: Dr. La Nena scanlon MD Age/Sex: 43/F Location: [facility] [place] Status: Signed Intake Vital Signs 09/01/24 11:17 09/23/24 14:43 Height 5 ft 4 in 5 ft 4 in Weight: 120 lb 8 oz BMI 20.7 BP 113/80 113/79 Blood Pressure Location Lt brachial Lt brachial Position Sitting Sitting Respiration 18 18 Pulse 94 94 Temp 97.4 F L 97.8 F Temp Source Oral Oral Pulse Oximetry (%) 98 98 Oxygen Delivery Method room air room air Intake Visit Reasons: 3 W F/U Chief Complaint: post op cyst scalp Is patient in pain?: No Allergies aloe vera Allergy (Severe, Verified 09/23/24 14:44) Rash aspirin (ASA) Adverse Reaction (Verified 09/23/24 14:44) Upset Stomach Medications ???Medication ???Instructions ???Recorded ???Confirmed ???Type Spacer #1 ea 07/17/24 09/23/24 Rx albuterol sulfate 90 mcg/actuation 2 puff inhalation Q6H PRN 07/17/24 09/23/24 Rx aerosol inhaler bronchospasm #8.5 grams budesonide-formoterol HFA 160 2 puff inhalation BID #10.2 grams 07/17/24 09/23/24 Rx mcg-4.5 mcg/actuation aerosol inhaler (Symbicort) nebulizer Machine / compressor #1 ea 07/17/24 09/23/24 Rx albuterol sulfate 2.5 mg/3 mL 2.5 mg (3 mL) inhalation Q4-6H PRN 08/31/24 09/23/24 Rx (0.083 %) solution for nebulization bronchospasm #30 mL Nurse's Note: pt here follow up scalp cyst, no issues Subjective Details: Meg comes in for recheck of the scalp excision site as well as the neck palpable mass. She states that since I have removed the sutures in the scalp, the neck area has calm down and she is no longer able to palpate the site. Objective Details: The scalp site is healing satisfactorily. There is some hair growth along the incision. There is no evidence of infection. There is no palpable masses in the neck or occipital area. I will see her back as needed and she is encouraged to call with any problems. 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 [facility] Medical History Skin lesion of scalp Breast pain, right Impetigo Pharyngitis Acute sinusitis, unspecified Left flank pain Hematuria UTI (urinary tract infection) Oral thrush Generalized anxiety disorder with panic attacks Focal nodular hyperplasia of liver Contact dermatitis due to poison oak Contact dermatitis due to poison sumac Poison taylor Tobacco abuse Seasonal allergies Right knee pain Anxiety Weight loss Vision problems Tumors Polycystic ovarian disease Pancreatitis Kidney stones Recurrent infections Hives Chronic headaches GERD (gastroesophageal reflux disease) H/O emotional problems Chronic bronchitis Breast lump Back problem Asthma Allergies Surgical History history of salivary gland removal History of esophagogastroduodenoscopy (EGD) History of History of knee surgery History of needle biopsy Family History Father Anemia Anxiety Arthritis Blood clot in vein Depression Diabetes Heart disease CVA (cerebral vascular accident) Kidney disease Mother Anxiety Asthma Arthritis Depression Hypertension Severe allergy Grandfather Arthritis Brain aneurysm Leukemia Grandmother Arthritis Hypertension CVA (cerebral vascular accident) Grandfather Arthritis Respiratory disease Grandmother Arthritis Kidney disease Social History Smoking Status: Current every day smoker tobacco type: cigarettes how long ago did patient quit smoking: pt vapes alcohol intake: never substance use type: does not use what type of physical activity do you participate in: none additional social history: pt denies marijuana use, denies edibles, does use ibuprofen, does not use aspirin Assessment and Plan (No Qualifiers) Assessment and Plan (1) Trichilemmal cyst: Status: Acute Plan Details Additional Comments: Follow-up as needed 09/23/24 1714 Date La Nena Zamora Signature: Date (if applicable) CC: Normal [facility] Plastic Surgery Visit Report on 09-01-2024 Plastic Surgery Visit Report [facility] Plastic Reconstructive Surgery [address], [address] [place] [address] OFFICE VISIT Date of Service: 09/01/24 MR#: [id number] Acct: [id number] Name: MEG TROY Rep #: [id number] : 1980 Provider: Dr. La Nena scanlon MD Age/Sex: 43/F Location: [facility] Status: Signed Intake Vital Signs 08/05/24 11:52 08/28/24 08:07 09/01/24 11:17 Height 5 ft 4 in 5 ft 4 in 5 ft 4 in Weight: 121 lb BMI 20.7 BP 116/70 113/80 Blood Pressure Location Lt brachial Lt brachial Position Sitting Sitting Respiration 16 18 Pulse 90 94 Pulse Source Monitor Temp 97.6 F L 97.4 F L Temp Source Temporal Oral Pulse Oximetry (%) 99 98 Oxygen Delivery Method room air room air Intake Visit Reasons: post op Chief Complaint: post op cyst scalp Is patient in pain?: Yes (3-12/17) Allergies aloe vera Allergy (Severe, Verified 09/01/24 11:18) Rash aspirin (ASA) Adverse Reaction (Verified 09/01/24 11:18) Upset Stomach Medications ???Medication ???Instructions ???Recorded ???Confirmed ???Type Spacer #1 ea 07/17/24 09/01/24 Rx albuterol sulfate 90 mcg/actuation 2 puff inhalation Q6H PRN 07/17/24 09/01/24 Rx aerosol inhaler bronchospasm #8.5 grams budesonide-formoterol HFA 160 2 puff inhalation BID #10.2 grams 07/17/24 09/01/24 Rx mcg-4.5 mcg/actuation aerosol inhaler (Symbicort) nebulizer Machine / compressor #1 ea 07/17/24 09/01/24 Rx albuterol sulfate 2.5 mg/3 mL 2.5 mg (3 mL) inhalation Q4-6H PRN 08/31/24 09/01/24 Rx (0.083 %) solution for nebulization bronchospasm #30 mL Nurse's Note: pt here post op scalp cyst, pt report another cyst has shown up Subjective Details: Michell comes in for recheck of the lesion removed from her scalp. She denies any problems other than another knot that she feels further down on her upper neck. Objective Details: Incisions well-approximated. There is no evidence of infection. I debrided some of the suture material and applied antibiotic ointment and instructed the patient to do the same with the antibiotic ointment daily. The palpable knot on the upper neck I believe may represent a reactive lymph node. I suggested that she avoid rubbing the site and to reevaluate this in about 3 weeks to see if it resolves. The pathology report on the scalp demonstrated a trichilemmal cyst?no further intervention is necessary. 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 [facility] Medical History Skin lesion of scalp Breast pain, right Impetigo Pharyngitis Acute sinusitis, unspecified Left flank pain Hematuria UTI (urinary tract infection) Oral thrush Generalized anxiety disorder with panic attacks Focal nodular hyperplasia of liver Contact dermatitis due to poison oak Contact dermatitis due to poison sumac Poison taylor Tobacco abuse Seasonal allergies Right knee pain Anxiety Weight loss Vision problems Tumors Polycystic ovarian disease Pancreatitis Kidney stones Recurrent infections Hives Chronic headaches GERD (gastroesophageal reflux disease) H/O emotional problems Chronic bronchitis Breast lump Back problem Asthma Allergies Surgical History history of salivary gland removal History of esophagogastroduodenoscopy (EGD) History of History of knee surgery History of needle biopsy Family History Father Anemia Anxiety Arthritis Blood clot in vein Depression Diabetes Heart disease CVA (cerebral vascular accident) Kidney disease Mother Anxiety Asthma Arthritis Depression Hypertension Severe allergy Grandfather Arthritis Brain aneurysm Leukemia Grandmother Arthritis Hypertension CVA (cerebral vascular accident) Grandfather Arthritis Respiratory disease Grandmother Arthritis Kidney disease Social History Smoking Status: Current every day smoker tobacco type: cigarettes how long ago did patient quit smoking: pt vapes alcohol intake: never substance use type: does not use what type of physical activity do you participate in: none additional social history: pt denies marijuana use, denies edibles, does use ibuprofen, does not use aspirin Assessment and Plan (No Qualifiers) Assessment and Plan (1) Trichilemmal cyst: Status: Acute Plan Details Additional Comments: Follow-up in 3 weeks 09/01/24 1133 Date La Nena Zamora Signature: Date (if applicable) CC: Normal [facility] Internal Medicine Office Vis sho 08-28-2024 Internal Medicine Office Visit [facility] [address] [place] [address] [place] [address] OFFICE VISIT Date of Service: 08/28/24 MR#: [id number] Acct: [id number] Name: MEG TROY Rep #: [id number] : 1980 Provider: DEIDRE Troncoso Age/Sex: 43/F Location[place] [facility] [place] Status: Signed Intake Vital Signs 07/17/24 08:27 08/21/24 11:32 08/28/24 08:07 Height 5 ft 4 in 5 ft 4 in 5 ft 4 in Weight: 121 lb BMI 20.7 BP 116/70 Blood Pressure Location Lt brachial Position Sitting Respiration 16 Pulse 90 Pulse Source Monitor Temp 97.6 F L Temp Source Temporal Pulse Oximetry (%) 99 Oxygen Delivery Method room air Intake Visit Reasons: 6 wk FU Chief Complaint: 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 Accompanied by: Self Is patient in pain?: No Allergies aloe vera Allergy (Severe, Verified 08/28/24 08:04) Rash aspirin (ASA) Adverse Reaction (Verified 08/28/24 08:04) Upset Stomach Medications ???Medication ???Instructions ???Recorded ???Confirmed ???Type Spacer #1 ea 07/17/24 08/28/24 Rx albuterol sulfate 90 mcg/actuation 2 puff inhalation Q6H PRN 07/17/24 08/28/24 Rx aerosol inhaler bronchospasm #8.5 grams budesonide-formoterol HFA 160 2 puff inhalation BID #10.2 grams 07/17/24 08/28/24 Rx mcg-4.5 mcg/actuation aerosol inhaler (Symbicort) nebulizer Machine / compressor #1 ea 07/17/24 08/28/24 Rx PFSH Medical History Skin lesion of scalp Breast pain, right Impetigo Pharyngitis Acute sinusitis, unspecified Left flank pain Hematuria UTI (urinary tract infection) Oral thrush Generalized anxiety disorder with panic attacks Focal nodular hyperplasia of liver Contact dermatitis due to poison oak Contact dermatitis due to poison [place]ac Poison taylor Tobacco abuse Seasonal allergies Right knee pain Anxiety Weight loss Vision problems Tumors Polycystic ovarian disease Pancreatitis Kidney stones Recurrent infections Hives Chronic headaches GERD (gastroesophageal reflux disease) H/O emotional problems Chronic bronchitis Breast lump Back problem Asthma Allergies Surgical History history of salivary gland removal History of esophagogastroduodenoscopy (EGD) History of History of knee surgery History of needle biopsy Family History Father Anemia Anxiety Arthritis Blood clot in vein Depression Diabetes Heart disease CVA (cerebral vascular accident) Kidney disease Mother Anxiety Asthma Arthritis Depression Hypertension Severe allergy Grandfather Arthritis Brain aneurysm Leukemia Grandmother Arthritis Hypertension CVA (cerebral vascular accident) Grandfather Arthritis Respiratory disease Grandmother Arthritis Kidney disease Social History Smoking Status: Current every day smoker tobacco type: cigarettes how long ago did patient quit smoking: pt vapes alcohol intake: never substance use type: does not use what type of physical activity do you participate in: none additional social history: pt denies marijuana use, denies edibles, does use ibuprofen, does not use aspirin HPI HPI Chief Complaint: 6 week f/u Details: MEG TROY, is a 43 F who presents to the office today for f/u after starting a daily inhaler. Patient states that she feels so much better with the daily inhaler. She states that she hasn't been winded at all and has not required her albuterol one time. She states that she noticed a little wheezing a few times but nothing like before. She states that she she feels like she breaths much easier. Patient is very pleased with how much better she feels on the medication. She has continued to rinse her mouth out after each us. ROS Const Constitutional: No body ache, chills, excessive sweating, fatigue, fever(s), frequent falls, headache(s), snoring, weakness or change in appetite Eyes Eyes: No blurry vision, change in vision, eye pain or Light sensitivity ENT ENT: No abnormal hearing, ear or mastoid pain, tinnitus, nasal congestion, headache(s), neck pain or sore throat Resp Respiratory: No cough, shortness of breath, snoring or wheezing Cardio Cardiology: No chest pain at rest, chest pain with exertion, excessive sweating, dyspnea on exertion, lightheadedness, orthopnea or palpitations Gastro GI: No abdominal pain, change in bowel habits, constipation, cramping, diarrhea, nausea/dyspepsia or vomiting Genitourinary-Female: No burning urination, painful urination, urinary incontinence or urinary frequency Musc Musculoskeletal: No abnormal gait, joint pain, back pain, limited range of motion, muscle weakness, neck pain (more content not included)... Normal [facility] Discharge Instructionon 08-09 Discharge Instruction [facility] Medical Records Department [address] [place] [address] Instructions for Home/Discharge Instructions 08/21/24 1312 MR#: [id number] Acct: [id number] Name: MEG TROY Rep #: [id number] : 1980 43 From: La Nena Alcaraz MD PCP: Dr. Lei Martínez MD Status:REG [facility] [place] Discharge Instructions Dressing / Incision Additional Dressing/Incision Instructions:: Keep your head elevated (recliner position) for the next 3-4 nights to prevent bleeding and swelling. May shower over the area?but do not scrub. Apply a thin layer of antibiotic ointment (like Neosporin, bacitracin, or triple antibiotic ointment) once a day. You can take Tylenol or ibuprofen as needed for pain. Follow Up Care Test Results: Test results from this visit will be discussed in further detail at your follow-up appointment, if applicable. Discharge Plan Admission Attending Provider: La Nena Alcaraz Primary Care Provider: Lei Martínez Instructions Print Language: Ghanaian Discharge Orders/Prescriptions Prescriptions: No Action albuterol sulfate 90 mcg/actuation HFA aerosol inhaler 2 puff inhalation Q6H PRN (Reason: bronchospasm) Qty: 8.5 1RF budesonide-formoterol [Symbicort] 160-4.5 mcg/actuation HFA aerosol inhaler 2 puff inhalation BID Qty: 10.2 2RF (DME) Spacer See Rx Instructions .Route .MEDSUPPLY Qty: 1 0RF Rx Instructions: As directed fluconazole 150 mg tablet 150 mg PO ONCE Qty: 2 0RF Rx Instructions: can repeat in 3-5 days with continued symptoms. (DME) nebulizer Machine / compressor See Rx Instructions .Route .MEDSUPPLY Qty: 1 0RF Rx Instructions: As directed Referrals / Follow Up: Lei Martínez MD [Primary Care Provider] - Disposition Disposition (needs filled in before D/C Order can be placed): Home, Self Care 08/21/24 1316 La Nena Alcaraz MD CC: Dr. Lei Martínez MD Signed Normal [facility] Operative Reporton 4 Operative Report [facility] Medical Records Department [address] [place] [address] Operative Report 08/21/24 1314 MR#: [id number] Acct: [id number] Name: MEG TROY Rep #: [id number] : 1980 43 From: La Nena Alcaraz MD PCP: Dr. 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: Operative Report (Standard) Operative Information Date of Procedure: 08/21/24 Pre-Operative Diagnosis: Subcutaneous neoplasm of posterior scalp Post-Operative Diagnosis: Same Surgery/Procedure Performed: Excision subcutaneous cyst of scalp (2.5 cm) inspector technician: No Type of Anesthesia: Local RN Documented Start/Stop Times: Operation Date: 08/21/24 11:55 Case Time Into Pre-Op 08/21/24 11:17 Into Room 08/21/24 12:27 Procedure Start 08/21/24 12:53 Procedure End 08/21/24 13:09 Procedure Start Time: 12:53 Procedure Stop Time: 13:09 Select all DRAINS/GRAFTS/IMPLANTS that apply: None Estimated Blood Loss: Minimal Specimen collected: Yes Description of specimen(s) removed: Subcutaneous cyst of scalp Description of surgery: The patient presents with a enlarging mass of the posterior scalp. She has had previous cysts of the scalp. The patient is brought to the operating room and placed on the operating room table in the supine position. The posterior scalp was prepped and draped in the usual sterile fashion. 1% Xylocaine with epinephrine is used for local anesthetic. Following this, an elliptical incision is made over top of the cyst and carried down through the subcutaneous tissue until the wall of the cyst is encountered. It is then excised and enucleated from its bed. Hemostasis is controlled with cautery. The site is then closed with a running chromic suture. Antibiotic ointment is placed on the site. She tolerated the procedure well was taken to the recovery area in an awake and stable condition. Needle and sponge counts are correct. Surgical Findings: Same as above Complications Complications: No Admit VTE Documentation VTE Mechan Device Prophylaxis: None Reason prophylaxis not ordered: Treatment Not Indicated 08/21/24 1316 Cosigner Signature (if applicable): CC: Dr. Lei Martínez MD; Dr. La Nena Alcaraz MD Signed Normal [facility] Surgery Specimen Level IIIon 08-21-2024 Surgery Specimen Level III Patient Age/Sex Location Account Attending Physician MEG TROY 43/F [facility] [id number] Dr. La Nena Alcaraz MD Specimen: [id number] Received: 08/21/24 Status: MIMI Alvarado Num: [id number] Spec Type: Cyst Subm Dr: Dr. 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 AM. 08/25/2024 MICROSCOPIC DESCRIPTION Slides are reviewed. GROSS DESCRIPTION Received in fixative is one container labeled with the patient's name and designated Connective tissue neoplasm of scalp. The specimen consists of a piece of skin with underlying tissue measuring 2.0 x 0.5cm and up to 1.0cm in thickness. This specimen is inked, serially sectioned and reveal a cyst filled with whitish material. Rouge Presser sections are submitted in one cassette. . 08/24/2024 TC:5 CPT:54019 Patient Age/Sex Location Account Attending Physician MEG TROY 43/F [facility] [place] [id number] Dr. La Nena Alcaraz MD Signed (signature on file) Dr. Dilip Simon DO 08/25/24 1259 Normal [facility] Comment on above: Performed By: #### P SUIII ####[facility] [id number] [facility] [place], [address] Breast Limited Unilateralon 08-11-2024 Breast Limited Unilateral [facility] Imaging Services [address] [place] [address] Breast Limited Unilateral MR#: [id number] Acct: [id number] Name: MEG TROY Rep #: [id number] : 1980 F 43 From: Antonio wade MD PCP: Dr. Lei Martínez MD Status: REG CLI Study: Breast Limited Unilateral Date of Exam: Exam# [id number] Ordering Dr: Lei Martínez MD [id number] STUDY: ULTRASOUND BREAST - RIGHT REASON FOR EXAM: Female, 43 years old. Painful lump in the lateral aspect of the right breast. TECHNIQUE: Axial and longitudinal images of the RIGHT breast were performed with a high resolution ultrasound transducer. # OF IMAGES: 21 COMPARISON: Comparison is made with prior mammogram done earlier today. FINDINGS: RIGHT Breast: The lateral aspect of the right breast was examined with ultrasound. There is an 8 mm x 9 mm x 5 mm cyst at the 11:00 position of the breast at 6 cm from the nipple. There is a 8 mm x 7 mm x 5 mm cyst at the 12:00 position breast at 6 cm from the nipple. US/Breast Limited Unilateral IMPRESSION: There are 2, subcentimeter cysts at the 11 and 12:00 position of the right breast. Routine annual mammogram recommended. ASSESSMENT CATEGORY: BIRADS Category 2: Benign. A letter regarding these results will be sent to the patient by the facility within 30 days. Electronically Signed: Antonio Clark MD at 13:56 EST , CC: Dr. Lei Martínez MD Mechanical Fitter: Signed Normal [facility] DIAG MAMM W/CAD, BILATon DIAG MAMM W/CAD, BILAT [facility] Imaging Services [address] [place], [place] [address] DIAG MAMM W/CAD, BILAT MR#: [id number] Acct: [id number] Name: MEG TROY Rep #: [id number] : 1980 F 43 From: Antonio wade MD PCP: Dr. Lei Martínez MD Status: REG CLI Study: DIAG MAMM W/CAD, BILAT Date of Exam: 08/11/24 Exam# [id number] Ordering Dr: Lei Martínez MD [id number] MAMMOGRAPHY - BILATERAL DIAGNOSTIC REASON FOR EXAM: Female, 43 years old. Pain/lump in the lateral aspect of the right breast. PERTINENT HISTORY: Non-contributory. TECHNIQUE: Digital bilateral breast laron (3D mammographic acquisition) in the CC and MLO projections. 2-D mediolateral oblique (MLO) and craniocaudad (CC) views of both breasts were obtained. CAD: Full Field Digital Mammography with Computer Added Detection was performed. COMPARISON: Comparison is made with prior study of August 14, 2023. FINDINGS: Breast Composition: The breasts are extremely dense, which lowers the sensitivity of mammography. There are no dominant masses or suspicious calcifications. No other significant abnormalities are identified. There has been no significant change since the prior study. BI/DIAG MAMM W/CAD, BILAT IMPRESSION: Negative diagnostic mammogram. With the patient''s history of a palpable lump in the right breast, targeted correlation with ultrasound recommended. ASSESSMENT CATEGORY: BIRADS Category 0: Incomplete. Need additional imaging evaluation. A letter regarding these results will be sent to the patient by the facility within 30 days. Approximately 10% of breast cancers are not detected by mammography. A normal mammogram should not delay biopsy of a clinically suspicious abnormality. Electronically Signed: Antonio Clark MD at 10:35 EST Reading Location ID and State: [facility] / [place] , Service support , CC: Dr. Lei Martínez MD Mechanical Fitter: Signed Normal [facility] Plastic Surgery Visit Report on 08-05-2024 Plastic Surgery Visit Report [facility] Plastic Reconstructive Surgery [address], [address] [place], [place] [address] OFFICE VISIT Date of Service: 08/05/24 MR#: [id number] Acct: [id number] Name: MEG TROY Rep #: [id number] : 1980 Provider: Dr. La Nena scanlon MD Age/Sex: 43/F Location[place] [facility] [place] Status: Signed Intake Vital Signs 07/29/24 09:41 08/05/24 11:52 Height 5 ft 4 in 5 ft 4 in Weight: 117 lb 119 lb 4 oz BMI 20.0 20.5 BP 118/62 108/73 Blood Pressure Location Lt brachial Lt brachial Position Sitting Sitting Respiration 17 18 Pulse 92 82 Pulse Source Monitor Temp 97.7 F L 97.7 F L Temp Source Temporal Oral Pulse Oximetry (%) 99 98 Oxygen Delivery Method room air room air Intake Visit Reasons: LESION ON SCALP Chief Complaint: cyst on scalp Is patient in pain?: No Allergies aloe vera Allergy (Severe, Verified 08/05/24 11:55) Rash aspirin (ASA) Adverse Reaction (Verified 07/29/24 09:40) Upset Stomach Medications ???Medication ???Instructions ???Recorded ???Confirmed ???Type Spacer #1 ea 07/17/24 08/05/24 Rx albuterol sulfate 90 mcg/actuation 2 puff inhalation Q6H PRN 07/17/24 08/05/24 Rx aerosol inhaler bronchospasm #8.5 grams budesonide-formoterol HFA 160 2 puff inhalation BID #10.2 grams 07/17/24 08/05/24 Rx mcg-4.5 mcg/actuation aerosol inhaler (Symbicort) fluconazole 150 mg tablet 150 mg PO ONCE #2 tabs 07/17/24 08/05/24 Rx nebulizer Machine / compressor #1 ea 07/17/24 08/05/24 Rx Nurse's Note: pt here for eval scalp cyst PFS Medical History Skin lesion of scalp Breast pain, right Impetigo Pharyngitis Acute sinusitis, unspecified Left flank pain Hematuria UTI (urinary tract infection) Oral thrush Generalized anxiety disorder with panic attacks Focal nodular hyperplasia of liver Contact dermatitis due to poison oak Contact dermatitis due to poison sumac Poison taylor Tobacco abuse Seasonal allergies Right knee pain Anxiety Weight loss Vision problems Tumors Polycystic ovarian disease Pancreatitis Kidney stones Recurrent infections Hives Chronic headaches GERD (gastroesophageal reflux disease) H/O emotional problems Chronic bronchitis Breast lump Back problem Asthma Allergies Surgical History history of salivary gland removal History of esophagogastroduodenoscopy (EGD) History of History of knee surgery History of needle biopsy Family History Father Anemia Anxiety Arthritis Blood clot in vein Depression Diabetes Heart disease CVA (cerebral vascular accident) Kidney disease Mother Anxiety Asthma Arthritis Depression Hypertension Severe allergy Grandfather Arthritis Brain aneurysm Leukemia Grandmother Arthritis Hypertension CVA (cerebral vascular accident) Grandfather Arthritis Respiratory disease Grandmother Arthritis Kidney disease Social History (Updated 08/05/24 @ 11:52 by Laury Baumann) Smoking Status: Current every day smoker tobacco type: cigarettes how long ago did patient quit smoking: pt vapes alcohol intake: never substance use type: does not use what type of physical activity do you participate in: none additional social history: pt denies marijuana use, denies edibles, does use ibuprofen, does not use aspirin HPI LESION ON SCALP Details: Meg is a 43-year-old female who presents with a lump on her scalp which has been there for several years but has become irritated with hair care or when wearing glasses. ROS General General: Yes good health and fatigue; No fever(s) or weight loss HENMT HENMT: No rhinitis, sore throat/mouth sore, nasal congestion, contacts or glaucoma Endo Endocrine: No thyroid disease, polydipsia, heat intolerance, cold intolerance, hepatitis or excessive urine Skin Skin: No Bleeding, bruising, changing moles or suspicious lesion Musc Musculoskeletal: Yes joint pain, joint stiffness and back pain; No muscle weakness, osteoarthritis or Muscle aches/ myalgia Neuro Neurological: No headache(s), No lightheadedness and No numbness Cardio Cardiovascular: Yes fatigue; No chest pain, pacemaker or shortness of breat with exertion Psych Psychiatric: No depression, claustrophobia or anxiety Resp Respiratory: Yes asthma; No spitting up, shortness of breath, sleep apnea, emphysema, TB, Cough or Smoker Gastro Gastrointestinal: No diarrhea, constipation, blood in stool, nausea, vomiting or abdominal bloating Davey Hematologic: No anemia, No bleeding and No abnormal bleeding Genitourinary: No urinary frequency, blood in urine or incontinence Exam Details She is (more content not included)... Normal [facility] Internal Medicine Office Vis sho 07-29-2024 Internal Medicine Office Visit [facility] [address] [place] [address] [place] [address] OFFICE VISIT Date of Service: 07/29/24 MR#: [id number] Acct: [id number] Name: MEG TROY Rep #: [id number] : 1980 Provider: Dr. Lei jain MD Age/Sex: 43/F Location[place] [facility] [place] Status: Signed Intake Vital Signs 07/17/24 08:27 07/29/24 09:41 Height 5 ft 4 in 5 ft 4 in Weight: 118 lb 117 lb BMI 20.2 20.0 BP 112/60 118/62 Blood Pressure Location Lt brachial Lt brachial Position Sitting Sitting Respiration 17 17 Pulse 98 92 Pulse Source Monitor Monitor Temp 97.4 F L 97.7 F L Temp Source Temporal Temporal Pulse Oximetry (%) 99 99 Oxygen Delivery Method room air room air Intake Visit Reasons: RIGHT BREAST LUMP Chief Complaint: RIGHT BREAST LUMP Is patient in pain?: No Allergies aloe vera Allergy (Verified 07/29/24 09:40) Rash aspirin (ASA) Adverse Reaction (Verified 07/29/24 09:40) Upset Stomach Medications ???Medication ???Instructions ???Recorded ???Confirmed ???Type Spacer #1 ea 07/17/24 07/29/24 Rx albuterol sulfate 90 mcg/actuation 2 puff inhalation Q6H PRN 07/17/24 07/29/24 Rx aerosol inhaler bronchospasm #8.5 grams budesonide-formoterol HFA 160 2 puff inhalation BID #10.2 grams 07/17/24 07/29/24 Rx mcg-4.5 mcg/actuation aerosol inhaler (Symbicort) fluconazole 150 mg tablet 150 mg PO ONCE #2 tabs 07/17/24 07/29/24 Rx nebulizer Machine / compressor #1 ea 07/17/24 07/29/24 Rx Have you fallen in the past year?: No Nurse's Note: pt reports she has a lump in her right breast states it isn't painful right now but has been also has c/o lump on left side of her scalp. [facility] Medical History (Updated 07/29/24 @ 09:[address] Lei Martínez MD) Skin lesion of scalp Breast pain, right Impetigo Pharyngitis Acute sinusitis, unspecified Left flank pain Hematuria UTI (urinary tract infection) Oral thrush Generalized anxiety disorder with panic attacks Focal nodular hyperplasia of liver Contact dermatitis due to poison oak Contact dermatitis due to poison sumac Poison taylor Tobacco abuse Seasonal allergies Right knee pain Anxiety Weight loss Vision problems Tumors Polycystic ovarian disease Pancreatitis Kidney stones Recurrent infections Hives Chronic headaches GERD (gastroesophageal reflux disease) H/O emotional problems Chronic bronchitis Breast lump Back problem Asthma Allergies Surgical History history of salivary gland removal History of esophagogastroduodenoscopy (EGD) History of History of knee surgery History of needle biopsy Family History Father Anemia Anxiety Arthritis Blood clot in vein Depression Diabetes Heart disease CVA (cerebral vascular accident) Kidney disease Mother Anxiety Asthma Arthritis Depression Hypertension Severe allergy Grandfather Arthritis Brain aneurysm Leukemia Grandmother Arthritis Hypertension CVA (cerebral vascular accident) Grandfather Arthritis Respiratory disease Grandmother Arthritis Kidney disease Social History Smoking Status: Current every day smoker tobacco type: cigarettes alcohol intake: never substance use type: does not use what type of physical activity do you participate in: none HPI HPI Chief Complaint: RIGHT BREAST LUMP Details: MEG TROY, is a 43 F who presents to the office today for an acute visit. She reports pain and area of swelling in her right breast which she noted some weeks ago. Pain has resolved however area of swelling has remained. Last mammogram was in August 2023. Will discharge or otherwise feeling of unwell reported. She also reports a scalp lesion which she would like taken out. Had another area on her scalp which was taken out a few years ago area is nontender. Other chronic medical conditions are stable. ROS Const Constitutional: No body ache, chills, excessive sweating, fatigue, fever(s), frequent falls, headache(s), snoring, weight change, sleep problems, abnormal sleep pattern or change in appetite Eyes Eyes: No blurry vision, change in vision, bulging eyes, floaters, visual disturbances, eye pain or Light sensitivity ENT ENT: No abnormal hearing, ear or mastoid pain, tinnitus, balance problems, nosebleed/epistaxis, nasal congestion, headache(s), neck pain or sore throat Resp Respiratory: No cough, excessive phlegm production, pain on inspiration, shortness of breath, snoring or wheezing Cardio Cardiology: No chest pain at rest, chest pain with exertion, excessive sweating, shortness of breath, dyspnea on exertion, lightheadedness, orthopnea or palpitations Gastr (more content not included)... Normal [facility] Internal Medicine Office Vis sho 07-17-2024 Internal Medicine Office Visit [facility] [address] [place], [place] [address] OFFICE VISIT Date of Service: 07/17/24 MR#: [id number] Acct: [id number] Name: MEG TROY Rep #: [id number] : 1980 Provider: DEIDRE Troncoso Age/Sex: 43/F Location[place] [facility] [place] Status: Signed Intake Vital Signs 06/22/24 12:09 11/08/24 08:27 Height 5 ft 4 in 5 ft 4 in Weight: 118 lb BMI 20.2 BP 112/60 Blood Pressure Location Lt brachial Position Sitting Respiration 17 Pulse 98 Pulse Source Monitor Temp 97.4 F L Temp Source Temporal Pulse Oximetry (%) 99 Oxygen Delivery Method room air Intake Visit Reasons: [facility] er f/u Chief Complaint: [facility] 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 Accompanied by: Self Is patient in pain?: No Allergies aloe vera Allergy (Verified 07/17/24 08:29) Rash aspirin (ASA) Adverse Reaction (Verified 07/17/24 08:29) Upset Stomach Medications ???Medication ???Instructions ???Recorded ???Confirmed ???Type Spacer #1 ea 07/17/24 07/17/24 Rx albuterol sulfate 90 mcg/actuation 2 puff inhalation Q6H PRN 07/17/24 07/17/24 Rx aerosol inhaler bronchospasm #8.5 grams budesonide-formoterol HFA 160 2 puff inhalation BID #10.2 grams 07/17/24 07/17/24 Rx mcg-4.5 mcg/actuation aerosol inhaler (Symbicort) fluconazole 150 mg tablet 150 mg PO ONCE #2 tabs 07/17/24 07/17/24 Rx nebulizer #1 ea 07/17/24 07/17/24 Rx PFSH Medical History Impetigo Pharyngitis Acute sinusitis, unspecified Left flank pain Hematuria UTI (urinary tract infection) Oral thrush Generalized anxiety disorder with panic attacks Focal nodular hyperplasia of liver Contact dermatitis due to poison [place] Contact dermatitis due to poison [place] Poison taylor Tobacco abuse Seasonal allergies Right knee pain Anxiety Weight loss Vision problems Tumors Polycystic ovarian disease Pancreatitis Kidney stones Recurrent infections Hives Chronic headaches GERD (gastroesophageal reflux disease) H/O emotional problems Chronic bronchitis Breast lump Back problem Asthma Allergies Surgical History history of salivary gland removal History of esophagogastroduodenoscopy (EGD) History of History of knee surgery History of needle biopsy Family History Father Anemia Anxiety Arthritis Blood clot in vein Depression Diabetes Heart disease CVA (cerebral vascular accident) Kidney disease Mother Anxiety Asthma Arthritis Depression Hypertension Severe allergy Grandfather Arthritis Brain aneurysm Leukemia Grandmother Arthritis Hypertension CVA (cerebral vascular accident) Grandfather Arthritis Respiratory disease Grandmother Arthritis Kidney disease Social History Smoking Status: Current every day smoker tobacco type: cigarettes alcohol intake: never substance use type: does not use what type of physical activity do you participate in: none HPI HPI Chief Complaint: [facility] er f/u Details: MEG TROY, is a 43 F who presents to the office today for f/u from being in the ER a month ago. Patient presented due to wheezing / asthma exacerbation. They gave her some PO steroids and an inhaler and sent her home. She states that she finished the PO steroids and has been using the albuterol 3 times daily and states that is typical for how she uses this and at this point is finally back to normal. She states she is able to walk the grocery stores complete other daily activities of living at this point without any issues. She states occasionally she notices a little wheezing but that is not atypical for her. She has not had any continued coughing or any shortness of breath at this time. No other signs of acute respiratory or upper respiratory symptoms. ROS Const Constitutional: No body ache, chills, excessive sweating, fatigue, fever(s), frequent falls, headache(s), snoring, weakness or change in appetite Eyes Eyes: No blurry vision, change in vision, eye pain or Light sensitivity ENT ENT: No abnormal hearing, ear or mastoid pain, tinnitus, nasal congestion, headache(s), neck pain or sore throat Resp Respiratory: Positive for shortness of breath and other (wheezing with exertion ); No cough, snoring or wheezing Cardio Cardiology: Positive for other; No chest pain at rest, chest pain with exertion, excessive sweating, dyspnea on exertion, lightheadedness, orthopnea or palpitations Gastro GI: No abdominal pain, change in bowel habits, constipation, cramping, diarrhea, nausea/dyspepsia or vomiting Genitourinary-Female: No burning urination, painful urination, urinary incontinence (more content not included)... Normal [facility] 12 Lead EKGon 06-22-2024 12 Lead EKG [facility] Cardiovascular Services [address] [place] [address] 12 Lead EKG 06/22/24 1314 MR#: [id number] Acct: [id number] Name: MEG TROY Rep #: [id number] : 1980 43 From: Anjum Marroquin MD Attending Dr: Status: DEP ER Ordering Dr: Kamran Kamara MD Date: 06/22/24 Location: ED Sex: F C Admitted: Test Reason : Blood Pressure : / mmHG Vent. Rate : 074 BPM Atrial Rate : 074 BPM P-R Int : 108 ms QRS Dur : 086 ms QT Int : 392 ms P-R-T Axes : 056 087 066 degrees QTc Int : 435 ms Poor data quality, interpretation may be adversely affected Sinus rhythm with short VA Otherwise normal ECG Confirmed by Anjum Marroquin ([id number]), film or videotape editor PETER HAIRSTON ([id number]) on 06/23/2024 8:25:49 AM Referred By: Confirmed By:Anjum Marroquin 06/23/24 0825 Date Anjum Marroquin MD CC: Dr. Kamran Kamara MD; Dr. Lei Martínez MD Signed Normal [facility] Basic Metabolic Profile (BMP )on 06-22-2024 BUN Normal 03-26 [facility] Comment on above: Order Comment: 'TROP ' Serial specimen #1, #2 or #3: 11 Result Comment: HUE ENT DISCHARGED. SPECIMEN NOT RECEIVED. Performed By: #### L 500.2500, L100.0100 ####[facility] [id number] [place], [address] BUN/CRE Normal 06-28 [facility] Comment on above: Order Comment: 'TROP ' Serial specimen #1, #2 or #3: 11 Result Comment: HUE ENT DISCHARGED. SPECIMEN NOT RECEIVED. Performed By: #### L 500.2500, L100.0100 ####[facility] [address] [place], [address] CA,Total Normal 8.5-10.1 [facility] Comment on above: Order Comment: 'TROP ' Serial specimen #1, #2 or #3: 11 Result Comment: HUE ENT DISCHARGED. SPECIMEN NOT RECEIVED. Performed By: #### L 500.2500, L100.0100 ####[facility] [address] [place], [address] CL Normal 98-107 [facility] Comment on above: Order Comment: 'TROP ' Serial specimen #1, #2 or #3: 11 Result Comment: HUE ENT DISCHARGED. SPECIMEN NOT RECEIVED. Performed By: #### L 500.2500, L100.0100 ####[facility] [address] [place], [address] CO2 Normal 21.0-32.0 [facility] Comment on above: Order Comment: 'TROP ' Serial specimen #1, #2 or #3: 11 Result Comment: HUE ENT DISCHARGED. SPECIMEN NOT RECEIVED. Performed By: #### L 500.2500, L100.0100 ####[facility] [address] [place], [address] CREAT,SERUM Normal 0.55-1.02 [facility] Comment on above: Order Comment: 'TROP ' Serial specimen #1, #2 or #3: 11 Result Comment: HUE ENT DISCHARGED. SPECIMEN NOT RECEIVED. Performed By: #### L 500.2500, L100.0100 ####[facility] [address] [place], [address] EST GFR Normal >60 [facility] Comment on above: Order Comment: 'TROP ' Serial specimen #1, #2 or #3: 11 Result Comment: HUE ENT DISCHARGED. SPECIMEN NOT RECEIVED. Performed By: #### L 500.2500, L100.0100 ####[facility] [address] [place], [address] EST GFR - AA Normal >60 [facility] Comment on above: Order Comment: 'TROP ' Serial specimen #1, #2 or #3: 11 Result Comment: HUE ENT DISCHARGED. SPECIMEN NOT RECEIVED. Performed By: #### L 500.2500, L100.0100 ####[facility] [address] [place], [address] GAP Normal 5-15 [facility] Comment on above: Order Comment: 'TROP ' Serial specimen #1, #2 or #3: 11 Result Comment: HUE ENT DISCHARGED. SPECIMEN NOT RECEIVED. Performed By: #### L 500.2500, L100.0100 ####[facility] [address] [place], [address] GLU Normal 74-106 [facility] Comment on above: Order Comment: 'TROP ' Serial specimen #1, #2 or #3: 11 Result Comment: HUE ENT DISCHARGED. SPECIMEN NOT RECEIVED. Performed By: #### L 500.2500, L100.0100 ####[facility] [address] [place], [address] Potassium Normal 3.5-5.1 [facility] Comment on above: Order Comment: 'TROP ' Serial specimen #1, #2 or #3: 11 Result Comment: HUE ENT DISCHARGED. SPECIMEN NOT RECEIVED. Performed By: #### L 500.2500, L100.0100 ####[facility] [address] [place], [address] Basic Metabolic Profile (BMP) Normal 136-145 [facility] Comment on above: Order Comment: 'TROP ' Serial specimen #1, #2 or #3: 11 Result Comment: HUE ENT DISCHARGED. SPECIMEN NOT RECEIVED. Performed By: #### L 500.2500, L100.0100 ####[facility] [address] [place], [address] CBC W/Diff, Automatedon 10-1 Absolute Neut Normal 2.0-7.7 [facility] Comment on above: Result Comment: HUE ENT DEPARTED ER. Performed By: #### L 500.2500, L100.0100 ####[facility] [address] [place], [address] HCT Normal 37-47 [facility] Comment on above: Result Comment: HUE ENT DEPARTED ER. Performed By: #### L 500.2500, L100.0100 ####[facility] [address] [place], [address] HGB Normal 12.0-15.0 [facility] Comment on above: Result Comment: HUE ENT DEPARTED ER. Performed By: #### L 500.2500, L100.0100 ####[facility] [address] [place], [address] MCH Normal 27.0-32.0 [facility] Comment on above: Result Comment: HUE ENT DEPARTED ER. Performed By: #### L 500.2500, L100.0100 ####[facility] [address] [place], [address] MCHC Normal 32-36 [facility] Comment on above: Result Comment: HUE ENT DEPARTED ER. Performed By: #### L 500.2500, L100.0100 ####[facility] [address] [place], [address] MCV Normal 81-99 [facility] Comment on above: Result Comment: HUE ENT DEPARTED ER. Performed By: #### L 500.2500, L100.0100 ####[facility] [address] [place], [address] NEUT% Normal 47-70 [facility] Comment on above: Result Comment: HUE ENT DEPARTED ER. Performed By: #### L 500.2500, L100.0100 ####[facility] [address] [place], [address] PLT Normal 150-450 [facility] Comment on above: Result Comment: HUE ENT DEPARTED ER. Performed By: #### L 500.2500, L100.0100 ####[facility] [address] [place], [address] RBC Normal 4.2-5.4 [facility] Comment on above: Result Comment: HUE ENT DEPARTED ER. Performed By: #### L 500.2500, L100.0100 ####[facility] [address] [place], [address] RDW CV Normal 11.6-14.6 [facility] Comment on above: Result Comment: HEU ENT DEPARTED ER. Performed By: #### L 500.2500, L100.0100 ####[facility] [address] [place], [address] RDW SD Normal 35.1-43.9 [facility] Comment on above: Result Comment: HUE ENT DEPARTED ER. Performed By: #### L 500.2500, L100.0100 ####[facility] [address] [place], [address] WBC Normal 4.4-11.0 [facility] Comment on above: Result Comment: HUE ENT DEPARTED ER. Performed By: #### L 500.2500, L100.0100 ####[facility] [address] [place], [address] Chest PA and Lateralon 06-22 Chest PA and Lateral [facility] Imaging Services [address] [place] [address] Chest PA and Lateral MR#: [id number] Acct: [id number] Name: MEG TROY Rep #: [id number] : 1980 F 43 From: Roosevelt peralta MD PCP: Dr. Lei Martínez MD Status: DEP ER Study: Chest PA and Lateral Date of Exam: 06/22/24 Exam# [id number] Ordering Dr: Kamran Kamara MD [id number] STUDY: X-RAY CHEST REASON FOR EXAM: Female, 43 years old. cough sob TECHNIQUE: Frontal and lateral views of the chest. COMPARISON: 10/26/2022. FINDINGS: The lungs are clear and expanded. There is no demonstrated pleural abnormality. Normal size heart. Normal mediastinum and magalie. Normal visualized pulmonary arteries. Normal visualized aortic arch and descending thoracic aorta. Normal visualized thoracic spine. Normal visualized ribs, clavicles, and shoulders. There is no demonstrated abnormality of the visualized soft tissue structures of the upper abdomen. RAD/Chest PA and Lateral IMPRESSION: Normal x-ray examination of the chest. Electronically Signed: Roosevelt Sampson MD at 14:44 EDT , CC: Dr. Kamran Kamara MD; Dr. Lei Martínez MD Mechanical Fitter: Signed Normal [facility] Emergency Department Summary on 06-22-2024 Emergency Department Summary [facility] Medical Records Department [address] [place] [address] Emergency Department Summary 06/22/24 MR#: [id number] Acct: [id number] Name: MEG TROY Rep #: [id number] : 1980 43 From: Kamran Kamara MD PCP: Dr. Lei Martínez MD Status:REG ER Location: ED HPI History of Present Illness Chief Complaint: Shortness of Breath Informant: patient Narrative Narrative: 43-year-old female 3-4 days of illness where she is having a productive cough without blood and feeling short of breath with activities. She has some random left-sided sharp chest pains that are nonpleuritic and occur without an obvious trigger such as movement or coughing, last for maybe a minute or less and go away. She states she has had several sick contacts lately, they have been diagnosed with viral syndrome as well as pneumonia. She has asthma feels like it is worse but she does not feel like she needs a breathing treatment right now. She has been having some wheezing with this which has been the majority of her dyspnea. She denies any history of DVT or PE or recent leg pain or swelling or recent immobilization/surgery/hosp italization. [facility] Medical History Impetigo Pharyngitis Acute sinusitis, unspecified Left flank pain Hematuria UTI (urinary tract infection) Oral thrush Generalized anxiety disorder with panic attacks Focal nodular hyperplasia of liver Contact dermatitis due to poison [place] Contact dermatitis due to poison [place] Poison taylor Tobacco abuse Seasonal allergies Right knee pain Anxiety Weight loss Vision problems Tumors Polycystic ovarian disease Pancreatitis Kidney stones Recurrent infections Hives Chronic headaches GERD (gastroesophageal reflux disease) H/O emotional problems Chronic bronchitis Breast lump Back problem Asthma Allergies Home Medications ???Medication ???Instructions ???Recorded ???Last Taken ???Type fluconazole 150 mg tablet 150 mg PO Q3D 2 doses #2 tabs 11/07/23 Unknown Rx albuterol sulfate 90 mcg/actuation 2 puff inhalation Q6H PRN 04/20/24 Unknown Rx aerosol inhaler bronchospasm #8.5 grams prednisone 10 mg tablet 10 mg PO UD #30 tabs 06/22/24 Unknown Rx Allergy/AdvReac Type Severity Reaction Status Date / Time aloe vera Allergy Rash Verified 06/22/24 12:08 aspirin (ASA) AdvReac Upset Verified 06/22/24 12:08 Stomach Family History Father Anemia Anxiety Arthritis Blood clot in vein Depression Diabetes Heart disease CVA (cerebral vascular accident) Kidney disease Mother Anxiety Asthma Arthritis Depression Hypertension Severe allergy Grandfather Arthritis Brain aneurysm Leukemia Grandmother Arthritis Hypertension CVA (cerebral vascular accident) Grandfather Arthritis Respiratory disease Grandmother Arthritis Kidney disease Surgical History History of History of esophagogastroduodenoscopy (EGD) History of knee surgery History of needle biopsy history of salivary gland removal Social History Smoking Status: Current every day smoker tobacco type: cigarettes alcohol intake: never substance use type: does not use what type of physical activity do you participate in: none ROS ROS ED Constitutional Constitutional ED: Denies chills or fever(s) Eyes Eyes: Denies change in vision or diplopia ENT ENT ED: Denies rhinorrhea or sore throat Cardiovascular Cardiovascular: Reports chest pain; Denies leg edema, palpitations, radiating jaw, neck or arm pain or syncope Respiratory/Chest Respiratory/Chest: Reports cough, dyspnea and sputum Gastrointestinal Gastrointestinal: Denies abdominal pain, diarrhea, nausea or vomiting Genitourinary Genitourinary ED: Denies dysuria or hematuria Musculoskeletal Musculoskeletal: Denies back pain or neck pain Integumentary Denies abscess or rash Neurologic Neurologic: Denies headache(s), paresthesias or weakness Psychiatric Psychiatric: Denies anxiety or suicidal thoughts EXAM Physical Exam Const Vital Signs: 06/22/24 12:09 Temperature 97.9 F Temperature Source Oral Pulse Rate 84 Respiratory Rate 18 Blood Pressure 117/83 H Blood Pressure Mean 94 Pulse Ox 100 Oxygen Delivery Method Room Air Positive well nourished and well developed General Appearance ED: well developed and NAD HEENT Reports moist mucous membranes normocephalic and atraumatic Eyes PERRL and EOMs intact bilaterally Neck full ROM and supple Chest Wall Chest Narrative: No reproducible tenderness or subcutaneous emphysema. Not currently having ch (more content not included)... Normal [facility] Basophil percentageOrdered B y: Sedrick Andre on 11-20-2023 Bilirubin [Mass/Vol] 0.90 mg/dL 0.20-1.00 [facility] Comment on above: For patients on eltr ombopag therapy, use of [place] TBIL is not recommended. Chloride [Moles/Vol] 109 mmol/L 98-107 [facility] Cholesterol [Mass/Vol] 155 mg/dL <200 [facility] Comment on above: <200 mg/dL Desirable 200-240 mg/dL Borderline >240 mg/dL High Risk Glucose [Mass/Vol] 105 mg/dL 74-106 [facility] Comment on above: Fasting Glucose resu lt from 100 to 125 mg/dL suggests IMPAIRED HOMEOSTASIS per A.D.A. criteria. Hemoglobin (Bld) [Mass/Vol] 14.9 g/dL 12.0-15.0 [facility] Potassium [Moles/Vol] 4.6 mmol/L 3.5-5.1 [facility] Protein [Mass/Vol] 7.5 g/dL 6.4-8.2 [facility] Sodium [Moles/Vol] 139 mmol/L 136-145 [facility] Triglyceride [Mass/Vol] 52 mg/dL <199 [facility] Comment on above: The drugs N-Acetylcy steine and Metamizole may falsely depress this assay.Serum Triglycerides Reference Interval Normal <150 mg/dL Borderline high 150 - 199 mg/dL High 200 - 499 mg/dL Very High > or = 500 mg/dL WBC (Bld) [#/Vol] 10.8 10*3/uL 4.4-11.0 [facility] Determination of erythrocyte mean corpuscular volume (MCV)Ordered By: Sedrick Andre on 11-20-2023 MCV (RBC) [Entitic vol] 89.9 fL 81-99 [facility] Erythrocyte distribution wid th ratioOrdered By: Sedrick Andre on 11-20-2023 Erythrocyte distribution width (RBC) [Ratio] 12.6 % 11.6-14.6 [facility] Erythrocyte distribution wid th standard deviationOrdered By: Sedrick Andre on 11-20-2023 Erythrocyte distribution width (RBC) [Entitic vol] 41.1 fL 35.1-43.9 [facility] Hematocrit Auto (Bld) [Volum e fraction]Ordered By: Sedrick Andre on 11-20-2023 Hematocrit (Bld) [Volume fraction] 48.1 % 37-47 [facility] Laboratory - Chemistry and C hemistry - challengeOrdered By: Sedrick Andre on 11-20-2023 Albumin/Globulin [Mass ratio] 1.1 {ratio} 0.9-2.4 [facility] ALP [Catalytic activity/Vol] 90 U/L 45-117 [facility] ALT [Catalytic activity/Vol] 26 U/L 13-56 [facility] Cholesterol in HDL [Mass/Vol] 72 mg/dL >40 [facility] Comment on above: The drugs N-Acetylcy steine and Metamizole may falsely depress this assay. Reference Range HDL <40 mg/dL Low HDL Cholesterol HDL >or= 60 mg/dL High HDL Cholesterol Cholesterol in LDL [Mass/Vol] 73 mg/dL 0-130 [facility] CO2 [Moles/Vol] 26.0 mmol/L 21.0-32.0 [facility] Globulin (S) [Mass/Vol] 3.6 g/dL 2.2-4.2 [facility] Urea nitrogen/Creatinine [Mass ratio] 16.9 mg/mg 10-20 [facility] Laboratory - Hematology and Cell countsOrdered By: Sedrick Andre on 11-20-2023 MCH (RBC) [Entitic mass] 27.9 pg 27.0-32.0 [facility] MCHC (RBC) [Mass/Vol] 31.0 g/dL 32-36 [facility] Platelet mean volume (Bld) [Entitic vol] 9.6 fL 6.2-12.0 [facility] Platelets (Bld) [#/Vol] 389 10*3/uL 150-450 [facility] No Panel InformationOrdered By: Sedrick Andre on 11-20-2023 Estimated GFR (MDRD) Amer 98 mL/min >60 [facility] Comment on above: GFR Calc Estimated GFR (MDRD) Non-Af Amer 81 mL/min >60 [facility] Comment on above: Non- GFR Calc VLDL Cholesterol 10 mg/dL 5-40 [facility] RBC Auto (Bld) [#/Vol]Ordere d By: Sedrick Andre on 11-20-2023 RBC (Bld) [#/Vol] 5.35 10*6/uL 4.2-5.4 [facility] Serum or plasma calcium felisha urement (mass/volume)Ordered By: Sedrick Andre on 11-20-2023 Calcium [Mass/Vol] 9.1 mg/dL 8.5-10.1 [facility] Serum or plasma creatinine m easurement (mass/volume)Ordered By: Sedrick Andre on 11-20-2023 Creatinine [Mass/Vol] 0.83 mg/dL 0.55-1.02 [facility] Comment on above: The validity of the calculated GFR & GFRAA in patients over 70 years has not been determined. Clinical correlation is essential. Serum or plasma thyroid stim ulating hormone (TSH) measurement (units/volume)Ordered By: Sedrick Andre on 11-20-2023 TSH Qn 0.50 uIU/mL 0.358-3.74 [facility] Serum or plasma urea nitroge n measurement (mass/volume)Ordered By: Sedrick Andre on 11-20-2023 Urea nitrogen [Mass/Vol] 14 mg/dL 7-18 [facility] Thin prep Papanicolaou smear with manual screeningOrdered By: Sedrick Andre on 11-20-2023 Thin prep Papanicolaou smear with manual screening 3.9 g/dL 3.2-5.0 [facility] Thin prep Papanicolaou smear with manual screening 18 U/L 15-37 [facility] Thin prep Papanicolaou smear with manual screening 4 5-15 [facility] Laboratory - Microbiology an d Antimicrobial susceptibilityon 11-07-2023 S. pyogenes Ag IA Ql (Unsp spec) Negative [facility] Absolute lymphocyte countOrd ered By: Dr. Islas on 10-27-2022 Lymphocytes Auto (Unsp spec) [#/Vol] 0.31 10*3/uL 0.83-4.51 [facility] Basophil percentageOrdered B y: Dr. Islas on 10-27-2022 Basophil percentage 0-5 SEEN /hpf 0-5 [facility] Basophils/100 WBC (Bld) 0.3 % 0-1 [facility] Bilirubin [Mass/Vol] 0.60 mg/dL 0.20-1.00 [facility] Comment on above: For patients on eltr ombopag therapy, use of [place] TBIL is not recommended. Chloride [Moles/Vol] 111 mmol/L 98-107 [facility] Eosinophils/100 WBC (Bld) 0.3 % 0-5 [facility] Glucose [Mass/Vol] 95 mg/dL 74-106 [facility] Neutrophils (Bld) [#/Vol] 2.5 10*3/uL 2.0-7.7 [facility] Neutrophils/100 WBC (Bld) 74.3 % 47-70 [facility] Potassium [Moles/Vol] 3.4 mmol/L 3.5-5.1 [facility] Protein [Mass/Vol] 7.1 g/dL 6.4-8.2 [facility] Sodium [Moles/Vol] 142 mmol/L 136-145 [facility] WBC (Bld) [#/Vol] 3.3 10*3/uL 4.4-11.0 [facility] Bilirubin Test strip Ql (U)O rdered By: Dr. Islas on 10-27-2022 Bilirubin Ql (U) Negative Negative [facility] Blood erythrocytes count (nu mber/volume)Ordered By: Dr. Islas on 10-27-2022 RBC (Bld) [#/Vol] 4.86 10*6/uL 4.2-5.4 [facility] Blood hemoglobin measurement (mass/volume)Ordered By: Dr. Islas on 10-27-2022 Hemoglobin (Bld) [Mass/Vol] 13.9 g/dL 12.0-15.0 [facility] Blood lymphocytes/100 leukoc ytesOrdered By: Dr. Islas on 10-27-2022 Lymphocytes/100 WBC (Bld) 9.4 % 19-41 [facility] Blood monocytes/100 leukocyt esOrdered By: Dr. Islas on 10-27-2022 Monocytes/100 WBC (Bld) 15.4 % 0-10 [facility] Blood platelet mean volumeOr dered By: Dr. Islas on 10-27-2022 Platelet mean volume (Bld) [Entitic vol] 9.3 fL 6.2-12.0 [facility] Determination of erythrocyte mean corpuscular volume (MCV)Ordered By: Dr. Islas on 10-27-2022 MCV (RBC) [Entitic vol] 86.0 fL 81-99 [facility] Hematocrit Auto (Bld) [Volum e fraction]Ordered By: Dr. Islas on 10-27-2022 Hematocrit (Bld) [Volume fraction] 41.8 % 37-47 [facility] Ketones Test strip Ql (U)Ord ered By: Dr. Islas on 10-27-2022 Ketones Ql (U) 15 mg/dl Negative [facility] Laboratory - Chemistry and C hemistry - challengeOrdered By: Dr. Islas on 10-27-2022 ALP [Catalytic activity/Vol] 75 U/L 45-117 [facility] ALT [Catalytic activity/Vol] 23 U/L 13-56 [facility] CO2 [Moles/Vol] 24.0 mmol/L 21.0-32.0 [facility] Globulin (S) [Mass/Vol] 3.3 g/dL 2.2-4.2 [facility] Urea nitrogen/Creatinine [Mass ratio] 12.3 mg/mg 10-20 [facility] Laboratory - Hematology and Cell countsOrdered By: Dr. Islas on 10-27-2022 Erythrocyte distribution width (RBC) [Entitic vol] 41.9 fL 35.1-43.9 [facility] Erythrocyte distribution width (RBC) [Ratio] 13.4 % 11.6-14.6 [facility] Immature granulocytes/100 WBC (Bld) 0.300 % 0.0-0.9 [facility] Comment on above: IG% - Immature Granu locytes (promyelocytes, myelocytes and metamyelocytes) > 1% indicates that a LEFT SHIFT is Present. MCH (RBC) [Entitic mass] 28.6 pg 27.0-32.0 [facility] Nucleated RBC/100 WBC (Bld) [Ratio] 0 % 0-5 [facility] MCHC Auto (RBC) [Mass/Vol]Or dered By: Dr. Islas on 10-27-2022 MCHC (RBC) [Mass/Vol] 33.3 g/dL 32-36 [facility] Mucus LM Ql (Urine sed)Order ed By: Dr. Islas on 10-27-2022 Mucus Ql (Urine sed) 0 SEEN /hpf [facility] Nitrite Test strip Ql (U)Ord ered By: Dr. Islas on 10-27-2022 Nitrite Ql (U) Negative Negative [facility] No Panel InformationOrdered By: Dr. Islas on 10-27-2022 Estimated Creatinine Clearance Calc 78.36 ml/min [facility] Estimated GFR (MDRD) Amer 100 mL/min >60 [facility] Comment on above: GFR Calc Estimated GFR (MDRD) Non-Af Amer 82 mL/min >60 [facility] Comment on above: Non- GFR Calc Platelets bldOrdered By: Dr. Islas on 10-27-2022 Platelets (Bld) [#/Vol] 249 10*3/uL 150-450 [facility] Protein Test strip Ql (U)Ord ered By: Dr. Islas on 10-27-2022 Protein Ql (U) 15 mg/dl Negative [facility] Review by pathologistOrdered By: Dr. Islas on 10-27-2022 Pathologist review [place] (Unsp spec) [Interp] January foll [facility] Serum or plasma albumin felisha urement (mass/volume)Ordered By: Dr. Islas on 10-27-2022 Albumin [Mass/Vol] 3.8 g/dL 3.2-5.0 [facility] Serum or plasma albumin/glob ulin mass ratioOrdered By: Dr. Islas on 10-27-2022 Albumin/Globulin [Mass ratio] 1.2 {ratio} 0.9-2.4 [facility] Serum or plasma calcium felisha urement (mass/volume)Ordered By: Dr. Islas on 10-27-2022 Calcium [Mass/Vol] 8.4 mg/dL 8.5-10.1 [facility] Serum or plasma creatinine m easurement (mass/volume)Ordered By: Dr. Islas on 10-27-2022 Creatinine [Mass/Vol] 0.82 mg/dL 0.55-1.02 [facility] Comment on above: The validity of the calculated GFR & GFRAA in patients over 70 years has not been determined. Clinical correlation is essential. Serum or plasma urea nitroge n measurement (mass/volume)Ordered By: Dr. Islas on 10-27-2022 Urea nitrogen [Mass/Vol] 10 mg/dL 03-26 [facility] Squamous epithelial cells de tection in urine sediment by light microscopyOrdered By: Dr. Isals on 10-27-2022 Epithelial cells.squamous LM Ql (Urine sed) 0-5 SEEN /hpf 5-10 [facility] Thin prep Papanicolaou smear with manual screeningOrdered By: Dr. Islas on 10-27-2022 Thin prep Papanicolaou smear with manual screening 13 U/L 15-37 [facility] Thin prep Papanicolaou smear with manual screening 7 5-15 [facility] Urine blood detectionOrdered By: Dr. Islas on 10-27-2022 RBC Ql (U) 150 /ul Negative [facility] RBC Ql (U) 0 SEEN /hpf 0-5 [facility] Urine clarityOrdered By: Dr. Islas on 10-27-2022 Clarity (U) Clear Clear [facility] Urine color determinationOrd ered By: Dr. Islas on 10-27-2022 Color (U) Yellow Yellow [facility] Urine glucose detectionOrder ed By: Dr. Islas on 10-27-2022 Glucose Ql (U) Normal mg/dl Normal [facility] Urine leukocyte esterase det ection by dipstickOrdered By: Dr. Islas on 10-27-2022 Leukocyte esterase Test strip Ql (U) 25 /ul Negative [facility] Urine pHOrdered By: Dr. Domenico bautista on 10-27-2022 pH (U) 6.5 [pH] 5.0 - 8.0 [facility] Urine sediment bacteria coun t by microscopy (number/high power field)Ordered By: Dr. Islas on 10-27-2022 Bacteria LM.HPF (Urine sed) [#/Area] 0 /[HPF] None Seen [facility] Urine specific gravity measu rementOrdered By: Dr. Islas on 10-27-2022 Specific gravity (U) [Rel density] 1.015 1.002-1.03 0 [facility] Urobilinogen Auto test strip Ql (U)Ordered By: Dr. Islas on 10-27-2022 Urobilinogen Ql (U) Normal mg/dl Normal [facility] Absolute lymphocyte countOrd ered By: Dr. Francisco on 10-26-2022 Lymphocytes Auto (Unsp spec) [#/Vol] 0.19 10*3/uL 0.83-4.51 [facility] Basophil percentageOrdered B y: Dr. Francisco on 10-26-2022 Basophils/100 WBC (Bld) 0.3 % 0-1 [facility] Bilirubin [Mass/Vol] 0.70 mg/dL 0.20-1.00 [facility] Comment on above: For patients on eltr ombopag therapy, use of [place] TBIL is not recommended. Chloride [Moles/Vol] 110 mmol/L 98-107 [facility] Eosinophils/100 WBC (Bld) 0.6 % 0-5 [facility] Glucose [Mass/Vol] 92 mg/dL 74-106 [facility] Neutrophils (Bld) [#/Vol] 6.8 10*3/uL 2.0-7.7 [facility] Neutrophils/100 WBC (Bld) 87.5 % 47-70 [facility] Potassium [Moles/Vol] 3.6 mmol/L 3.5-5.1 [facility] Protein [Mass/Vol] 7.5 g/dL 6.4-8.2 [facility] Sodium [Moles/Vol] 140 mmol/L 136-145 [facility] WBC (Bld) [#/Vol] 7.7 10*3/uL 4.4-11.0 [facility] Blood erythrocytes count (nu mber/volume)Ordered By: Dr. Francisco on 10-26-2022 RBC (Bld) [#/Vol] 5.08 10*6/uL 4.2-5.4 [facility] Blood hemoglobin measurement (mass/volume)Ordered By: Dr. Francisco on 10-26-2022 Hemoglobin (Bld) [Mass/Vol] 14.2 g/dL 12.0-15.0 [facility] Blood lymphocytes/100 leukoc ytesOrdered By: Dr. Francisco on 10-26-2022 Lymphocytes/100 WBC (Bld) 2.5 % 19-41 [facility] Blood manual differential co mment interpretation (narrative result)Ordered By: Dr. Francisco on 10-26-2022 Manual differential comment [place] (Bld) [Interp] SCANNED [facility] Comment on above: LYMPHOPENIA NOTED Blood monocytes/100 leukocyt esOrdered By: [address] Francisco on 10-26-2022 Monocytes/100 WBC (Bld) 8.7 % 0-10 [facility] Blood platelet mean volumeOr dered By: Dr. Francisco on 10-26-2022 Platelet mean volume (Bld) [Entitic vol] 9.6 fL 6.2-12.0 [facility] Determination of erythrocyte mean corpuscular volume (MCV)Ordered By: Dr. Francisco on 10-26-2022 MCV (RBC) [Entitic vol] 85.0 fL 81-99 [facility] Hematocrit Auto (Bld) [Volum e fraction]Ordered By: Dr. Francisco on 10-26-2022 Hematocrit (Bld) [Volume fraction] 43.2 % 37-47 [facility] Influenza virus A and B and SARS-CoV-2 (COVID-19) Ag panel - Upper respiratory specimOrdered By: Dr. Francisco on 10-26-2022 SARS-CoV-2 & FLU Antigen (Rapid) SARS-CoV-2 (COVID 19) [facility] Laboratory - Chemistry and C hemistry - challengeOrdered By: Dr. Francisco on 10-26-2022 ALP [Catalytic activity/Vol] 84 U/L 45-117 [facility] ALT [Catalytic activity/Vol] 24 U/L 13-56 [facility] CO2 [Moles/Vol] 21.0 mmol/L 21.0-32.0 [facility] Globulin (S) [Mass/Vol] 3.5 g/dL 2.2-4.2 [facility] Urea nitrogen/Creatinine [Mass ratio] 9.3 mg/mg 10-20 [facility] Laboratory - Hematology and Cell countsOrdered By: Dr. Francisco on 10-26-2022 Erythrocyte distribution width (RBC) [Entitic vol] 41.6 fL 35.1-43.9 [facility] Erythrocyte distribution width (RBC) [Ratio] 13.3 % 11.6-14.6 [facility] Immature granulocytes/100 WBC (Bld) 0.400 % 0.0-0.9 [facility] Comment on above: IG% - Immature Granu locytes (promyelocytes, myelocytes and metamyelocytes) > 1% indicates that a LEFT SHIFT is Present. MCH (RBC) [Entitic mass] 28.0 pg 27.0-32.0 [facility] Nucleated RBC/100 WBC (Bld) [Ratio] 0 % 0-5 [facility] MCHC Auto (RBC) [Mass/Vol]Or dered By: Dr. Francisco on 10-26-2022 MCHC (RBC) [Mass/Vol] 32.9 g/dL 32-36 [facility] No Panel InformationOrdered By: Dr. Francisco on 10-26-2022 Estimated Creatinine Clearance Calc 86.10 ml/min [facility] Estimated GFR (MDRD) Amer 109 mL/min >60 [facility] Comment on above: GFR Calc Estimated GFR (MDRD) Non-Af Amer 90 mL/min >60 [facility] Comment on above: Non- GFR Calc Platelets bldOrdered By: Dr. Francisco on 10-26-2022 Platelets (Bld) [#/Vol] 310 10*3/uL 150-450 [facility] Serum or plasma albumin felisha urement (mass/volume)Ordered By: Dr. Francisco on 10-26-2022 Albumin [Mass/Vol] 4.0 g/dL 3.2-5.0 [facility] Serum or plasma albumin/glob ulin mass ratioOrdered By: Dr. Francisco on 10-26-2022 Albumin/Globulin [Mass ratio] 1.1 {ratio} 0.9-2.4 [facility] Serum or plasma calcium felisha urement (mass/volume)Ordered By: Dr. Francisco on 10-26-2022 Calcium [Mass/Vol] 9.1 mg/dL 8.5-10.1 [facility] Serum or plasma creatinine m easurement (mass/volume)Ordered By: Dr. Francisco on 10-26-2022 Creatinine [Mass/Vol] 0.75 mg/dL 0.55-1.02 [facility] Comment on above: The validity of the calculated GFR & GFRAA in patients over 70 years has not been determined. Clinical correlation is essential. Serum or plasma urea nitroge n measurement (mass/volume)Ordered By: Dr. Francisco on 10-26-2022 Urea nitrogen [Mass/Vol] 7 mg/dL 7-18 [facility] Thin prep Papanicolaou smear with manual screeningOrdered By: Dr. Francisco on 10-26-2022 Thin prep Papanicolaou smear with manual screening 14 U/L 15-37 [facility] Thin prep Papanicolaou smear with manual screening 9 5-15 [facility] Laboratory - Microbiology an d Antimicrobial susceptibilityon 09-15-2022 SARS-CoV-2 (COVID-19) RNA GEOFF+probe Ql (Unsp spec) Not detected [facility] No Panel Informationon 09-15 Influenza Types A,B Rapid (Clinic) Not detected [facility] Laboratory - Microbiology an d Antimicrobial susceptibilityon 08-01-2022 SARS-CoV-2 (COVID-19) RNA GEOFF+probe Ql (Unsp spec) Not detected [facility] No Panel Informationon 08-01 Influenza Types A,B Rapid (Clinic) Not detected [facility] Absolute lymphocyte counton 05-08-2022 Lymphocytes Auto (Unsp spec) [#/Vol] 1.83 10*3/uL 0.83-4.51 [facility] Work Phone: [phone] Basophil percentageon 2021 Basophils/100 WBC (Bld) 0.4 % 0-1 [facility] Work Phone: [phone] Bilirubin [Mass/Vol] 1.00 mg/dL 0.20-1.00 [facility] Work Phone: Comment on above: For patients on eltr ombopag therapy, use of Dimension [place] TBIL is not recommended. Chloride [Moles/Vol] 112 mmol/L 98-107 [facility] Work Phone: Eosinophils/100 WBC (Bld) 1.2 % 0-5 [facility] Work Phone: Glucose [Mass/Vol] 94 mg/dL 74-106 [facility] Work Phone: Neutrophils (Bld) [#/Vol] 7.3 10*3/uL 2.0-7.7 [facility] Work Phone: [phone] Neutrophils/100 WBC (Bld) 72.6 % 47-70 [facility] Work Phone: Potassium [Moles/Vol] 3.8 mmol/L 3.5-5.1 [facility] Work Phone: Protein [Mass/Vol] 7.2 g/dL 6.4-8.2 [facility] Work Phone: Sodium [Moles/Vol] 142 mmol/L 136-145 [facility] Work Phone: [phone] WBC (Bld) [#/Vol] 10.1 10*3/uL 4.4-11.0 [facility] Work Phone: Beta hCG serum qualon 2021 Beta HCG ( test) Ql Negative [facility] Work Phone: Blood erythrocytes count (nu mber/volume)on 05-08-2022 RBC (Bld) [#/Vol] 5.14 10*6/uL 4.2-5.4 [facility] Work Phone: Blood hemoglobin measurement (mass/volume)on 05-08-2022 Hemoglobin (Bld) [Mass/Vol] 15.0 g/dL 12.0-15.0 [facility] Work Phone: Blood lymphocytes/100 leukoc yteson 05-08-2022 Lymphocytes/100 WBC (Bld) 18.1 % 19-41 [facility] Work Phone: Blood monocytes/100 leukocyt eson 05-08-2022 Monocytes/100 WBC (Bld) 7.3 % 0-10 [facility] Work Phone: Blood platelet mean volumeon 05-08-2022 Platelet mean volume (Bld) [Entitic vol] 9.3 fL 6.2-12.0 [facility] Work Phone: Determination of erythrocyte mean corpuscular volume (MCV)on 05-08-2022 MCV (RBC) [Entitic vol] 87.5 fL 81-99 [facility] Work Phone: Direct bilirubinon 2 Bilirubin.direct [Mass/Vol] 0.24 mg/dL 0.00-0.30 [facility] Work Phone: Hematocrit Auto (Bld) [Volum e fraction]on 05-08-2022 Hematocrit (Bld) [Volume fraction] 45.0 % 37-47 [facility] Work Phone: Laboratory - Chemistry and C hemistry - challengeon 05-08-2022 ALP [Catalytic activity/Vol] 86 U/L 45-117 [facility] Work Phone: ALT [Catalytic activity/Vol] 28 U/L 13-56 [facility] Work Phone: CO2 [Moles/Vol] 24.0 mmol/L 21.0-32.0 [facility] Work Phone: Globulin (S) [Mass/Vol] 3.2 g/dL 2.2-4.2 [facility] Work Phone: Lipase [Catalytic activity/Vol] 125 U/L 73-393 [facility] Work Phone: Urea nitrogen/Creatinine [Mass ratio] 14.5 mg/mg 10-20 [facility] Work Phone: Laboratory - Hematology and Cell countson 05-08-2022 Erythrocyte distribution width (RBC) [Entitic vol] 40.7 fL 35.1-43.9 [facility] Work Phone: Erythrocyte distribution width (RBC) [Ratio] 12.7 % 11.6-14.6 [facility] Work Phone: Immature granulocytes/100 WBC (Bld) 0.400 % 0.0-0.9 [facility] Work Phone: Comment on above: IG% - Immature Granu locytes (promyelocytes, myelocytes and metamyelocytes) > 1% indicates that a LEFT SHIFT is Present. MCH (RBC) [Entitic mass] 29.2 pg 27.0-32.0 [facility] Work Phone: Nucleated RBC/100 WBC (Bld) [Ratio] 0 % 0-5 [facility] Work Phone: MCHC Auto (RBC) [Mass/Vol]on 05-08-2022 MCHC (RBC) [Mass/Vol] 33.3 g/dL 32-36 [facility] Work Phone: No Panel Informationon 05-08 Estimated Creatinine Clearance Calc 93.59 ml/min [facility] Work Phone: Estimated GFR (MDRD) Amer 121 mL/min >60 [facility] Work Phone: Comment on above: GFR Calc Estimated GFR (MDRD) Non-Af Amer 100 mL/min >60 [facility] Work Phone: Comment on above: Non- GFR Calc Platelets bldon 05-08-2022 Platelets (Bld) [#/Vol] 385 10*3/uL 150-450 [facility] Work Phone: Serum or plasma albumin felihsa urement (mass/volume)on 05-08-2022 Albumin [Mass/Vol] 4.0 g/dL 3.2-5.0 [facility] Work Phone: Serum or plasma calcium felisha urement (mass/volume)on 05-08-2022 Calcium [Mass/Vol] 9.4 mg/dL 8.5-10.1 [facility] Work Phone: Serum or plasma creatinine m easurement (mass/volume)on 05-08-2022 Creatinine [Mass/Vol] 0.69 mg/dL 0.55-1.02 [facility] Work Phone: Comment on above: The validity of the calculated GFR & GFRAA in patients over 70 years has not been determined. Clinical correlation is essential. Serum or plasma urea nitroge n measurement (mass/volume)on 05-08-2022 Urea nitrogen [Mass/Vol] 10 mg/dL 7-18 [facility] Work Phone: Thin prep Papanicolaou smear with manual screeningon 05-08-2022 Thin prep Papanicolaou smear with manual screening 14 U/L 15-37 [facility] Work Phone: Thin prep Papanicolaou smear with manual screening 6 5-15 [facility] Work Phone: Absolute lymphocyte counton 05-02-2022 Lymphocytes Auto (Unsp spec) [#/Vol] 1.82 10*3/uL 0.83-4.51 [facility] Work Phone: Basophil percentageon 2021 Basophil percentage 0-5 SEEN /hpf 0-5 [facility] Work Phone: Basophils/100 WBC (Bld) 0.6 % 0-1 [facility] Work Phone: Bilirubin [Mass/Vol] 0.70 mg/dL 0.20-1.00 [facility] Work Phone: Comment on above: For patients on eltr ombopag therapy, use of Dimension [place] TBIL is not recommended. Chloride [Moles/Vol] 111 mmol/L 98-107 [facility] Work Phone: Eosinophils/100 WBC (Bld) 1.5 % 0-5 [facility] Work Phone: [phone] Glucose [Mass/Vol] 86 mg/dL 74-106 [facility] Work Phone: Neutrophils (Bld) [#/Vol] 5.7 10*3/uL 2.0-7.7 [facility] Work Phone: Neutrophils/100 WBC (Bld) 69.1 % 47-70 [facility] Work Phone: Potassium [Moles/Vol] 4.4 mmol/L 3.5-5.1 [facility] Work Phone: Protein [Mass/Vol] 7.1 g/dL 6.4-8.2 [facility] Work Phone: Sodium [Moles/Vol] 142 mmol/L 136-145 [facility] Work Phone: WBC (Bld) [#/Vol] 8.3 10*3/uL 4.4-11.0 [facility] Work Phone: [phone] Bilirubin Test strip Ql (U)o n 05-02-2022 Bilirubin Ql (U) Negative Negative [facility] Work Phone: Blood erythrocytes count (nu mber/volume)on 05-02-2022 RBC (Bld) [#/Vol] 5.02 10*6/uL 4.2-5.4 [facility] Work Phone: [phone] Blood hemoglobin measurement (mass/volume)on 05-02-2022 Hemoglobin (Bld) [Mass/Vol] 15.0 g/dL 12.0-15.0 [facility] Work Phone: Blood lymphocytes/100 leukoc yteson 05-02-2022 Lymphocytes/100 WBC (Bld) 22.0 % 19-41 [facility] Work Phone: Blood monocytes/100 leukocyt eson 05-02-2022 Monocytes/100 WBC (Bld) 6.4 % 0-10 [facility] Work Phone: Blood platelet mean volumeon 05-02-2022 Platelet mean volume (Bld) [Entitic vol] 10.2 fL 6.2-12.0 [facility] Work Phone: Determination of erythrocyte mean corpuscular volume (MCV)on 05-02-2022 MCV (RBC) [Entitic vol] 89.6 fL 81-99 [facility] Work Phone: Hematocrit Auto (Bld) [Volum e fraction]on 05-02-2022 Hematocrit (Bld) [Volume fraction] 45.0 % 37-47 [facility] Work Phone: Ketones Test strip Ql (U)on 05-02-2022 Ketones Ql (U) Negative Negative [facility] Work Phone: Laboratory - Chemistry and C hemistry - challengeon 05-02-2022 ALP [Catalytic activity/Vol] 96 U/L 45-117 [facility] Work Phone: ALT [Catalytic activity/Vol] 28 U/L 13-56 [facility] Work Phone: CO2 [Moles/Vol] 27.0 mmol/L 21.0-32.0 [facility] Work Phone: [phone] Globulin (S) [Mass/Vol] 3.4 g/dL 2.2-4.2 [facility] Work Phone: Urea nitrogen/Creatinine [Mass ratio] 14.6 mg/mg 10-20 [facility] Work Phone: Laboratory - Hematology and Cell countson 05-02-2022 Erythrocyte distribution width (RBC) [Entitic vol] 42.4 fL 35.1-43.9 [facility] Work Phone: Erythrocyte distribution width (RBC) [Ratio] 13.0 % 11.6-14.6 [facility] Work Phone: Immature granulocytes/100 WBC (Bld) 0.400 % 0.0-0.9 [facility] Work Phone: Comment on above: IG% - Immature Granu locytes (promyelocytes, myelocytes and metamyelocytes) > 1% indicates that a LEFT SHIFT is Present. MCH (RBC) [Entitic mass] 29.9 pg 27.0-32.0 [facility] Work Phone: Nucleated RBC/100 WBC (Bld) [Ratio] 0 % 0-5 [facility] Work Phone: MCHC Auto (RBC) [Mass/Vol]on 05-02-2022 MCHC (RBC) [Mass/Vol] 33.3 g/dL 32-36 [facility] Work Phone: Mucus LM Ql (Urine sed)on Mucus Ql (Urine sed) 0 SEEN /hpf [facility] Work Phone: Nitrite Test strip Ql (U)on 05-02-2022 Nitrite Ql (U) Negative Negative [facility] Work Phone: No Panel Informationon 05-02 Estimated GFR (MDRD) Amer 109 mL/min >60 [facility] Work Phone: Comment on above: GFR Calc Estimated GFR (MDRD) Non-Af Amer 90 mL/min >60 [facility] Work Phone: Comment on above: Non- GFR Calc Platelets bldon 05-02-2022 Platelets (Bld) [#/Vol] 360 10*3/uL 150-450 [facility] Work Phone: Protein Test strip Ql (U)on 05-02-2022 Protein Ql (U) 15 mg/dl Negative [facility] Work Phone: Serum or plasma albumin felisha urement (mass/volume)on 05-02-2022 Albumin [Mass/Vol] 3.7 g/dL 3.2-5.0 [facility] Work Phone: Serum or plasma albumin/glob ulin mass ratioon 05-02-2022 Albumin/Globulin [Mass ratio] 1.1 {ratio} 0.9-2.4 [facility] Work Phone: Serum or plasma calcium felisha urement (mass/volume)on 05-02-2022 Calcium [Mass/Vol] 8.9 mg/dL 8.5-10.1 [facility] Work Phone: Serum or plasma creatinine m easurement (mass/volume)on 05-02-2022 Creatinine [Mass/Vol] 0.75 mg/dL 0.55-1.02 [facility] Work Phone: Comment on above: The validity of the calculated GFR & GFRAA in patients over 70 years has not been determined. Clinical correlation is essential. Serum or plasma urea nitroge n measurement (mass/volume)on 05-02-2022 Urea nitrogen [Mass/Vol] 11 mg/dL 7-18 [facility] Work Phone: Squamous epithelial cells de tection in urine sediment by light microscopyon 05-02-2022 Epithelial cells.squamous LM Ql (Urine sed) 0-5 SEEN /hpf 5-10 [facility] Work Phone: Thin prep Papanicolaou smear with manual screeningon 05-02-2022 Thin prep Papanicolaou smear with manual screening 16 U/L 15-37 [facility] Work Phone: Thin prep Papanicolaou smear with manual screening 4 5-15 [facility] Work Phone: Urine blood detectionon 04-10 RBC Ql (U) 150 /ul Negative [facility] Work Phone: RBC Ql (U) 0-5 SEEN /hpf 0-5 [facility] Work Phone: Urine clarityon 08-24-2022 Clarity (U) Clear Clear [facility] Work Phone: Urine color determinationon 05-02-2022 Color (U) Yellow Yellow [facility] Work Phone: Urine glucose detectionon Glucose Ql (U) Normal mg/dl Normal [facility] Work Phone: Urine leukocyte esterase det ection by dipstickon 05-02-2022 Leukocyte esterase Test strip Ql (U) 25 /ul Negative [facility] Work Phone: Urine pHon 05-02-2022 pH (U) 6.0 [pH] 5.0 - 8.0 [facility] Work Phone: Urine sediment bacteria coun t by microscopy (number/high power field)on 05-02-2022 Bacteria LM.HPF (Urine sed) [#/Area] 0 /[HPF] None Seen [facility] Work Phone: Urine specific gravity measu rementon 05-02-2022 Specific gravity (U) [Rel density] 1.020 1.002-1.03 0 [facility] Work Phone: Urobilinogen Auto test strip Ql (U)on 05-02-2022 Urobilinogen Ql (U) Normal mg/dl Normal [facility] Work Phone: Basophil percentageon 2021 Basophil percentage >100 SEEN /hpf 0-5 [facility] Work Phone: Bilirubin Test strip Ql (U)o n 04-20-2022 Bilirubin Ql (U) Negative Negative [facility] Work Phone: Ketones Test strip Ql (U)on 04-20-2022 Ketones Ql (U) Negative Negative [facility] Work Phone: Laboratory - Chemistry and C hemistry - challengeon 04-20-2022 HCG ( test) Ql (U) Negative [facility] Work Phone: Comment on above: Very dilute urine sp ecimens, as indicated by a low specificgravity, may not contain inside outside sales representative levels of hCG. If is still suspected, a first morning urinespecimen should be collected 48 hours later and tested. Mucus LM Ql (Urine sed)on Mucus Ql (Urine sed) 0 SEEN /hpf [facility] Work Phone: Nitrite Test strip Ql (U)on 04-20-2022 Nitrite Ql (U) Negative Negative [facility] Work Phone: Protein Test strip Ql (U)on 04-20-2022 Protein Ql (U) 100 mg/dl Negative [facility] Work Phone: Squamous epithelial cells de tection in urine sediment by light microscopyon 04-20-2022 Epithelial cells.squamous LM Ql (Urine sed) 0-5 SEEN /hpf 5-10 [facility] Work Phone: Urine blood detectionon 04-09 RBC Ql (U) 250 /ul Negative [facility] Work Phone: RBC Ql (U) > 100 SEEN /hpf 0-5 [facility] Work Phone: Urine clarityon 04-20-2022 Clarity (U) Cloudy Clear [facility] Work Phone: Urine color determinationon 04-20-2022 Color (U) Yellow Yellow [facility] Work Phone: Urine glucose detectionon Glucose Ql (U) Normal mg/dl Normal [facility] Work Phone: Urine leukocyte esterase det ection by dipstickon 04-20-2022 Leukocyte esterase Test strip Ql (U) 500 /ul Negative [facility] Work Phone: Urine pHon 04-20-2022 pH (U) 6.0 [pH] 5.0 - 8.0 [facility] Work Phone: Urine sediment bacteria coun t by microscopy (number/high power field)on 04-20-2022 Bacteria LM.HPF (Urine sed) [#/Area] 3 /[HPF] None Seen [facility] Work Phone: Urine specific gravity measu rementon 04-20-2022 Specific gravity (U) [Rel density] 1.015 1.002-1.03 0 [facility] Work Phone: [phone] Urobilinogen Auto test strip Ql (U)on 04-20-2022 Urobilinogen Ql (U) 1 mg/dl Normal [facility] Work Phone: Absolute lymphocyte counton 12-25-2021 Lymphocytes Auto (Unsp spec) [#/Vol] 1.22 10*3/uL 0.83-4.51 [facility] Work Phone: Basophil percentageon 2021 Basophil percentage 25-50 SEEN /hpf 0-5 [facility] Work Phone: Amylase [Catalytic activity/Vol] 54 U/L 25-115 [facility] Work Phone: Basophils/100 WBC (Bld) 0.2 % 0-1 [facility] Work Phone: Bilirubin [Mass/Vol] 1.00 mg/dL 0.20-1.00 [facility] Work Phone: Comment on above: For patients on eltr ombopag therapy, use of Dimension [place] TBIL is not recommended. Chloride [Moles/Vol] 114 mmol/L 98-107 [facility] Work Phone: [phone] Eosinophils/100 WBC (Bld) 0.7 % 0-5 [facility] Work Phone: [phone] Glucose [Mass/Vol] 99 mg/dL 74-106 [facility] Work Phone: [phone] Neutrophils (Bld) [#/Vol] 8.1 10*3/uL 2.0-7.7 [facility] Work Phone: Neutrophils/100 WBC (Bld) 81.1 % 47-70 [facility] Work Phone: [phone] Potassium [Moles/Vol] 3.9 mmol/L 3.5-5.1 [facility] Work Phone: Protein [Mass/Vol] 7.8 g/dL 6.4-8.2 [facility] Work Phone: Sodium [Moles/Vol] 140 mmol/L 136-145 [facility] Work Phone: [phone] WBC (Bld) [#/Vol] 9.9 10*3/uL 4.4-11.0 [facility] Work Phone: Beta hCG serum qualon 2021 Beta HCG ( test) Ql Negative [facility] Work Phone: Bilirubin Test strip Ql (U)o n 12-25-2021 Bilirubin Ql (U) Negative Negative [facility] Work Phone: Blood erythrocytes count (nu mber/volume)on 12-25-2021 RBC (Bld) [#/Vol] 5.64 10*6/uL 4.2-5.4 [facility] Work Phone: [phone] Blood hemoglobin measurement (mass/volume)on 12-25-2021 Hemoglobin (Bld) [Mass/Vol] 15.4 g/dL 12.0-15.0 [facility] Work Phone: Blood lymphocytes/100 leukoc yteson 12-25-2021 Lymphocytes/100 WBC (Bld) 12.3 % 19-41 [facility] Work Phone: [phone] Blood monocytes/100 leukocyt eson 12-25-2021 Monocytes/100 WBC (Bld) 5.3 % 0-10 [facility] Work Phone: Blood platelet mean volumeon 12-25-2021 Platelet mean volume (Bld) [Entitic vol] 9.4 fL 6.2-12.0 [facility] Work Phone: Determination of erythrocyte mean corpuscular volume (MCV)on 12-25-2021 MCV (RBC) [Entitic vol] 85.1 fL 81-99 [facility] Work Phone: [phone] Hematocrit Auto (Bld) [Volum e fraction]on 12-25-2021 Hematocrit (Bld) [Volume fraction] 48.0 % 37-47 [facility] Work Phone: Ketones Test strip Ql (U)on 12-25-2021 Ketones Ql (U) Negative Negative [facility] Work Phone: Laboratory - Chemistry and C hemistry - challengeon 12-25-2021 ALP [Catalytic activity/Vol] 95 U/L 45-117 [facility] Work Phone: ALT [Catalytic activity/Vol] 28 U/L 13-56 [facility] Work Phone: CO2 [Moles/Vol] 22.0 mmol/L 21.0-32.0 [facility] Work Phone: Globulin (S) [Mass/Vol] 3.9 g/dL 2.2-4.2 [facility] Work Phone: Lipase [Catalytic activity/Vol] 87 U/L 73-393 [facility] Work Phone: Urea nitrogen/Creatinine [Mass ratio] 15.0 mg/mg 10-20 [facility] Work Phone: Laboratory - Hematology and Cell countson 12-25-2021 Erythrocyte distribution width (RBC) [Entitic vol] 43.8 fL 35.1-43.9 [facility] Work Phone: Erythrocyte distribution width (RBC) [Ratio] 14.2 % 11.6-14.6 [facility] Work Phone: Immature granulocytes/100 WBC (Bld) 0.400 % 0.0-0.9 [facility] Work Phone: Comment on above: IG% - Immature Granu locytes (promyelocytes, myelocytes and metamyelocytes) > 1% indicates that a LEFT SHIFT is Present. MCH (RBC) [Entitic mass] 27.3 pg 27.0-32.0 [facility] Work Phone: Nucleated RBC/100 WBC (Bld) [Ratio] 0 % 0-5 [facility] Work Phone: MCHC Auto (RBC) [Mass/Vol]on 12-25-2021 MCHC (RBC) [Mass/Vol] 32.1 g/dL 32-36 [facility] Work Phone: Mucus LM Ql (Urine sed)on Mucus Ql (Urine sed) 0 SEEN /hpf [facility] Work Phone: Nitrite Test strip Ql (U)on 12-25-2021 Nitrite Ql (U) Negative Negative [facility] Work Phone: No Panel Informationon 12-25 Estimated Creatinine Clearance Calc 97.84 ml/min [facility] Work Phone: Estimated GFR (MDRD) Amer 126 mL/min >60 [facility] Work Phone: Comment on above: GFR Calc Estimated GFR (MDRD) Non-Af Amer 104 mL/min >60 [facility] Work Phone: Comment on above: Non- GFR Calc Platelets bldon 12-25-2021 Platelets (Bld) [#/Vol] 332 10*3/uL 150-450 [facility] Work Phone: Protein Test strip Ql (U)on 12-25-2021 Protein Ql (U) Negative Negative [facility] Work Phone: Serum or plasma albumin felisha urement (mass/volume)on 12-25-2021 Albumin [Mass/Vol] 3.9 g/dL 3.2-5.0 [facility] Work Phone: Serum or plasma albumin/glob ulin mass ratioon 12-25-2021 Albumin/Globulin [Mass ratio] 1.0 {ratio} 0.9-2.4 [facility] Work Phone: Serum or plasma calcium felisha urement (mass/volume)on 12-25-2021 Calcium [Mass/Vol] 8.8 mg/dL 8.5-10.1 [facility] Work Phone: Serum or plasma creatinine m easurement (mass/volume)on 12-25-2021 Creatinine [Mass/Vol] 0.66 mg/dL 0.55-1.02 [facility] Work Phone: Comment on above: The validity of the calculated GFR & GFRAA in patients over 70 years has not been determined. Clinical correlation is essential. Serum or plasma urea nitroge n measurement (mass/volume)on 12-25-2021 Urea nitrogen [Mass/Vol] 10 mg/dL 7-18 [facility] Work Phone: Squamous epithelial cells de tection in urine sediment by light microscopyon 12-25-2021 Epithelial cells.squamous LM Ql (Urine sed) 0-5 SEEN /hpf 5-10 [facility] Work Phone: Thin prep Papanicolaou smear with manual screeningon 12-25-2021 Thin prep Papanicolaou smear with manual screening 11 U/L 15-37 [facility] Work Phone: Thin prep Papanicolaou smear with manual screening 4 5-15 [facility] Work Phone: Urine blood detectionon 12-08 RBC Ql (U) 50 /ul Negative [facility] Work Phone: RBC Ql (U) 0-5 SEEN /hpf 0-5 [facility] Work Phone: Urine clarityon 12-25-2021 Clarity (U) Clear Clear [facility] Work Phone: Urine color determinationon 12-25-2021 Color (U) Yellow Yellow [facility] Work Phone: Urine glucose detectionon Glucose Ql (U) Normal mg/dl Normal [facility] Work Phone: Urine leukocyte esterase det ection by dipstickon 12-25-2021 Leukocyte esterase Test strip Ql (U) 500 /ul Negative [facility] Work Phone: Urine pHon 12-25-2021 pH (U) 6.0 [pH] 5.0 - 8.0 [facility] Work Phone: Urine sediment bacteria coun t by microscopy (number/high power field)on 12-25-2021 Bacteria LM.HPF (Urine sed) [#/Area] 0 /[HPF] None Seen [facility] Work Phone: Urine specific gravity measu rementon 12-25-2021 Specific gravity (U) [Rel density] 1.010 1.002-1.03 0 [facility] Work Phone: Urobilinogen Auto test strip Ql (U)on 12-25-2021 Urobilinogen Ql (U) Normal mg/dl Normal [facility] Work Phone: Absolute lymphocyte counton 09-22-2021 Lymphocytes Auto (Unsp spec) [#/Vol] 1.53 10*3/uL 0.83-4.51 [facility] Work Phone: Basophil percentageon 2021 Basophils/100 WBC (Bld) 0.4 % 0-1 [facility] Work Phone: Bilirubin [Mass/Vol] 0.70 mg/dL 0.20-1.00 [facility] Work Phone: Comment on above: For patients on eltr ombopag therapy, use of Dimension [place] TBIL is not recommended. Chloride [Moles/Vol] 112 mmol/L 98-107 [facility] Work Phone: Cholesterol [Mass/Vol] 135 mg/dL <200 [facility] Work Phone: Comment on above: <200 mg/dL Desirable 200-240 mg/dL Borderline >240 mg/dL High Risk Eosinophils/100 WBC (Bld) 1.9 % 0-5 [facility] Work Phone: Glucose [Mass/Vol] 86 mg/dL 74-106 [facility] Work Phone: Neutrophils (Bld) [#/Vol] 4.5 10*3/uL 2.0-7.7 [facility] Work Phone: Neutrophils/100 WBC (Bld) 65.2 % 47-70 [facility] Work Phone: [phone] Potassium [Moles/Vol] 3.9 mmol/L 3.5-5.1 [facility] Work Phone: Protein [Mass/Vol] 7.2 g/dL 6.4-8.2 [facility] Work Phone: Sodium [Moles/Vol] 141 mmol/L 136-145 [facility] Work Phone: Triglyceride [Mass/Vol] 92 mg/dL [facility] Work Phone: Comment on above: The drugs N-Acetylcy steine and Metamizole may falsely depress this assay.Serum Triglycerides Reference Interval Normal <150 mg/dL Borderline high 150 - 199 mg/dL High 200 - 499 mg/dL Very High > or = 500 mg/dL WBC (Bld) [#/Vol] 7.0 10*3/uL 4.4-11.0 [facility] Work Phone: Blood erythrocytes count (nu mber/volume)on 09-22-2021 RBC (Bld) [#/Vol] 5.19 10*6/uL 4.2-5.4 [facility] Work Phone: Blood hemoglobin measurement (mass/volume)on 09-22-2021 Hemoglobin (Bld) [Mass/Vol] 14.5 g/dL 12.0-15.0 [facility] Work Phone: Blood lymphocytes/100 leukoc yteson 09-22-2021 Lymphocytes/100 WBC (Bld) 22.0 % 19-41 [facility] Work Phone: Blood monocytes/100 leukocyt eson 09-22-2021 Monocytes/100 WBC (Bld) 10.2 % 0-10 [facility] Work Phone: Blood platelet mean volumeon 09-22-2021 Platelet mean volume (Bld) [Entitic vol] 9.5 fL 6.2-12.0 [facility] Work Phone: Determination of erythrocyte mean corpuscular volume (MCV)on 09-22-2021 MCV (RBC) [Entitic vol] 86.5 fL 81-99 [facility] Work Phone: Hematocrit Auto (Bld) [Volum e fraction]on 09-22-2021 Hematocrit (Bld) [Volume fraction] 44.9 % 37-47 [facility] Work Phone: Laboratory - Chemistry and C hemistry - challengeon 09-22-2021 ALP [Catalytic activity/Vol] 92 U/L 45-117 [facility] Work Phone: ALT [Catalytic activity/Vol] 24 U/L 13-56 [facility] Work Phone: CO2 [Moles/Vol] 27.0 mmol/L 21.0-32.0 [facility] Work Phone: Globulin (S) [Mass/Vol] 3.5 g/dL 2.2-4.2 [facility] Work Phone: Urea nitrogen/Creatinine [Mass ratio] 16.9 mg/mg 10-20 [facility] Work Phone: Laboratory - Hematology and Cell countson 09-22-2021 Erythrocyte distribution width (RBC) [Entitic vol] 41.9 fL 35.1-43.9 [facility] Work Phone: Erythrocyte distribution width (RBC) [Ratio] 13.2 % 11.6-14.6 [facility] Work Phone: Immature granulocytes/100 WBC (Bld) 0.300 % 0.0-0.9 [facility] Work Phone: Comment on above: IG% - Immature Granu locytes (promyelocytes, myelocytes and metamyelocytes) > 1% indicates that a LEFT SHIFT is Present. MCH (RBC) [Entitic mass] 27.9 pg 27.0-32.0 [facility] Work Phone: Nucleated RBC/100 WBC (Bld) [Ratio] 0 % 0-5 [facility] Work Phone: MCHC Auto (RBC) [Mass/Vol]on 09-22-2021 MCHC (RBC) [Mass/Vol] 32.3 g/dL 32-36 [facility] Work Phone: No Panel Informationon 09-22 Estimated GFR (MDRD) Amer 117 mL/min >60 [facility] Work Phone: Comment on above: GFR Calc Estimated GFR (MDRD) Non-Af Amer 97 mL/min >60 [facility] Work Phone: Comment on above: Non- GFR Calc Platelets bldon 09-22-2021 Platelets (Bld) [#/Vol] 337 10*3/uL 150-450 [facility] Work Phone: Serum or plasma albumin felisha urement (mass/volume)on 09-22-2021 Albumin [Mass/Vol] 3.7 g/dL 3.2-5.0 [facility] Work Phone: Serum or plasma albumin/glob ulin mass ratioon 09-22-2021 Albumin/Globulin [Mass ratio] 1.1 {ratio} 0.9-2.4 [facility] Work Phone: Serum or plasma calcium felisha urement (mass/volume)on 09-22-2021 Calcium [Mass/Vol] 8.8 mg/dL 8.5-10.1 [facility] Work Phone: Serum or plasma cholesterol in HDL measurement (mass/volume)on 09-22-2021 Cholesterol in HDL [Mass/Vol] 54 mg/dL [facility] Work Phone: Comment on above: The drugs N-Acetylcy steine and Metamizole may falsely depress this assay. Reference Range HDL <40 mg/dL Low HDL Cholesterol HDL >or= 60 mg/dL High HDL Cholesterol Serum or plasma cholesterol in VLDL measurement (mass/volume)on 09-22-2021 Cholesterol in VLDL [Mass/Vol] 18 mg/dL 5-40 [facility] Work Phone: Serum or plasma creatinine m easurement (mass/volume)on 09-22-2021 Creatinine [Mass/Vol] 0.71 mg/dL 0.55-1.02 [facility] Work Phone: Comment on above: The validity of the calculated GFR & GFRAA in patients over 70 years has not been determined. Clinical correlation is essential. Serum or plasma low density lipoprotein (LDL) cholesterol measurement (mass/volume)on 09-22-2021 Cholesterol in LDL [Mass/Vol] 63 mg/dL 0-130 [facility] Work Phone: Serum or plasma urea nitroge n measurement (mass/volume)on 09-22-2021 Urea nitrogen [Mass/Vol] 12 mg/dL 7-18 [facility] Work Phone: Thin prep Papanicolaou smear with manual screeningon 09-22-2021 Thin prep Papanicolaou smear with manual screening 13 U/L 15-37 [facility] Work Phone: Thin prep Papanicolaou smear with manual screening 2 5-15 [facility] Work Phone: AFP Tumor Markeron 0 AFP Tumor Marker 3 ng/mL Normal 0-9 [facility] Comment on above: Result Comment: INTE RPRETIVE INFORMATION: Alpha Fetoprotein Tumor Marker The Rosalind Vero Access DxI AFP method is used. Results obtained with different assay methods or kits cannot be used interchangeably. AFP is a valuable aid in the management of nonseminomatous testicular cancer patients when used in conjunction with information available from the clinical evaluation and other diagnostic procedures. Increased AFP concentrations have also been observed in ataxia telangiectasia, hereditary tyrosinemia, primary hepatocellular carcinoma, teratocarcinoma, gastrointestinal tract cancers with and without liver metastases, and in benign hepatic conditions such as acute viral hepatitis, chronic active hepatitis, and cirrhosis. The result cannot be interpreted as absolute evidence of the presence or absence of malignant disease. The result is not interpretable as a tumor marker in females. Access complete set of age- and/or gender-specific reference intervals for this test in the [facility] ([facility]). Performed by [facility], [address] [place] [id number] [email or web address], Dimitrios Benito MD, Lab. Director Performed By: #### H DEANN, [facility] #### [employer] [place] [address] [place] [address] #### AF #### The performing lab is in the report. CBC Auto Differentialon 02-07 Absolute Baso # 0.0 10*3/uL 0 - 0.2 10*3/uL [place], [place] Absolute Neut # 4.5 10*3/uL 1.8 - 7 10*3/uL [place] Basophils/100 WBC (Bld) 0.6 % 0 - 2 % [place] Eosinophils (Bld) [#/Vol] 0.2 10*3/uL 0 - 0.5 10*3/uL [place] Eosinophils/100 WBC (Bld) 3.4 % 1 - 6 % [place] Erythrocyte distribution width (RBC) [Ratio] 15.7 % High 11.5 - 14.5 % [place] Granulocytes/100 WBC (Bld) 65.5 % 40 - 80 % [place] Hematocrit (Bld) [Volume fraction] 40.5 % 35 - 47 % [place] Hemoglobin (Bld) [Mass/Vol] 13.6 g/dL 11.7 - 16 g/dL [place] Interpretation and review of laboratory results Abnormal [place] Lymphocytes (Bld) [#/Vol] 1.6 10*3/uL 1 - 4.3 10*3/uL [place] Lymphocytes/100 WBC (Bld) 23.0 % 20 - 40 % [place] MCH (RBC) [Entitic mass] 27.9 pg 26 - 34 pg [place] MCHC (RBC) [Mass/Vol] 33.7 % 32 - 36 % [place] MCV (RBC) [Entitic vol] 82.7 fL 79 - 98 fL [place] Monocytes (Bld) [#/Vol] 0.5 10*3/uL 0 - 0.8 10*3/uL [place] Monocytes/100 WBC (Bld) 7.5 % 2 - 10 % [place] Platelet mean volume (Bld) [Entitic vol] 7.4 fL 7.4 - 10.4 fL [place] Platelets (Bld) [#/Vol] 346 10*3/uL 140 - 440 10*3/uL [place] RBC (Bld) [#/Vol] 4.90 10*6/uL 3.8 - 5.2 10*6/uL [place] WBC (Bld) [#/Vol] 6.9 10*3/uL 3.6 - 10.7 10*3/uL [place] Test Performed by [facility], [address] , [place], [place] [id number] [place] [address] Comp Metabolic Panelon 02-18 ALP [Catalytic activity/Vol] 126 U/L Normal 38-126 [facility] Comment on above: Performed By: #### Ariane EL CMP3 #### [facility] [address] [place] [address] #### AFTM #### The performing lab is in the report. ALT [Catalytic activity/Vol] 22 U/L Normal 0-34 [facility] Comment on above: Result Comment: The ALT test is performed by an updated assay method. Please note that the reference intervals have been changed and are now sex specific. Performed By: #### Ariane EL CMP3 #### [facility] [address] [place] [address] #### AFTM #### The performing lab is in the report. Anion gap [Moles/Vol] 6 Normal [facility] Comment on above: Performed By: #### Ariane EL CMP3 #### [facility] [address] [place] [address] #### AFTM #### The performing lab is in the report. AST [Catalytic activity/Vol] 20 U/L Normal 15-46 [facility] Comment on above: Performed By: #### Ariane EL CMP3 #### [facility] [address] [place] [address] #### AFTM #### The performing lab is in the report. Bilirubin [Mass/Vol] 0.4 mg/dL Normal 0.2-1.3 [facility] Comment on above: Performed By: #### Ariane EL CMP3 #### [address] [place] [address] #### AFTM #### The performing lab is in the report. Calcium [Mass/Vol] 9.2 mg/dL Normal 8.4-10.4 [facility] Comment on above: Performed By: #### Ariane EL CMP3 #### [address] [place] [address] #### AFTM #### The performing lab is in the report. CO2 [Moles/Vol] 23 mmol/L Normal 22-30 [facility] Comment on above: Performed By: #### Ariane EL CMP3 #### [address] [place] [address] #### AFTM #### The performing lab is in the report. Glucose [Mass/Vol] 97 mg/dL Normal 70-100 [facility] Comment on above: Performed By: #### Ariane LE CMP3 #### [address] [place] [address] #### AFTM #### The performing lab is in the report. Protein [Mass/Vol] 6.5 g/dL Normal 6.3-8.2 [facility] Comment on above: Performed By: #### Ariane EL CMP3 #### [address] [place] [address] #### AFTM #### The performing lab is in the report. Urea nitrogen [Mass/Vol] 11 mg/dL Normal 7-20 [facility] Comment on above: Performed By: #### Ariane EL CMP3 #### [address] [place] [address] #### AFTM #### The performing lab is in the report. Creatinine [Mass/Vol] 0.72 mg/dL Normal 0.52-1.25 [facility] Comment on above: Performed By: #### Ariane EL CMP3 #### [address] [place] [address] #### AFTM #### The performing lab is in the report. GFR/1.73 sq M predicted among blacks MDRD (S/P/Bld) [Vol rate/Area] mL/min/{1.73_m2} Normal >60 [facility] Comment on above: Performed By: #### H ORIN EL3 #### [facility] [address] [place] [address] #### AFTM #### The performing lab is in the report. GFR/1.73 sq M predicted among non-blacks MDRD (S/P/Bld) [Vol rate/Area] mL/min/{1.73_m2} Normal >60 [facility] Comment on above: Result Comment: KDIG O guidelines provide the following GFR categories: Stage GFR(ml/min/1.73 m2) Terms G1 >=90 Normal or high G2 60-89 Mildly decreased* G3a 45-59 Mildly to moderately decreased G3b 30-44 Moderately to severely decreased G4 15-29 Severely decreased G5 <15 Kidney failure *Relative to young adult level. In the absence of evidence of kidney damage, neither GFR category G1 nor G2 fulfill the criteria for CKD. The CKD-EPI equation is validated in individuals 18 years of age and older. Currently the best equation for estimating glomerular filtration rate (GFR) from serum creatinine in children is the Bedside Reed equation. It is less accurate in patients with extremes of muscle mass, restriction of dietary protein, ingestion of creatine, extra-renal metabolism of creatinine, or treatment with medications that affect renal tubular creatinine secretion. Performed By: #### H ORIN EL3 #### [facility] [address] [place] [address] #### AFTM #### The performing lab is in the report. Albumin [Mass/Vol] 3.9 g/dL Normal 3.5-5.0 [facility] Comment on above: Performed By: #### H ORIN EL3 #### [facility] [address] [place] [address] #### AFTM #### The performing lab is in the report. Chloride [Moles/Vol] 111 mmol/L High 98-107 [facility] Comment on above: Performed By: #### H DEANNF, CMP3 #### [facility] [address] [place] [address] #### AFTM #### The performing lab is in the report. Potassium [Moles/Vol] 4.2 mmol/L Normal 3.5-5.1 [facility] Comment on above: Performed By: #### H NIKKO, CMP3 #### [facility] [address] [place] [address] #### AFTM #### The performing lab is in the report. Sodium [Moles/Vol] 140 mmol/L Normal 135-145 [facility] Comment on above: Performed By: #### H NIKKO CMP3 #### [facility] [address] [place] [address] #### AFTM #### The performing lab is in the report. Comprehensive Metabolic Pane leydi 02-19-2020 Albumin [Mass/Vol] 3.9 g/dL 3.5 - 5 g/dL [place] ALP [Catalytic activity/Vol] 126 U/L 38 - 126 U/L [place] ALT [Catalytic activity/Vol] 22 U/L 0 - 34 U/L [place] Comment on above: The ALT test is perf ormed by an updated assay method. Please note that the reference intervals have been changed and are now sex specific. Anion gap [Moles/Vol] 6 mmol/L [place] AST [Catalytic activity/Vol] 20 U/L 15 - 46 U/L [place] Bilirubin Ql (U) 0.4 mg/dL 0.2 - 1.3 mg/dL [place] Calcium [Mass/Vol] 9.2 mg/dL 8.4 - 10. 4 mg/dL [place] Chloride [Moles/Vol] 111 mmol/L High 98 - 10 7 mmol/L [place] CO2 [Moles/Vol] 23 mmol/L 22 - 30 mmol/L [place] Creatinine [Mass/Vol] 0.72 mg/dL 0.52 - 1.25 mg/dL [place] EGFR IF NonAfrican [place]ian >90.0 >60 mL/min [place] Comment on above: KDIGO guidelines pro vide the following GFR categories: Stage GFR(ml/min/1.73 m2) Terms G1 >=90 Normal or high G2 60-89 Mildly decreased* G3a 45-59 Mildly to moderately decreased G3b 30-44 Moderately to severely decreased G4 15-29 Severely decreased G5 <15 Kidney failure *Relative to young adult level. In the absence of evidence of kidney damage, neither GFR category G1 nor G2 fulfill the criteria for CKD. The CKD-EPI equation is validated in individuals 18 years of age and older. Currently the best equation for estimating glomerular filtration rate (GFR) from serum creatinine in children is the Bedside Reed equation. It is less accurate in patients with extremes of muscle mass, restriction of dietary protein, ingestion of creatine, extra-renal metabolism of creatinine, or treatment with medications that affect renal tubular creatinine secretion. GFR/1.73 sq M predicted among blacks MDRD (S/P/Bld) [Vol rate/Area] mL/min/{1.73_m2} >60 mL/min [place], [place] Glucose [Mass/Vol] 97 mg/dL 70 - 100 mg/dL [place] Interpretation and review of laboratory results Abnormal [place] Potassium [Moles/Vol] 4.2 mmol/L 3.5 - 5.1 mmol/L [place] Protein [Mass/Vol] 6.5 g/dL 6.3 - 8.2 g/dL [place] Sodium [Moles/Vol] 140 mmol/L 135 - 145 mmol/L [place] Urea nitrogen [Mass/Vol] 11 mg/dL 7 - 20 mg/dL [place] Test Performed by [facility], [address] , [place], [place] [id number] [place] [address] Hemogram w/ Autodiffon 02-18 Abs Baso Cnt 0.0 10*3/uL Normal 0.0-0.2 [facility] Comment on above: Performed By: #### H PAMELA EL #### [address] [place] [address] #### AFTM #### The performing lab is in the report. Abs Neutrophile Cnt 4.5 10*3/uL Normal 1.8-7.0 [facility] Comment on above: Performed By: #### Ariane EL CMP3 #### [place] [address] #### AFTM #### The performing lab is in the report. Basophils/100 WBC (Bld) 0.6 % Normal 0.0-2.0 [facility] Comment on above: Performed By: #### Ariane EL CMP3 #### [place] [address] #### AFTM #### The performing lab is in the report. Eosinophils (Bld) [#/Vol] 0.2 10*3/uL Normal 0.0-0.5 [facility] Comment on above: Performed By: #### Ariane EL CMP3 #### [place] [address] #### AFTM #### The performing lab is in the report. Eosinophils/100 WBC (Bld) 3.4 % Normal 1.0-6.0 [facility] Comment on above: Performed By: #### Ariane EL CMP3 #### [place] [address] #### AFTM #### The performing lab is in the report. Erythrocyte distribution width (RBC) [Ratio] 15.7 % High 11.5-14.5 [facility] Comment on above: Performed By: #### Ariane EL CMP3 #### [place] [address] #### AFTM #### The performing lab is in the report. Granulocytes/100 WBC (Bld) 65.5 % Normal 40.0-80.0 [facility] Comment on above: Performed By: #### Ariane EL CMP3 #### [address] [place] [address] #### AFTM #### The performing lab is in the report. Hematocrit (Bld) [Volume fraction] 40.5 % Normal 35.0-47.0 [facility] Comment on above: Performed By: #### H NIKKO CMP3 #### [place] [address] #### AFTM #### The performing lab is in the report. Hemoglobin (Bld) [Mass/Vol] 13.6 g/dL Normal 11.7-16.0 [facility] Comment on above: Performed By: #### Ariane EL CMP3 #### [place] [address] #### AFTM #### The performing lab is in the report. Lymphocytes (Bld) [#/Vol] 1.6 10*3/uL Normal 1.0-4.3 [facility] Comment on above: Performed By: #### Ariane EL CMP3 #### [place] [address] #### AFTM #### The performing lab is in the report. Lymphocytes/100 WBC (Bld) 23.0 % Normal 20.0-40.0 [facility] Comment on above: Performed By: #### Ariane EL CMP3 #### [place] [address] #### AFTM #### The performing lab is in the report. MCH (RBC) [Entitic mass] 27.9 pg Normal 26.0-34.0 [facility] Comment on above: Performed By: #### H NIKKO CMP3 #### [place] [address] #### AFTM #### The performing lab is in the report. MCHC (RBC) [Mass/Vol] 33.7 % Normal 32.0-36.0 [facility] Comment on above: Performed By: #### Ariane EL CMP3 #### [address] [place] [address] #### AFTM #### The performing lab is in the report. MCV (RBC) [Entitic vol] 82.7 fL Normal 79.0-98.0 [facility] Comment on above: Performed By: #### Ariane EL CMP3 #### [place] [address] #### AFTM #### The performing lab is in the report. Monocytes (Bld) [#/Vol] 0.5 10*3/uL Normal 0.0-0.8 [facility] Comment on above: Performed By: #### Ariane EL CMP3 #### [place] [address] #### AFTM #### The performing lab is in the report. Monocytes/100 WBC (Bld) 7.5 % Normal 2.0-10.0 [facility] Comment on above: Performed By: #### Ariane EL CMP3 #### [place] [address] #### AFTM #### The performing lab is in the report. Platelet mean volume (Bld) [Entitic vol] 7.4 fL Normal 7.4-10.4 [facility] Comment on above: Performed By: #### Ariane EL CMP3 #### [place] [address] #### AFTM #### The performing lab is in the report. Platelets (Bld) [#/Vol] 346 10*3/uL Normal 140-440 [facility] Comment on above: Performed By: #### Ariane EL CMP3 #### [place] [address] #### AFTM #### The performing lab is in the report. RBC (Bld) [#/Vol] 4.90 10*6/uL Normal 3.80-5.20 [facility] Comment on above: Performed By: #### Ariane EL CMP3 #### [address] [place] [address] #### AFTM #### The performing lab is in the report. WBC (Bld) [#/Vol] 6.9 10*3/uL Normal 3.6-10.7 [facility] Comment on above: Performed By: #### H NIKKO, ORIN3 #### [facility] [address] [place] [address] #### AFTM #### The performing lab is in the report. MRI Abdomen W WO Contraston 02-19-2020 Patient Name: MEG TROY ---MRI--- Exam Date/Time 02/19/2020 13:00:24 EDT Exam MRI Abdomen w/ + w/o Contrast Ordering Physician KENNETH FARRELL MAUREEN CLAIRE Accession Number [id number] CPT4 Codes 11919 () Reason For Exam follow up liver lesions seen on prevous MRI dated 09/28/19 Report MRI ABDOMEN WITHOUT AND WITH CONTRAST (WITH ATTENTION TO THE LIVER) EXAM DATE AND TIME: 02/19/2020 1:00 PM EDT INDICATION: 39 years Female with liver lesions TECHNIQUE: Multiplanar multisequence MR images of the abdomen were performed with attention to the liver, including diffusion-weighted images and imaging following the intravenous administration of 6 mL Gadavist contrast. COMPARISON: MRI from 09/28/2019 FINDINGS: Liver: The liver is normal in size and contour. There is no drop in signal on in-phase or opposed-phase images to suggest fat or iron deposition. Somewhat limited evaluation of the liver, secondary to suboptimal arterial phase contrast bolus. Within these limitations, there is redemonstration of a small homogeneously enhancing lesion in segment 5 which persists on delayed images, consistent with a hemangioma. Multiple lesions are seen in both hepatic lobes on the arterial phase, not as well-seen when compared to the prior study. These appear isointense on the more delayed phase images. The largest of these measures 7.1 x 5.6 cm in segments 5/8, and is unchanged. The other largest lesions are located in segments three, 4A and 4B, which are also unchanged. Biliary tree: Normal gallbladder. No biliary dilatation. Spleen: Normal Adrenals:Normal Pancreas: Homogeneous enhancement without mass or peripancreatic fluid. No pancreatic duct dilation. Kidneys: Stable left renal lesions including a hemorrhagic left renal cyst, unchanged. No right renal lesions. No hydronephrosis Lymph nodes: No lymphadenopathy. Vasculature: The aorta and major abdominal arterial vessels are unremarkable. Superior mesenteric vein, splenic vein and the main, right and left portal veins are patent. No significant collaterals or esophageal varices. Visualized Osseous structures: Normal IMPRESSION: 1. 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 These are not as well-seen compared to the previous exam due to suboptimal arterial phase contrast on this exam. 2. Stable small enhancing lesion, likely a flash filling hemangioma. 3. Multiple left renal cysts including a hemorrhagic cyst. Report Dictated on --- Final --- Dictating Physician: MD GATICA NICHOLAS Signed Date and Time: 02/19/2020 2:53 pm Signed by: MD GATICA NICHOLAS Transcribed Date and Time: 02/19/2020 2:54 [place], [place] [facility] Incoming [facility] Results From [facility] - 02/19/2020 2:55 PM EDT Patient Name: MEG TROY ---MRI--- Exam Date/Time 02/19/2020 13:00:24 EDT Exam MRI Abdomen w/ + w/o Contrast Ordering Physician KENNETH FARRELL, HORACE RAZO Accession Number [id number] CPT4 Codes 54974 () Reason For Exam follow up liver lesions seen on prevous MRI dated 09/28/19 Report MRI ABDOMEN WITHOUT AND WITH CONTRAST (WITH ATTENTION TO THE LIVER) EXAM DATE AND TIME: 02/19/2020 1:00 PM EDT INDICATION: 39 years Female with liver lesions TECHNIQUE: Multiplanar multisequence MR images of the abdomen were performed with attention to the liver, including diffusion-weighted images and imaging following the intravenous administration of 6 mL Gadavist contrast. COMPARISON: MRI from 09/28/2019 FINDINGS: Liver: The liver is normal in size and contour. There is no drop in signal on in-phase or opposed-phase images to suggest fat or iron deposition. Somewhat limited evaluation of the liver, secondary to suboptimal arterial phase contrast bolus. Within these limitations, there is redemonstration of a small homogeneously enhancing lesion in segment 5 which persists on delayed images, consistent with a hemangioma. Multiple lesions are seen in both hepatic lobes on the arterial phase, not as well-seen when compared to the prior study. These appear isointense on the more delayed phase images. The largest of these measures 7.1 x 5.6 cm in segments 5/8, and is unchanged. The other largest lesions are located in segments three, 4A and 4B, which are also unchanged. Biliary tree: Normal gallbladder. No biliary dilatation. Spleen: Normal Adrenals:Normal Pancreas: Homogeneous enhancement without mass or peripancreatic fluid. No pancreatic duct dilation. Kidneys: Stable left renal lesions including a hemorrhagic left renal cyst, unchanged. No right renal lesions. No hydronephrosis Lymph nodes: No lymphadenopathy. Vasculature: The aorta and major abdominal arterial vessels are unremarkable. Superior mesenteric vein, splenic vein and the main, right and left portal veins are patent. No significant collaterals or esophageal varices. Visualized Osseous structures: Normal IMPRESSION: 1. 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 These are not as well-seen compared to the previous exam due to suboptimal arterial phase contrast on this exam. 2. Stable small enhancing lesion, likely a flash filling hemangioma. 3. Multiple left renal cysts including a hemorrhagic cyst. Report Dictated on --- Final --- Dictating Physician: MD GATICA NICHOLAS Signed Date and Time: 02/19/2020 2:53 pm Signed by: MD GATICA NICHOLAS Transcribed Date and Time: 02/19/2020 2:54 [place] MRI Abdomen w/ + w/o Contras ton 02-19-2020 MRI Abdomen w/ + w/o Contrast Patient Name: MEG TROY MRI Exam Date/Time 02/19/2020 13:00:24 EDT Exam MRI Abdomen w/ + w/o Contrast Ordering Physician KENNETH FARRELL, HORACE RAZO Accession Number [id number] CPT4 Codes 46421 () Reason For Exam follow up liver lesions seen on prevous MRI dated 09/28/19 Report MRI ABDOMEN WITHOUT AND WITH CONTRAST (WITH ATTENTION TO THE LIVER) EXAM DATE AND TIME: 02/19/2020 1:00 PM EDT INDICATION: 39 years Female with liver lesions TECHNIQUE: Multiplanar multisequence MR images of the abdomen were performed with attention to the liver, including diffusion-weighted images and imaging following the intravenous administration of 6 mL Gadavist contrast. COMPARISON: MRI from 09/28/2019 FINDINGS: Liver: The liver is normal in size and contour. There is no drop in signal on in-phase or opposed-phase images to suggest fat or iron deposition. Somewhat limited evaluation of the liver, secondary to suboptimal arterial phase contrast bolus. Within these limitations, there is redemonstration of a small homogeneously enhancing lesion in segment 5 which persists on delayed images, consistent with a hemangioma. Multiple lesions are seen in both hepatic lobes on the arterial phase, not as well-seen when compared to the prior study. These appear isointense on the more delayed phase images. The largest of these measures 7.1 x 5.6 cm in segments 5/8, and is unchanged. The other largest lesions are located in segments three, 4A and 4B, which are also unchanged. Biliary tree: Normal gallbladder. No biliary dilatation. Spleen: Normal Adrenals:Normal Pancreas: Homogeneous enhancement without mass or peripancreatic fluid. No pancreatic duct dilation. Kidneys: Stable left renal lesions including a hemorrhagic left renal cyst, unchanged. No right renal lesions. No hydronephrosis Lymph nodes: No lymphadenopathy. Vasculature: The aorta and major abdominal arterial vessels are unremarkable. Superior mesenteric vein, splenic vein and the main, right and left portal veins are patent. No significant collaterals or esophageal varices. Visualized Osseous structures: Normal IMPRESSION: 1. 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 These are not as well-seen compared to the previous exam due to suboptimal arterial phase contrast on this exam. 2. Stable small enhancing lesion, likely a flash filling hemangioma. 3. Multiple left renal cysts including a hemorrhagic cyst. Report Dictated on Final Dictating Physician: MD GATICA NICHOLAS Signed Date and Time: 02/19/2020 2:53 pm Signed by: MD GATICA NICHOLAS Transcribed Date and Time: 02/19/2020 2:54 Normal [facility] Progress Noteon 10-14-2019 [employer] Authentication Interface Message Text Visit Subjective: Meg Troy is a 38 y.o. female who presents for a visit. She is 2 weeks following a delivery low transverse. I have fully reviewed the and intrapartum course. The delivery was at 36 gestational weeks. Delivering Provider: Hospitalist Dr. Vargas. course has been complicated by increased BP. Pt recently seen in triage and diagnosed with UTI (abx initiated) as well as placed on Procardia XL for BP management. Baby is feeding by breast. Bleeding staining only. Bowel function is normal. Bladder function is normal. Patient is not sexually active. Patient's medications, allergies, past medical, surgical, , social, and family histories were reviewed and updated as appropriate. She is accompanied by her significant other. Review of Systems All other systems reviewed and are negative. Objective: BP 130/84 Wt 58.2 kg (128 lb 3.2 oz) LMP 02/18/2019 BMI 21.99 kg/m Physical Exam Nursing note and vitals reviewed. Constitutional: She is oriented to person, place, and time. She appears well-developed and well-nourished. Pulmonary/Chest: Effort normal. Abdominal: Soft. Musculoskeletal: Normal range of motion. Neurological: She is alert and oriented to person, place, and time. Skin: Skin is warm and dry. Psychiatric: She has a normal mood and affect. Her behavior is normal. Incision healing well Assessment/Plan: BP PP check 1. Precautions reviewed, hydration and rest encouraged 2. Refill sent for Procardia XL, pt to continue 3. Follow up with Dr. Perez for BP check in 1 week- pt instructed to make appt 4. PP appt with MFM 4 weeks or sooner if needed The total patient time of the visit was 10 minutes, of which greater than 50% of the time was spent counseling and coordinating care. Normal [facility] Progress Noteon 10-07-2019 [employer] Authentication Interface Message Text Visit Subjective: Meg Troy is a 38 y.o. female who presents for a visit. She is 1 week following a delivery low transverse. I have fully reviewed the and intrapartum course. The delivery was at 36 gestational weeks. Delivering Provider: Hospitalist Dr. Vargas. course has been well. Baby is feeding by breast. Bleeding thin lochia. Bowel function is normal. Bladder function is normal. Patient is not sexually active. Contraception method is none. Patient's medications, allergies, past medical, surgical, , social, and family histories were reviewed and updated as appropriate. She is accompanied by her significant other. Review of Systems All other systems reviewed and are negative. Objective: BP 130/94 Wt 59.1 kg (130 lb 4.8 oz) LMP 02/18/2019 BMI 22.35 kg/m Physical Exam Nursing note and vitals reviewed. Constitutional: She is oriented to person, place, and time. She appears well-developed and well-nourished. Pulmonary/Chest: Effort normal. Abdominal: Soft. Musculoskeletal: Normal range of motion. Neurological: She is alert and oriented to person, place, and time. Skin: Skin is warm and dry. Psychiatric: She has a normal mood and affect. Her behavior is normal. Incision evaluated, steri strips removed. Incision intact without redness, ecchymosis, drainage or palpable mass. Assessment/Plan: Incision check PP exam BP check- BP continues to be slightly elevated, pt asymptomatic. Precautions reviewed with pt. Will have appt 1 week for BP check 1. Contraception: none 2. PP precautions/incision care reviewed 3. Follow up with MFM in 1 week. The total patient time of the visit was 10 minutes, of which greater than 50% of the time was spent counseling and coordinating care. Normal [facility] AFP Tumor Markeron 0 AFP Tumor Marker 92 ng/mL High 0-9 [facility] Comment on above: Result Comment: INTE RPRETIVE INFORMATION: Alpha Fetoprotein Tumor Marker The Rosalind Vero Access DxI AFP method is used. Results obtained with different assay methods or kits cannot be used interchangeably. AFP is a valuable aid in the management of nonseminomatous testicular cancer patients when used in conjunction with information available from the clinical evaluation and other diagnostic procedures. Increased AFP concentrations have also been observed in ataxia telangiectasia, hereditary tyrosinemia, primary hepatocellular carcinoma, teratocarcinoma, gastrointestinal tract cancers with and without liver metastases, and in benign hepatic conditions such as acute viral hepatitis, chronic active hepatitis, and cirrhosis. The result cannot be interpreted as absolute evidence of the presence or absence of malignant disease. The result is not interpretable as a tumor marker in females. Access complete set of age- and/or gender-specific reference intervals for this test in the [facility] Test Directory ([facility]). Performed by [facility], [address] [place] [id number] [email or web address], Dimitrios Benito MD, Lab. Director Performed By: #### H [facility], [facility] #### [employer] [address] [place] [id number] AFP Tumor MarkerOrdered By: Jewel Marroquin on 09-30-2019 AFP-Tumor Marker 92 ng/mL High 0 - 9 ng/mL [employer] Work Phone: Comment on above: INTERPRETIVE INFORMA TION: Alpha Fetoprotein Tumor Marker The Rosalind Vero Access DxI AFP method is used. Results obtained with different assay methods or kits cannot be used interchangeably. AFP is a valuable aid in the management of nonseminomatous testicular cancer patients when used in conjunction with information available from the clinical evaluation and other diagnostic procedures. Increased AFP concentrations have also been observed in ataxia telangiectasia, hereditary tyrosinemia, primary hepatocellular carcinoma, teratocarcinoma, gastrointestinal tract cancers with and without liver metastases, and in benign hepatic conditions such as acute viral hepatitis, chronic active hepatitis, and cirrhosis. The result cannot be interpreted as absolute evidence of the presence or absence of malignant disease. The result is not interpretable as a tumor marker in females. Access complete set of age- and/or gender-specific reference intervals for this test in the [facility] Test Directory ([facility]). Performed by [facility], [address] [facility] [place] [address] [email or web address], Dimitrios Benito MD, Lab. Director Interpretation and review of laboratory results Abnormal [facility] Work Phone: AFP Tumor Markeron 0 AFP Tumor Marker 130 ng/mL High 0-9 [employer] Comment on above: Result Comment: INTE RPRETIVE INFORMATION: Alpha Fetoprotein Tumor Marker The Rosalind Vero Access DxI AFP method is used. Results obtained with different assay methods or kits cannot be used interchangeably. AFP is a valuable aid in the management of nonseminomatous testicular cancer patients when used in conjunction with information available from the clinical evaluation and other diagnostic procedures. Increased AFP concentrations have also been observed in ataxia telangiectasia, hereditary tyrosinemia, primary hepatocellular carcinoma, teratocarcinoma, gastrointestinal tract cancers with and without liver metastases, and in benign hepatic conditions such as acute viral hepatitis, chronic active hepatitis, and cirrhosis. The result cannot be interpreted as absolute evidence of the presence or absence of malignant disease. The result is not interpretable as a tumor marker in females. Access complete set of age- and/or gender-specific reference intervals for this test in the [facility] Test Directory ([facility]). Performed by [facility], [address] [facility] [place] [address] [email or web address], Dimitrios Benito MD, Lab. Director Performed By: #### C RTUR, TPUR #### [employer] [address] [id number] AFP Tumor MarkerOrdered By: Nohemi Herrera on 09-29-2019 AFP-Tumor Marker 130 ng/mL High 0 - 9 ng/mL [employer] Work Phone: Comment on above: INTERPRETIVE INFORMA TION: Alpha Fetoprotein Tumor Marker The Rosalind Vero Access DxI AFP method is used. Results obtained with different assay methods or kits cannot be used interchangeably. AFP is a valuable aid in the management of nonseminomatous testicular cancer patients when used in conjunction with information available from the clinical evaluation and other diagnostic procedures. Increased AFP concentrations have also been observed in ataxia telangiectasia, hereditary tyrosinemia, primary hepatocellular carcinoma, teratocarcinoma, gastrointestinal tract cancers with and without liver metastases, and in benign hepatic conditions such as acute viral hepatitis, chronic active hepatitis, and cirrhosis. The result cannot be interpreted as absolute evidence of the presence or absence of malignant disease. The result is not interpretable as a tumor marker in females. Access complete set of age- and/or gender-specific reference intervals for this test in the [facility] Test Directory ([facility]). Performed by [facility], [address] [facility] [place] [address] [email or web address], Dimitrios Benito MD, Lab. Director Interpretation and review of laboratory results Abnormal [facility] Work Phone: Comp Metabolic Panelon 09-28 ALP [Catalytic activity/Vol] 178 U/L High 38-126 [facility] Comment on above: Performed By: #### C RTUR, TPUR #### [facility] [address], [place] ALT [Catalytic activity/Vol] 31 U/L Normal 13-69 [facility] Comment on above: Performed By: #### C RTUR, TPUR #### [facility] [address], [place] Calcium [Mass/Vol] 8.1 mg/dL Low 8.4-10.4 [facility] Comment on above: Performed By: #### C RTSHEYLA, TPUR #### [facility] [address], [place] Glucose [Mass/Vol] 137 mg/dL High 70-100 [facility] Comment on above: Performed By: #### C RTUR, TPUR #### [facility] [address], [place] Urea nitrogen [Mass/Vol] 10 mg/dL Normal 7-20 [facility] Comment on above: Performed By: #### C RTSHEYLA, TPUR #### [facility] [address], [place] Anion gap [Moles/Vol] 7 Normal [facility] Comment on above: Performed By: #### C RTUR, TPUR #### [facility] [address], [place] AST [Catalytic activity/Vol] 29 U/L Normal 15-46 [facility] Comment on above: Performed By: #### C RTUR, TPUR #### [facility] [address], [place] Bilirubin [Mass/Vol] 0.8 mg/dL Normal 0.2-1.3 [facility] Comment on above: Performed By: #### C RTUR, TPUR #### [facility] [address], [place] CO2 [Moles/Vol] 23 mmol/L Normal 22-30 [facility] Comment on above: Performed By: #### C RTSHEYLA TPUR #### [facility] [address], [place] Creatinine [Mass/Vol] 0.89 mg/dL Normal 0.52-1.25 [facility] Comment on above: Performed By: #### C RTSHEYLA, TPUR #### [facility] [address], [place] GFR/1.73 sq M predicted among blacks MDRD (S/P/Bld) [Vol rate/Area] mL/min/{1.73_m2} Normal >60 [facility] Comment on above: Performed By: #### C RTSHEYLA TPUR #### [place] [address], [place] GFR/1.73 sq M predicted among non-blacks MDRD (S/P/Bld) [Vol rate/Area] mL/min/{1.73_m2} Normal >60 [facility] Comment on above: Result Comment: Sour ce- MDRD equation with creatinine calibration to IDMS(NKDEP) eGFR not recommended for drug dose adjustment Performed By: #### C RTSHEYLA, TPUR #### [place] [address] [place], [place] Protein [Mass/Vol] 5.8 g/dL Low 6.3-8.2 [facility] Comment on above: Performed By: #### C RTSHEYLA, TPUR #### [place] [address] [place], [place] Chloride [Moles/Vol] 103 mmol/L Normal 98-107 [facility] Comment on above: Performed By: #### C RTSHEYLA, TPUR #### [place] [address] [place], [place] Potassium [Moles/Vol] 3.7 mmol/L Normal 3.5-5.1 [facility] Comment on above: Performed By: #### C RTSHEYLA, TPUR #### [place] [address] [place], [place] Sodium [Moles/Vol] 133 mmol/L Low 135-145 [facility] Comment on above: Performed By: #### C RTUR, TPUR #### [facility] [address], [place] Albumin [Mass/Vol] 3.0 g/dL Low 3.5-5.0 [facility] Comment on above: Performed By: #### C RTUR, TPUR #### [facility] [address], [place] Comprehensive Metabolic Pane lOrdered By: Kip Low on 09-28-2019 Albumin [Mass/Vol] 3.0 g/dL Low 3.5 - 5 g/dL [facility] Work Phone: [phone] ALP [Catalytic activity/Vol] 178 U/L High 38 - 126 U/L [facility] Work Phone: [phone] ALT [Catalytic activity/Vol] 31 U/L 13 - 69 U/L [facility] Work Phone: [phone] Anion gap [Moles/Vol] 7 mmol/L [facility] Work Phone: [phone] AST [Catalytic activity/Vol] 29 U/L 15 - 46 U/L [facility] Work Phone: [phone] Bilirubin [Mass/Vol] 0.8 mg/dL 0.2 - 1 .3 mg/dL [facility] Work Phone: [phone] Calcium [Mass/Vol] 8.1 mg/dL Low 8.4 - 10. 4 mg/dL [facility] Work Phone: [phone] Chloride [Moles/Vol] 103 mmol/L 98 - 10 7 mmol/L [facility] Work Phone: [phone] CO2 [Moles/Vol] 23 mmol/L 22 - 30 mmol/L [facility] Work Phone: [phone] Creatinine [Mass/Vol] 0.89 mg/dL 0.52 - 1.25 mg/dL [facility] Work Phone: [phone] EGFR IF NonAfrican Malawian >60.0 >60 mL/min [facility] Work Phone: [phone] Comment on above: Source- MDRD equatio n with creatinine calibration to IDMS(NKDEP) eGFR not recommended for drug dose adjustment GFR/1.73 sq M.predicted among blacks MDRD (S/P/Bld) [Vol rate/Area] mL/min/{1.73_m2} >60 mL/min [employer] Work Phone: Glucose [Mass/Vol] 137 mg/dL High 70 - 100 mg/dL [facility] Work Phone: Interpretation and review of laboratory results Abnormal [facility] Work Phone: Potassium [Moles/Vol] 3.7 mmol/L 3.5 - 5.1 mmol/L [facility] Work Phone: Protein [Mass/Vol] 5.8 g/dL Low 6.3 - 8.2 g/dL [facility] Work Phone: Sodium [Moles/Vol] 133 mmol/L Low 135 - 145 mmol/L [facility] Work Phone: Urea nitrogen [Mass/Vol] 10 mg/dL 7 - 20 mg/dL [facility] Work Phone: Test Performed by [facility], [address] [place] [id number] [place], [place] [address] Work Phone: EKG 12 LeadOrdered By: Suresh Freeman on 09-28-2019 [facility] Test Date: 2019-09-27 Pat Name: Meg Troy [facility] 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1980 Requested By: SURESH FREEMAN Order Number: [id number] Reading MD: Joel Castañeda Measurements Intervals Hoskins Rate: 124 P: 58 VA: 115 QRS: 75 QRSD: 96 T: 22 QT: 360 QTc: 517 Interpretive Statements Sinus tachycardia Ventricular bigeminy Electronically Signed On 09-28-2019 7:58:59 EST by Joel Castañeda [facility] Work Phone: [facility], [facility] Results From [facility] - 09/28/2019 8:00 AM EST [facility] Test Date: 2019-09-27 Pat Name: Meg Troy Department: 1AL[facility] Room: [facility] 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 #### [facility] [address] [place] [phone] HemoglobinOrdered By: Dede Low on 09-28-2019 Hemoglobin (Bld) [Mass/Vol] 9.5 g/dL Low 11.7 - 16 g/dL [employer] Work Phone: Interpretation and review of laboratory results Abnormal [employer] Work Phone: Test Performed by [address] [address] [employer] Work Phone: MRI ABDOMEN W WO CONTRASTOrd ered By: Nohemi Herrera on 09-28-2019 Patient Name: MEG TROY ---MRI--- Exam Date/Time 09/28/2019 17:09:28 EST Exam MRI Abdomen w/ + w/o Contrast Ordering Physician MD HERRERA BISHER Accession Number [id number] CPT4 Codes 52898 () Reason For Exam liver tumor on US Report MRI ABDOMEN WITHOUT AND WITH CONTRAST (WITH ATTENTION TO THE LIVER) EXAM DATE AND TIME: 09/28/2019 5:09 PM EST INDICATION: 38 years Female with liver lesion on ultrasound TECHNIQUE: Coronal and transaxial fast spin density along with transaxial in phase and opposed phase gradient echo, fast T2 fat suppression sequences and diffusion-weighted sequences were formed through the abdomen with attention to the liver. Multiphase dynamic postcontrast transaxial T1 along with delayed coronal T1 fat suppression sequences were performed as well following administration of 7 mL MultiHance. COMPARISON: Ultrasound from 09/28/2019 FINDINGS: Liver: The liver is normal in size and contour. There is no drop in signal on in-phase or opposed-phase images to suggest fat or iron deposition. Multiple lesions are seen in both hepatic lobes, which are essentially isointense on the precontrast T2-weighted and T1-weighted images. The largest of these is in segments 5/8 measuring 6.9 x 5.5 cm, and in segment 4A measuring 5.0 x 5.1 cm. These lesions demonstrate arterial phase hyperenhancement, with isointense signal on the portal venous and the more delayed phase postcontrast images; the lesion in segment 4A demonstrates an enhancing central scar. These are consistent with multiple areas of focal nodular hyperplasia. An additional lesion is seen in segment 5 which measures approximate 0.6 x 0.6 cm. This is moderately hyperintense on the T2-weighted images, with arterial phase hyperenhancement, which persists and follows the blood pool signal intensity on the delayed postcontrast images consistent with a small flash filling hemangioma. No suspicious liver lesion is seen to suggest malignancy. Biliary tree: Normal gallbladder. No biliary dilatation. Spleen: Normal Adrenals:Normal Pancreas: Homogeneous enhancement without mass or peripancreatic fluid. No pancreatic duct dilation. Kidneys: Multiple cysts are present in both kidneys. There is also a nonenhancing lesion in the left kidney measuring approximately 1.1 cm, which has hyperintense signal on the precontrast T1-weighted images, consistent with a hemorrhagic cyst. Lymph nodes: No lymphadenopathy. Vasculature: The aorta and major abdominal arterial vessels are unremarkable. Superior mesenteric vein, splenic vein and the main, right and left portal veins are patent. No significant collaterals or esophageal varices. Visualized Osseous structures: Normal Other: The visualized uterine fundus appears markedly enlarged, however the uterus is not entirely included in the [id number]. The patient is recently . IMPRESSION: 1. Multiple liver lesions likely representing focal nodular hyperplasia, as well as a small flash filling hemangioma. No suspicious liver lesions are seen. Compare with the patient's prior imaging, if available. 2. Bilateral renal cysts including a left hemorrhagic cyst. 3. uterus, incompletely evaluated on this study. Report Dictated on --- Final --- Dictated: 09/28/2019 7:15 pm Dictating Physician: MD GATICA NICHOLAS Signed Date and Time: 09/28/2019 7:23 pm Signed by: MD GATICA NICHOLAS Transcribed Date and Time: 09/28/2019 7:15 [facility] Work Phone: [facility], [facility]28/[facility] 7:25 PM EST Patient Name: MEG TROY ---MRI--- Exam Date/Time 09/28/2019 17:09:28 EST Exam MRI Abdomen w/ + w/o Contrast Ordering Physician MD HERRERA BISHER Accession Number [id number] CPT4 Codes 38642 () Reason For Exam liver tumor on US Report MRI ABDOMEN WITHOUT AND WITH CONTRAST (WITH ATTENTION TO THE LIVER) EXAM DATE AND TIME: 09/28/2019 5:09 PM EST INDICATION: 38 years Female with liver lesion on ultrasound TECHNIQUE: Coronal and transaxial fast spin density along with transaxial in phase and opposed phase gradient echo, fast T2 fat suppression sequences and diffusion-weighted sequences were formed through the abdomen with attention to the liver. Multiphase dynamic postcontrast transaxial T1 along with delayed coronal T1 fat suppression sequences were performed as well following administration of 7 mL MultiHance. COMPARISON: Ultrasound from 09/28/2019 FINDINGS: Liver: The liver is normal in size and contour. There is no drop in signal on in-phase or opposed-phase images to suggest fat or iron deposition. Multiple lesions are seen in both hepatic lobes, which are essentially isointense on the precontrast T2-weighted and T1-weighted images. The largest of these is in segments 5/8 measuring 6.9 x 5.5 cm, and in segment 4A measuring 5.0 x 5.1 cm. These lesions demonstrate arterial phase hyperenhancement, with isointense signal on the portal venous and the more delayed phase postcontrast images; the lesion in segment 4A demonstrates an enhancing central scar. These are consistent with multiple areas of focal nodular hyperplasia. An additional lesion is seen in segment 5 which measures approximate 0.6 x 0.6 cm. This is moderately hyperintense on the T2-weighted images, with arterial phase hyperenhancement, which persists and follows the blood pool signal intensity on the delayed postcontrast images consistent with a small flash filling hemangioma. No suspicious liver lesion is seen to suggest malignancy. Biliary tree: Normal gallbladder. No biliary dilatation. Spleen: Normal Adrenals:Normal Pancreas: Homogeneous enhancement without mass or peripancreatic fluid. No pancreatic duct dilation. Kidneys: Multiple cysts are present in both kidneys. There is also a nonenhancing lesion in the left kidney measuring approximately 1.1 cm, which has hyperintense signal on the precontrast T1-weighted images, consistent with a hemorrhagic cyst. Lymph nodes: No lymphadenopathy. Vasculature: The aorta and major abdominal arterial vessels are unremarkable. Superior mesenteric vein, splenic vein and the main, right and left portal veins are patent. No significant collaterals or esophageal varices. Visualized Osseous structures: Normal Other: The visualized uterine fundus appears markedly enlarged, however the uterus is not entirely included in the [id number]. The patient is recently . IMPRESSION: 1. Multiple liver lesions likely representing focal nodular hyperplasia, as well as a small flash filling hemangioma. No suspicious liver lesions are seen. Compare with the patient's prior imaging, if available. 2. Bilateral renal cysts including a left hemorrhagic cyst. 3. uterus, incompletely evaluated on this study. Report Dictated on --- Final --- Dictated: 09/28/2019 7:15 pm Dictating Physician: MD GATICA NICHOLAS Signed Date and Time: 09/28/2019 7:23 pm Signed by: MD GATICA NICHOLAS Transcribed Date and Time: 09/28/2019 7:15 [facility] Work Phone: MRI Abdomen w/ + w/o Contras ton 09-28-2019 MRI Abdomen w/ + w/o Contrast Patient Name: MEG TROY MRI Exam Date/Time 09/28/2019 17:09:28 EST Exam MRI Abdomen w/ + w/o Contrast Ordering Physician MD HERRERA BISHER Accession Number [id number] CPT4 Codes 63577 () Reason For Exam liver tumor on US Report MRI ABDOMEN WITHOUT AND WITH CONTRAST (WITH ATTENTION TO THE LIVER) EXAM DATE AND TIME: 09/28/2019 5:09 PM EST INDICATION: 38 years Female with liver lesion on ultrasound TECHNIQUE: Coronal and transaxial fast spin density along with transaxial in phase and opposed phase gradient echo, fast T2 fat suppression sequences and diffusion-weighted sequences were formed through the abdomen with attention to the liver. Multiphase dynamic postcontrast transaxial T1 along with delayed coronal T1 fat suppression sequences were performed as well following administration of 7 mL MultiHance. COMPARISON: Ultrasound from 09/28/2019 FINDINGS: Liver: The liver is normal in size and contour. There is no drop in signal on in-phase or opposed-phase images to suggest fat or iron deposition. Multiple lesions are seen in both hepatic lobes, which are essentially isointense on the precontrast T2-weighted and T1-weighted images. The largest of these is in segments 5/8 measuring 6.9 x 5.5 cm, and in segment 4A measuring 5.0 x 5.1 cm. These lesions demonstrate arterial phase hyperenhancement, with isointense signal on the portal venous and the more delayed phase postcontrast images; the lesion in segment 4A demonstrates an enhancing central scar. These are consistent with multiple areas of focal nodular hyperplasia. An additional lesion is seen in segment 5 which measures approximate 0.6 x 0.6 cm. This is moderately hyperintense on the T2-weighted images, with arterial phase hyperenhancement, which persists and follows the blood pool signal intensity on the delayed postcontrast images consistent with a small flash filling hemangioma. No suspicious liver lesion is seen to suggest malignancy. Biliary tree: Normal gallbladder. No biliary dilatation. Spleen: Normal Adrenals:Normal Pancreas: Homogeneous enhancement without mass or peripancreatic fluid. No pancreatic duct dilation. Kidneys: Multiple cysts are present in both kidneys. There is also a nonenhancing lesion in the left kidney measuring approximately 1.1 cm, which has hyperintense signal on the precontrast T1-weighted images, consistent with a hemorrhagic cyst. Lymph nodes: No lymphadenopathy. Vasculature: The aorta and major abdominal arterial vessels are unremarkable. Superior mesenteric vein, splenic vein and the main, right and left portal veins are patent. No significant collaterals or esophageal varices. Visualized Osseous structures: Normal Other: The visualized uterine fundus appears markedly enlarged, however the uterus is not entirely included in the [id number]. The patient is recently . IMPRESSION: 1. Multiple liver lesions likely representing focal nodular hyperplasia, as well as a small flash filling hemangioma. No suspicious liver lesions are seen. Compare with the patient's prior imaging, if available. 2. Bilateral renal cysts including a left hemorrhagic cyst. 3. uterus, incompletely evaluated on this study. Report Dictated on Final Dictated: 09/28/2019 7:15 pm Dictating Physician: MD GATICA NICHOLAS Signed Date and Time: 09/28/2019 7:23 pm Signed by: MD GATICA NICHOLAS Transcribed Date and Time: 09/28/2019 7:15 Normal [facility] Magnesiumon 09-28-2019 Magnesium [Mass/Vol] 7.5 mg/dL Critically high 1.6-2.3 [facility] Comment on above: Performed By: #### H CANDICE [facility] #### [facility] [address] [address] US ABDOMEN LIMITED Specify o rgan? LIVEROrdered By: Rebecca Mcgill on 09-28-2019 Patient Name: MEG TROY ---Ultrasound--- Exam Date/Time 09/28/2019 07:30:00 EST Exam US Abdomen Limited Ordering Physician DO MCGILL KATHERINE I Accession Number [id number] CPT4 Codes 87876 () Reason For Exam Liver tumors Report Clinical Information: History of liver tumors. Ultrasound right upper quadrant of abdomen: COMPARISON: No prior examination of any kind at this institution for comparison/correlation. There is a mildly distended gallbladder without evidence of stones or wall thickening. There is no shadowing echogenic material in the gallbladder most likely sludge. No fluid is seen around the gallbladder. The common bile duct measures 4.5 mm which is within normal limits. The liver is within normal limits in size but contains multiple iso to slightly hyperechoic solid masses within the liver. The largest are in the medial aspect of the left lobe measuring 5.5 x 5.6 x 4 cm, in the medial aspect of the right lobe measuring 6.4 x 8 x 6.4 cm and in the adriel hepatis region measuring 3. 4 x 4 by 3 cm. These are poorly characterized on ultrasound, but the multiplicity of lesions suggests metastatic disease although multiple hepatic adenomas are not excluded. Atypical hemangiomas are thought to be less likely. There is no intrahepatic biliary dilatation. There is focal ringdown artifact anterior to the liver which suggests a small amount of free intraperitoneal gas. The tail of the pancreas is obscured by shadowing from bowel gas. The visualized portions of the body and head of the pancreas are unremarkable in size and echogenicity. The right kidney is within normal limits in size and cortical echogenicity. The renal pyramids are prominent and slightly echogenic. There is mild caliectasis. There is no ascites. Impression: 1. Normal sized liver containing multiple iso to slightly hyperechoic solid masses largest of which are described above which are not well characterized on ultrasound. The multiplicity of lesions suggests metastatic disease, but multiple hepatic at analysis excluded in a woman of this age. Consider further evaluation with CT and/or MRI if not previously obtained elsewhere. 2. Small area of focal ringdown artifact anterior to the liver suggestive of a small amount of free intraperitoneal gas. This could be related to recent surgery or other intervention. Correlate with clinical parameters. CT may be of value in further assessment/confirmation if clinically indicated. 3. Mild right caliectasis of undetermined etiology. 4. Mild nonspecific gallbladder dilatation. 5. The visualized portions of pancreas are unremarkable in size and echogenicity. Report Dictated on Workstation: [id number] --- Final --- Dictated: 09/28/2019 8:57 am Dictating Physician: MD JEAN BAPTISTE HARLAN Signed Date and Time: 09/28/2019 9:16 am Signed by: MD JEAN BAPTISTE HARLAN Transcribed Date and Time: 09/28/2019 8:57 [facility] Work Phone: [facility] From [facility] - 09/28/2019 9:44 AM EST Patient Name: MEG TROY ---Ultrasound--- Exam Date/Time 09/28/2019 07:30:00 EST Exam US Abdomen Limited Ordering Physician DO MCGILL KATHERINE I Accession Number [id number] CPT4 Codes 12252 () Reason For Exam Liver tumors Report Clinical Information: History of liver tumors. Ultrasound right upper quadrant of abdomen: COMPARISON: No prior examination of any kind at this institution for comparison/correlation. There is a mildly distended gallbladder without evidence of stones or wall thickening. There is no shadowing echogenic material in the gallbladder most likely sludge. No fluid is seen around the gallbladder. The common bile duct measures 4.5 mm which is within normal limits. The liver is within normal limits in size but contains multiple iso to slightly hyperechoic solid masses within the liver. The largest are in the medial aspect of the left lobe measuring 5.5 x 5.6 x 4 cm, in the medial aspect of the right lobe measuring 6.4 x 8 x 6.4 cm and in the adriel hepatis region measuring 3. 4 x 4 by 3 cm. These are poorly characterized on ultrasound, but the multiplicity of lesions suggests metastatic disease although multiple hepatic adenomas are not excluded. Atypical hemangiomas are thought to be less likely. There is no intrahepatic biliary dilatation. There is focal ringdown artifact anterior to the liver which suggests a small amount of free intraperitoneal gas. The tail of the pancreas is obscured by shadowing from bowel gas. The visualized portions of the body and head of the pancreas are unremarkable in size and echogenicity. The right kidney is within normal limits in size and cortical echogenicity. The renal pyramids are prominent and slightly echogenic. There is mild caliectasis. There is no ascites. Impression: 1. Normal sized liver containing multiple iso to slightly hyperechoic solid masses largest of which are described above which are not well characterized on ultrasound. The multiplicity of lesions suggests metastatic disease, but multiple hepatic at analysis excluded in a woman of this age. Consider further evaluation with CT and/or MRI if not previously obtained elsewhere. 2. Small area of focal ringdown artifact anterior to the liver suggestive of a small amount of free intraperitoneal gas. This could be related to recent surgery or other intervention. Correlate with clinical parameters. CT may be of value in further assessment/confirmation if clinically indicated. 3. Mild right caliectasis of undetermined etiology. 4. Mild nonspecific gallbladder dilatation. 5. The visualized portions of pancreas are unremarkable in size and echogenicity. Report Dictated on Workstation: [id number] --- Final --- Dictated: 09/28/2019 8:57 am Dictating Physician: MD JEAN BAPTISTE HARLAN Signed Date and Time: 09/28/2019 9:16 am Signed by: MD JEAN BAPTISTE HARLAN Transcribed Date and Time: 09/28/2019 8:57 [facility] Work Phone: US Abdomen Limitedon 020 US Abdomen Limited Patient Name: MEG TROY Ultrasound Exam Date/Time 09/28/2019 07:30:00 EST Exam US Abdomen Limited Ordering Physician DO MCGILL KATHERINE I Accession Number [id number] CPT4 Codes 85523 () Reason For Exam Liver tumors Report Clinical Information: History of liver tumors. Ultrasound right upper quadrant of abdomen: COMPARISON: No prior examination of any kind at this institution for comparison/correlation. There is a mildly distended gallbladder without evidence of stones or wall thickening. There is no shadowing echogenic material in the gallbladder most likely sludge. No fluid is seen around the gallbladder. The common bile duct measures 4.5 mm which is within normal limits. The liver is within normal limits in size but contains multiple iso to slightly hyperechoic solid masses within the liver. The largest are in the medial aspect of the left lobe measuring 5.5 x 5.6 x 4 cm, in the medial aspect of the right lobe measuring 6.4 x 8 x 6.4 cm and in the adriel hepatis region measuring 3. 4 x 4 by 3 cm. These are poorly characterized on ultrasound, but the multiplicity of lesions suggests metastatic disease although multiple hepatic adenomas are not excluded. Atypical hemangiomas are thought to be less likely. There is no intrahepatic biliary dilatation. There is focal ringdown artifact anterior to the liver which suggests a small amount of free intraperitoneal gas. The tail of the pancreas is obscured by shadowing from bowel gas. The visualized portions of the body and head of the pancreas are unremarkable in size and echogenicity. The right kidney is within normal limits in size and cortical echogenicity. The renal pyramids are prominent and slightly echogenic. There is mild caliectasis. There is no ascites. Impression: 1. Normal sized liver containing multiple iso to slightly hyperechoic solid masses largest of which are described above which are not well characterized on ultrasound. The multiplicity of lesions suggests metastatic disease, but multiple hepatic at analysis excluded in a woman of this age. Consider further evaluation with CT and/or MRI if not previously obtained elsewhere. 2. Small area of focal ringdown artifact anterior to the liver suggestive of a small amount of free intraperitoneal gas. This could be related to recent surgery or other intervention. Correlate with clinical parameters. CT may be of value in further assessment/confirmation if clinically indicated. 3. Mild right caliectasis of undetermined etiology. 4. Mild nonspecific gallbladder dilatation. 5. The visualized portions of pancreas are unremarkable in size and echogenicity. Report Dictated on Workstation: [id number] Final Dictated: 09/28/2019 8:57 am Dictating Physician: MD JEAN BAPTISTE HARLAN Signed Date and Time: 09/28/2019 9:16 am Signed by: MD JEAN BAPTISTE HARLAN Transcribed Date and Time: 09/28/2019 8:57 Normal [facility] Add On Lab TestOrdered By: Karen Freeman on 09-27-2019 Add On Accepted [facility] Work Phone: Comment on above: Specimen available & acceptable for analysis. Test Performed by [facility], [address] [place] [id number] [facility] Work Phone: Add on test from HISon 09-27 Add on test from HIS Accepted Normal [facility] Comment on above: Result Comment: Spec imen available & acceptable for analysis. Performed By: #### H CANDICE CMP3 #### [place] [address] [place], [place] Comp Metabolic Panelon 09-27 ALP [Catalytic activity/Vol] 263 U/L High 38-126 [facility] Comment on above: Performed By: #### H CANDICE CMP3 #### [place] [address] [place], [place] ALT [Catalytic activity/Vol] 37 U/L Normal 13-69 [facility] Comment on above: Performed By: #### H CANDICE CMP3 #### [place] [address] [place], [place] AST [Catalytic activity/Vol] 35 U/L Normal 15-46 [facility] Comment on above: Performed By: #### H EMODiogenes CMP3 #### [place] [address] [place], [place] Bilirubin [Mass/Vol] 1.3 mg/dL Normal 0.2-1.3 [facility] Comment on above: Performed By: #### H EMOG CMP3 #### [facility] [address] [place], [place] Calcium [Mass/Vol] 8.3 mg/dL Low 8.4-10.4 [facility] Comment on above: Performed By: #### H EMOG, CMP3 #### [facility] [address] [place], [place] Glucose [Mass/Vol] 78 mg/dL Normal 70-100 [facility] Comment on above: Performed By: #### H EMOG CMP3 #### [facility] [address] [place], [place] Protein [Mass/Vol] 6.7 g/dL Normal 6.3-8.2 [facility] Comment on above: Performed By: #### H EMOG CMP3 #### [facility] [address] [place], [place] Urea nitrogen [Mass/Vol] 9 mg/dL Normal 7-20 [facility] Comment on above: Performed By: #### H EMODiogenes CMP3 #### [facility] [address] [place], [place] Anion gap [Moles/Vol] 13 Normal [facility] Comment on above: Performed By: #### H EMOG, CMP3 #### [facility] [address] [place], [place] CO2 [Moles/Vol] 16 mmol/L Low 22-30 [facility] Comment on above: Performed By: #### H EMOG CMP3 #### [facility] [address] [place], [place] Creatinine [Mass/Vol] 0.97 mg/dL Normal 0.52-1.25 [facility] Comment on above: Performed By: #### H EMOG, CMP3 #### [facility] [address], [place] GFR/1.73 sq M predicted among blacks MDRD (S/P/Bld) [Vol rate/Area] mL/min/{1.73_m2} Normal >60 [facility] Comment on above: Performed By: #### H CANDICE CMP3 #### [facility] [address] [place], [place] GFR/1.73 sq M predicted among non-blacks MDRD (S/P/Bld) [Vol rate/Area] mL/min/{1.73_m2} Normal >60 [facility] Comment on above: Result Comment: Sour ce- MDRD equation with creatinine calibration to IDMS(NKDEP) eGFR not recommended for drug dose adjustment Performed By: #### H CANDICE, CMP3 #### [facility] [address] [place], [place] Albumin [Mass/Vol] 3.4 g/dL Low 3.5-5.0 [facility] Comment on above: Performed By: #### H CANDICE, CMP3 #### [facility] [address] [place], [place] Potassium [Moles/Vol] 3.7 mmol/L Normal 3.5-5.1 [facility] Comment on above: Performed By: #### H CANDICE, CMP3 #### [facility] [address] [place], [place] Sodium [Moles/Vol] 130 mmol/L Low 135-145 [facility] Comment on above: Performed By: #### H CANDICE, CMP3 #### [facility] [address] [place], [place] Chloride [Moles/Vol] 101 mmol/L Normal 98-107 [facility] Comment on above: Performed By: #### H EMODiogenes, CMP3 #### [facility] [address] [place] [address] Comprehensive Metabolic Pane lOrdered By: Suresh Freeman on 09-27-2019 Albumin [Mass/Vol] 3.4 g/dL Low 3.5 - 5 g/dL [facility] Work Phone: ALP [Catalytic activity/Vol] 263 U/L High 38 - 126 U/L [facility] Work Phone: ALT [Catalytic activity/Vol] 37 U/L 13 - 69 U/L [facility] Work Phone: [phone] Anion gap [Moles/Vol] 13 mmol/L [facility] Work Phone: [phone] AST [Catalytic activity/Vol] 35 U/L 15 - 46 U/L [facility] Work Phone: [phone] Bilirubin [Mass/Vol] 1.3 mg/dL 0.2 - 1 .3 mg/dL [facility] Work Phone: [phone] Calcium [Mass/Vol] 8.3 mg/dL Low 8.4 - 10. 4 mg/dL [facility] Work Phone: ) [phone] Chloride [Moles/Vol] 101 mmol/L 98 - 10 7 mmol/L [facility] Work Phone: [phone] CO2 [Moles/Vol] 16 mmol/L Low 22 - 30 mmol/L [facility] Work Phone: [phone] Creatinine [Mass/Vol] 0.97 mg/dL 0.52 - 1.25 mg/dL [facility] Work Phone: [phone] EGFR IF NonAfrican [place]ian >60.0 >60 mL/min [facility] Work Phone: [phone] Comment on above: Source- MDRD equatio n with creatinine calibration to IDMS(NKDEP) eGFR not recommended for drug dose adjustment GFR/1.73 sq M.predicted among blacks MDRD (S/P/Bld) [Vol rate/Area] mL/min/{1.73_m2} >60 mL/min [facility] Work Phone: [phone] Glucose [Mass/Vol] 78 mg/dL 70 - 100 mg/dL [facility] Work Phone: [phone] Potassium [Moles/Vol] 3.7 mmol/L 3.5 - 5.1 mmol/L [facility] Work Phone: [phone] Protein [Mass/Vol] 6.7 g/dL 6.3 - 8.2 g/dL [facility] Work Phone: [phone] Sodium [Moles/Vol] 130 mmol/L Low 135 - 145 mmol/L [facility] Work Phone: [phone] Urea nitrogen [Mass/Vol] 9 mg/dL 7 - 20 mg/dL [facility] Work Phone: MagnesiumOrdered By: Val Low on 09-27-2019 Interpretation and review of laboratory results Abnormal [facility] Work Phone: [phone] Magnesium [Mass/Vol] 7.5 mg/dL Critically high 1.6 - 2.3 mg/dL [facility] Work Phone: Test Performed by [facility], [address] [place] [address] [facility] Work Phone: Magnesiumon 09-27-2019 Magnesium [Mass/Vol] 8.8 mg/dL Critically high 1.6-2.3 [facility] Comment on above: Performed By: #### H ORIN HARVEY3 #### [facility] [employer] [address] [address] MagnesiumOrdered By: Suresh ta on 09-27-2019 Magnesium [Mass/Vol] 8.8 mg/dL Critically high 1.6 - 2.3 mg/dL [facility] Work Phone: No Panel InformationOrdered By: Suresh Freeman on 09-27-2019 Interpretation and review of laboratory results Abnormal [facility] Work Phone: Test Performed by [facility], [address] [place] [address] [facility] Work Phone: Phosphoruson 09-27-2019 Phosphate [Mass/Vol] 2.5 mg/dL Normal 2.5-4.5 [facility] Comment on above: Performed By: #### Ariane HARVEY CMP3 #### [facility] [employer] [facility] [address] [place] [phone] PhosphorusOrdered By: Suresh Freeman on 09-27-2019 Phosphate [Mass/Vol] 2.5 mg/dL 2.5 - 4 .5 mg/dL [facility] Work Phone: [phone] Platelet Counton 09-27-2019 Platelets (Bld) [#/Vol] 405 10*3/uL Normal 140-440 [facility] Comment on above: Performed By: #### H ROIN HARVEY3 #### [facility] [employer] [address] [address] Platelet countOrdered By: Garett Medina on 09-27-2019 Platelets (Bld) [#/Vol] 405 10*3/uL 140 - 440 10*3/uL [facility] Work Phone: [phone] Test Performed by [facility], [address] [place] [address] [facility] Work Phone: [phone] Progress Noteon 09-27-2019 [employer] Authentication Interface Message Text Meg had called on 09/25/19 with concerns of elevation of BP and concerns for pre-eclampsia. She was admitted to [facility] and ongoing induction for pre-eclampsia with SF was recommended. Will alert her primary OB doctor. Celena Garcia MD [facility] CBCOrdered By: Jewel hicks on 09-26-2019 Erythrocyte distribution width (RBC) [Ratio] 13.3 % 11.5 - 14.5 % [facility] Work Phone: [phone] Hematocrit (Bld) [Volume fraction] 35.5 % 35 - 47 % [facility] Work Phone: Hemoglobin (Bld) [Mass/Vol] 11.8 g/dL 11.7 - 16 g/dL [facility] Work Phone: [phone] Interpretation and review of laboratory results Abnormal [facility] Work Phone: [phone] MCH (RBC) [Entitic mass] 27.1 pg 26 - 34 pg [facility] Work Phone: MCHC 33.1 % 32 - 36 % [facility] Work Phone: MCV (RBC) [Entitic vol] 82.0 fL 79 - 98 fL [employer] Work Phone: [phone] Platelet mean volume (Bld) [Entitic vol] 8.4 fL 7.4 - 10.4 fL [facility] Work Phone: [phone] Platelets (Bld) [#/Vol] 459 10*3/uL High 140 - 440 10*3/uL [facility] Work Phone: [phone] RBC (Bld) [#/Vol] 4.33 10*6/uL 3.8 - 5.2 10*6/uL [facility] Work Phone: WBC (Bld) [#/Vol] 21.1 10*3/uL High 3.6 - 10.7 10*3/uL [facility] Work Phone: Test Performed by [facility], [address] [place] [address] [facility] Work Phone: Comp Metabolic Panelon 09-26 ALP [Catalytic activity/Vol] 275 U/L High 38-126 [facility] Comment on above: Performed By: #### C MP3 #### [place] [address] [place] [address] ALT [Catalytic activity/Vol] 38 U/L Normal 13-69 [facility] Comment on above: Performed By: #### C MP3 #### [address] [place] [address] [place] [address] AST [Catalytic activity/Vol] 43 U/L Normal 15-46 [facility] Comment on above: Performed By: #### C MP3 #### [place] [address] [place] [address] Bilirubin [Mass/Vol] 0.7 mg/dL Normal 0.2-1.3 [facility] Comment on above: Performed By: #### C MP3 #### [place] [address] [place] [address] Calcium [Mass/Vol] 11.2 mg/dL High 8.4-10.4 [facility] Comment on above: Performed By: #### C MP3 #### [place] [address] [place] [address] Glucose [Mass/Vol] 95 mg/dL Normal 70-100 [facility] Comment on above: Performed By: #### C MP3 #### [place] [address] [place] [address] Protein [Mass/Vol] 7.1 g/dL Normal 6.3-8.2 [facility] Comment on above: Performed By: #### C MP3 #### [address] [place] [address] Urea nitrogen [Mass/Vol] 8 mg/dL Normal 7-20 [facility] Comment on above: Performed By: #### C MP3 #### [facility] [address] [place] [address] Anion gap [Moles/Vol] 9 Normal [facility] Comment on above: Performed By: #### C MP3 #### [facility] [address] [place], [place] CO2 [Moles/Vol] 20 mmol/L Low 22-30 [facility] Comment on above: Performed By: #### C MP3 #### [facility] [address] [place] [address] Creatinine [Mass/Vol] 0.65 mg/dL Normal 0.52-1.25 [facility] Comment on above: Performed By: #### C MP3 #### [facility] [address] [place] [address] GFR/1.73 sq M predicted among blacks MDRD (S/P/Bld) [Vol rate/Area] mL/min/{1.73_m2} Normal >60 [facility] Comment on above: Performed By: #### C MP3 #### [facility] [address] [place], [place] GFR/1.73 sq M predicted among non-blacks MDRD (S/P/Bld) [Vol rate/Area] mL/min/{1.73_m2} Normal >60 [facility] Comment on above: Result Comment: Sour ce- MDRD equation with creatinine calibration to IDMS(NKDEP) eGFR not recommended for drug dose adjustment Performed By: #### C MP3 #### [facility] [address] [place] [address] Albumin [Mass/Vol] 3.6 g/dL Normal 3.5-5.0 [facility] Comment on above: Performed By: #### C MP3 #### [facility] [address] [place], [place] Potassium [Moles/Vol] 3.7 mmol/L Normal 3.5-5.1 [facility] Comment on above: Performed By: #### C MP3 #### [facility] [address] [place] [address] Sodium [Moles/Vol] 136 mmol/L Normal 135-145 [facility] Comment on above: Performed By: #### C MP3 #### [facility] [address] [place] [address] Chloride [Moles/Vol] 107 mmol/L Normal 98-107 [facility] Comment on above: Performed By: #### C MP3 #### [facility] [address] [place] [address] Comprehensive Metabolic Pane lOrdered By: Jewel Marroquin on 09-26-2019 Albumin [Mass/Vol] 3.6 g/dL 3.5 - 5 g/dL [facility] Work Phone: [phone] ALP [Catalytic activity/Vol] 275 U/L High 38 - 126 U/L [facility] Work Phone: [phone] ALT [Catalytic activity/Vol] 38 U/L 13 - 69 U/L [facility] Work Phone: [phone] Anion gap [Moles/Vol] 9 mmol/L [facility] Work Phone: [phone] AST [Catalytic activity/Vol] 43 U/L 15 - 46 U/L [facility] Work Phone: [phone] Bilirubin [Mass/Vol] 0.7 mg/dL 0.2 - 1 .3 mg/dL [facility] Work Phone: [phone] Calcium [Mass/Vol] 11.2 mg/dL High 8.4 - 10. 4 mg/dL [facility] Work Phone: [phone] Chloride [Moles/Vol] 107 mmol/L 98 - 10 7 mmol/L [facility] Work Phone: [phone] CO2 [Moles/Vol] 20 mmol/L Low 22 - 30 mmol/L [facility] Work Phone: [phone] Creatinine [Mass/Vol] 0.65 mg/dL 0.52 - 1.25 mg/dL [facility] Work Phone: [phone] EGFR IF NonAfrican Malawian >60.0 >60 mL/min [facility] Work Phone: [phone] Comment on above: Source- MDRD equatio n with creatinine calibration to IDMS(NKDEP) eGFR not recommended for drug dose adjustment GFR/1.73 sq M.predicted among blacks MDRD (S/P/Bld) [Vol rate/Area] mL/min/{1.73_m2} >60 mL/min [facility] Work Phone: Glucose [Mass/Vol] 95 mg/dL 70 - 100 mg/dL [facility] Work Phone: Interpretation and review of laboratory results Abnormal [facility] Work Phone: Potassium [Moles/Vol] 3.7 mmol/L 3.5 - 5.1 mmol/L [facility] Work Phone: Protein [Mass/Vol] 7.1 g/dL 6.3 - 8.2 g/dL [facility] Work Phone: Sodium [Moles/Vol] 136 mmol/L 135 - 145 mmol/L [facility] Work Phone: Urea nitrogen [Mass/Vol] 8 mg/dL 7 - 20 mg/dL [facility] Work Phone: Test Performed by [facility], [address] [place] [address] [facility] Work Phone: Fibrinogenon 09-26-2019 Fibrinogen 613 mg/dL High 200-400 [facility] Comment on above: Performed By: #### H EMOG, PT/AP, FIBGN #### [facility] [address] [place] [address] FibrinogenOrdered By: Liliana Gaxiola on 09-26-2019 Fibrinogen 613 mg/dL High 200 - 400 mg/dL [facility] Work Phone: Hemogramon 09-26-2019 Erythrocyte distribution width (RBC) [Ratio] 13.3 % Normal 11.5-14.5 [facility] Comment on above: Performed By: #### H EMOG, PT/AP, FIBGN #### [facility] [address] [address] Hematocrit (Bld) [Volume fraction] 35.5 % Normal 35.0-47.0 [facility] Comment on above: Performed By: #### H EMOG, PT/AP, FIBGN #### [address] [place], [place] Hemoglobin (Bld) [Mass/Vol] 11.8 g/dL Normal 11.7-16.0 [facility] Comment on above: Performed By: #### H EMOG, PT/AP, FIBGN #### [address] [place], [place] MCH (RBC) [Entitic mass] 27.1 pg Normal 26.0-34.0 [facility] Comment on above: Performed By: #### H EMOG, PT/AP, FIBGN #### [address] [address] [place], [place] MCHC (RBC) [Mass/Vol] 33.1 % Normal 32.0-36.0 [facility] Comment on above: Performed By: #### H EMOG, PT/AP, FIBGN #### [address] [place], [place] MCV (RBC) [Entitic vol] 82.0 fL Normal 79.0-98.0 [facility] Comment on above: Performed By: #### H EMOG, PT/AP, FIBGN #### [address] [place], [place] Platelet mean volume (Bld) [Entitic vol] 8.4 fL Normal 7.4-10.4 [facility] Comment on above: Performed By: #### H EMOG, PT/AP, FIBGN #### [address] [place], [place] Platelets (Bld) [#/Vol] 459 10*3/uL High 140-440 [facility] Comment on above: Performed By: #### H EMOG, PT/AP, FIBGN #### [address] RBC (Bld) [#/Vol] 4.33 10*6/uL Normal 3.80-5.20 [facility] Comment on above: Performed By: #### H EMOG, PT/AP, FIBGN #### [facility] [address] [place], [place] WBC (Bld) [#/Vol] 21.1 10*3/uL High 3.6-10.7 [facility] Comment on above: Performed By: #### H EMOG, PT/AP, FIBGN #### [facility] [address] [place] [address] Hep B Surface Agon 0 Hep B Surface Ag NOT DETECTED Normal Not-Detect ed [facility] Comment on above: Performed By: #### H EMOG, CMP3 #### [facility] [place], [place] Hepatitis B Surface AntigenO rdered By: Jewel Marroquin on 09-26-2019 Hepatitis B Surface Ag Not detected Not-D etect ed NA [employer] Work Phone: Test Performed by [facility], [address] [place] [address] [employer] Work Phone: No Panel InformationOrdered By: Jewel Marroquin on 09-26-2019 Interpretation and review of laboratory results Abnormal [employer] Work Phone: Test Performed by [facility], [address] [place] [address] [employer] Work Phone: PROTIME/INR & PTTOrdered By: Jewel Marroquin on 09-26-2019 aPTT Coag (Bld) [Time] 22.3 s 20 - 30.5 s [employer] Work Phone: Comment on above: NOTE: The therapeuti c time for Heparin anticoagulation, based on Xa activity inhibition, is an APTT of 46-80 seconds. INR Coag (PPP) [Relative time] 0.8 {INR} Low [employer] Work Phone: Comment on above: Repeated Recommended Anticoagulant Therapy: SEE BELOW ----- INR of 2.0 - 3.0 : - Prophylaxis of Venous Thrombosis (high-risk surgery) - Treatment of Venous Thrombosis - Treatment of Pulmonary Embolism (Includes tissue heart valves, Acute Myocardial Infarction to prevent systemic embolism, Valvular Heart Disease, and Atrial Fibrillation) ----- INR of 2.5 - 3.5 : - Mechanical Prosthetic Valves (high risk) - If oral anticoagulant therapy is used to prevent Myocardial Infarction PT Coag (PPP) [Time] 9.2 s 9 - 12 s [employer] Work Phone: Comment on above: . Platelet Counton 09-26-2019 Platelets (Bld) [#/Vol] 409 10*3/uL Normal 140-440 [facility] Comment on above: Performed By: #### H ORIN HARVEY3 #### [facility] [address] [place] [address] Platelets (Bld) [#/Vol] 446 10*3/uL High 140-440 [facility] Comment on above: Performed By: #### P LTCT #### [facility] [address] [place] [address] Platelet countOrdered By: Garett Medina on 09-26-2019 Platelets (Bld) [#/Vol] 409 10*3/uL 140 - 440 10*3/uL [facility] Work Phone: Test Performed by [employer] [facility], [address] [place] [address] [employer] Work Phone: Interpretation and review of laboratory results Abnormal [employer] Work Phone: Platelets (Bld) [#/Vol] 446 10*3/uL High 140 - 440 10*3/uL [employer] Work Phone: Test Performed by [facility], [address] [place] [address] [employer] Work Phone: Protime AND APTTon 0 INR Coag (PPP) [Relative time] 0.8 Low 0.9-1.1 [facility] Comment on above: Result Comment: Repe ated Recommended Anticoagulant Therapy: SEE BELOW ----- INR of 2.0 - 3.0 : - Prophylaxis of Venous Thrombosis (high-risk surgery) - Treatment of Venous Thrombosis - Treatment of Pulmonary Embolism (Includes tissue heart valves, Acute Myocardial Infarction to prevent systemic embolism, Valvular Heart Disease, and Atrial Fibrillation) ----- INR of 2.5 - 3.5 : - Mechanical Prosthetic Valves (high risk) - If oral anticoagulant therapy is used to prevent Myocardial Infarction Performed By: #### H EMOG, PT/AP, FIBGN #### [address] [place], [place] aPTT Coag (Bld) [Time] 22.3 s Normal 20.0-30.5 [facility] Comment on above: Result Comment: NOTE : The therapeutic time for Heparin anticoagulation, based on Xa activity inhibition, is an APTT of 46-80 seconds. Performed By: #### H EMOG, PT/AP, FIBGN #### [address] [place], [place] PT Coag (PPP) [Time] 9.2 s Normal 9.0-12.0 [facility] Comment on above: Result Comment: . Performed By: #### H EMOG, PT/AP, FIBGN #### [address] [place], [place] TS GELon 09-26-2019 TS GEL ABO Group: O Rh, Gel: POS Antibody Screen Gel: NEG Normal [facility] Comment on above: Performed By: #### T SGL #### [address] System TYPE AND SCREENOrdered By: Cyndy Marroquin on 09-26-2019 ABO Grouping O [facility] Work Phone: Rh Type Positive [facility] Work Phone: Comment on above: Test Performed by [address] [address] Test Performed by [id number] [place] [address] Work Phone: CBCOrdered By: Jewel hicks on 09-25-2019 Erythrocyte distribution width (RBC) [Ratio] 13.3 % 11.5 - 14.5 % [facility] Work Phone: Hematocrit (Bld) [Volume fraction] 36.9 % 35 - 47 % [facility] Work Phone: [phone] Hemoglobin (Bld) [Mass/Vol] 12.3 g/dL 11.7 - 16 g/dL [facility] Work Phone: Interpretation and review of laboratory results Abnormal [facility] Work Phone: [phone] MCH (RBC) [Entitic mass] 27.5 pg 26 - 34 pg [facility] Work Phone: MCHC 33.3 % 32 - 36 % [facility] Work Phone: MCV (RBC) [Entitic vol] 82.7 fL 79 - 98 fL [facility] Work Phone: Platelet mean volume (Bld) [Entitic vol] 8.5 fL 7.4 - 10.4 fL [facility] Work Phone: [phone] Platelets (Bld) [#/Vol] 433 10*3/uL 140 - 440 10*3/uL [facility] Work Phone: [phone] RBC (Bld) [#/Vol] 4.46 10*6/uL 3.8 - 5.2 10*6/uL [facility] Work Phone: WBC (Bld) [#/Vol] 14.3 10*3/uL High 3.6 - 10.7 10*3/uL [facility] Work Phone: Test Performed by [facility], [address] [place] [address] [facility] Work Phone: Comp Metabolic Panelon 09-25 ALT [Catalytic activity/Vol] 33 U/L Normal 13-69 [facility] Comment on above: Performed By: #### H ORIN HARVEY3 #### [address] [place] [address] Calcium [Mass/Vol] 11.8 mg/dL High 8.4-10.4 [facility] Comment on above: Performed By: #### H ORIN HARVEY3 #### [address] [address] Glucose [Mass/Vol] 83 mg/dL Normal 70-100 [facility] Comment on above: Performed By: #### H ORIN HARVEY3 #### [address] Urea nitrogen [Mass/Vol] 10 mg/dL Normal 7-20 [facility] Comment on above: Performed By: #### H CANDICE CMP3 #### [facility] [address] [place], [place] ALP [Catalytic activity/Vol] 218 U/L High 38-126 [facility] Comment on above: Performed By: #### H EMODiogenes CMP3 #### [facility] [address] [place], [place] Anion gap [Moles/Vol] 9 Normal [facility] Comment on above: Performed By: #### H CANDICE CMP3 #### [facility] [address] [place], [place] AST [Catalytic activity/Vol] 39 U/L Normal 15-46 [facility] Comment on above: Performed By: #### H EMODiogenes CMP3 #### [address] [place], [place] Bilirubin [Mass/Vol] 0.6 mg/dL Normal 0.2-1.3 [facility] Comment on above: Performed By: #### H EMODiogenes CMP3 #### [address] [place], [place] CO2 [Moles/Vol] 20 mmol/L Low 22-30 [facility] Comment on above: Performed By: #### H EMODiogenes CMP3 #### [facility] [address] [place], [place] Creatinine [Mass/Vol] 0.57 mg/dL Normal 0.52-1.25 [facility] Comment on above: Performed By: #### H EMODiogenes CMP3 #### [facility] [address] [place], [place] GFR/1.73 sq M predicted among blacks MDRD (S/P/Bld) [Vol rate/Area] mL/min/{1.73_m2} Normal >60 [facility] Comment on above: Performed By: #### H EMOG CMP3 #### [facility] [address] [place], [place] GFR/1.73 sq M predicted among non-blacks MDRD (S/P/Bld) [Vol rate/Area] mL/min/{1.73_m2} Normal >60 [facility] Comment on above: Result Comment: Sour ce- MDRD equation with creatinine calibration to IDMS(NKDEP) eGFR not recommended for drug dose adjustment Performed By: #### Ariane HARVEY CMP3 #### [facility] [address] [place], [place] Protein [Mass/Vol] 7.4 g/dL Normal 6.3-8.2 [facility] Comment on above: Performed By: #### Ariane HARVEY CMP3 #### [facility] [address] [place], [place] Potassium [Moles/Vol] 3.8 mmol/L Normal 3.5-5.1 [facility] Comment on above: Performed By: #### Ariane HARVEY CMP3 #### [facility] [address] [place], [place] Sodium [Moles/Vol] 135 mmol/L Normal 135-145 [facility] Comment on above: Performed By: #### H CANDICE CMP3 #### [facility] [address] [place], [place] Albumin [Mass/Vol] 3.8 g/dL Normal 3.5-5.0 [facility] Comment on above: Performed By: #### Ariane HARVEY CMP3 #### [facility] [address] [place], [place] Chloride [Moles/Vol] 107 mmol/L Normal 98-107 [facility] Comment on above: Performed By: #### H CANDICE CMP3 #### [address] [place], [place] Comprehensive Metabolic Pane lOrdered By: Jewel Marroquin on 09-25-2019 Albumin [Mass/Vol] 3.8 g/dL 3.5 - 5 g/dL [facility] Work Phone: ALP [Catalytic activity/Vol] 218 U/L High 38 - 126 U/L [facility] Work Phone: ALT [Catalytic activity/Vol] 33 U/L 13 - 69 U/L [facility] Work Phone: [phone] Anion gap [Moles/Vol] 9 mmol/L [facility] Work Phone: [phone] AST [Catalytic activity/Vol] 39 U/L 15 - 46 U/L [facility] Work Phone: [phone] Bilirubin [Mass/Vol] 0.6 mg/dL 0.2 - 1 .3 mg/dL [facility] Work Phone: [phone] Calcium [Mass/Vol] 11.8 mg/dL High 8.4 - 10. 4 mg/dL [facility] Work Phone: [phone] Chloride [Moles/Vol] 107 mmol/L 98 - 10 7 mmol/L [facility] Work Phone: [phone] CO2 [Moles/Vol] 20 mmol/L Low 22 - 30 mmol/L [facility] Work Phone: [phone] Creatinine [Mass/Vol] 0.57 mg/dL 0.52 - 1.25 mg/dL [facility] Work Phone: [phone] EGFR IF NonAfrican Malawian >60.0 >60 mL/min [facility] Work Phone: [phone] Comment on above: Source- MDRD equatio n with creatinine calibration to IDMS(NKDEP) eGFR not recommended for drug dose adjustment GFR/1.73 sq M.predicted among blacks MDRD (S/P/Bld) [Vol rate/Area] mL/min/{1.73_m2} >60 mL/min [facility] Work Phone: [phone] Glucose [Mass/Vol] 83 mg/dL 70 - 100 mg/dL [facility] Work Phone: [phone] Interpretation and review of laboratory results Abnormal [facility] Work Phone: [phone] Potassium [Moles/Vol] 3.8 mmol/L 3.5 - 5.1 mmol/L [facility] Work Phone: [phone] Protein [Mass/Vol] 7.4 g/dL 6.3 - 8.2 g/dL [facility] Work Phone: [phone] Sodium [Moles/Vol] 135 mmol/L 135 - 145 mmol/L [facility] Work Phone: Urea nitrogen [Mass/Vol] 10 mg/dL 7 - 20 mg/dL [facility] Work Phone: Test Performed by [facility], [address] [place] [address] [facility] Work Phone: Creatinine, Random UrineOrde red By: Jewel Marroquin on 09-25-2019 Creatinine (U) [Mass/Vol] 46.9 mg/dL No Range [facility] Work Phone: Creatinine, Ur Randomon 09-09 Creatinine, Ur Random 46.9 mg/dL Normal No Range [facility] Comment on above: Performed By: #### C RTUR, TPUR #### [address] Hemogramon 09-25-2019 Erythrocyte distribution width (RBC) [Ratio] 13.3 % Normal 11.5-14.5 [facility] Comment on above: Performed By: #### H EMOG CMP3 #### [address] [address] [place], [place] Hematocrit (Bld) [Volume fraction] 36.9 % Normal 35.0-47.0 [facility] Comment on above: Performed By: #### H EMOG CMP3 #### [address] [address] [place], [place] Hemoglobin (Bld) [Mass/Vol] 12.3 g/dL Normal 11.7-16.0 [facility] Comment on above: Performed By: #### H EMOG CMP3 #### [address] [place], [place] MCH (RBC) [Entitic mass] 27.5 pg Normal 26.0-34.0 [facility] Comment on above: Performed By: #### H EMOG CMP3 #### [address] MCHC (RBC) [Mass/Vol] 33.3 % Normal 32.0-36.0 [facility] Comment on above: Performed By: #### H EMODiogenes CMP3 #### [address] [place], [place] MCV (RBC) [Entitic vol] 82.7 fL Normal 79.0-98.0 [facility] Comment on above: Performed By: #### H EMOG, CMP3 #### [address] [address] [place], [place] Platelet mean volume (Bld) [Entitic vol] 8.5 fL Normal 7.4-10.4 [facility] Comment on above: Performed By: #### H EMOG, CMP3 #### [address] [address] [place], [place] Platelets (Bld) [#/Vol] 433 10*3/uL Normal 140-440 [facility] Comment on above: Performed By: #### H EMOG, CMP3 #### [address] RBC (Bld) [#/Vol] 4.46 10*6/uL Normal 3.80-5.20 [facility] Comment on above: Performed By: #### H EMOG, CMP3 #### [address] WBC (Bld) [#/Vol] 14.3 10*3/uL High 3.6-10.7 [facility] Comment on above: Performed By: #### H EMOG, CMP3 #### [address] [address] [place], [place] No Panel InformationOrdered By: Jewel Marroquin on 09-25-2019 Test Performed by [facility], [facility] [place] [address] [facility] Work Phone: Protein, Ur Randomon 020 Protein [Mass/Vol] 30 mg/dL High No Range [facility] Comment on above: Performed By: #### C RTUR, TPUR #### [address] Protein, urine, randomOrdere d By: Jewel Marroquin on 09-25-2019 Interpretation and review of laboratory results Abnormal [facility] Work Phone: Protein (U) [Mass/Vol] 30 mg/dL High No Range [facility] Work Phone: Comp Metabolic Panelon 09-21 Albumin [Mass/Vol] 3.0 g/dL Low 3.5-5.0 [facility] Comment on above: Performed By: #### C MP #### [address] [address] ALP [Catalytic activity/Vol] 160 U/L High 35-104 [facility] Comment on above: Performed By: #### C MP #### [address] [id number] ALT [Catalytic activity/Vol] 31 U/L Normal 0-31 [facility] Comment on above: Performed By: #### C MP #### [address] [id number] AST [Catalytic activity/Vol] 29 U/L Normal 0-31 [facility] Comment on above: Performed By: #### C MP #### [address] [address] Bili,Total 0.7 mg/dl Normal 0.0-1.0 [facility] Comment on above: Result Comment: Premature : 1 Day 1.0-6.0 mg/dl 2 Day 6.0-8.0 mg/dl 3-5 Day 10.0-15.0 mg/dl Performed By: #### C MP #### [address] [id number] Calcium [Mass/Vol] 9.8 mg/dL Normal 7.6-11.0 [facility] Comment on above: Performed By: #### C MP #### [address] [id number] Chloride [Moles/Vol] 107 mmol/L Normal 96-108 [facility] Comment on above: Performed By: #### C MP #### [address] [address] CO2 [Moles/Vol] 21.4 mmol/L Low 22.0-29.0 [facility] Comment on above: Performed By: #### C MP #### [address] [address] Creatinine [Mass/Vol] 0.67 mg/dL Normal 0.50-1.00 [facility] Comment on above: Result Comment: Premature 0.3-1.0 mg/dL Performed By: #### C MP #### [address] [address] Glucose [Mass/Vol] 85 mg/dL Normal 70-99 [facility] Comment on above: Result Comment: Criteria for Diagnosis of Diabetes(Effective 02/12/11): Fasting specimen (no caloric intake for at least 8 hours). <100 mg/dl Normal 100-125 mg/dl Increased Risk for Diabetes >125 mg/dl Diagnostic for Diabetes Random Glucose (any time of day without regard to last meal). >=200 mg/dl plus Classic Symptoms of Diabetes Performed By: #### C MP #### [address] [address] Potassium [Moles/Vol] 4.2 mmol/L Normal 3.3-5.1 [facility] Comment on above: Performed By: #### C MP #### [address] [address] Protein [Mass/Vol] 6.5 g/dL Normal 5.9-8.4 [facility] Comment on above: Performed By: #### C MP #### [address] [id number] [phone] Sodium [Moles/Vol] 134 mmol/L Normal 133-145 [facility] Comment on above: Performed By: #### C MP #### [address] [id number] Urea nitrogen [Mass/Vol] 10 mg/dL Normal 4-19 [facility] Comment on above: Performed By: #### C MP #### [address] [id number] Complete Blood Counton 09-21 Differential Complete Manual Normal [facility] Comment on above: Performed By: #### C BC #### [address] [address] Erythrocyte distribution width (RBC) [Ratio] 12.6 % Normal 0.0-14.4 [facility] Comment on above: Performed By: #### C BC #### [address] [address] Hematocrit (Bld) [Volume fraction] 35.4 % Low 36.0-44.0 [facility] Comment on above: Performed By: #### C BC #### [address] [address] Hemoglobin (Bld) [Mass/Vol] 11.7 g/dL Low 12.0-15.0 [facility] Comment on above: Performed By: #### C BC #### [address] [address] Immature granulocytes/100 WBC (Bld) 0.90 % Normal [facility] Comment on above: Result Comment: Cora ture Granulocyte Percent includes promyelocytes, myelocytes, and metamyelocytes. IG% > 1.0 indicates a left shift is present. With automated differentials, bands are included in the neutrophil count and not in the Immature Granulocyte Percent. Performed By: #### C BC #### [address] [address] MCH (RBC) [Entitic mass] 27.6 pg Normal 26.0-34.0 [facility] Comment on above: Performed By: #### C BC #### [address] [address] MCHC (RBC) [Mass/Vol] 33.1 % Normal 31.0-37.0 [facility] Comment on above: Performed By: #### C BC #### [address] [address] MCV (RBC) [Entitic vol] 83.5 fL Normal 80.0-100.0 [facility] Comment on above: Performed By: #### C BC #### [address] [address] Nucleated RBC/100 WBC (Bld) [Ratio] 0.0 % Normal -1.0-0.0 [facility] Comment on above: Performed By: #### C BC #### [address] [address] Platelet mean volume (Bld) [Entitic vol] 10.4 fL Normal [facility] Comment on above: Result Comment: MPV is platelet range and age dependent Performed By: #### C BC #### [address] [address] Platelets (Bld) [#/Vol] 413 10*3/uL Normal 150-450 [facility] Comment on above: Performed By: #### C BC #### [address] [address] RBC (Bld) [#/Vol] 4.24 10E12/L Normal 4.00-4.90 [facility] Comment on above: Performed By: #### C BC #### [address] [address] WBC (Bld) [#/Vol] 14.0 10*3/uL High 4.5-11.0 [facility] Comment on above: Performed By: #### C BC #### [place] [address] Creatinine, Urineon 09-21-19 20 Creatinine,urine 66.9 mg/dL Normal [facility] Comment on above: Performed By: #### C REUR #### [place] [address] Reference Range Creatinine,urine ----- Normal [facility] Comment on above: Result Comment: 1st Morning 24hr Collection Female 28-217 mg/dL Female 740-1570 mg/24hr Male 39-259 mg/dL Male 4719-6649 mg/24hr Performed By: #### C REUR #### [place] [address] Fibrinogenon 09-21-2019 Fibrinogen 617.9 mg/dL High 150.0-410. 0 [facility] Comment on above: Performed By: #### F BG #### [place] [address] Lactate Dehydrogenaseon 09-09 LDH [Catalytic activity/Vol] 126 U/L Normal 98-192 [facility] Comment on above: Performed By: #### L D #### [place] [address] Manual Differentialon 2019 Absolute Neutrophil No. 11.5 Normal [facility] Comment on above: Performed By: #### M DIFF #### [place] [address] Band form neutrophils/100 WBC (Bld) 3 % Low 5-11 [facility] Comment on above: Performed By: #### M DIFF #### [place] [id number] Cell Morphology Normal Normal [facility] Comment on above: Performed By: #### M DIFF #### [place] [address] [place] [address] Eosinophils 4 % High 0-3 [facility] Comment on above: Performed By: #### M DIFF #### [address] [address] Lymphocytes 10 % Low 24-44 [facility] Comment on above: Performed By: #### M DIFF #### [address] [address] Metamyelocytes 0 % Normal 0-0 [facility] Comment on above: Performed By: #### M DIFF #### [address] [address] Monocytes 4 % Normal 3-6 [facility] Comment on above: Performed By: #### M DIFF #### [address] [address] Myelocytes 0 % Normal 0-0 [facility] Comment on above: Performed By: #### M DIFF #### [address] [address] Promyelocytes 0 % Normal 0-0 [facility] Comment on above: Performed By: #### M DIFF #### [place] [address] [place] [address] Segmented neutrophils/100 WBC (Bld) 79 % High 35-66 [facility] Comment on above: Performed By: #### M DIFF #### [place] [address] [place] [address] Progress Noteon 09-21-2019 [employer] Authentication Interface Message Text DOS: 09/21/2019 [facility]- MEDICINE Followup CONSULT Referring/Requesting Provider: Darren Perez DO CHIEF COMPLAINT: HISTORY OF PRESENT ILLNESS: Meg is a 38 y.o. 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 Benign at that time (per her report). She has completed her GI consultation - without plans to complete any further imaging until after , and no other interventions other than antacid addition (pepcid BID). She states pepcid does not adequately help her so she adds Tums and Maalox/Mylanta prn. Meg states she had blood work done through your office to check her liver and bleeding labs, but all was normal. I am not able to view results through the computer. No vaginal bleeding, leaking, cramping. She complaints of constant pain in her ribs, both left and right side, especially with baby moving up. No jaundice. No nausea/vomiting. Baby is moving well. No headaches, visual changes. OB HISTORY: OB History Para Term AB Living 1 0 0 0 0 0 SAB TAB Ectopic Multiple Live Births 0 0 0 0 0 # Outcome Date GA Lbr Varun/2nd Weight Sex Delivery Anes PTL Lv 1 Current PAST MEDICAL HISTORY: Past Medical History: Diagnosis Date Acute pancreatitis Liver disease Liver mass Pulmonary disease Asthma, Bronchitis Thyroid disease PAST SURGICAL HISTORY: Past Surgical History: Procedure Laterality Date KNEE SURGERY LIVER BIOPSY SALIVARY GLAND SURGERY 2009 Removal PERTINENT FAMILY HISTORY: Family History Problem Relation Age of Onset High Blood Pressure Mother Mental Illness Mother Diabetes Mellitus II Father Heart Disease Father High Blood Pressure Father DVT Father Mental Illness Father Stroke Father Anemia Father Cancer Father Renal failure without dialysis Father Cancer Sister Cancer Maternal Grandmother High Blood Pressure Maternal Grandmother Stroke Maternal Grandmother Leukemia Maternal Grandfather Diabetes Mellitus II Paternal Grandmother Heart Disease Paternal Grandmother Stroke Paternal Grandmother Cancer Paternal Grandmother MEDS: [email or web address]: Allergies Allergen Reactions Aloe [place] Protective [Petrolatum] Anaphylaxis Asa [Aspirin] Other (See Comments) Polyps in nose REVIEW OF SYSTEMS: A comprehensive review of systems was negative. except for mid back pains/cramping on/off for 3 weeks. No flank pain like when she had kidneys stones. PHYSICAL EXAM: VITAL SIGNS: BP 130/88 Ht 162.6 cm Wt 68.3 kg (150 lb 8 oz) LMP 02/18/2019 BMI 25.82 kg/m Repeat BP: 136/96 , sitting. General Appearance: Alert, appropriate appearance for age. No acute distress IMAGING: Please see ultrasound report for full details. LABS: Hospital Outpatient Visit on 09/21/2019 Component Date Value Ref Range Status Protein, Ur mg/dl 09/21/2019 25 mg/dL Final Comment 09/21/2019 ----- NA Final Creatinine, Urine 09/21/2019 66.9 mg/dL Final Ref Range Urine Creatinine 09/21/2019 ----- NA Final WBC 09/21/2019 14.0* 4.5 - 11.0 10E9/L Final Nucleated RBC Percent 09/21/2019 0.0 -1.0 - 0.0 % Final RBC 09/21/2019 4.24 4.00 - 4.90 10E12/L Final Hemoglobin 09/21/2019 11.7* 12.0 - 15.0 g/dl Final Hematocrit 09/21/2019 35.4* 36.0 - 44.0 % Final MCV 09/21/2019 83.5 80.0 - 100.0 fl Final MCH 09/21/2019 27.6 26.0 - 34.0 pg Final MCHC 09/21/2019 33.1 31.0 - 37.0 % Final RDW 09/21/2019 12.6 0.0 - 14.4 % Final Platelets 09/21/2019 413 150 - 450 10E9/L Final MPV 09/21/2019 10.4 fl Final Differential Complete 09/21/2019 Manual NA Final % Immature Granulocyte 09/21/2019 0.90 % Final Sodium 09/21/2019 134 133 - 145 mEq/L Final Potassium 09/21/2019 4.2 3.3 - 5.1 mEq/L Final Chloride 09/21/2019 107 96 - 108 mEq/L Final Carbon Dioxide 09/21/2019 21.4* 22.0 - 29.0 mEq/L Final BUN 09/21/2019 10 4 - 19 mg/dL Final Glucose 09/21/2019 85 70 - 99 mg/dL Final Total Bilirubin 09/21/2019 0.7 0.0 - 1.0 mg/dl Final AST 09/21/2019 29 0 - 31 U/L Final ALT 09/21/2019 31 0 - 31 U/L Final Alkaline Phosphatase 09/21/2019 160* 35 - 104 U/L Final Calcium 09/21/2019 9.8 7.6 - 11.0 mg/dL Final Protein, Total 09/21/2019 6.5 5.9 - 8.4 g/dL Final Albumin 09/21/2019 3.0* 3.5 - 5.0 g/dL Final Creatinine 09/21/2019 0.67 0.50 - 1.00 mg/dL Final Uric Acid 09/21/2019 5.4 2.6 - 8.0 mg/dL Final LD 09/21/2019 126 98 - 192 IU/L Final Fibrinogen 09/21/2019 617.9* 150.0 - 410.0 mg/dL Final Prothrombin Time 09/21/2019 9.3 8.5 - 14.0 seconds Final INR 09/21/2019 0.9 0.7 - 1.3 NA Final Activated PTT 09/21/2019 23.1 0.0 - 40.0 seconds Final Band Neutrophil 09/21/2019 3* 5 - 11 % Final Segmented Neutrophils 09/21/2019 79* 35 - 66 % Final Lymphocytes 09/21/2019 10* 24 - 44 % Final % Monocytes 09/21/2019 4 3 - 6 % Final % Eosinophils 09/21/2019 4* 0 - 3 % Final % Metamyelocytes 09/21/2019 0 0 - 0 % Final % Myelocytes 09/21/2019 0 0 - 0 % Final % Promyelocytes 09/21/2019 0 0 - 0 % Final Absolute Neutrophil No. 09/21/2019 11.5 NA Final Cell Morphology 09/21/2019 Normal NA Final IMPRESSION: Meg is a 38 y.o. female 1. Hypertension antepartum: No pre-Eclampsia symptoms. Will check pre-E labs (most of them are above, normal range). Precautions given. At risk for GHTN, pre-eclampsia, indicated earlier than 40 weeks delivery. I explained if Hellp syndrome delivery rabia, if Pre-E without severe features or GHTN, will deliver at 37 weeks. She is concerned about delivery at a hospital where support for patient with possible hemorrhage at time of delivery may not be available. She would like to delivery at [facility]. 2. Liver tumors/LFTs normal today: Asymptomatic. Coags normal today. Will plan to transfer care to [facility] and plan on delivery at [facility] in case significant bleeding is encountered at time of delivery or . RECOMMENDATIONS: HEELP and pre-E labs done - some still pending. ASHISH to [facility]. Start twice weekly antepartum testing (BPP or NST/SVETLANA) and weekly HELLP labs until delivery. Pre-eclampsia precautions given. If diagnosed with GHTN or pre_E this week, delivery at 37 weeks or sooner as indicated, planned. The total patient time of the visit was 25 minutes, of which was greater than 50% of the time was spent counseling and coordinating care. Normal [facility] Protein, Urine Quant.on 09-09 Comment ----- Normal [facility] Comment on above: Result Comment: Random urine collection. Performed By: #### P ROQN #### [address] [address] Protein (U) [Mass/Vol] 25 mg/dL Normal [facility] Comment on above: Performed By: #### P ROQN #### [address] [id number] Prothrombin Time AND Activat ed PTTon 09-21-2019 aPTT Coag (Bld) [Time] 23.1 s Normal 0.0-40.0 [facility] Comment on above: Result Comment: Children < 1 yr of age may have a slightly prolonged activated partial thromboplastin time as the test is dependent on the level to which their coagulation factors have developed. Performed By: #### P TPTT #### [address] [address] INR Coag (PPP) [Relative time] 0.9 Normal 0.7-1.3 [facility] Comment on above: Result Comment: Therapeutic Range for Oral Anticoagulant Anticoagulant Therapy INR Standard Therapy 2.0-3.0 Prophylaxsis/Treatment of venous thrombosis Treatment of PE Prevention of systemic embolism Tissue heart valves Acute Myocardial Infarction (to prevent systemic embolism) Valvular heart disease Atrial fibrillation Higher Intensity 2.5-3.5 Mechanical Prosthetic valves The INR is used only for patients on stable oral anticoagulant therapy. It makes no significant contribution to the diagnosis or treatment of patients whose PT is prolonged for other reasons. Performed By: #### P TPTT #### [place] [address] PT Coag (PPP) [Time] 9.3 s Normal 8.5-14.0 [facility] Comment on above: Result Comment: Children < 1 yr of age may have a slightly prolonged prothrombin time as the test is dependent on the level to which their coagulation factors have developed. Performed By: #### P TPTT #### [place] [address] Uric Acidon 09-21-2019 Urate [Mass/Vol] 5.4 mg/dL Normal 2.6-8.0 [facility] Comment on above: Performed By: #### U SUSANA #### [place] [address] Urine Cultureon 09-21-2019 Bacteria identified Cx Nom (U) Urine Culture: No growth. Source: URINE Collected: 09/21/19 14:09 Site: Received : 09/22/19 15:50 Urine Culture FINAL 09/24/19 10:35 No growth. Normal [facility] Comment on above: Performed By: #### M DIFF #### [place] [address] Initial Visit (Gastroenterol ogy)on 08-19-2019 Initial Visit (Gastroenterology) Diagnoses/Problems Assessed GERD without esophagitis (530.81) (K21.9) Abnormal liver ultrasound (793.3) (R93.2) Liver masses (573.8) (R16.0)1 1 Amended By: Jerica Easton; Aug 19 2019 9:59 AM ESTOrders GERD without esophagitis Start: Famotidine 40 MG Oral Tablet; TAKE 1 TABLET DAILY DIRECTED Rx By: Jerica Easton; Dispense: 30 Days ; #:30 Tablet; Refill: 5;For: GERD without esophagitis; NII = N; Verified Transmission to [facility]; Last Updated By: AdAdaptedHarley; 08/19/2019 9:44:54 AM SocHx: Former smoker Tobacco Use Screening; Status:Complete; Done: [id number] Perform:Not Applicable;Ordered; For:SocHx: Former smoker; Ordered By:Юлия Selby; Patient Discussion/Summary 1. Previous records were reviewed. 2. The risks of undergoing a CT scan versus MRI with contrast were discussed and deferred given her . Patient advised to contact our office after delivery for further workup. 3. In process of obtaining recent lab studies. 4. Start Pepcid 40 mg daily for acid reflux. 5. Lifestyle changes to help alleviate heartburn/reflux were discussed. These include avoiding spicy and greasy foods, tomato based products, mint and caffeine. Alcohol and smoking should be avoided. Patient should keep at least 3 hours between eating and going to sleep. Being of a normal weight helps decrease heartburn symptoms. Chief Complaint Abnormal liver ultrasound History of Present Illness 38-year-old female presents today after recent abdominal ultrasound demonstrated several hepatic masses. She is 7 months . Patient reports a long-standing history of liver tumors and most recently underwent a liver biopsy in 2012. She states that pathology returned benign at that time. She states she was told that the liver masses have increased in size and have multiplied. She supposedly underwent blood work recently which will need to be obtained for review. She is having no jaundice, abdominal pain, pruritus, or rash. She denies alcohol consumption. Appetite is good although she does complain of daily heartburn. Sifx-tie-eflobga Pepcid is offering minimal improvement. She has no dysphagia or odynophagia. Review of Systems Const: Denies fatigue, fever and weight loss. CV: Denies chest pain, pacemaker, palpitations and valvular heart disease. Resp: Denies cough, sleep apnea, SOB and snoring. GI: Denies symptoms other than stated above. Musculo: Denies joint pain and muscle pain. Skin: Denies hives and rash. Neuro: Denies seizures and stroke. Psych: Denies anxiety and depression. Endocrine: Denies intolerance to cold, hot flashes and impaired glucose tolerance. Davey/Lymph: Denies anemia, blood transfusions, chemotherapy, enlarged lymph nodes and radiation treatment of any kind. 1 1 Amended By: Jerica Easton; Aug 19 2019 9:58 AM ESTActive Problems Problems Abnormal liver ultrasound (793.3) (R93.2) GERD without esophagitis (530.81) (K21.9) Liver masses (573.8) (R16.0)1 1 Amended By: Jerica Easton; Aug 19 2019 9:59 AM ESTPast Medical History Problems History of anxiety (V11.8) (Z86.59) History of asthma (V12.69) (Z87.09) History of heartburn (V12.79) (Z87.898) Surgical History Problems History of Esophagogastroduodenoscopy History of Knee surgery History of Neck surgery Family History Mother Family history of Alive and well Father Family history of Brother Family history of Alive and well Social History Problems Caffeine use (V49.89) (Z78.9) Former smoker (V15.82) (Z87.891) History of body piercing (V45.89) (Z98.890) History of tattoo (709.09) (L81.8) No alcohol use No illicit drug use Allergies Medication Aloe Vera CAPS Recorded By: Юлия Selby; 08/19/2019 9:11:28 AM aspirin Recorded By: Юлия Selby; 08/19/2019 9:11:28 AM Current Meds Medication NameInstruction Pre-Jamin Formula TABS Vitals Vital Signs Recorded: [id number] 09:13AM Heart Rate68 Izeinogf434 Zstyvjrkz69 Height5 ft 4 in Ouguss289 lb BMI Mvhxmkqhnm34.92 BSA Calculated1.74 O2 Erqmtlubdh41 Physical Exam Const: Vital signs reviewed. ENMT: Oral mucosa moist with no thrush 1 and no mucositis. Neck: Supple and symmetric. Thyroid is normal in size and texture. 1 Resp: Respiration rate is normal. Clear to auscultation. CV: Rhythm is regular. No heart murmur appreciated. Carotids 2+ and equal bilaterally, without bruits. Femorals 2+ and equal bilaterally, without bruits. Abdomen: Positive bowel sounds in all quadrants. No bruits. Normal to percussion. Palpation of the abdomen reveals softness but no tenderness, distension or fluid wave. No abdominal masses. No hernias. No palpable hepatosplenomegaly. Anus/Perineum/Rectum: Exam deferred. Lymph: No visible or palpable cervical lymphadenopathy. Inguinal nodes not palpable. Skin: Dry and warm with no nodularity or rash. Psych: Affect is normal. Alert and oriented x3. Neuro: Cranial nerves intact. No focal motor defects. Muscloskeletal: No joint deformity or swelling. Motor strength normal. 1 1 Amended By: Jerica Easton; Aug 19 2019 9:58 AM ESTResults/Data Abdominal ultrasound 04/30/19: Liver normal echogenicity without ductal dilatation. Several liver masses with internal vascularity. Signatures Electronically signed by : Jerica Easton PA-C; Aug 19 2019 9:59AM EST (Author) Normal [facility] HIV, External ResultOrdered By: Historical Provider on 06-04-2019 HIV, External Result Negative [facility] Work Phone: Hepatitis B, External Result Ordered By: Historical Provider on 06-04-2019 Hep B, External Result Negative [facility] Work Phone: No Panel InformationOrdered By: Historical Provider on 06-04-2019 ABO, External Result o [facility] Work Phone: C. Trachomatis, External Result Negative [facility] Work Phone: HIV, External Result Non-Reactive [facility] Work Phone: N. Gonorrhoeae, External Result Negative [facility] Work Phone: Rh Factor, External Result Positive [facility] Work Phone: Verified by Jf Mora RN & Loc Munoz RN [facility] Work Phone: RPR, External LabOrdered By: Historical Provider on 06-04-2019 RPR, External Result Non-Reactive [facility] Work Phone: Rubella Titer, External Resu ltOrdered By: Historical Provider on 06-04-2019 Rubella Titer, External Result immune, 63 [facility] Work Phone: Rubella Titer, External Result Immune [facility] Work Phone: [facility] Note on 06-07-2018 [facility] Normal [facility] [place] ([place]) Pat Eduon 06-07-2018 Pat Edu Normal [facility] [place] Patient Summary Documentson 06-07-2018 Patient Summary Documents Normal [facility] ([place]) [facility] on 03-07-2018 [facility] Normal [facility] [place] Pat Eduon 02-23-2018 Pat Edu Normal [facility] [place] Patient Summary Documentson 02-23-2018 Patient Summary Documents Normal [facility] [place] [facility] on 09-23-2017 [facility] Normal [facility] [place] Patient Summary Documentson 09-23-2017 Patient Summary Documents Normal [facility] [place] [facility] on 07-09-2017 [facility] Normal [facility] [place] Patient Summary Documentson 07-09-2017 Patient Summary Documents Normal [facility] [place] Culture, urine Bacteria identified Cx Nom (U) Presumptive E. coli [facility] Work Phone: Bacteria identified Cx Nom (U) Positive [facility] Work Phone: Vital Signs Date Time Vital Sign Value Performing Clinician Facility 04-05-2025 11:29-0400 Body height 162.[address] Lei Martínez MD Work Phone: [facility] 04-05-2025 11:29-0400 Body mass index (BMI) [Ratio] 21.3 kg/m2 Dr. Lei Martínez MD Work Phone: [facility] 04-05-2025 11:29-0400 Body weight 56.[address] Lei Martínez MD Work Phone: [facility] 04-05-2025 11:29-0400 Diastolic blood pressure 69 mm[Hg] Dr. Lei Martínez MD Work Phone: [facility] 04-05-2025 11:29-0400 Systolic blood pressure 111 mm[Hg] Dr. Lei Martínez MD Work Phone: [facility] 12-03-2024 17:29-0400 Body temperature 98 [degF] Dr. Lei Martínez MD Work Phone: [facility] 12-03-2024 17:29-0400 Diastolic blood pressure 81 mm[Hg] Dr. Lei Martínez MD Work Phone: [facility] 12-03-2024 17:29-0400 Heart rate 79 /min Dr. Lei Martínez MD Work Phone: [facility] 12-03-2024 17:29-0400 Respiratory rate 14 /min Dr. Lei Martínez MD Work Phone: [facility] 12-03-2024 17:29-0400 SaO2% (BldA) [Mass fraction] 100 % Dr. Lei Martínez MD Work Phone: [facility] 12-03-2024 17:29-0400 Systolic blood pressure 132 mm[Hg] Dr. Lei Martínez MD Work Phone: [facility] 12-03-2024 14:57-0400 Body height 162.[address] Lei Martínez MD Work Phone: [facility] 12-03-2024 14:57-0400 Body mass index (BMI) [Ratio] 21.4 kg/m2 Dr. Lei Martínez MD Work Phone: [facility] 12-03-2024 14:57-0400 Body weight 56.[address] Lei Martínez MD Work Phone: [facility] 09-23-2024 14:43-0500 Body mass index (BMI) [Ratio] 20.7 kg/m2 Dr. Lei Martínez MD Work Phone: [facility] 09-23-2024 14:43-0500 Body temperature 97.8 [degF] Dr. Lei Martínez MD Work Phone: [facility] 09-23-2024 14:43-0500 Body weight 54.[address] Lei Martínez MD Work Phone: [facility] 09-23-2024 14:43-0500 Diastolic blood pressure 79 mm[Hg] Dr. Lei Martínez MD Work Phone: [facility] 09-23-2024 14:43-0500 Heart rate 94 /min Dr. Lei Martínez MD Work Phone: [facility] 09-23-2024 14:43-0500 Respiratory rate 18 /min Dr. Lei Martínez MD Work Phone: [facility] 09-23-2024 14:43-0500 SaO2% (BldA) [Mass fraction] 98 % Dr. Lei Martínez MD Work Phone: [facility] 09-23-2024 14:43-0500 Systolic blood pressure 113 mm[Hg] Dr. Lei Martínez MD Work Phone: [facility] 09-01-2024 11:17-0500 Body temperature 97.4 [degF] Dr. Lei Martínez MD Work Phone: [facility] 09-01-2024 11:17-0500 Diastolic blood pressure 80 mm[Hg] Dr. Lei Martínez MD Work Phone: [facility] 09-01-2024 11:17-0500 Heart rate 94 /min Dr. Lei Martínez MD Work Phone: [facility] 09-01-2024 11:17-0500 Respiratory rate 18 /min Dr. Lei Martínez MD Work Phone: [facility] 09-01-2024 11:17-0500 SaO2% (BldA) [Mass fraction] 98 % Dr. Lei Martínez MD Work Phone: [facility] 09-01-2024 11:17-0500 Systolic blood pressure 113 mm[Hg] Dr. Lei Martínez MD Work Phone: [facility] 08-28-2024 08:07-0500 Body mass index (BMI) [Ratio] 20.7 kg/m2 Dr. Lei Martínez MD Work Phone: [facility] 08-28-2024 08:07-0500 Body temperature 97.6 [degF] Dr. Lei Martínez MD Work Phone: [facility] 08-28-2024 08:07-0500 Body weight 54.[address] Lei Martínez MD Work Phone: [facility] 08-28-2024 08:07-0500 Diastolic blood pressure 70 mm[Hg] Dr. Lei Martínez MD Work Phone: [facility] 08-28-2024 08:07-0500 Heart rate 90 /min Dr. Lei Martínez MD Work Phone: [facility] 08-28-2024 08:07-0500 Respiratory rate 16 /min Dr. Lei Martínez MD Work Phone: [facility] 08-28-2024 08:07-0500 SaO2% (BldA) [Mass fraction] 99 % Dr. Lei Martínez MD Work Phone: [facility] 08-28-2024 08:07-0500 Systolic blood pressure 116 mm[Hg] Dr. Lei Martínez MD Work Phone: [facility] 08-21-2024 13:19-0500 Body temperature 97.6 [degF] Dr. Lei Martínez MD Work Phone: [facility] 08-21-2024 13:19-0500 Diastolic blood pressure 69 mm[Hg] Dr. Lei Martínez MD Work Phone: [facility] 08-21-2024 13:19-0500 Heart rate 88 /min Dr. Lei Martínez MD Work Phone: [facility] 08-21-2024 13:19-0500 Respiratory rate 16 /min Dr. Lei Martínez MD Work Phone: [facility] 08-21-2024 13:19-0500 SaO2% (BldA) [Mass fraction] 100 % Dr. Lei Martínez MD Work Phone: [facility] 08-21-2024 13:19-0500 Systolic blood pressure 119 mm[Hg] Dr. Lei Martínez MD Work Phone: [facility] 08-21-2024 11:32-0500 Body mass index (BMI) [Ratio] 20.4 kg/m2 Dr. Lei Martínez MD Work Phone: [facility] 08-21-2024 11:32-0500 Body weight [address] Lei Martínez MD Work Phone: [facility] 08-05-2024 11:52-0500 Body mass index (BMI) [Ratio] 20.5 kg/m2 Dr. Lei Martínez MD Work Phone: [facility] 08-05-2024 11:52-0500 Body temperature 97.7 [degF] Dr. Lei Martínez MD Work Phone: [facility] 08-05-2024 11:52-0500 Body weight 54.[address] Lei Martínez MD Work Phone: [facility] 08-05-2024 11:52-0500 Diastolic blood pressure 73 mm[Hg] Dr. Lei Martínez MD Work Phone: [facility] 08-05-2024 11:52-0500 Heart rate 82 /min Dr. Lei Martínez MD Work Phone: [facility] 08-05-2024 11:52-0500 Respiratory rate 18 /min Dr. Lei Martínez MD Work Phone: [facility] 08-05-2024 11:52-0500 SaO2% (BldA) [Mass fraction] 98 % Dr. Lei Martínez MD Work Phone: [facility] 08-05-2024 11:52-0500 Systolic blood pressure 108 mm[Hg] Dr. Lei Martínez MD Work Phone: [facility] 11-20-2023 11:42-0400 Heart rate 98 /min Dr. Lei Martínez Work Phone: [facility] 11-20-2023 11:41-0400 Body height 162.[address] Lei Martínez Work Phone: [facility] 11-20-2023 11:41-0400 Body mass index (BMI) [Ratio] 19.7 kg/m2 Dr. Lei Martínez Work Phone: [facility] 11-20-2023 11:41-0400 Body temperature 98.2 [degF] Dr. Lei Martínez Work Phone: [facility] 11-20-2023 11:41-0400 Body weight 52.[address] Lei Martínez Work Phone: [facility] 11-20-2023 11:41-0400 Diastolic blood pressure 66 mm[Hg] Dr. Lei Martínez Work Phone: [facility] 11-20-2023 11:41-0400 Respiratory rate 16 /min Dr. Lei Martínez Work Phone: [facility] 11-20-2023 11:41-0400 SaO2% (BldA) [Mass fraction] 99 % Dr. Lei Martínez Work Phone: [facility] 11-20-2023 11:41-0400 Systolic blood pressure 118 mm[Hg] Dr. Lei Martínez Work Phone: [facility] 11-08-2023 22:32-0500 Body temperature 99.5 [degF] Dr. Lei Martínez Work Phone: [facility] 11-08-2023 22:32-0500 Diastolic blood pressure 82 mm[Hg] Dr. Lei Martínez Work Phone: [facility] 11-08-2023 22:32-0500 Heart rate 81 /min Dr. Lei Martínez Work Phone: [facility] 11-08-2023 22:32-0500 Respiratory rate 16 /min Dr. Lei Martínez Work Phone: [facility] 11-08-2023 22:32-0500 SaO2% (BldA) [Mass fraction] 98 % Dr. Lei Martínez Work Phone: [facility] 11-08-2023 22:32-0500 Systolic blood pressure 121 mm[Hg] Dr. Lei Martínez Work Phone: [facility] 11-08-2023 22:30-0500 Body weight 54.[address] Lei Martínez Work Phone: [facility] 11-08-2023 21:43-0500 Body height 162.[address] Lei Martínez Work Phone: [facility] 11-08-2023 21:43-0500 Body mass index (BMI) [Ratio] 19.9 kg/m2 Dr. Lei Martínez Work Phone: [facility] 11-07-2023 15:03-0500 Body temperature 98.6 [degF] Dr. Lei Martínez Work Phone: [facility] 11-07-2023 15:03-0500 Diastolic blood pressure 68 mm[Hg] Dr. Lei Martínez Work Phone: [facility] 11-07-2023 15:03-0500 Heart rate 103 /min Dr. Lei Martínez Work Phone: [facility] 11-07-2023 15:03-0500 Respiratory rate 12 /min Dr. Lei Martínez Work Phone: [facility] 11-07-2023 15:03-0500 SaO2% (BldA) [Mass fraction] 98 % Dr. Lei Martínez Work Phone: [facility] 11-07-2023 15:03-0500 Systolic blood pressure 112 mm[Hg] Dr. Lei Martínez Work Phone: [facility] 10-11-2023 12:14-0500 Body temperature 97.34 [degF] DR ELIN PRUITT MD [facility] 10-11-2023 12:14-0500 Body weight 54.[address] ELIN PRUITT MD [facility] 10-11-2023 12:14-0500 Diastolic Blood Pressure Non-Invasive 81 mm[Hg] DR ELIN PRUITT MD [facility] 10-11-2023 12:14-0500 Heart rate 94 /min DR ELIN PRUITT MD [facility] 10-11-2023 12:14-0500 Respiratory rate 16 /min DR ELIN PRUITT MD [facility] 10-11-2023 12:14-0500 Systolic Blood Pressure Non-Invasive 141 mm[Hg] DR ELIN PRUITT MD [facility] 10-01-2023 11:00-0500 Body temperature 98.3 [degF] Dr. Lei Martínez Work Phone: [facility] 10-01-2023 11:00-0500 Diastolic blood pressure 64 mm[Hg] Dr. Lei Martínez Work Phone: [facility] 10-01-2023 11:00-0500 Heart rate 86 /min Dr. Lei Martínez Work Phone: [facility] 10-01-2023 11:00-0500 Respiratory rate 12 /min Dr. Lei Martínez Work Phone: [facility] 10-01-2023 11:00-0500 SaO2% (BldA) [Mass fraction] 99 % Dr. Lei Martínez Work Phone: [facility] 10-01-2023 11:00-0500 Systolic blood pressure 102 mm[Hg] Dr. Lei Martínez Work Phone: [facility] 10-27-2022 12:36-0500 Body height 162.[address] Lei Martínez Work Phone: [facility] 10-27-2022 12:36-0500 Body mass index (BMI) [Ratio] 20.5 kg/m2 Dr. Lei Martínez Work Phone: [facility] 10-27-2022 12:36-0500 Body temperature 98.9 [degF] Dr. Lei Martínez Work Phone: [facility] 10-27-2022 12:36-0500 Body weight 54.[address] Lei Martínez Work Phone: [facility] 10-27-2022 12:36-0500 Diastolic blood pressure 85 mm[Hg] Dr. Lei Martínez Work Phone: [facility] 10-27-2022 12:36-0500 Heart rate 106 /min Dr. Lei Martínez Work Phone: [facility] 10-27-2022 12:36-0500 Respiratory rate 22 /min Dr. Lei Martínez Work Phone: [facility] 10-27-2022 12:36-0500 SaO2% (BldA) [Mass fraction] 98 % Dr. Lei Martínez Work Phone: [facility] 10-27-2022 12:36-0500 Systolic blood pressure 122 mm[Hg] Dr. Lei Martínez Work Phone: [facility] 10-26-2022 20:53-0500 Diastolic blood pressure 60 mm[Hg] Dr. Lei Martínez Work Phone: [facility] 10-26-2022 20:53-0500 Heart rate 85 /min Dr. Lei Martínez Work Phone: [facility] 10-26-2022 20:53-0500 Respiratory rate 19 /min Dr. Lei Martínez Work Phone: [facility] 10-26-2022 20:53-0500 SaO2% (BldA) [Mass fraction] 95 % Dr. Lei Martínez Work Phone: [facility] 10-26-2022 20:53-0500 Systolic blood pressure 110 mm[Hg] Dr. Lei Martínez Work Phone: [facility] 10-26-2022 17:24-0500 Body height 162.[address] Lei Martínez Work Phone: [facility] 10-26-2022 17:24-0500 Body mass index (BMI) [Ratio] 21.3 kg/m2 Dr. Lei Martínez Work Phone: [facility] 10-26-2022 17:24-0500 Body temperature 102 [degF] Dr. Lei Martínez Work Phone: [facility] 10-26-2022 17:24-0500 Body weight 56.[address] Lei Martínez Work Phone: [facility] 09-15-2022 09:04-0500 Body temperature 98.2 [degF] Dr. Lei Martínez Work Phone: [facility] 09-15-2022 09:04-0500 Diastolic blood pressure 68 mm[Hg] Dr. Lei Martínez Work Phone: [facility] 09-15-2022 09:04-0500 Heart rate 119 /min Dr. Lei Martínez Work Phone: [facility] 09-15-2022 09:04-0500 Respiratory rate 14 /min Dr. Lei Martínez Work Phone: [facility] 09-15-2022 09:04-0500 SaO2% (BldA) [Mass fraction] 99 % Dr. Lei Martínez Work Phone: [facility] 09-15-2022 09:04-0500 Systolic blood pressure 122 mm[Hg] Dr. Lei Martínez Work Phone: [facility] 09-10-2022 10:39-0500 Body temperature 98.6 [degF] Dr. Lei Martínez Work Phone: [facility] 09-10-2022 10:39-0500 Diastolic blood pressure 70 mm[Hg] Dr. Lei Martínez Work Phone: [facility] 09-10-2022 10:39-0500 Heart rate 94 /min Dr. Lei Martínez Work Phone: [facility] 09-10-2022 10:39-0500 Respiratory rate 20 /min Dr. Lei Martínez Work Phone: [facility] 09-10-2022 10:39-0500 SaO2% (BldA) [Mass fraction] 98 % Dr. Lei Martínez Work Phone: [facility] 09-10-2022 10:39-0500 Systolic blood pressure 100 mm[Hg] Dr. Lei Martínez Work Phone: [facility] 08-01-2022 11:09-0500 Body temperature 98.6 [degF] Dr. Lei Martínez Work Phone: [facility] 08-01-2022 11:09-0500 Diastolic blood pressure 70 mm[Hg] Dr. Lei Martínez Work Phone: [facility] 08-01-2022 11:09-0500 Heart rate 95 /min Dr. Lei Martínez Work Phone: [facility] 08-01-2022 11:09-0500 Respiratory rate 18 /min Dr. Lei Martínez Work Phone: [facility] 08-01-2022 11:09-0500 SaO2% (BldA) [Mass fraction] 99 % Dr. Lei Martínez Work Phone: [facility] 08-01-2022 11:09-0500 Systolic blood pressure 102 mm[Hg] Dr. Lei Martínez Work Phone: [facility] 05-08-2022 18:02-0400 Respiratory rate 14 /min Dr. Lei Martínez Work Phone: [facility] Work Phone: 05-08-2022 17:16-0400 Respiratory rate 16 /min Dr. Lei Martínez Work Phone: [facility] Work Phone: 05-08-2022 13:17-0400 Body height 162.[address] Lei Martínez Work Phone: [facility] Work Phone: 05-08-2022 13:17-0400 Body mass index (BMI) [Ratio] 21.4 kg/m2 Dr. Lei Martínez Work Phone: [facility] Work Phone: 05-08-2022 13:17-0400 Body temperature 97.6 [degF] Dr. Lei Martínez Work Phone: [facility] Work Phone: 05-08-2022 13:17-0400 Body weight 56.[address] Lei Martínez Work Phone: [facility] Work Phone: 05-08-2022 13:17-0400 Diastolic blood pressure 86 mm[Hg] Dr. Lei Martínez Work Phone: [facility] Work Phone: 05-08-2022 13:17-0400 Heart rate 103 /min Dr. Lei Martínez Work Phone: [facility] Work Phone: 05-08-2022 13:17-0400 SaO2% (BldA) [Mass fraction] 100 % Dr. Lei Martínez Work Phone: [facility] Work Phone: 05-08-2022 13:17-0400 Systolic blood pressure 115 mm[Hg] Dr. Lei Martínez Work Phone: [facility] Work Phone: 05-03-2022 02:32-0400 Diastolic blood pressure 78 mm[Hg] Dr. Lei Martínez Work Phone: [facility] Work Phone: 05-03-2022 02:32-0400 Heart rate 86 /min Dr. Lei Martínez Work Phone: [facility] Work Phone: 05-03-2022 02:32-0400 Respiratory rate 15 /min Dr. Lei Martínez Work Phone: [facility] Work Phone: 05-03-2022 02:32-0400 SaO2% (BldA) [Mass fraction] 98 % Dr. Lei Martínez Work Phone: [facility] Work Phone: 05-03-2022 02:32-0400 Systolic blood pressure 122 mm[Hg] Dr. Lei Martínez Work Phone: [facility] Work Phone: 05-03-2022 00:29-0400 Body temperature 97.9 [degF] Dr. Lei Martínez Work Phone: [facility] Work Phone: 05-03-2022 00:27-0400 Body mass index (BMI) [Ratio] 22.6 kg/m2 Dr. Lei Martínez Work Phone: [facility] Work Phone: 05-03-2022 00:27-0400 Body weight 59.[address] Lei Martínez Work Phone: [facility] Work Phone: 05-02-2022 11:07-0400 Body mass index (BMI) [Ratio] 21.3 kg/m2 Dr. Lei Martínez Work Phone: [facility] Work Phone: 05-02-2022 11:07-0400 Body temperature 97.6 [degF] Dr. Lei Martínez Work Phone: [facility] Work Phone: 05-02-2022 11:07-0400 Body weight 56.[address] Lei Martínez Work Phone: [facility] Work Phone: 05-02-2022 11:07-0400 Diastolic blood pressure 58 mm[Hg] Dr. Lei Martínez Work Phone: [facility] Work Phone: 05-02-2022 11:07-0400 Heart rate 81 /min Dr. Lei Martínez Work Phone: [facility] Work Phone: 05-02-2022 11:07-0400 Respiratory rate 16 /min Dr. Lei Martínez Work Phone: [facility] Work Phone: 05-02-2022 11:07-0400 SaO2% (BldA) [Mass fraction] 98 % Dr. Lei Martínez Work Phone: [facility] Work Phone: 05-02-2022 11:07-0400 Systolic blood pressure 96 mm[Hg] Dr. Lei Martínez Work Phone: [facility] Work Phone: 04-20-2022 06:06-0400 Diastolic blood pressure 80 mm[Hg] Dr. Lei Martínez Work Phone: [facility] Work Phone: 04-20-2022 06:06-0400 Heart rate 79 /min Dr. Lei Martínez Work Phone: [facility] Work Phone: 04-20-2022 06:06-0400 Respiratory rate 18 /min Dr. Lei Martínez Work Phone: [facility] Work Phone: 04-20-2022 06:06-0400 SaO2% (BldA) [Mass fraction] 96 % Dr. Lei Martínez Work Phone: [facility] Work Phone: 04-20-2022 06:06-0400 Systolic blood pressure 124 mm[Hg] Dr. Lei Martínez Work Phone: [facility] Work Phone: 04-20-2022 05:12-0400 Body mass index (BMI) [Ratio] 22.4 kg/m2 Dr. Lei Martínez Work Phone: [facility] Work Phone: 04-20-2022 05:12-0400 Body temperature 98.5 [degF] Dr. Lei Martínez Work Phone: [facility] Work Phone: 04-20-2022 05:12-0400 Body weight 59.[address] Lei Martínez Work Phone: [facility] Work Phone: 03-23-2022 08:45-0400 Body height 162.[address] Lei Martínez Work Phone: [facility] Work Phone: 03-23-2022 08:45-0400 Body mass index (BMI) [Ratio] 21.8 kg/m2 Dr. Lei Martínez Work Phone: [facility] Work Phone: 03-23-2022 08:45-0400 Body temperature 97.4 [degF] Dr. Lei Martínez Work Phone: [facility] Work Phone: 03-23-2022 08:45-0400 Body weight 57.[address] Lei Martínez Work Phone: [facility] Work Phone: 03-23-2022 08:45-0400 Diastolic blood pressure 64 mm[Hg] Dr. Lei Martínez Work Phone: [facility] Work Phone: 03-23-2022 08:45-0400 Heart rate 82 /min Dr. Lei Martínez Work Phone: [facility] Work Phone: 03-23-2022 08:45-0400 Respiratory rate 18 /min Dr. Lei Martínez Work Phone: [facility] Work Phone: 03-23-2022 08:45-0400 SaO2% (BldA) [Mass fraction] 98 % Dr. Lei Martínez Work Phone: [facility] Work Phone: 03-23-2022 08:45-0400 Systolic blood pressure 108 mm[Hg] Dr. Lei Martínez Work Phone: [facility] Work Phone: 02-28-2022 07:09-0400 Body temperature 98.6 [degF] Dr. Lei Martínez Work Phone: [facility] Work Phone: 02-28-2022 07:09-0400 Diastolic blood pressure 80 mm[Hg] Dr. Lei Martínez Work Phone: [facility] Work Phone: 02-28-2022 07:09-0400 Heart rate 84 /min Dr. Lei Martínez Work Phone: [facility] Work Phone: 02-28-2022 07:09-0400 Respiratory rate 14 /min Dr. Lei Martínez Work Phone: [facility] Work Phone: 02-28-2022 07:09-0400 SaO2% (BldA) [Mass fraction] 99 % Dr. Lei Martínez Work Phone: [facility] Work Phone: 02-28-2022 07:09-0400 Systolic blood pressure 124 mm[Hg] Dr. Lei Martínez Work Phone: [facility] Work Phone: 02-22-2022 17:50-0400 Body height 162.[address] Lei Martínez Work Phone: [facility] Work Phone: 02-22-2022 17:50-0400 Body mass index (BMI) [Ratio] 21.8 kg/m2 Dr. Lei Martínez Work Phone: [facility] Work Phone: 02-22-2022 17:50-0400 Body temperature 98.4 [degF] Dr. Lei Martínez Work Phone: [facility] Work Phone: 02-22-2022 17:50-0400 Body weight 57.[address] Lei Martínez Work Phone: [facility] Work Phone: 02-22-2022 17:50-0400 Diastolic blood pressure 95 mm[Hg] Dr. Lei Martínez Work Phone: [facility] Work Phone: 02-22-2022 17:50-0400 Heart rate 106 /min Dr. Lei Martínez Work Phone: [facility] Work Phone: 02-22-2022 17:50-0400 Respiratory rate 16 /min Dr. Lei Martínez Work Phone: [facility] Work Phone: 02-22-2022 17:50-0400 Systolic blood pressure 123 mm[Hg] Dr. Lei Martínez Work Phone: [facility] Work Phone: 02-19-2022 10:06-0400 Body temperature 98.6 [degF] Dr. Lei Martínez Work Phone: [facility] Work Phone: 02-19-2022 10:06-0400 Diastolic blood pressure 72 mm[Hg] Dr. Lei Martínez Work Phone: [facility] Work Phone: 02-19-2022 10:06-0400 Heart rate 111 /min Dr. Lei Martínez Work Phone: [facility] Work Phone: 02-19-2022 10:06-0400 Respiratory rate 16 /min Dr. Lei Martínez Work Phone: [facility] Work Phone: 02-19-2022 10:06-0400 SaO2% (BldA) [Mass fraction] 99 % Dr. Lei Martínez Work Phone: [facility] Work Phone: 02-19-2022 10:06-0400 Systolic blood pressure 118 mm[Hg] Dr. Lei Martínez Work Phone: [facility] Work Phone: 12-25-2021 15:35-0400 Diastolic blood pressure 75 mm[Hg] Dr. Lei Martínez Work Phone: [facility] Work Phone: 12-25-2021 15:35-0400 SaO2% (BldA) [Mass fraction] 99 % Dr. Lei Martínez Work Phone: [facility] Work Phone: 12-25-2021 15:35-0400 Systolic blood pressure 117 mm[Hg] Dr. Lei Martínez Work Phone: [facility] Work Phone: 12-25-2021 14:40-0400 Heart rate 82 /min Dr. Lei Martínez Work Phone: [facility] Work Phone: 12-25-2021 14:40-0400 Respiratory rate 16 /min Dr. Lei Martínez Work Phone: [facility] Work Phone: 12-25-2021 12:32-0400 Body height 162.[address] Lei Martínez Work Phone: [facility] Work Phone: 12-25-2021 12:32-0400 Body mass index (BMI) [Ratio] 23.1 kg/m2 Dr. Lei Martínez Work Phone: [facility] Work Phone: 12-25-2021 12:32-0400 Body temperature 97.3 [degF] Dr. Lei Martínez Work Phone: [facility] Work Phone: 12-25-2021 12:32-0400 Body weight 61.[address] Lei Martínez Work Phone: [facility] Work Phone: 09-22-2021 08:59-0500 Body height 162.[address] Lei Martínez Work Phone: [facility] Work Phone: 09-22-2021 08:59-0500 Body mass index (BMI) [Ratio] 22.1 kg/m2 Dr. Lei Martínez Work Phone: [facility] Work Phone: 09-22-2021 08:59-0500 Body temperature 98.3 [degF] Dr. Lei Martínez Work Phone: [facility] Work Phone: 09-22-2021 08:59-0500 Body weight 58.[address] Lei Martínez Work Phone: [facility] Work Phone: 09-22-2021 08:59-0500 Diastolic blood pressure 76 mm[Hg] Dr. Lei Martínez Work Phone: [facility] Work Phone: 09-22-2021 08:59-0500 Heart rate 93 /min Dr. Lei Martínez Work Phone: [facility] Work Phone: 09-22-2021 08:59-0500 Respiratory rate 16 /min Dr. Lei Martínez Work Phone: [facility] Work Phone: 09-22-2021 08:59-0500 SaO2% (BldA) [Mass fraction] 98 % Dr. Lei Martínez Work Phone: [facility] Work Phone: 09-22-2021 08:59-0500 Systolic blood pressure 110 mm[Hg] Dr. Lei Martínez Work Phone: [facility] Work Phone: 08-18-2021 16:18-0500 Body temperature 97.9 [degF] Dr. Lei Martínez Work Phone: [facility] Work Phone: 08-18-2021 16:18-0500 Diastolic blood pressure 64 mm[Hg] Dr. Lei Martínez Work Phone: [facility] Work Phone: 08-18-2021 16:18-0500 Heart rate 114 /min Dr. Lei Martínez Work Phone: [facility] Work Phone: 08-18-2021 16:18-0500 Respiratory rate 15 /min Dr. Lei Martínez Work Phone: [facility] Work Phone: 08-18-2021 16:18-0500 SaO2% (BldA) [Mass fraction] 98 % Dr. Lei Martínez Work Phone: [facility] Work Phone: 08-18-2021 16:18-0500 Systolic blood pressure 110 mm[Hg] Dr. Lei Martínez Work Phone: [facility] Work Phone: 09-30-2019 08:48-0500 Body temperature 98.2 [degF] Celena Garcia MD Work Phone: [facility] Work Phone: 09-30-2019 08:48-0500 Diastolic blood pressure 88 mm[Hg] Celena Garcia MD Work Phone: [facility] Work Phone: 09-30-2019 08:48-0500 Heart rate 85 /min Celena Garcia MD Work Phone: [facility] Work Phone: 09-30-2019 08:48-0500 Respiratory rate 18 /min Celena Garcia MD Work Phone: [facility] Work Phone: 09-30-2019 08:48-0500 SaO2% (BldA) [Mass fraction] 98 % Celena Garcia MD Work Phone: [facility] Work Phone: 09-30-2019 08:48-0500 Systolic blood pressure 130 mm[Hg] Celena Garcia MD Work Phone: [facility] Work Phone: 09-25-2019 22:15-0500 Body height 162.6 cm Celena Garcia MD Work Phone: [facility] Work Phone: 09-25-2019 22:15-0500 Body mass index (BMI) [Ratio] 25.83 kg/m2 Celena Garcia MD Work Phone: [facility] Work Phone: 09-25-2019 22:15-0500 Body weight 68.27 kg Celena Garcia MD Work Phone: [facility] Work Phone: Encounters Encounter Date Encounter Type Care Provider Facility Start: 04-05-2025 End: 04-05-2025 ambulatory [facility] Facility:[facility] [place] Start: 04-05-2025 End: 04-05-[address] Michelle Díaz DO -[facility] Work Phone: Start: 03-09-2025 Non-patient / Non-visit Dr. Aicha melgar MD -[facility] Work Phone: Start: 02-16-2025 End: 02-16-[address] Lei Martínez MD Work Phone: [facility] Work Phone: Start: 02-16-2025 End: 02-16-[address] Aicha Maya MD -Ultrasound [facility] Work Phone: Start: 02-16-2025 End: 02-16-2025 ambulatory [facility] Facility:[facility] Start: 12-28-2024 End: 12-28-[address] Aicha Maya MD -Laboratory Specimen Work Phone: Start: 12-28-2024 End: 12-28-2024 ambulatory [facility] [facility] Start: 12-03-2024 End: 12-03-2024 Emergency department patient visit Dr. Lei Martínez MD Work Phone: -Emergency Department Work Phone: Start: 09-23-2024 End: 09-23-[address] La Nena Alcaraz MD -[place] [facility] Work Phone: Start: 09-23-2024 End: 09-23-2024 ambulatory [facility] Facility:[facility] Start: 09-01-2024 End: 09-01-[address] La Nena Alcaraz MD -[place] [facility] Work Phone: Start: 09-01-2024 End: 09-01-2024 ambulatory Efajongemerald Castanedae Facility:[facility] Start: 08-28-2024 End: 08-28-2024 Patient encounter procedure Sedrick JIANG -[place] [facility] Work Phone: Start: 08-28-2024 End: 08-28-2024 ambulatory Efongemerald Castanedae Facility:[facility] Start: 08-21-2024 Non-patient / Non-visit Dr. La Nena ascencio MD -[facility] Start: 08-21-2024 End: 08-21-2024 Admission to same day surgery center Dr. La Nena Alcaraz MD -[facility] Start: 08-21-2024 End: 08-21-2024 ambulatory [facility] Facility:[facility] Start: 08-11-2024 End: 08-11-[address] Lei Martínez MD -Outpatient Breast Imaging Work Phone: Start: 08-11-2024 End: 08-11-2024 ambulatory [facility] Facility:[facility] Start: 08-05-2024 End: 08-05-[address] La Nena Alcaraz MD -[place] [facility] Work Phone: Start: 08-05-2024 End: 08-05-2024 ambulatory Efajongbe Leonele Facility:[facility] Start: 07-29-2024 End: 07-29-2024 ambulatory Efewongbe Olesonale Facility:[facility] Start: 07-17-2024 End: 07-17-2024 ambulatory Efewongbe Leonele Facility:[facility] Start: 06-22-2024 End: 06-22-2024 Emergency department patient visit Kamran Kamara Facility:[facility] Start: 11-20-2023 End: 11-20-[address] Lei Martínez Work Phone: [facility] Work Phone: Start: 11-20-2023 End: 11-20-[address] Lei Martínez Work Phone: [facility] Work Phone: Start: 11-08-2023 End: 11-08-2023 Emergency department patient [facility]i [facility]nez [facility] Start: 11-07-2023 End: 11-07-[address] Lei Martínez Work Phone: [facility] Work Phone: Start: 10-11-2023 End: 10-11-2023 Emergency department patient visit DR ELIN PRUITT MD [facility] Start: 10-01-2023 End: 10-01-[address] Lei Martínez Work Phone: [facility] Work Phone: Start: 08-14-2023 End: 08-14-2023 ambulatory [facility] Work Phone: Start: 08-14-2023 End: 08-14-2023 Patient encounter procedure [facility]-Outpatient Breast Imaging Work Phone: Start: 10-27-2022 End: 10-27-2022 Emergency department patient visit Dr. Lei Martínez Work Phone: [facility]-Emergency Department Start: 10-26-2022 End: 10-26-2022 Emergency department patient visit Dr. Lei Martínez Work Phone: [facility]-Emergency Department Start: 09-15-2022 End: 09-15-[address] Lei Martínez Work Phone: [facility] Start: 09-10-2022 End: 09-10-[address] Lei Martínez Work Phone: [facility] Start: 08-01-2022 End: 08-01-[address] Lei Martínez Work Phone: [facility] Start: 05-31-[address] Lei Martínez Work Phone: [facility] Start: 05-08-2022 End: 05-08-2022 Emergency department patient visit Dr. Lei Martínez [facility] Start: 05-04-2022 End: 05-04-[address] Lei Martínez Work Phone: [facility] Work Phone: Start: 05-04-2022 End: 05-04-[address] Lei Martínez Work Phone: [facility] Start: 05-03-2022 End: 05-03-2022 Emergency department patient visit Dr. Lei Martínez [facility] Start: 05-02-2022 End: 05-02-[address] Lei Martínez Work Phone: [facility] Start: 04-20-2022 End: 04-20-2022 Emergency department patient visit Dr. Lei Martínez Work Phone: [facility]-Emergency Department Start: 04-13-2022 End: 04-13-[address] Lei Martínez Work Phone: [facility] Work Phone: Start: 04-13-2022 End: 04-13-[address] Lei Martínez Work Phone: [facility]-Physical Therapy Start: 04-13-[address] Jaswinder Gooden Phone: [facility]-Physical Therapy Start: 04-06-2022 End: 04-06-[address] Lei Gooden Phone: [facility]-Outpatient Breast Imaging Start: 04-03-2022 End: 04-03-[address] Le[facility] Gooden [facility] Start: 03-23-2022 End: 03-23-[address] Lei Gooden Phone: [facility] Start: 02-28-2022 End: 02-28-[address] Lei Gooden Phone: [facility] Start: 02-27-[address] Jaswinder Gooden Phone: [facility]-Physical Therapy Start: 02-22-2022 End: 02-22-2022 Emergency department patient visit Dr. Lei Gooden Phone: [facility]-Emergency Department Start: 02-19-2022 End: 02-19-[address] Lei Gooden Phone: [facility] Start: 01-29-[address] Jaswinder Gooden Phone: [facility]-Physical Therapy Start: 12-25-2021 End: 12-25-2021 Emergency department patient visit Dr. Lei Gooden Phone: [facility]-Emergency Department Start: 10-02-2021 End: 10-02-[address] Lei Gooden Phone: [facility]-Physical Therapy Start: 09-22-2021 End: 09-22-[address] Lei Martínez Work Phone: [facility]-Laboratory, [facility] Start: 08-18-2021 End: 08-18-[address] Lei Martínez Work Phone: [facility] Start: 02-19-2020 End: 02-19-2020 Subsequent hospital visit by physician Horace Farrell Work Phone: [facility] MRI Comment on above: Liver lesion; Focal nodular hyperplasia of liver; Hemangioma of liver Start: 09-25-2019 End: 09-30-2019 Evaluation and management of inpatient Celena Garcia MD Work Phone: [facility] Comment on above: Status post delivery (Primary Dx); S/P section Start: 06-07-2018 End: 06-07-2018 Emergency department patient visit ELIN PRUITT Facility:B Start: 02-23-2018 End: 02-23-2018 Emergency department patient visit GEETHA Friedman [facility] Facility:B Start: 09-23-2017 End: 09-23-2017 Emergency department patient visit [facility] Facility:B Start: 07-09-2017 End: 07-09-2017 Emergency department patient visit [facility] Facility:[facility] Procedures Date Procedure Procedure Detail Performing Clinician Start: 02-16-[address] Tawanda Martínez MD Work Phone: Start: 12-03-[address] Lei Martínez MD Work Phone: Start: 12-03-2024 Urnls dip stick/tabl et reagent auto microscopy Dr. Lei Martínez MD Work Phone: Start: 12-03-2024 CT of abdomen and pe lvis without contrast Dr. Lei Martínez MD Work Phone: Start: 08-11-2024 Bilateral mammography Mary Martínez MD Work Phone: Start: 08-11-[address] Lei Martínez MD Work Phone: Start: 08-14-2023 Screening mammography Start: 10-26-2022 Plain chest X-ray Dr. Tawanda Martínez Work Phone: Start: 05-31-[address] Tawanda Martínez Work Phone: Start: 05-04-2022 Computed tomography of abdomen and pelvis with contrast Dr. Lei Martínez Work Phone: Start: 05-03-2022 CT of abdomen and pe lvis without contrast Dr. Lei Martínez Work Phone: Start: 04-06-2022 Screening mammography Mary Martínez Work Phone: Start: 04-03-2022 MRI of abdomen with contrast Dr. Lei Martínez Work Phone: Start: 02-19-2020 Mri abdomen w/o & w/contrast material Horace Farrell Work Phone: Start: 02-19-2020 Blood count complete auto&auto difrntl wbc Horace Farrell Work Phone: Start: 02-19-2020 Comprehensive metabo lic panel Horace Farrell Work Phone: Start: 09-28-2019 Mri abdomen w/o & w/contrast material Nohemi Herrera MD Work Phone: Start: 09-28-2019 Alpha-fetoprotein serum Nohemi Herrera MD Work Phone: Start: 09-28-2019 Us abdominal real ti me w/image limited Rebecca Mcgill MD Work Phone: Start: 09-28-2019 Comprehensive metabo lic panel Kip Low MD Work Phone: Start: 09-27-2019 Assay of magnesium Gustavo derrell Low MD Work Phone: Start: 09-27-2019 ADD ON LAB TEST Suresh Freeman MD Work Phone: Start: 09-27-2019 Comprehensive metabo lic panel Suresh Freeman MD Work Phone: Start: 09-27-2019 Ecg routine ecg w/le ast 12 lds w/i&r Suresh Freeman MD Work Phone: Start: 09-26-2019 Blood count [...] Antibody screen Celena montez MD Work Phone: Comment on above: Test Performed by [facility], [address] [place] [address] Start: 09-25-2019 Blood typing serolog ic abo Jewel Marroquin MD Work Phone: Start: 09-25-2019 End: 09-25-2019 Comprehensive metabolic panel Jewel Marroquin MD Work Phone: Start: 06-04-2019 ABO, EXTERNAL RESULT Chaitanya Macias MD Start: 06-04-2019 C. TRACHOMATIS, EXTE RNAL RESULT Historical Provider Start: 06-04-2019 HEPATITIS B, EXTERNA L RESULT Historical Provider Start: 06-04-2019 HIV, EXTERNAL RESULT Chaitanya Macias MD Start: 06-04-2019 N. GONORRHOEAE, EXTE RNAL RESULT Historical Provider Start: 06-04-2019 RH FACTOR, EXTERNAL RESULT Historical Provider Start: 06-04-2019 RPR, EXTERNAL RESULT Chaitanya Macias MD Start: 06-04-2019 RUBELLA TITER, EXTER NAL RESULT Historical Provider H/O: section Status pos t delivery Celena Garcia MD Work Phone: Knee region structur e (body structure) DR ELIN PRUITT MD SARS-CoV-2 & FLU Ant igen (Rapid) Dr. Lei Martínez Work Phone: Urine culture Dr. Lei Martínez Work Phone: Plan of Treatment Date Care Activity Detail Author Start: 09-30-2029 DTaP/Tdap/Td vaccine (2 - Td) DTaP/Tdap/Td vaccine (2 - Td) [facility] Work Phone: Start: 08-21-2024 Excision tumor soft tiss face/scalp subq 2 cm/> EXC FACE LES SBQ 2 CM/> [facility] Start: 08-21-2024 Patient discharge [facility] Start: 08-11-2024 Digital breast tomosynthesis bilateral BREAST TOMOSYNTHESIS [facility] Start: 11-08-2023 [facility] Start: 10-27-2022 [facility] Start: 10-26-2022 [facility] Start: 05-08-2022 Urinalysis macro (dipstick) panel - Urine [facility] Work Phone: Start: 05-08-2022 Urine test [facility] Work Phone: Start: 05-08-2022 Urinalysis complete panel - Urine [facility] Work Phone: Start: 05-10-2020 Influenza vaccination Flu vacc ine (Season Ended) [place], [place] Start: 05-10-2019 Influenza vaccination Flu vaccine (# 1) [facility] Work Phone: Start: 2002 Cervical cancer screen Cervical canc er screen [facility] Work Phone: Start: 2002 Screening for malign ant neoplasm of cervix Cervical cancer screen [place], [place] Start: 1996 HIV screen HIV screen [facility] Work Phone: Start: 1996 HIV screening HIV screen [place], [place] Start: 1987 Pneumococcal 0-64 ye ars Vaccine (1 of 1 - PPSV23) Pneumococcal 0-64 years Vaccine (1 of 1 - PPSV23) [place], [place] Start: 1982 Varicella vaccine (1 of 2 - 2-dose childhood series) Varicella vaccine (1 of 2 - 2-dose childhood series) [employer] Work Phone: End: 02-19-2020 AFP Tumor Marker AFP Tumor Marker Lab Routine Liver lesion 1 Occurrences starting 02/19/2020 until 02/19/2020 [place], [place] Comment on above: 1 Occurrences starti ng 02/19/2020 until 02/19/2020 AFP Tumor Marker AFP Tumor Marke r Lab Routine Liver lesion 02/19/2020 11:42 AM EDT [place], [place] Incentive spirometry Incentive s pirometry Respiratory Care Routine Every 2hr while awake until discontinued starting 09/28/2019 [facility] Work Phone: Comment on above: Every 2hr while awak e until discontinued starting 09/28/2019 Initiate Oxygen Ther apy Protocol Initiate Oxygen Therapy Protocol Respiratory Care Routine Daily until discontinued starting 09/28/2019 [facility] Work Phone: Comment on above: Daily until disconti nued starting 09/28/2019 Liquid based cervica l cytology screening [facility] MG Breast - bilatera l Screening [facility] Work Phone: MR Abdomen WO contrast [facility] Work Phone: Patient Education [facility] Work Phone: Patient referral [facility] Work Phone: Immunizations Immunization Date Immunization Notes Care Provider Fa [facility] 09-30-2019 tetanus toxoid, reduced diphtheria toxoid, and acellular pertussis vaccine, adsorbed Celena Garcia MD Work Phone: [facility] 09-28-2019 diphtheria, tetanus toxoids and acellular pertussis vaccine, unspecified formulation Celena Garcia MD Work Phone: [facility] Work Phone: 09-28-2019 measles, mumps and rubella virus vaccine Celena Garcia MD Work Phone: [facility] Work Phone: NEGATED: Highlighted row has not occurred!09-30-2019 measles, mumps and rubella virus vaccine Celena Garcia MD Work Phone: [employer] Work Phone: Payers Date Payer Category Payer Medicaid [id number] 2019 Private Health Insurance [facility] xxxxxxxxx 2019-Present [phone] [address] [place] [address] xxxxxxxxx [id number] 2017 Self-pay Unknown [id number] Unknown [id number] Unknown [id number] 462 Unknown [id number] 462 Unknown [id number]. 462 Unknown [id number]. 462 Unknown [id number]. 462 Unknown [id number]. 462 Unknown [id number]. 462 Unknown [id number] 462 Unknown [id number]. 462 Unknown [id number] 462 Unknown [id number]. 462 Unknown [id number]. 462 Unknown [id number] 462 Social History Date Type Detail Facility Start: 02-05-2020 End: 04-05-2025 Tobacco smoking status NHIS Current every day smoker [facility] History of tobacco use Cigarette Smoker [place], [place] Start: 02-05-2020 Cigarettes smoked current (pack per day) - Reported [place] Start: 02-05-2020 Alcohol intake Ex-drinker (finding) [place], [place] Start: 02-05-2020 Alcohol Comment quit in year 2008 [place], [place] Sex Assigned At Not on file [facility] Work Phone: Start: 09-22-2021 End: 11-20-2023 Tobacco smoking status CTIS Unknown if ever smoked [facility] Start: 04-05-2019 Spouse/ Signif icant Other [facility] Start: 1980 Sex Assigned At Female [facility] Start: 10-11-2023 Tobacco smoking status Heavy tobacco smoker (finding) [facility] Sex Assigned At Sex [facility] Start: 12-03-2024 Sex Female (finding) [facility] NEGATED: Highlighted row [facility] Goals Date Patient Goal Desired Activity /State Functional Status Date Assessment Result Facility 10-11-2023 Functional Status Standard Safet y ID band on, Call device within reach, Bed in low position, Wheels locked, Upper/Half-Length side-rails up, Bedside Cart Locked, Safety level maintained [facility] Mental Status Date Assessment Result Facility 12-03-2024 Cognitive function Level Of Cons ciousness Awake;Alert;Appropriate;Follow s Commands [facility] Work Phone: 08-21-2024 Cognitive function Level Of Cons ciousness Awake;Alert;Appropriate;Follow s Commands [facility] Work Phone: 10-11-2023 Mental Status Orientation Oriented x [facility] 10-27-2022 Cognitive function Level Of Cons ciousness Awake;Alert;Appropriate [facility] Work Phone: Clinical Notes 09-29-2019 to 02-17-2025 Note Date & Type Note Facility 02-17-2025 Radiology Diagnostic study note [facility] Imaging Services [address] [place] [address] Pelvic (Non ) MR#: [id number] Acct: [id number] Name: MEG TROY Rep #: [id number] : 1980 F 44 From: Nate Mckay MD PCP: Dr. Lei Martínez MD Status: R EG CLI Study:Pelvic (Non ) Date of Exam: 02/16/25 Exam# [id number] Ordering Dr: Aicha Maya MD PROCEDURE: PELVIC (NON ) 02/16/2025 REASON FOR EXAM: ABNORMAL UTERINE AND VAGINAL BLEEDING, UNSPECIFIED TECHNIQUE: Transabdominal pelvic ultrasound COMPARISON: CT scan on 12/03/2024. FINDINGS: Uterus: Unremarkable measuring 8.8 x 5 x 3 cm. Endometrial Thickness: 2.1 mm Right Ovary: Unremarkable measuring 2.7 x 2 x 1.8 cm. Left Ovary: Unremarkable measuring 2.1 x 2.5 x 2.2 cm. Normal bilateral ovarian flow without evidence of ovarian torsion. No free fluid in the pelvic cul-de-sac. US/Pelvic (Non ) IMPRESSION: Unremarkable exam. Reading Location[facility] CC: Dr. Lei Martínez MD; Dr. Aicha Maya MD ~ Mechanical Fitter: Signed [facility] 12-03-2024 Discharge summary [facility] 12-03-2024 Radiology Diagnostic study note [facility] Imaging Services [address] [place] [address] Abdomen/Pelvis without Cont MR#: [id number] Acct: [id number] Name: MEG TROY Rep #: [id number] : 1980 F 44 From: Christine Kelsey MD PCP: Dr. Lei Martínez MD Status: R EG ER Study:Abdomen/Pelvis without Cont Date of Exa m: 12/03/24 Exam# [id number] Ordering Dr: Kayla Islas MD PROCEDURE: ABDOMEN/PELVIS WITHOUT CONT 12/03/2024 REASON FOR EXAM: PAIN TECHNIQUE: Abdomen and pelvis CT without intravenous contrast. Noncontrast technique limits evaluation of the abdominal and pelvic viscera. Coronal and Sagittal reconstruction series were provided. One or more dose reduction techniques were used (e.g., Automated exposure control, adjustment of the mA and/or kV according to patient size, use of iterative reconstruction technique). COMPARISON: 05/04/2022 FINDINGS: Lower chest: Unremarkable. Liver: Unremarkable. Biliary/gallbladder: Unremarkable. Pancreas: Unremarkable. Spleen: Unremarkable. Adrenal glands: Unremarkable. Kidneys: An intermediate density cyst at the upper pole of the left kidney appears similar to the prior exam measuring approximately 1 cm, possibly due to a proteinaceous cyst. A couple of additional cystic lesions also appear stable from the previous exam. No renal calculus or hydronephrosis is identified. Gastrointestinal/peritoneum: No acute abnormality.The appendix is unremarkable.No free air or free fluid. Vascular: Unremarkable. Lymph nodes: No enlarged lymph nodes by CT size criteria. Pelvic organs: Unremarkable. Bladder: Unremarkable. Bones: There is a chronic compression fracture at the superior endplate of L2. abenign appearing sclerotic lesion is present in the left iliac wing measuring 2.2 cm as well as a small bone island, both stablefrom the previous exam. Soft tissues: There is a small fat containing umbilical hernia measuring 1.[address]/Abdomen/Pelvis without Cont IMPRESSION: 1. No acute abnormality of the abdomen and pelvis. Reading Location[facility] CC: Dr. Lei Martínez MD; Dr. Marcell Islas MD ~ Mechanical Fitter: Signed [facility] 12-03-2024 Discharge summary Note Date/Time December 03, 2024 5:20pm [facility] Medical Records Department [address] [place] [address] Emergency Department Summary 12/03/24 MR#: [id number] Acct: [id number] Name: MEG TROY Rep #:[id number] : 1980 44 From: Marcell Islas MD PCP: Dr. Lei Martínez MD Status:R EG ER Location: ED HPI HPI - GI History of Present Illness Chief Complaint: Flank Pain Informant: patient Abdominal Pain/Flank Pain Onset: Days Context: Gradual Onset Timing: Continuous Quality: Sharp Location: See Diagram (Suprapubic abdominal pain radiating to both flanks.) Current Severity: Mild Maximum Severity: Moderate Worsened by: Nothing Relieved by: Nothing Nausea/Vomiting/Emesis GI Symptom: Positive for Nausea Onset: Days Severity: Mild Diarrhea/Melena/Hematochezia GI Symptom: Negative for Diarrhea, Melena or Hematochezia Associated Symptoms Associated Symptoms: Positive for Dysuria Narrative Narrative: 44-year-old female history of 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 States she has had lower pelvic pain suprapubic for the last 3 days. Radiates to both sides. Associatednausea. No vomiting or diarrhea. No constipation. Mild dysuria. No fever. Prior pain with UTI and/or kidney stone. The pain has been for 3 days and waxesand wanes. Nothing particular makes it better or worse. Prior similar symptoms: Yes Recent Illness/Hospitalization: No PFSH PFSH Medical History Skin lesion of scalp Breast pain, right Impetigo Pharyngitis Acute sinusitis, unspecified Left flank pain Hematuria UTI (urinary tract infection) Oral thrush Generalized anxiety disorder with panic attacks Focal nodular hyperplasia of liver Contact dermatitis due to poison [place] Contact dermatitis due to poison [place] Poison taylor Tobacco abuse Seasonal allergies Right knee pain Anxiety Weight loss Vision problems Tumors Polycystic ovarian disease Pancreatitis Kidney stones Recurrent infections Hives Chronic headaches GERD (gastroesophageal reflux disease) H/O emotional problems Chronic bronchitis Breast lump Back problem Asthma Allergies Home Medications ?Medication ?Instructions ?Recorded ?Last Taken ?Type Spacer #1 ea 07/17/24 Unknown Rx albuterol sulfate 90 mcg/actuation 2 puff inhalation Q 6H PRN 07/17/24 Unknown Rx aerosol inhaler bronchospasm #8.5 grams budesonide-formoterol HFA 160 2 puff inhalation BID #1 0.2 grams 07/17/24 08/21/24 Rx mcg-4.5 mcg/actuation aerosol inhaler (Symbicort) albuterol sulfate 2.5 mg/3 mL 2.5 mg (3 mL) inhalation Q4-6H PRN 08/31/24 Unknown Rx (0.083 %) solution for nebulization bronchospasm #30 m L nebulizer Machine / compressor #1 ea 10/23/24 Unknown Rx Allergy/AdvReac Type Severity Reaction Status Date / Time aloe vera Allergy Severe Rash Verified 12/03/24 15:00 aspirin (ASA) AdvReac Upset Verified 12/03/24 15:00 Stomach Family History Father Anemia Anxiety Arthritis Blood clot in vein Depression Diabetes Heart disease CVA (cerebral vascular accident) Kidney disease Mother Anxiety Asthma Arthritis Depression Hypertension Severe allergy Grandfather Arthritis Brain aneurysm Leukemia Grandmother Arthritis Hypertension CVA (cerebral vascular accident) Grandfather Arthritis Respiratory disease Grandmother Arthritis Kidney disease Surgical History history of salivary gland removal History of esophagogastroduodenoscopy (EGD) History of History of knee surgery History of needle biopsy Social History Smoking Status: Current every day smoker tobacco type: e-cigarettes how long ago did patient quit smoking: pt vapes alcohol intake: never substance use type: does not use what type of physical activity do you participate in: none additional social history: pt denies marijuana use, denies edibles, does use ibuprofen, does not use aspirin ROS ROS ED ROS Narrative Nausea. Suprapubic abdominal pain. Constitutional Constitutional ED: Denies chills or fever(s) ENT ENT ED: Denies ear pain Cardiovascular Cardiovascular: Denies chest pain Respiratory/Chest Respiratory/Chest: Denies cough or dyspnea Gastrointestinal Gastrointestinal: Reports abdominal pain and nausea; Denies constipation, diarrhea, melena or vomiting Genitourinary Genitourinary ED: Reports dysuria; Denies hematuria Musculoskeletal Musculoskeletal: Denies arthralgias or back pain Integumentary Denies abscess or Abrasions Neurologic Neurologic: Denies headache(s) Psychiatric Psychiatric: Denies anxiety Endocrine Endocrinology: Denies polydipsia Hematologic/Lymphatic Hematologic/Lymphatic: Denies easy bleeding Allergic/Immunologic Allergic/Immunologic ED: Denies mouth swelling, tongue swelling or urticaria EXAM Physical Exam Narrative Exam Narrative: Well-appearing 44-year-old female. Vital signs stable afebrile. H EENT exam pupils round react light. Moist with membranes. Neck nontender no lymphadenopathy. Lungs there to auscultation bilaterally. Heart regular rhythmno murmur. Chest wall ribs nontender. Back nontender. No CVA tenderness. No rashes. Abdomen is soft, nontender, nondistended, normal bowel sounds without peritoneal signs. No reproducible pain. No hernia or mass. No distention. Both the right upper and right lower quadrants are unremarkable. Moving all 4 extremities. Normal strength. Normal range of motion. She is awake and alert. Answering questions following commands. is present in the room. Const Vital Signs: 12/03/24 14:57 12/03/24 15:08 Temperature 97.7 F L 97.7 F L Temperature Source Oral Oral Pulse Rate 69 69 Respiratory Rate 15 15 Blood Pressure 118/91 H 118/91 H Blood Pressure Mean 100 100 Pulse Ox 100 100 Oxygen Delivery Method Room Air Room Air Positive well nourished and well developed; Negative for obese, cachectic, contractures or unkempt General Appearance ED: well developed and NAD; Negative for unkempt, cachectic, contractures or pallor Nutritional Appearance: Negative for cachectic or obese HEENT Reports moist mucous membranes normocephalic and atraumatic Eyes PERRL and EOMs intact bilaterally General Eye ED: Negative for pale conjunctiva or scleral icterus Neck no lymphadenopathy, supple and no JVD General: Negative for tenderness Carotids: Negative for other Resp normal respiratory effort and clear to auscultation bilaterally Effort and Inspection: Negative for respiratory distress Auscultation: Negative for rales, rhonchi or wheezes Cardio regular rate, regular rhythm, S1 normal heart sound, S2 normal heart sound and no murmurs Rate: Negative for bradycardia or tachycardic Rhythm: Negative for abnormal rhythm GI non-tender, non-distended and no masses Inspection: Negative for abdominal distention Auscultation: normoactive bowel sounds Palpation: soft; Negative for tender, guarding, rigid, hepatomegaly, splenomegaly, hernia, mass, pulsatile mass or rebound tenderness present Back/Spine no CVA tenderness General Back: Negative for CVA tenderness Cervical Spine: Negative for cervical spine tenderness Thoracic Spine / Upper Back: Negative for thoracic spinal tenderness Lumbar Spine / Lower Back: Negative for lumbar spinal tenderness Extremity full ROM General Extremety ED: Negative for edema or tenderness General Extremity: Negative for edema Neuro CN's II-XII intact bilaterally and moves all extremities Sensorium / Orientation: alert, oriented to person, oriented to place and oriented to time; Negative for orientation impaired, confused, lethargic or stuporous Motor Exam: strength 5/5 throughout Psych mental status grossly normal and thought process normal Appearance: Negative for unkempt Attitude: No agitated Mood & Affect: Negative for depressed, anxious or tearful Skin no wounds General Skin Exam: Negative for jaundice or pallor Lesions: no lesions and No lesion noted Rashes: no rashes Trauma: Negative for abrasion Nails: Negative for discolored MDM MDM MDM Narrative Medical decision making narrative: 44-year-old female with suprapubic abdominal pain that radiates to both flanks. Differential would include UTI, kidney stones, ovarian cyst. Clinically I do not think this is appendicitis. She has had a cholecystectomy. It is not a bowel obstruction clinically. UA and labs to be obtained. CT. Treated with Zofran for nausea. Morphine and Toradol for pain. Repeat exam patient is doing well at 5:16 PM. We went over her test results andher CAT scan. There is no specific cause for her pain. She be discharged home. Motrin and Tylenol for pain. She will follow-up with her primary care physician Dr. Martínez for further evaluation. History & Record Review Discussion w/independent historian: Patient Additional record(s) reviewed:: Prior inpatient record, Prior outpatient record,Prior ED visit and Prior labs Lab Data Attestation: I reviewed the patient's lab results. Lab results narrative: CBC shows white count 12.7. H&H 13 and 40. Platelets 324. Chemistries show a gap of 12. Normal BUN and creatinine. Glucose 95. Liver enzymes normal. Lipase 18. Serum test negative. UA shows 25 occult blood. No nitrites. 5-10 reds. No whites. 1+ bacteria. CT no acute abnormality. Labs: Laboratory Results - last 24 hr 12/03/24 12/03/24 15:18 15:43 WBC 12.7 H RBC 4.80 Hgb 13.7 Hct 40.8 MCV 85.0 MCH 28.5 MCHC 33.6 RDW Std Deviation 37.5 RDW Coeff of Alfonso 12.2 Plt Count 324 MPV 9.2 Immature Gran % (Auto) 0.500 Neut % (Auto) 77.7 H Lymph % (Auto) 13.8 L Clinch % (Auto) 6.5 Eos % (Auto) 1.2 Baso % (Auto) 0.3 Absolute Neuts (auto) 9.9 H Absolute Lymphs (auto) 1.75 Nucleated RBC % 0 Sodium 140 Potassium 3.6 Chloride 108 Carbon Dioxide 19.9 L Anion Gap 12 BUN 10 Creatinine 0.74 Estim Creat Clear Calc 84.65 Est GFR (MDRD) Non-Af 103 BUN/Creatinine Ratio 13.3 Glucose 95 Calcium 8.7 Total Bilirubin 0.63 AST 16 ALT 18 Alkaline Phosphatase 89 Total Protein 6.1 Albumin 4.0 Globulin 2.0 L Albumin/Globulin Ratio 2.0 Lipase 18 Serum , Qual NEGATIVE Urine Color Yellow Urine Clarity Sl Cldy Urine pH 7.0 Ur Specific [place] 1.010 Urine Protein 15 H Urine Glucose (UA) Normal Urine Ketones Negative Urine Occult Blood 25 H Urine Nitrite Negative Urine Bilirubin Negative Urine Urobilinogen Normal Ur Leukocyte Esterase Negative Urine RBC 5-10 SEEN Urine WBC 0-5 SEEN Ur Squamous Epith Cells 5-10 SEEN Urine Bacteria 1+ Urine Mucus 0 SEEN Radiography Diagnostic Testing: Clinical Impression(s) from Imaging Studies Abdomen/Pelvis CT 12/03/24 15:11 IMPRESSION: 1. No acute abnormality of the abdomen and pelvis. Reading Location: [facility] Discharge Plan Triage Chief Complaint: Flank Pain ED Provider: Marcell Islas Dx/Rx/DC Orders Clinical Impression: Pelvic pain Instructions: Abdominal Pain, ED Pelvic Pain, Unknown Cause Prescriptions: No Action albuterol sulfate 90 mcg/actuation HFA aerosol inhaler 2 puff inhalation Q6H PRN (Reason: bronchospasm) Qty: 8.5 1RF budesonide-formoterol [Symbicort] 160-4.5 mcg/actuation HFA aerosol inhaler 2 puff inhalation BID Qty: 10.2 2RF (DME) Spacer See Rx Instructions .Route .MEDSUPPLY Qty: 1 0RF Rx Instructions: As directed albuterol sulfate 2.5 mg /3 mL (0.083 %) solution for nebulization 2.5 mg inhalation Q4-6H PRN (Reason: bronchospasm) Qty: 30 0RF (DME) nebulizer Machine / compressor See Rx Instructions .Route .MEDSUPPLY Qty: 1 0RF Rx Instructions: As directed Primary Care Provider: Lei Martínez Referrals: Lei Martínez MD [Primary Care Provider] - 3-5 Days if not improving Activity Restrictions/Additional Instructions: Your blood work, urinalysis and CAT scan look good. No specific cause for your pain. Motrin and Tylenol for your pain. Follow-up with your doctor. They may need to do further testing such as a pelvic ultrasound. Print Language: Ghanaian Disposition Disposition: Home, Self Care What to do if you have Problems For any increased pain, shortness of breath, bleeding, nausea or vomiting, chestpain, or any unexpected problems, contact your Primary Care Provider. Call [facility] ([phone]) or report to the closest Emergency Room. Call 911 if necessary. 12/03/24 1720 <Electronically signed by Marcell Islas MD> Cosigner Signature (if applicable): CC: Dr. Lei Martínez MD ~ Signed [facility] Work Phone: 1(749) 691-531512-13-2024 [facility] Medical Records Department [address] [place] [address] History Physical Exam 08/21/24 1206 MR#: [id number] Acct: [id number] Name: MEG TROY Rep #: [id number] : 1980 43 From: La Nena Alcaraz MD PCP: Dr. Lei Martínez MD Status:[facility] Location: [place] [address] History and Physical Date of Admission: 08/21/24 The patient is examined and there are no changes from the H P dated 08/11/2024. She presents with a subcutaneous lump on her scalp. Informed consent was obtained for excision of the lump of the scalp with submission for pathologic evaluation. 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 Lei Martínez MD; Dr. La Nena Alcaraz MD [facility]11-27-2024 Evaluation note* Diagnosis Onset Date Resolution Status Admit Date 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 acute August 05, 2 024 11:32am 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 acute August 21, 024 11:14am Asthma chronic August 28, 2024 8:03am Trichilemmal cyst acute Decembe r 2023 11:05am Trichilemmal cyst acute September 23, 2024 2:24pm [facility] Work Phone: 1(223) 987-450602-02-2024 Hospital Discharge instructions Patient Education 10/11/2023 12:28:15 Dental Pain [...] or cold beverages. It can also be worsewhen you bite on hard foods. Pain may spread from the tooth to your ear or the area of the jaw on the same side. Home care Follow these tips when caring for yourself at home: Don't have hot and cold foods and drinks. Your tooth may be sensitive to changes in temperature. Use toothpaste made for sensitive teeth. [place] gently up and down instead of sideways. Brushing sideways can wear away root surfaces if they are exposed. If your tooth is chipped or cracked, or if there is a large open cavity, put oil of cloves directlyon the tooth to relieve pain. You can buy oil of cloves at drugstores. Some pharmacies carry an kiic-fzl-mngwsyc toothache kit. This contains a paste that you can put on the exposed tooth to make it less sensitive. Put a cold pack on your jaw over the sore area to help reduce pain. You may use uube-ysc-ysvzrbb medicine to ease pain, unless your doctor prescribed another medicine.If you have chronic liver or kidney disease, [...] healthcare provider Pus drains from the tooth [phone] [employer]. [address] [place] [address]. All rights reserved. This information is not intended as a substitute for professional medical care. Always follow yourhealthcare professional's instructions. Follow Up Care 10/11/2023 12:12:25 With:LEI MARTÍNEZ Address: [address] [place] [phone] Business (1) When:2-4 days Comments:Follow-up closely with your dentist, return if any worsening or concerning symptoms. [facility] 02-02-2024 Note Discharge Instructions Thank you for allowing [facility] to assist you with your healthcare needs. The following is importantdischarge information regarding your hospital visit. Diagnosis from Today's Visit Mouth pain Pain, dental What to Do Next Instructions from Your Care Team No qualifying data available. Post Acute Orders No qualifying data available. You Need to Schedule the Following Appointments Follow Up with LEI MARTÍNEZ When Within 2-4 days Why: Follow-up closely with your dentist, return if any worsening or concerning symptoms. Where: [address] [place] [address] [phone] Business (1) Allergies aloe vera topical (Hives) aspirin Medications Please ask your primary doctor or pharmacist before taking any other medication not listed, including over the counter drugs, herbal medications, vitamins and or supplements as they may interact withyour home medications. Please take this list to [...] or cold beverages. It can also be worsewhen you bite on hard foods. Pain may spread from the tooth to your ear or the area of the jaw on the same side. Home care Follow these tips when caring for yourself at home: Don't have hot and cold foods and drinks. Your tooth may be sensitive to changes in temperature. Use toothpaste made for sensitive teeth. [place] gently up and down instead of sideways. Brushing sideways can wear away root surfaces if they are exposed. If your tooth is chipped or cracked, or if there is a large open cavity, put oil of cloves directlyon the tooth to relieve pain. You can buy oil of cloves at drugstores. Some pharmacies carry an ymem-fwt-glkjoal toothache kit. This contains a paste that you can put on the exposed tooth to make it less sensitive. Put a cold pack on your jaw over the sore area to help reduce pain. You may use mjfv-qcl-hvxuyvy medicine to ease pain, unless your doctor prescribed another medicine.If you have chronic liver or kidney disease, [...] healthcare provider Pus drains from the tooth [phone] [employer]. [address] [place] [address]. All rights reserved. This information is not intended as a substitute for professional medical care. Always follow yourhealthcare professional's instructions. Additional Information VACCINATE! IT SAVES LIVES! Members of the community who have not yet received the COVID-19 vaccine and would like to receive it can visit one of [facility] vaccine clinics. There are many vaccine clinic locations within the [facility]. For locations and available times, please visit www.gettheshot.coronavirus.[place].gov/. It is important to note that some COVID mobile vaccine clinics are held outdoors and may be canceled in rainy or stormy conditions. To learn more about pediatric vaccinations (ages 5-11), we invite you to visit the [facility] webpage. https://www.[facility].org/pages/6209-Fdfoh-Laqsatwixoy-Vrytbijztn-Dalok-Idu stions.htmlTo learn more about the COVID-19 vaccine, we invite you to visit the CDC website for a list of frequently asked questions. https://www.cdc.gov/coronavirus/2019-ncov/vaccines/faq.html [facility] Patient Portal Access Instructions: Stay connected with your healthcare team and access your personal medical information anytime with the [facility] Patient Portal. If you would like a full copy of your medical records please contact the [facility] Medical Records Department Saturday through Saturday between 8a.m. and 4:30p.m. Please follow the directions below to access the portal: 1.Access the email account you provided upon registration to the [facility].2.Look for an invitation email from [facility].3.Open the email and access the invitation link: Accept Invitation to [employer]4.Fill in the required avery to create your account. Sign into [email or web address] with your username and password that you [...] you will allow to register on the [facility] Patient Portal for access to your information. You can also access the [facility] Patient Portal on the [employer]. Simply click on Health Records under Asia Translate and then click on the [email or web address] logo. HOW TO SAFELY DISPOSE OF PRESCRIPTION MEDICATIONS Please use one of the following methods to safely dispose of your unused medications. 1.Use a drug disposal kit: the drug disposal pouch allows you to safely discard your old and unuseddrugs. Ask your nurse to give you one when you are discharged.2.Visit a local take-back location: Many local pharmacies and police departments have programs that collect old and unwanted prescriptiondrugs. Call your local pharmacy or go to http://EXTRABANCA.AdExtent/9L4Jq1m to find one close to you.3.Make use of household items: Use cat litter or old coffee grounds to dispose medications if other options arenot available. Mix your drugs with these household products, seal them in an airtight container andthrow it into the garbage. Call [facility]: [phone] to be sure your drugs can be [...] drowsiness, such as benzodiazepines, also known as benzos,including diazepam and alprazolam, muscle relaxants or sleep aids. Never sell or share prescriptionopioids. This is illegal. Store opioids in a secure place and out of reach of others (including children, family, friends and visitors). The last page(s) of this document has been signed and retained as a CHART COPY Signatures Patient Education Materials Dental Pain Medication Leaflets My discharge plan and instructions have been reviewed and explained to me and I,MEG TROY understand my current condition and have read and understand these discharge instructions. I have receiveda written copy of the plan/instructions. If I have questions, I am aware that I should contact my do ctor. Patient/Rouge Presser Signature: Date/Time: Relationship to Patient: Witness Name/Signature: Date/Time: [facility]02-18-[address] Islas [facility] October 27, 2022 2:49pm Note Date/Time October 27, 2022 1:09pm [facility] Medical Records Department [address] [place] [address] Emergency Department Summary 10/27/22 MR#: [id number] Acct: [id number] Name: MEG TROY Rep #:[id number] : 1980 41 From: Marcell Islas MD PCP: Dr. Lei Martínez MD Status:R EG ER Location: ED HPI HPI - URI History of Present Illness Chief Complaint: Other, Pain/Inj Detail of Chief Complaint: Complaining of bilateral flank pain. Diagnosed with COVID yesterday. Informant: patient Onset/Context/Timing Onset: Days Context: Gradual Onset Timing: Continuous Current Severity: Moderate Maximum Severity: Moderate Associated Symptoms Associated Symptoms: Positive for Nausea, Vomiting and Diarrhea Narrative Narrative: 41-year-old female history of anxiety and kidney stones. Was seen and treated yesterday in this emergency department for nausea vomiting diarrhea. Was diagnosed with COVID. She states she just cannot take the flank pain she is having now. She developed bilateral flank pain. Said the nausea and vomiting is much better since she was treated with Zofran yesterday. She denies any dysuria or hematuria. Prior similar symptoms: No Recent Illness/Hospitalization: No ROS ROS ED ROS Narrative Nausea and vomiting resolved. Flank pain. URI symptoms. Review of Systems ROS Unobtainable: Denies due to encephalopathy Constitutional Constitutional ED: Reports chills and fever(s) Eyes Eyes: Denies blurry vision ENT ENT ED: Denies ear pain Cardiovascular Cardiovascular: Denies chest pain Respiratory/Chest Respiratory/Chest: Reports cough Gastrointestinal Gastrointestinal: Reports nausea and vomiting; Denies abdominal pain Genitourinary Genitourinary ED: Denies dysuria or hematuria Musculoskeletal Musculoskeletal: Reports back pain; Denies arthralgias Integumentary Denies abscess Neurologic Neurologic: Denies headache(s) Psychiatric Psychiatric: Denies anxiety Endocrine Endocrinology: Denies cold intolerance Hematologic/Lymphatic Hematologic/Lymphatic: Denies easy bleeding Allergic/Immunologic Allergic/Immunologic ED: Denies mouth swelling or tongue swelling PFSH PFS Medical History Allergies Anxiety Asthma Back problem Breast lump Chronic bronchitis Chronic headaches Contact dermatitis due to [place] Contact dermatitis due to [place] Focal nodular hyperplasia of liver Generalized anxiety disorder with panic attacks GERD (gastroesophageal reflux disease) H/O emotional problems Hematuria Hives Kidney stones Left flank pain Oral thrush Pancreatitis Poison t[place] Polycystic ovarian disease Recurrent infections Right knee pain Seasonal allergies Tobacco abuse Tumors UTI (urinary tract infection) Vision problems Weight loss Home Medications nirmatrelvir 300 mg (150 mg x2)-ritonavir 100 mg tablet,dose pack(EUA) (Paxlovid) See Rx Instructions PO .COMPLEX #30 tabs 10/26/22 [Rx Last Taken Unknown] ondansetron 4 mg disintegrating tablet 4 mg PO Q8H PRN PRN Nausea #10 tabs 10/26/22 [Rx Last Taken Unknown] Allergy/AdvReac Type Severity Reaction Status Date / Time aloe vera Allergy Rash Verified 10/27/22 12:45 aspirin [ASA] AdvReac Upset Verified 10/27/22 12:45 Stomach Family History Father Anemia Anxiety Arthritis Blood clot in vein Depression Diabetes Heart disease CVA (cerebral vascular accident) Kidney disease Mother Anxiety Asthma Arthritis Depression Hypertension Severe allergy Grandfather Arthritis Brain aneurysm Leukemia Grandmother Arthritis Hypertension CVA (cerebral vascular accident) Grandfather Arthritis Respiratory disease Grandmother Arthritis Kidney disease Surgical History History of History of esophagogastroduodenoscopy (EGD) History of knee surgery History of needle biopsy history of salivary gland removal Social History Smoking Status: Current every day smoker tobacco type: cigarettes alcohol intake: never substance use type: does not use what type of physical activity do you participate in: none EXAM Physical Exam Narrative Exam Narrative: 41-year-old female no acute distress. Complaining of pain. Vital signs are stable and afebrile. Pulse ox 90% on room air no hypoxia. She does not look septic. She does not look toxic. Does not look severely dehydrated. H EENT exam mild dry mucous membranes. Neck nontender no lymphadenopathy. No meningismus. Lungs clear to auscultation bilaterally. Heart tachycardic rate of 105 no murmur. Chest wall nontender. Abdomen soft, nontender, nondistended, normal bowel sounds no peritoneal signs. No signs of obstruction. Back she has bilateral flank tenderness. There is no signs of trauma. Spines nontender. Moving all 4 extremities. Nontender without edema. Neurologically she is awake and alert. Const Vital Signs: 10/27/22 12:36 Temperature 98.9 F Temperature Source Temporal Pulse Rate 106 H Respiratory Rate 22 H Blood Pressure 122/85 H Blood Pressure Mean 97 Pulse Ox 98 Oxygen Delivery Method Room Air Positive well nourished and well developed General Appearance ED: well developed; Negative for pallor HEENT Reports dry mucous membranes; Denies moist mucous membranes normocephalic and atraumatic Face and Sinus: Negative for sinus tenderness Mouth ED: Yes dry mucous membranes Mouth: dry mucous membranes Teeth and Gingiva: Negative for caries Throat: posterior oropharynx normal Eyes PERRL and EOMs intact bilaterally General Eye ED: Negative for pale conjunctiva or scleral icterus Neck no lymphadenopathy, supple, no meningeal signs and no JVD General: Negative for anterior neck swelling or lymphadenopathy Resp normal respiratory effort and clear to auscultation bilaterally Effort and Inspection: Negative for retractions Auscultation: Negative for rales, rhonchi or wheezes Cardio S1 normal heart sound, S2 normal heart sound and no murmurs Rate: tachycardic Rhythm: regular rhythm GI non-tender, non-distended and no masses Inspection: Negative for abdominal distention Auscultation: normoactive bowel sounds Palpation: soft; Negative for tender or guarding Back/Spine no CVA tenderness and normal ROM Back/Spine Narrative: Bilateral flank pain. No signs of trauma. General Back: Negative for CVA tenderness Cervical Spine: Negative for cervical spine tenderness Thoracic Spine / Upper Back: Negative for thoracic spinal tenderness Lumbar Spine / Lower Back: Negative for lumbar spinal tenderness Sacrum: Negative for tenderness Extremity normal to inspection and full ROM General Extremety ED: Yes cyanosis; Negative for tenderness General Extremity: cyanosis Neuro oriented x3, CN's II-XII intact bilaterally and no sensory deficits noted Sensorium / Orientation: alert, oriented to person, oriented to place and oriented to time Sensory Exam: No sensory level loss detected Motor Exam: strength 5/5 throughout Psych mental status grossly normal Appearance: Negative for other Attitude: No agitated Mood & Affect: Negative for depressed, anxious or tearful Skin General Skin Exam: Negative for jaundice or pallor Lesions: no lesions Rashes: no rashes MDM MDM MDM Narrative Medical decision making narrative: 41-year-old female COVID complaining of body aches primarily flank pain. I think this is primarily from the COVID. However I will obtain a urinalysis and screening labs. Treated with IV Toradol. Repeat exam at 2:00 and 2:45 PM. Patient is doing well. Improved after IV fluids and IV Toradol. She and I went over her labs. They are unremarkable no significant change from yesterday. Her urinalysis is negative. She does not need any imaging. She does not need a CAT scan because she has normal kidney function and no signs of infection. Patient is comfortable being discharged home. Her abdomen is benign. A repeat exam she clinically looks improved. She has Zofran at home for nausea. She will use Tylenol and Motrin for the body aches. Follow-up as needed. Return if worse. Lab Data Attestation: I reviewed the patient's lab results. Lab results narrative: CBC shows a white count 3.3. H&H 13.9 and 41. Platelets 249. No significant change from prior labs from yesterday. Electrolytes show potassium 3.4 gap is 7 normal BUN 10 creatinine 0.82 liver enzymes are unremarkable. Again no significant change from Labs reviewed from yesterday. Urinalysis negative for any signs of infection. Is occult blood on the macroscopic but no white or red cells or bacteria nor nitrates on the microscopic. Labs: Laboratory Results - last 24 hr 10/27/22 10/27/22 10/27/22 13:20 13:20 14:10 WBC 3.3 L RBC 4.86 Hgb 13.9 Hct 41.8 MCV 86.0 MCH 28.6 MCHC 33.3 RDW Std Deviation 41.9 RDW Coeff of Alfonso 13.4 Plt Count 249 MPV 9.3 Immature Gran % (Auto) 0.300 Neut % (Auto) 74.3 H Lymph % (Auto) 9.4 L Clinch % (Auto) 15.4 H Eos % (Auto) 0.3 Baso % (Auto) 0.3 Absolute Neuts (auto) 2.5 Absolute Lymphs (auto) 0.31 L Nucleated RBC % 0 Diff Path Review May foll Sodium 142 Potassium 3.4 L Chloride 111 H Carbon Dioxide 24.0 Anion Gap 7 BUN 10 Creatinine 0.82 Estim Creat Clear Calc 78.36 Est GFR (MDRD) Af Amer 100 Est GFR (MDRD) Non-Af 82 BUN/Creatinine Ratio 12.3 Glucose 95 Calcium 8.4 L Total Bilirubin 0.60 AST 13 L ALT 23 Alkaline Phosphatase 75 Total Protein 7.1 Albumin 3.8 Globulin 3.3 Albumin/Globulin Ratio 1.2 Urine Color Yellow Urine Clarity Clear Urine pH 6.5 Ur Specific [place] 1.015 Urine Protein 15 H Urine Glucose (UA) Normal Urine Ketones 15 H Urine Occult Blood 150 H Urine Nitrite Negative Urine Bilirubin Negative Urine Urobilinogen Normal Ur Leukocyte Esterase 25 H Urine RBC 0 SEEN Urine WBC 0-5 SEEN Ur Squamous Epith Cells 0-5 SEEN Urine Bacteria 0 SEEN Urine Mucus 0 SEEN Discharge Plan Triage Chief Complaint: Other, Pain/Inj ED Provider: Marcell Islas Dx/Rx/DC Orders Clinical Impression: COVID, Bilateral flank pain, History of renal calculi Instructions: Human Coronaviruses Prescriptions: No Action Paxlovid (EUA) 300 mg (150 mg x 2)-100 mg tablets,dose pack See Rx Instructions .ROUTE .COMPLEX Qty: 30 0RF Rx Instructions: take TWO 150 mg tablets of nirmatrelvir with ONE 100 mg tablet of ritonavir twice daily for 5 days ondansetron [ondansetron] 4 mg tablet,disintegrating 4 mg PO Q8H PRN PRN (Reason: Nausea) Qty: 10 0RF Primary Care Provider: Lei Martínez Referrals: Lei Martínez MD [Primary Care Provider] - 1 Week if not improving Activity Restrictions/Additional Instructions: Plenty of fluids and rest. Zofran that you have at home as needed for nausea. Tylenol 3-4 times a day. Motrin 3-4 times a day as needed. You may alternate every 2-3 hours. Follow-up with your doctor if not improving. Your labs today were unremarkable. No significant change from yesterday. Your urine showed no signs of infection. Disposition Disposition: Home, Self Care What to do if you have Problems For any increased pain, shortness of breath, bleeding, nausea or vomiting, chestpain, or any unexpected problems, contact your Primary Care Provider. Call [facility] ([phone]) or report to the closest Emergency Room. Call 911 if necessary. 10/27/22 1449 <Electronically signed by Marcell Islas MD> Cosigner Signature (if applicable): CC: Dr. Lei Martínez MD ~ Signed [facility] Work Phone: [phone] Hospital Discharge instructions Additional Instructions Plenty of fluids and rest. Zofran that you have at home as needed for nausea. Tylenol 3-4 times a day. Motrin 3-4 times a day as needed. You may alternate every 2-3 hours. Follow-up with your doctor if not improving. Your labs today were unremarkable. No significant change from yesterday. Your urine showed no signs of infection.[facility] Work Phone: [phone] 303-483301-22-2020 History of Present illness Narrative* Luisa Doran IBCLC - 09/30/2019 10:20 AM EST Pt states baby is nursing well and [...] after dc. Informed of bf center in [place]. Verbalizes understanding. * Caitlin France DO - 09/30/2019 6:08 AM EST POST DAY # 3 Meg Troy is a 38 y.o. female This [...] NEG NA Final Comment: Test Performed by [facility], [address] [place] [id number] No results found for: RUBELLAIGG Assessment/Plan: 1. Meg Troy is a POD # 3 s/p pLTCS 2/2 Failed Induction - Doing well, VSS - female - Encourage ambulation and use of incentive spirometer - D/C cruz catheter and saline lock IV on POD [...] - EKG ordered intrapartum - reviewed with heater helper; no actue intervention at this time ; electrolytes wnl 5. Bottle feeding 6. Contraception:per private attending 7. VTE Prophylaxis: Not Indicate 8. Anticipate discharge today per private attending's discretion pending bps remain stable Provider's Name: MD Caitlin Hdz DO 09/30/2019, 6:08 AM * Luisa Doran IBCLC - 09/29/2019 11:44 AM EST Pt instructed to pump and dumb d/t MRI today for 24 hours. Her baby is [id number], she is bf , pumping and offering sayda when permitted. Reviewed pump regimen, settings, flange fit and breast milk storage guidelines. Questions answered about settings. Pt states baby is latching well with bf and she denies need for assistance. Pt has her own personal use pump at home, questions answered about storage containers for the freezer. Reviewed feeding cues, I&O, late infant and .Denies further questions at this time. Bf mother's groups encouraged. * Nina Howe PA-C - 09/29/2019 8:38 AM EST Department of Internal Medicine Gastroenterology Attending Progress [...] mL, 0.5 mL, Subcutaneous, Prior to discharge Glyzqbf-Irefbq-Siwhv Pertussis (BOOSTRIX) injection 0.5 mL, 0.5 mL, [...] GENERAL: Pleasant and NAD, sitting up holding HEENT: NCAT, PERRLA, EOMI, Scleral anicteric. Oropharhynx [...] resulting in PLAN - Obtain records from [facility] - AFP pending - Patient will need close f/u with PCP and GI clinic. Patient will contact own GI physician or callour GI clinic at [phone] to make f/u appointment as soon as patient is d/c'ed home. Patient voiced understanding and agreed of this recommendation. The GI/Liver consult service will sign off. Please call if there are any questions, concerns or change of patient's GI condition. Thanks. * Meghan Feliz DO - 09/29/2019 6:09 AM EST POST DAY # 2 Meg Troy is a 38 y.o. female This [...] blurred vision and peripheral edema. She is ambulatingwell. Flatus present. Bowel movement absent. Voiding without difficulty yes. She is tolerating solids. Pain is controlled yes. Vital Signs: Vitals: 09/28/19 1239 09/28/19 1607 09/28/19202209/29/19 0015 BP: 122/80 135/89 119/72 126/80 Pulse: [...] NEG NA Final Comment: Test Performed by [facility], [address] [place] [id number] No results found for: RUBELLAIGG LABOR DELIVERY [...] FVL+Prothrombin (heterozygous), Antithrombin III, APLS Assessment/Plan: 1. Meg Troy is a POD # 2 s/p PLTCS 2/2 failed Induction - Doing well, VSS - female , - Encourage ambulation and use of incentive spirometer - D/C cruz catheter and saline lock IV on POD [...] - EKG ordered intrapartum - reviewed with heater helper; no actue intervention at this time recommended checking electrolytes - CMP with mild hyponatremia otherwise wnl 5. Bottle feeding 6. Contraception:per private attending 7. VTE Prophylaxis: Not Indicated 8. Continue current care Provider's Name: MD Caitlin Hdz, 09/29/2019, 6:09 AM ATTENDING NOTE: I personally [...] time was spent counseling and coordinating care. * Ayleen Reed RN - 09/28/2019 4:10 PM EST Patient to MRI with transport and [place] Nena RN @ 1610. * Ayleen Reed RN - 09/28/2019 4:[address] Herrera to see patient @ 1604 to discuss order for MRI * Debbie Ceron IBCLC - 09/28/2019 1:26 PM EST Shown section of Taking Care of Yourself and Baby booklet.Reviewed: hunger cues, feeding frequency, output parameters, breast engorgement, hand expression, contact information, and bfmothers group. Encouraged patient to call for assistance prn. Patient verbalized understanding. * Bruna Asencio IBCLC - 09/28/2019 9:30 AM EST Discussed bf with pt. Infant has not latched to the breast yet. Infant was fed in the nursery for alow blood sugar. Discussed bf with pt. Pt states she will bf. Discussed use of the breast pump as pt will be bf and pumping. Pt called to receive her personal use breast pump. Enc pt to call for assistance with pumping when her breast pump is available. * Brinda Lantigua RN - 09/28/2019 7:00 AM EST Patient taken via transporter to ultrasound at this time. Baby taken to nursery. Per mom it is okayto feed formula while she is at ultrasound if infant is hungry. Sylvia RN updated on POC and is aware patient will need nicoderm patch when back from ultrasound. * Celena Garcia MD - 09/28/2019 6:20 AM EST POST DAY # 1 Meg Troy is a 38 y.o. female This patient was seen & examined today. Her was complicated by: Patient Active Problem List Diagnosis Labor and delivery, indication for care Arrest of dilation, delivered, current hospitalization Abnormal heart rate complicating Today she is doing well without any chief complaint. Her lochia is moderate. She denies chest pain,shortness of breath, headache, lightheadedness and blurred vision. She is ambulating well. Flatus absent. Bowel movement absent. Cruz catheter still in place . She is tolerating solids. Pain is controlled yes. Vital Signs: Vitals: 09/27/19 2330 09/27/19 2345 09/28/19 0120 09/28/19 0549 BP: 131/77 (!) 140/72 (!) 148/92 123/82 Pulse: 108 110 109 108 Resp: 16 18 18 Temp: 98.4 F (36.9 C) 98.4 [...] NEG NA Final Comment: Test Performed by [facility], [address] [place] [id number] No results found for: RUBELLAIGG LABOR DELIVERY [...] FVL+Prothrombin (heterozygous), Antithrombin III, APLS Assessment/Plan: 1. Meg Troy is a POD # 1 s/p pLTCS 2/2 Failed Induction - Doing well, VSS - female infant, - Encourage ambulation and use of incentive spirometer - D/C cruz catheter and saline lock IV on POD [...] - EKG ordered intrapartum - reviewed with heater helper; no actue intervention at this time recommended checking electrolytes - Cmp ordered for AM pending 6. Contraception:per private attending 7. VTE Prophylaxis: Not Indicated 8. Continue current care Provider's Name: MD Caitlin Hdz, DO 09/28/2019, 6:20 AM MFM I reviewed and agree with the care provided by the resident including the patient's medical history, the resident's findings in the physical exam, patient's diagnosis and treatment plan. She is currently , desires progesterone only OCP for contraception. BP all mild range currently androutine cares. Await formal consultation from GI regarding plan for liver tumors. Brinda Brandon RN - 09/28/2019 6:00 AM EST Assisted patient in getting up to bathroom at this time and performing boni care. Patient toleratedwell. Bleeding is scant, no clots present. Cruz remains in place at this time. Encouraged patient to ask for staff assistance when getting out of bed while she still has cruz in and IV running. No needs voiced currently, call light within reach. Brinda Edwards RN - 09/28/2019 1:30 AM EST Pt received from L&D. Pt oriented to room and call light. Admission packet, It's My Health folder and A Guide To Caring for Yourself and Baby reviewed. Pt understands she is not to get out ofbed without staff assistance later this morning around 0600. Reviewed intake parameters with patient while she is on magnesium and pitocin. Call light is within reach. Pt has no further questions at this time. Keenan Baxter MD - 09/27/2019 9:21 PM EST Reviewed patient's labor course. Cervix 7 cm dilated with swelling, -1 station. +bloody urine. Contractions inadequate despite decreased magnesim dose and max pit dose. Multiple position changes wereutilized. Membranes were ruptured 20 hours ago. Cat 2 heart rate tracing with minimal variability, occasional accelerations, and no decelerations. Given arrest of dilation for 4 hours and fetalheart rate tracing category 2 remote from delivery [...] nurse, and anesthesia present. NICU was notified. * Jocelyn Tucker MD - 09/27/2019 5:17 PM EST Patient checked at now 6-7/80/-1, feels like baby is LOP. Pitocin at 30 mu/min, MVUs 150-186 over past few hours, but has changed since last check. Some bloody show also. Periods of minimal variability, but no decels in last hour, and +scalp stim/15X15 accel with check. Discussed labor not adequatebut at limits of pitocin and magnesium likely making this harder to achieve, however cervix is changing and is now hopefully transitioning into a more rapid active labor. Given OP positioning, we discussed trying knee chest positioning and patient is agreeable to trying, nursing staff in to help move patient. Will continue to monitor. * Noemi Dunbar DTR - 09/27/2019 3:09 PM EST Nutrition rescreen completed. Chart reviewed. Patient here for induction. Patient to be monitored and followed by the diet building energy retrofit technician. Dietitian available upon request. * Kip Low MD - 09/26/2019 12:42 AM EST Cx:50/-3 FHT: Cat I [place]: none A/P: 1. IOL - PreEwSF - 60 cc FB placed at this note time with cytotec. BP continues to be mild range. Asymptotic, Magnesium for seizure prophylaxis. UO 300/2hrs deferred, FB in place. Now past 4h. Ctx 2 min, will start low dose pitocin when contractions decrease in frequency. Intermittent mild range BPs. PreE labs wnl at 0400. Will continue to trend q6h.Magnesium running for seizure ppx. CCM Cx:defer FHP:defer FHT: Cat I [place]:q2-3min A/P: 1. IOL-PreEwSF FB still in place at this time. Blood pressures mild range since last note time UOP 600 cc over last 4 hours. Patient concerned about increased heart rate. Heart rate 110s. She is asymptomatic. Also feeling some epigastric pain and states it is no different than her usual liver pain. States grasshopper shewas given last night helped the pain. Ordered bicitra. Will continue to monitor. Cx: defer FHP: defer FHT: Cat I [place]: Q3min A/P: 1. IOL-PreEwSF: FB still in place, juan j Q2-3min. If Ctx space, will plan for low dose pitocin. Magnesium sulfate for seizure PPx. UOP adequate with 775cc out in last 4 hours. BPs mild range. CCM Cx: defer FHP: defer FHT: Cat I [place]: irregular, Q3-6min A/P: 1. IOL-PreEwSF: FB out at this time, will plan to start pitocin. Magnesium sulfate for seizurePPx. UOP adequate. BPs mild range. CCM Cx: defer FHP: defer FHT: Cat I [place]: Q4min A/P: 1. IOL-PreEwSF: Pit at 2mu/min, titrate per protocol. Magnesium sulfate for seizure PPx. UOP adequate with 200cc out in last 4 hours. BPs mild range to normotensive. Will plan to repeat SVE whenbecomes more uncomfortable. CCM Cx:defer FHP: defer FHT: Cat II [place]: irritable A/P: 1. IOL-PreEwSF: Pit at 8mu/min, titrate per protocol. Patient very comfortable, will defer SVE. Magnesium sulfate for seizure PPx. UOP adequate 200 cc in last 4 hours. BPs mild range. CCM Cx:defer FHT: Cat I [place]:q2-3mins A/P: 1. IOL-PreEwSF: Patient currently comfortable and asleep. Pit @ 12 mu/min and juan j regularly but patient not feeling them. Will plan to recheck and assess for AROM once patient awake. On mag for seizure prophylaxis. BP normotensive most recently. UOP 200cc over the past 4 hours. Cx:defer FHT: Cat II [place]:q2-3mins A/P: 1. IOL-PreEwSF: Patient remains very comfortable. Pit at 12 mu/min. Cat II for periods of minimal variability but otherwise reassuring with spontaneous accels. Will continue to titrate pitocin and recheck to assess for AROM once more uncomfortable. BP normotensive. Remains on maintenance mag. UOP 400cc over past 4 hours. Cx: defer FHP: defer FHT: Cat I [place]: Q2-3min A/P: 1. IOL-PreEwSF: Pit at 14mu/min, titrate per protocol. On magnesium sulfate for seizure PPx. BPs mild range to normotensive. UOP adequate with 200cc out in last 4 hours. CCM Cx: 4/70/-3 FHP: defer FHT: Cat II [place]: Q2min A/P: 1. IOL-PreEwSF: Pit at 18mu/min. [...] to monitor closely. Cx:defer FHT: Cat II [place]:not tracing well A/P: 1. IOL-PreEwSF: Pit @ 20mu/min for past hour. Patient more uncomfortable. Discussed labor planwith patient. She is desiring epidural at this time and then will assess for AROM once comfortable with epidural for 30mins. Bps normotensive most recently. Maintenance mag running. UOP 600cc over past 4hours. See Previous notes on paper 10/11 Epic downtime Cx: defer (SVE at 470/-3 aat 0132) FHP: defer FHT: Cat I [place]: Q4-5min A/P: 1. IOL-PreEwSF: Pit at 8mu/min, titrate per protocol (after pitocin holiday at 0210 for 1 hr).Comfortable and sleeping with epidural. Magnesium sulfate for seizure PPx. BPs normotensive. UOP adequate with 300cc out in last 4 hours. CCM Cx: defer FHP: defer FHT: Cat I [place]: Q5min A/P: 1. IOL-PreEwSF: pit at 10mu/min, titrate per protocol. MVUs inadeaute at 103. Magnesium sulfate for seizure PPx. BPs normotensive. UOP adequate with 300cc out in last 4 hours. CCM Cx:unchanged FHP:defer FHT: Cat II [place]:q5min A/P: 1. IOL-PreEwSF Cat II for periods of minimal variability. Otherwise reassuring with moderate variability and accels also present. Pit at 14cc/h, continue to titrate per standard protocol. Blood pressures normal since last note time UOP 300 cc over the last 4 hours. Will continue to monitor on IV Mag. Dr tucker updated at this time. Plan to recheck when pitocin at 20 and increase above 20 if unchanged and MVU inadequate. Cx:defer FHT: Cat I [place]: q 6 min A/P: 1. IOL - PreEwSF - pitocin now at 20 MVU inadequate will ensure epidural adequate and then evaluate for increasing pitocin above 20. Magnesium for seizure prophylaxis. UO 500/4hrs, asymptomatic. Cx: 4/70/-3 FHT: Cat I [place]: q 4 min A/P: 1. IOL - [...] with contractions. Will continue conservative interventions. Dr Tucker in house with another patient will discuss labor course when available. AROM at 0100 therefore has been on pitocin after AROM for [address] time[address] Dr Tucker in to evaluate pt. Now 5-6/[address] Tucker, cervix soft and stretchy, appears to bemaking cervical change therefore no need to increase pitocin. MVU remain inadequate. Scalp stim achieved. Will continue with conservative interventions. Cx:unchanged FHP:defer FHT: Cat II [place]:q2-3min A/P: 1. IOL-PreEwSF Cat II for minimal variability and intermittent late decels. Periods of moderate variability still present. Acoustic stim without response. Scalp stim with positive response, accel present. Pit at 20cc/h, continue to titrate per standard protocol. Blood pressures normotensive since last note time. UOP not recorded over the last four hours. Safety huddle at this time with Dr Tucker, woodyard crane operator and primary RN. All concerns addressed. Plan to increase pitocin above 20 given unchanged and inadequate MVU. Periods of minimal variability withminimal scalp stim. Plan to do BPP at 1400 and recheck at 1430. Defer BPP at this time as FHT currently cat I with moderate variability for [address] Tucker remains in house. Cat II again with minimal variability. Cvx checked and unchanged. Pt feeling more pressure. Pitat 28cc/h. Dr. Tucker notified via [employer]. Cx:6-7/[address]/-[address] Tucker FHP: OP FHT: Cat II [place]: q3-4m A/P: 1. IOL-PreEwSF. Cat II for periods of minimal variability. Overall reassuring with most recentmoderate variability and accelerations. BP normotensive, on mag sulfate for seizure ppx with adequate UOP. Per Dr. Tucker fetus feels OP, currently being repositioned in attempt to turn fetus. MVUs i nadequate at 150 however pt making change and [...] anesthesia has adjusted epidural. Repeat Normotensive Cx: 7/80/-1 FHT: Cat II [place]: q3-5m A/P: 1. IOL-PreEwSF. Cat II for periods of minimal variability and recurrent late decels for 20 minutes. Repositioned to right side, no late decel with last 2 ctx. Pit remains at 30cc/hr, maternal O2on, receiving fluid bolus. Most recently normotensive. Mag [...] Mag therapeutic at 8.8. Of note, Cr isincreased at 0.97 (previously 0.65 yesterday morning). UOP adequate, 300 mL out at 1900. Recent EKGremarkable for ventricular bigeminy as noted above. Electrolytes checked and within normal limits: K 3.6, corrected Ca 8.8, phos 2.5. Per heater helper who reviewed EKG, no other interventions ind icated in the absence of symptoms. FHT remains [...] moderate variability. Negative scalp stim per Dr. Freeman. Dr. Vargas updated and reviewed labor course. [...] 2022. Safety huddle performed with Dr. Vargas, racquet maker, patient's RN, and anesthesia to proceed with PCD. Does not need to be a 30min section. Consent signed at 2114. Patient consented for PCD and counseled on risks, including risk of bleeding, infection, and injury to surrounding structures. Pt also consented for blood products. * Jewel Marroquin MD - 09/25/2019 8:54 PM EST Department of Obstetrics and Gynecology Labor and Delivery Triage Note CHIEF COMPLAINT: Elevated BP at home HISTORY OF PRESENT ILLNESS: Meg Troy is a 38 y.o. 36w1d OB [...] diagnosis and treatment plan. documented in this [facility] Work Phone: 1(796) 225-558701-22-2020 Hospital course Narrative* Diogenes Lambert MD - 09/30/2019 9:44 AM EST Obstetric Discharge Summary Meg Troy 09/25/2019 Reasons for Admission on 09/25/2019 7:04 PM Labor and delivery, indication for care [O75.9] No comment available Section (Primary) Surgical Operations & Procedures: Delivery Type: with labor Laceration(s): n/a Delivery Complications: none Pertinent Findings & Procedures: Information for the patient's : Lobito Troy [[id number]] female Weight: 6 lb 3.3 oz (2.815 kg) Apgars: Information for the patient's : Lobito Troy [[id number]] One Minute : 7 Five Minute : 8 course elevated BPs. Blood Type/Rh: No results found for: ABORH Antibody Screen: Antibody Screen Date Value Ref Range Status 09/25/2019 NEG NA Final Comment: Test Performed by [facility], [address] [place] [id number] Rubella: No results found for: RUBELLAIGG Discharge to: Home Contraception: no method : yes Meds: Meg Troy Home Medication Instructions JAYLAN:[id number] Printed on:09/30/19 0944 Medication Information famotidine (PEPCID) 40 MG tablet Take 40 mg by mouth daily oxyCODONE (ROXICODONE) 5 MG immediate release tablet Take 1 tablet by mouth every 4 hours as needed for Pain for up to 3 days. MV-Min-Fe Fum-FA-DHA ( 1 PO) Take by mouth Activity: activity as tolerated Diet: regular diet Follow up: [facility] within 1 week Condition on discharge: [...] diagnosis and treatment plan. [facility] Work Phone: [phone]) 269-910901-21-2020 Hospital Discharge instructions* Instructions* Meghan Feliz DO - 09/29/2019 After Your Delivery (the [...] feel very tired for several weeks. Your dayswill be full of ups and downs, but lots of mildred as well. FOLLOW-UP: Your follow-up care is a parsons part of your treatment and safety. Follow-up with your OB doctor in 4-6 weeks or as specified by your physician. Be sure to make and go to all appointments, and call yourdoctor if you are having problems. It's also a good idea to know your test results and keep a list of the medicines you take. BLEEDING ? Vaginal bleeding will decrease in amount over the next few weeks but be present for as long as 8 weeks after delivery. Bleeding may seed cone picker and then decrease again around 7-10 days [...] and take a break. NEVER shake your . WOUND CARE For Vaginal Delivery: ? Shower [...] hand express some milk so that the infant can latch on more easily or ease [...] fiber and protein such as: whole grain cerealsand breads, fruits and vegetables and legumes (eg, beans, lentils) ? Drink 8-10 glasses of fluids daily, especially water. ? To avoid constipation you may take a mild wimp-xuy-[id number] stool softener (such as colace) as recommended [...] can increase risks of asthma and sudden infant syndrome. If you or someone around baby [...] emergency, call 911 immediately. [facility] Work Phone: Evaluation + Plan note No data available for this section [facility] Evaluation note* Diagnosis Onset Date Resolution Status Vaginal yeast infection acut e Hypertension chronic Liver tumor (benign) chronic Right knee pain chronic Tobacco abuse [facility] Work Phone: Evaluation note* Diagnosis Status post delivery- Primary Other postprocedural status S/P section Other postprocedural status Labor and delivery, indication for care Unspecified indication for care or intervention related to labor and delivery, unspecified as to episode of care Arrest of dilation, delivered, current hospitalization Secondary uterine inertia, unspecified as to episode of care Abnormal heart rate complicating Abnormality in heart rate/rhythm, unspecified as to episode of care or not applicable Pre-eclampsia in third trimester Mild or unspecified pre-eclampsia, antepartum Liver lesion Other specified disorders of liver documented in this encounter [facility] Work Phone: Evaluation note* Diagnosis Onset Date Resolution Status Hypertension chronic Liver tumor (benign) chronic Right knee pain chronic Tobacco abuse [facility] Work Phone: Evaluation note* Diagnosis Onset Date Resolution Status Irritant contact dermatitis due to plant acute [facility] Work Phone: Evaluation note* Diagnosis Onset Date Resolution Status Irritant contact dermatitis due to plant acute Thrush of mouth and esophagus acute Oral thrush acute Focal nodular hyperplasia of liver chronic Generalized anxiety disorder with panic attacks chronic [facility] Work Phone: Evaluation note* Diagnosis Onset Date Resolution Status Irritant contact dermatitis due to plant acute Thrush of mouth and esophagus acute Oral thrush acute Focal nodular hyperplasia of liver chronic Generalized anxiety disorder with panic attacks chronic Hematuria acute Left flank pain acute UTI (urinary tract infection) acute [facility] Work Phone: Evaluation note* Diagnosis Onset Date Resolution Status Oral thrush acute Focal nodular hyperplasia of liver chronic Generalized anxiety disorder with panic attacks chronic Hematuria acute Left flank pain acute UTI (urinary tract infection) acute [facility] Work Phone: Evaluation note* Diagnosis Onset Date Resolution Status Acute bronchitis acute Contact with or suspected ex posure to other viral communicable disease acute Acute right otitis media acu te URI (upper respiratory infection) acute [facility] Work Phone: Evaluation noteNo assessment information available [facility] Work Phone: Evaluation note* Diagnosis Onset Date Resolution Status Acute sinusitis, unspecified acute Impetigo acute Pharyngitis acute Acute right otitis media acu te [facility] Work Phone: Evaluation note* Diagnosis Onset Date Resolution Status Acute sinusitis, unspecified acute Impetigo acute Pharyngitis acute Acute right otitis media acu te Eustachian tube dysfunction acute Pharyngitis acute Focal nodular hyperplasia of liver chronic [facility] Work Phone: Hospital Discharge instructions Additional Instructions COVID-positive. Take medications as prescribed. X-ray negative. Continue oral fluids for hydration. Tylenol or ibuprofen as needed. Monitor respiratory symptoms return if worsens. Otherwise follow-up with your doctor.[facility] Work Phone: Hospital Discharge instructions Additional Instructions Please continue your Augmentin secondary to your physical exam showing signs of infection in your throat. Add the steroid for improved inflammatory and pressure control. Keep your appointment with the ENT for repeat evaluation and return to the ER should you have any further concerns or worsening of symptomsWLima [facility] Hospital Work Phone: Hospital Discharge instructions Additional Instructions Your blood work, urinalysis and CAT scan look good. No specific cause for your pain. Motrin and Tylenol for your pain. Follow-up with your doctor. They may need to do further testing such as a pelvic ultrasound.[facility] Work Phone: Reason for referral (narrative)No reason for referral information availableWLima Memorial Hospital Work Phone: Summary Purpose Family History Relationship Condition Age at Onset Recorded Date/T martha father Anemia Unknown Anxiety Unknown Arthritis Unknown Venous thrombosis Unknown Depression Unknown Diabetes mellitus Unknown Cardiac disease Unknown Cerebrovascular accident (CVA) Unknown Kidney disorder Unknown mother Anxiety Unknown Asthma Unknown Hypertension Unknown Severe allergy Unknown grandfather Arthritis Unknown Cerebral aneurysm Unknown Leukemia Unknown grandmother Arthritis Unknown Disorder of respiratory system Unknown Advance Directives Documents on File Type Date Recorded Patient [place] Presser Expl anation Advance Directives and Living Will Power of House Coordinator Latest Code Status on File Code Status Date Activated Date Inactivated Comments Full Code 09/28/2019 1:02 AM 09/30/2019 5:55 PM Full Code 09/25/2019 10:25 PM 09/28/2019 1:01 AM Advance Directive Response Recorded Date/ Time Living Will No August 03 1:44am Power of House Coordinator No August 03, 2020 1:44am Latest Code Status on File Code Status Date Activated Date Inactivated Comments Full Code 09/28/2019 1:02 AM Full Code 09/25/2019 10:25 PM 09/28/2019 1:01 AM Advance Directive Response Recorded Date/ Time Living Will No December 25, 2021 12:43pm Power of House Coordinator No December 25 12:43pm Advance Directive Response Recorded Date/ Time Living Will No February 22, 2022 5:57pm Power of House Coordinator No February 22 5:57pm Advance Directive Response Recorded Date/ Time Living Will No May 08 2:44pm Power of House Coordinator No May 08 022 2:44pm Advance Directive Response Recorded Date/ Time Living Will No October 26 023 6:35pm Power of House Coordinator No October 26, 2022 6:35pm Advance Directive Response Recorded Date/ Time Living Will No October 27 2 023 12:46pm Power of House Coordinator No October 27, 2022 12:46pm Advance Directive Response Recorded Date/ Time Living Will No November 02 023 10:39am Power of House Coordinator No November 02, 2022 10:39am Advance Directive Response Recorded Date/ Time Living Will No November 02 023 11:39am Power of House Coordinator No November 02, 2022 11:39am Advance Directive Response Recorded Date/ Time Living Will No December 03, 2024 3:17pm Do you have a Healthcare Power of House Coordinator? No December 03, 2024 3:17pm Reason for Referral Status Reason Specialty Diagnoses / Procedures Referre d By Contact Referred To Contact Closed Radiology Diagnoses Liver lesion Focal nodular hyperplasia of liver Hemangioma of liver Procedures MRI Abdomen W WO Contrast Horace Farrell PA-C [address] [place] [address] Assessments Diagnosis Liver lesion Other specified disorders of liver Focal nodular hyperplasia of liver Other specified disorders of liver Hemangioma of liver Hemangioma of intra-abdominal structures Chief Complaint and Reason for Visit Chief Complaint YEAST INFECTION 6 M FU PN IN R KNEE/RX HERE Reason for Visit Vaginal yeast infect ion Hypertension Liver tumor (benign) Right knee pain Tobacco abuse Chief Complaint 6 M FU PN IN R KNEE/RX HERE pancreas flair up Reason for Visit Hypertension Liver tumor (benign) Right knee pain Tobacco abuse Chief Complaint pancreas flair up RIGHT KNEE PAIN/RX HERE CONCERN FOR POISON TAYLOR/SUMAC RASH Reason for Visit Irritant contact faye matitis due to plant assigner Complaint pancreas flair up CONCERN FOR POISON TAYLOR/SUMAC RASH RIGHT KNEE PAIN/RX HERE CONCERNED FOR THRUSH 6 M FU LIVER MASSES Reason for Visit Irritant contact faye matitis due to plant Thrush of mouth and esophagus Oral thrush Focal nodular hyperplasia of liver Generalized anxiety disorder with panic attacks Chief Complaint CONCERN FOR POISON I VY/SUMAC RASH CONCERNED FOR THRUSH 6 M FU LIVER MASSES SCREENING RIGHT KNEE PAIN/RX HERE UTI 5 WK FU gu N13.30 Unspecified hydronephrosis n/v, abd pain Reason for Visit Irritant contact faye matitis due to plant Thrush of mouth and esophagus Oral thrush Focal nodular hyperplasia of liver Generalized anxiety disorder with panic attacks Hematuria Left flank pain UTI (urinary tract infection) Chief Complaint 6 M FU LIVER MASSES SCREENING RIGHT KNEE PAIN/RX HERE UTI 5 WK FU gu N13.30 Unspecified hydronephrosis n/v, abd pain IRREGULAR MENSTRATION Reason for Visit Oral thrush Focal nodular hyperplasia of liver Generalized anxiety disorder with panic attacks Hematuria Left flank pain UTI (urinary tract infection) Chief Complaint COUGH/NAUSEA/CONGEST ION SORE THROAT/RIGHT EAR PAIN/NECK PAIN STILL SORE THROAT, NECK PAIN,COUGH/SEEN 1 VOMITING Reason for Visit Acute bronchitis Contact with or suspected exposure to other viral communicable disease Acute right otitis media URI (upper respiratory infection) Chief Complaint COUGH/NAUSEA/CONGEST ION SORE THROAT/RIGHT EAR PAIN/NECK PAIN STILL SORE THROAT, NECK PAIN,COUGH/SEEN 1-2-23 VOMITING pain all over from covid Reason for Visit Acute bronchitis Contact with or suspected exposure to other viral communicable disease Acute right otitis media URI (upper respiratory infection) Chief Complaint SCREENING Chief Complaint SCREENING SORE THROAT/LEFT EAR PAIN RT EAR PAIN ear pain, enlarged lymph nodes Reason for Visit Acute sinusitis, uns pecified Impetigo Pharyngitis Acute right otitis media Chief Complaint SCREENING SORE THROAT/LEFT EAR PAIN RT EAR PAIN ear pain, enlarged lymph nodes ENT FOLLOW UP Reason for Visit Acute sinusitis, uns pecified Impetigo Pharyngitis Acute right otitis media Eustachian tube dysfunction Pharyngitis Focal nodular hyperplasia of liver Chief Complaint Admit Date LESION ON SCALP August 05, 2024 11:32am RIGHT BREAST PAIN August 11, 2024 9 :35am 6 wk FU August 28, 2024 8:03am post op September 01, 2024 11:05am 3 W F/U September 23, 2024 2 :24pm FLANK PAIN December 03, 2024 2:5 6pm Reason for Visit Admit Date 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 August 05, 2024 11:32am 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 August 21, 2024 11:14am Asthma August 28, 2024 8:03am Trichilemmal cyst September 01, 2024 11:05am Trichilemmal cyst September 23, 2024 2 :24pm Chief Complaint Admit Date FLANK PAIN December 03, 2024 2:5 6pm UTERINE BLEEDING February 16, 2025 1:03 pm Chief Complaint Admit Date UTERINE BLEEDING February 16, 2025 1:03 pm Uterine Bleeding ([place]) April 05 11:07am Additional Source Comments INFORMATION SOURCE (unrecogn ized section and content) DATE CREATED AUTHOR 07/08/2018 [facility] ([place]) DATE CREATED AUTHOR AUTHOR'S ORGANIZ ATION 08/19/2019 [place] DATE CREATED AUTHOR AUTHOR'S ORGANIZ ATION 10/03/2019 [facility] DATE CREATED AUTHOR AUTHOR'S ORGANIZ ATION 11/18/2019 [facility] DATE CREATED AUTHOR AUTHOR'S ORGANIZ ATION 02/23/2020 [facility] DATE CREATED AUTHOR AUTHOR'S ORGANIZ ATION 04/01/2025 [facility] Goals (unrecognized section and content) Goals may be documented in a n alternate sectionGoals may be documented in an alternate sectionGoals may be documented in an alternate sectionGoals may be documented in an alternate sectionGoals may be documented in an alternate sectionGoals may be documented in an alternate sectionGoals may be documented in an alternate sectionGoals may be documented in an alternate sectionGoals may be documented in an alternate sectionGoals may be documented in an alternate section No data available for this sectionGoals may be documented in an alternate sectionGoals may be documented in an alternate sectionGoals may be documented in an alternate sectionGoals may be documented in an alternate section Reason for Visit (unrecogniz ed section and content) Reason Comments Hypertension Care Teams (unrecognized sec tion and content) Team Status: Active Member Role Status Dates Dr. Lei Martínez MD Family Provider Active Dr. Lei Martínez MD Primary Care Provider Active Team Status: Inactive Member Role Status Dates Dr. Lei Martínez MD Primary Care Provider, Refer ring Provider Active Chino Quinonez PA, PA Attending Provider Active Team Status: Inactive Member Role Status Dates Dr. Lei Martínez MD Primary Care Provider, Refer ring Provider Active Jose Luis Clements DELICATESSEN CLERK, DELICATESSEN CLERK-C Attending Provider Active Team Status: Inactive Member Role Status Dates Dr. Lei Martínez MD Primary Care Provider Active Dr. Jack Francisco DO Emergency Provider Active Team Status: Inactive Member Role Status Dates Dr. Lei Martínez MD Primary Care Provider Active Dr. Marcell Islas MD Emergency Provider Active Team Status: Inactive Member Role Status Dates Dr. Lei Martínez MD Primary Care P lourdes, Attending Provider, Referring Provider Active Team Status: Inactive Member Role Status Dates Dr. Lei Martínez MD Primary Care Provider, Refer ring Provider Active Hi Pelaez PA, PA Attending Provider Active Team Status: Inactive Member Role Status Dates Dr. Lei Martínez MD Primary Care Provider Active Dr. Silvano Mosquera DO Emergency Provider Active Team Status: Inactive Member Role Status Dates Dr. Lei Martínez MD Primary Care Provider, Refer ring Provider Active DEIDRE James Attending Provider Active Team Status: Inactive Member Role Status Dates Dr. Lei Martínez MD Primary Care Provider Active Dr. Silvano Mosquera DO Attending Provider, Emergency Pr ovider Active Team Status: Inactive Member Role Status Dates Dr. Lei Martínez MD Primary Care Provider Active DEIDRE James Attending Provider Active Team Status: Active Member Role Status Dates Dr. Lei Martínez MD Primary Care Provider Active Team Status: Inactive Member Role Status Dates Dr. Lei Martínez MD Primary Care Provider Active Start: August 05, 2024 End: August 05, 2024 Dr. Lei Martínez MD Referring Provider Active Start: August 05, 2024 End: August 05, 2024 Dr. La Nena Alcaraz MD Attending Provider Active Start: August 05, 2024 End: August 05, 2024 Team Status: Inactive Member Role Status Dates Dr. Lei Martínez MD Primary Care Provider Active Start: August 11, 2024 End: August 11, 2024 Dr. Lei Martínez MD Attending Provider Active Start: August 11, 2024 End: August 11, 2024 Dr. Lei Martínez MD Referring Provider Active Start: August 11, 2024 End: August 11, 2024 Team Status: Inactive Member Role Status Dates Dr. Lei Martínez MD Primary Care Provider Active Start: August 21, 2024 End: August 21, 2024 Dr. La Nena Alcaraz MD Attending Provider Active Start: August 21, 2024 End: August 21, 2024 Dr. La Nena Alcaraz MD Referring Provider Active Start: August 21, 2024 End: August 21, 2024 Team Status: Active Member Role Status Dates Dr. Lei Martínez MD Primary Care Provider Active Start: August 21, 2024 Dr. La Nena Alcaraz MD Attending Provider Active Start: August 21, 2024 Dr. La Nena Alcaraz MD Referring Provider Active Start: August 21, 2024 Dr. La Nena Alcaraz MD Other Provider Active St art: August 21, 2024 Team Status: Inactive Member Role Status Dates Dr. Lei Martínez MD Primary Care Provider Active Start: August 28, 2024 End: August 28, 2024 Dr. Lei Martínez MD Referring Provider Active Start: August 28, 2024 End: August 28, 2024 DEIDRE James Attending Provider Active St art: August 28, 2024 End: August 28, 2024 Team Status: Inactive Member Role Status Dates Dr. Lei Martínez MD Primary Care Provider Active Start: September 01, 2024 End: September 01, 2024 Dr. Lei Martínez MD Referring Provider Active Start: September 01, 2024 End: September 01, 2024 Dr. La Nena Alcaraz MD Attending Provider Active Start: September 01, 2024 End: September 01, 2024 Team Status: Inactive Member Role Status Dates Dr. Lei Martínez MD Primary Care Provider Active Start: September 23, 2024 End: September 23, 2024 Dr. Lei Martínez MD Referring Provider Active Start: September 23, 2024 End: September 23, 2024 Dr. La Nena Alcaraz MD Attending Provider Active Start: September 23, 2024 End: September 23, 2024 Team Status: Inactive Member Role Status Dates Dr. Lei Martínez MD Primary Care Provider Active Start: December 03, 2024 End: December 03, 2024 Dr. Marcell Islas MD Referring Provider Active S tart: December 03, 2024 End: December 03, 2024 Dr. Marcell Islas MD Emergency Provider Active S tart: December 03, 2024 End: December 03, 2024 Team Status: Inactive Member Role Status Dates Dr. Lei Martínez MD Primary Care Provider Active Start: December 03, 2024 End: December 03, 2024 Dr. Marcell Islas MD Attending Provider Active S tart: December 03, 2024 End: December 03, 2024 Dr. Marcell Islas MD Referring Provider Active S tart: December 03, 2024 End: December 03, 2024 Dr. Marcell Islas MD Emergency Provider Active S tart: December 03, 2024 End: December 03, 2024 Team Status: Inactive Member Role Status Dates Dr. Lei Martínez MD Primary Care Provider Active Start: December 28, 2024 End: December 28, 2024 Dr. Aicha Maya MD Attending Provider Active Start: December 28, 2024 End: December 28, 2024 Team Status: Inactive Member Role Status Dates Dr. Lei Martínez MD Primary Care Provider Active Start: February 16, 2025 End: February 16, 2025 Dr. Aicha Maya MD Attending Provider Active Start: February 16, 2025 End: February 16, 2025 Dr. Aicha Maya MD Referring Provider Active Start: February 16, 2025 End: February 16, 2025 Team Status: Active Member Role/Relationship Status Dates Dr. Lei Martínez MD Primary Care Provider Active Team Status: Inactive Member Role/Relationship Status Dates Dr. Lei Martínez MD Primary Care Provider Active Start: December 28, 2024 End: December 28, 2024 Dr. Aicha Maya MD Attending Provider Active Start: December 28, 2024 End: December 28, 2024 Team Status: Inactive Member Role/Relationship Status Dates Dr. Lei Martínez MD Primary Care Provider Active Start: February 16, 2025 End: February 16, 2025 Dr. Aicha Maya MD Attending Provider Active Start: February 16, 2025 End: February 16, 2025 Dr. Aicha Maya MD Referring Provider Active Start: February 16, 2025 End: February 16, 2025 Team Status: Inactive Member Role/Relationship Status Dates Dr. Lei Martínez MD Primary Care Provider Active Start: March 09, 2025 Dr. Aicha Maya MD Attending Provider Active Start: March 09, 2025 Team Status: Inactive Member Role/Relationship Status Dates Dr. Lei Martínez MD Primary Care Provider Active Start: April 05, 2025 End: April 05, 2025 Dr. Lei Martínez MD Referring Provider Active Start: April 05, 2025 End: April 05, 2025 Dr. Michelle Díaz DO Attending Provider Activ e Start: April 05, 2025 End: April 05, 2025 FOR RECORDS PERTAINING TO PATIENTS WHO ARE [...] BE BASED ON THE PRIMARY CLINICAL RECORDS. [facility]. provides no warranty or guarantee of the accuracy or completeness of information in this document.
[2025-04-07 11:08] LABS: HPV APTIMA, High Risk Negative (Negative)
== END | disposition home or self-care (01) ==
LOC: LABSPEC 12:12
PROVIDERS: PCP Internal Medicine; Visit Provider Obstetrics & Gynecology
DX: Z12.4 Encounter for screening for malignant neoplasm of cervix (principal)
CPT/HCPCS: 87624; 88175; G0145

== ENCOUNTER → 2025-04-28 | Outpatient (CLI) | payer MEDICAID, SELFPAY ==
--- NOTE | 2025-04-28 14:10 | RAD_ITS ---
PROCEDURE: CERV SPINE 2 OR 3 VIEWS 04/28/2025 REASON FOR EXAM: NECK PAIN S/P FALL TECHNIQUE: CERV SPINE 2 OR 3 VIEWS COMPARISON: None. FINDINGS: Vertebrae: No acute bony abnormalities. disc spaces: C5-C6 and C6-C7 disc space narrowing. Alignment: Anterolisthesis C4 on C5 by 1 mm. Straightening of the cervical spine which can be positional or from muscle spasm. soft tissues: No soft tissue abnormalities. RAD/Cerv Spine 2 or 3 Views IMPRESSION: C5-C6 and C6-C7 disc space narrowing. Reading Location: [id number]
== END | disposition home or self-care (01) ==
PROVIDERS: PCP Internal Medicine; Referring Provider Physician Assistant; Visit Provider Physician Assistant
DX: S19.9XXA Unspecified injury of neck, initial encounter (principal); W19.XXXA Unspecified fall, initial encounter
CPT/HCPCS: 72040

== ENCOUNTER 2025-04-29 17:20 | Emergency (ER) | payer MEDICAID, SELFPAY ==
[2025-04-29 17:21] VITALS: BP 155/90; PULSE 129; RESP 22; TEMP 36.5; O2SAT 99; BMI 21.4
--- NOTE | 2025-04-29 17:37 | EX.ED.DYSGE1 ---
HPI <DEIDRE Sloan - Last Filed: 04/29/25 20:54> History of Present Illness Chief Complaint: Hypertension Narrative Narrative: 44-year-old female with history of asthma presents with hypertension. She states she injured her neck 3 weeks ago on a slip and slide and it was still hurting on both sides so she went to urgent care this morning and was prescribed prednisone and metaxalone. She took the first dose around noon. Around 4 PM she was driving and developed a headache, palpitation and shortness of breath without chest pain. Due to headache she checked her blood pressure systolic was over 150 prompting her to come in. She has no history of high blood pressure. She denies visual or speech changes or weakness or paresthesias. [facility] <DEIDRE Sloan - Last Filed: 04/29/25 20:54> [facility] Medical History (Updated 04/29/25 @ 19:52 by DEIDRE Sloan) Trapezius muscle strain Cervical myofascial strain Skin lesion of scalp Breast pain, right Acute sinusitis, unspecified Left flank pain Hematuria UTI (urinary tract infection) Oral thrush Generalized anxiety disorder with panic attacks Focal nodular hyperplasia of liver Contact dermatitis due to [place] Contact dermatitis due to poison [place] Poison [place] Tobacco abuse Seasonal allergies Right knee pain Anxiety Weight loss Vision problems Tumors Polycystic ovarian disease Pancreatitis Kidney stones Recurrent infections Hives Chronic headaches GERD (gastroesophageal reflux disease) H/O emotional problems Chronic bronchitis Breast lump Back problem Asthma Allergies Home Medications ?Medication ?Instructions ?Recorded ?Last Taken ?Type ascorbic acid (vitamin C) 1,000 mg 1,000 mg PO QDAY 04/05/25 Unknown History capsule d-mannose PO .once a day 04/05/25 Unknown History lactobacillus combination no.4 3 3,000 mmu cells PO QDAY 04/05/25 Unknown History billion cell capsule (Probiotic) multivitamin 1 tab PO QDAY 04/05/25 Unknown History albuterol sulfate 90 mcg/actuation 2 puff inhalation Q4-6H PRN 04/28/25 Unknown History aerosol inhaler (Ventolin HFA) budesonide-formoterol HFA 80 2 puff inhalation Q12H 04/28/25 Unknown History mcg-4.5 mcg/actuation aerosol inhaler (Symbicort) metaxalone 800 mg tablet 800 mg PO TID PRN muscle pain #20 04/28/25 Unknown Rx tabs prednisone 10 mg tablet 10 mg PO QDAY #30 tabs 04/28/25 Unknown Rx cyclobenzaprine 10 mg tablet 10 mg PO BID #14 TABLETS 04/29/25 Unknown Rx Allergy/AdvReac Type Severity Reaction Status Date / Time aloe vera Allergy Severe throat Verified 04/29/25 17:22 swelling aspirin (ASA) AdvReac Upset Verified 04/29/25 17:22 Stomach Family History Father Anemia Anxiety Arthritis Blood clot in vein Depression Diabetes Heart disease CVA (cerebral vascular accident) Kidney disease Mother Anxiety Asthma Arthritis Depression Hypertension Severe allergy Grandfather Arthritis Brain aneurysm Leukemia Grandmother Arthritis Hypertension CVA (cerebral vascular accident) Grandfather Arthritis Respiratory disease Grandmother Arthritis Kidney disease Surgical History history of salivary gland removal History of esophagogastroduodenoscopy (EGD) History of History of knee surgery History of needle biopsy Social History Smoking Status: Current every day smoker tobacco type: e-cigarettes how long ago did patient quit smoking: pt vapes alcohol intake: never substance use type: does not use caffeine: Yes what type of physical activity do you participate in: walking seatbelt use: always do you feel safe at home: Yes additional social history: Single ROS <DEIDRE Sloan - Last Filed: 04/29/25 20:54> ROS ED ROS Narrative Constitutional: Negative for fever, chills, malaise. Eyes: Negative for visual change. CVS: Positive for palpitations. No chest pain or syncope. Respiratory: Positive for shortness of breath. No cough GI: Negative for abdominal pain, nausea, vomiting. EXAM <DEIDRE Sloan - Last Filed: 04/29/25 20:54> Physical Exam Narrative Exam Narrative: CONST: Patient sitting in no acute distress. EYES: Normal inspection. NECK: Normal inspection. RESP: No respiratory distress, CTAB. CVS: Tachycardic with regular rhythm, no murmur, no gallop. ABD: Soft and nontender, no guarding or rebound, nondistended SKIN: Color normal, no rash, warm, dry, intact. EXTREMITIES: Normal appearance, no pedal edema. NEURO: Alert and answering questions appropriately. PSYCH: Normal affect. Const Vital Signs: 04/29/25 17:21 04/29/25 17:36 04/29/25 18:30 Temperature 97.7 F L Temperature Source Temporal Pulse Rate 129 H Respiratory Rate 22 H Respiratory Effort Normal Non-Labored Respiratory Pattern Normal Blood Pressure 155/90 H 112/89 H Blood Pressure Mean 111 96 Pulse Ox 99 Oxygen Delivery Method Room Air 04/29/25 19:12 04/29/25 20:17 Temperature 97.7 F L Temperature Source Pulse Rate 90 79 Respiratory Rate 16 16 Respiratory Effort Respiratory Pattern Blood Pressure 128/91 H 125/89 H Blood Pressure Mean 103 101 Pulse Ox 100 100 Oxygen Delivery Method Room Air <Dr. Avelina Pagan MD - Last Filed: 04/29/25 23:45> Physical Exam Const Vital Signs: 04/29/25 17:21 04/29/25 17:36 04/29/25 18:30 Temperature 97.7 F L Temperature Source Temporal Pulse Rate 129 H Respiratory Rate 22 H Respiratory Effort Normal Non-Labored Respiratory Pattern Normal Blood Pressure 155/90 H 112/89 H Blood Pressure Mean 111 96 Pulse Ox 99 Oxygen Delivery Method Room Air 04/29/25 19:12 04/29/25 20:17 Temperature 97.7 F L Temperature Source Pulse Rate 90 79 Respiratory Rate 16 16 Respiratory Effort Respiratory Pattern Blood Pressure 128/91 H 125/89 H Blood Pressure Mean 103 101 Pulse Ox 100 100 Oxygen Delivery Method Room Air MDM <DEIDRE Sloan - Last Filed: 04/29/25 20:54> [facility] Narrative Medical decision making narrative: Differential includes but not limited to ectopy, arrhythmia, electrolyte derangements, thyroid abnormality 44-year-old female presents with constellation of symptoms including a headache, palpitations, and shortness of breath. She was concerned for elevated blood pressure however here is only 155/90. She was tachycardic at 129, 99% on room air. Heart is rapid but regular. Lungs clear. Abdomen soft and nontender. Her headache seems more focused in the occipital area and related to her ongoing neck pain from an injury 3 weeks ago so I treated with Toradol. I do not think a CT scan of the brain is indicated. CBC and BMP are unremarkable overall. Anion gap minimally up at 16 which was treated with IV fluids. TSH was low however free T4 is in the normal range. D-dimer and troponin x 2 are both negative. Chest x-ray shows no acute process. Patient was reassessed and states she is feeling better, her head and neck pain are improved after Toradol, she no longer feels short of breath, and her vital signs of normalized. Her blood pressure at discharge is 125/89. I instructed her to follow-up with her primary care doctor and discussed return precautions. She was discharged in stable condition. History & Record Review Discussion w/independent historian: Patient Lab Data Attestation: I reviewed the patient's lab results. Labs: Laboratory Results - last 24 hr 04/29/25 04/29/25 04/29/25 17:50 18:17 19:28 WBC 8.9 RBC 4.92 Hgb 13.9 Hct 40.7 MCV 82.7 MCH 28.3 MCHC 34.2 RDW Std Deviation 37.6 RDW Coeff of Alfonso 12.3 Plt Count 334 MPV 9.3 Immature Gran % (Auto) 0.400 Neut % (Auto) 92.7 H Lymph % (Auto) 6.2 L [place] % (Auto) 0.6 Eos % (Auto) 0.0 Baso % (Auto) 0.1 Absolute Neuts (auto) 8.3 H Absolute Lymphs (auto) 0.55 L Nucleated RBC % 0 D-Dimer Quant (PE/DVT) < 0.27 L Sodium 140 Potassium 3.3 Chloride 105 Carbon Dioxide 20.1 L Anion Gap 16 H BUN 10 Creatinine 0.72 Estim Creat Clear Calc 87.00 Est GFR (MDRD) Non-Af 107 BUN/Creatinine Ratio 13.9 Glucose 154 H Calcium 9.4 Magnesium 1.9 Troponin T High Sens < 6 Troponin T Hi Sens 2 Hr < 6 TSH 0.100 L Free T4 1.40 Serum , Qual NEGATIVE EKG Initial EKG: Attestation: I personally reviewed and interpreted this EKG as follows: Interpretation: No Acute Injury Pattern and Sinus Arrythmia Comments: Normal sinus rhythm with sinus arrhythmia at 82 bpm Normal axis, no acute ischemic changes <Dr. Avelina Pagan MD - Last Filed: 04/29/25 23:45> MDM MDM Narrative Medical decision making narrative: Differential includes but not limited to ectopy, arrhythmia, electrolyte derangements, thyroid abnormality 44-year-old female presents with constellation of symptoms including a headache, palpitations, and shortness of breath. She was concerned for elevated blood pressure however here is only 155/90. She was tachycardic at 129, 99% on room air. Heart is rapid but regular. Lungs clear. Abdomen soft and nontender. Her headache seems more focused in the occipital area and related to her ongoing neck pain from an injury 3 weeks ago so I treated with Toradol. I do not think a CT scan of the brain is indicated. CBC and BMP are unremarkable overall. Anion gap minimally up at 16 which was treated with IV fluids. TSH was low however free T4 is in the normal range. D-dimer and troponin x 2 are both negative. Chest x-ray shows no acute process. Patient was reassessed and states she is feeling better, her head and neck pain are improved after Toradol, she no longer feels short of breath, and her vital signs of normalized. Her blood pressure at discharge is 125/89. I instructed her to follow-up with her primary care doctor and discussed return precautions. She was discharged in stable condition. Patient seen and evaluated with BECCA. I personally interviewed and examined the patient. I was involved in all aspects of patient's orders, interpretation of results, and treatment. Patient is a 44-year-old female presenting to the emergency department for a headache, heart palpitations and shortness of breath that started shortly after she took a muscle relaxer. Patient states that a few weeks ago she had a incident on a slip and slide where she injured her neck. States she went to urgent care yesterday and they placed her on a muscle relaxer and steroid. States that she took them today around 12:30 PM. States that around 330 she developed shortness of breath, heart palpitations and a headache. States that the headache is mainly right-sided. She reports having worse headaches in the past. Did not take anything for the headache today. Reports that it was more gradual in onset. Denies any visual changes. Denies any numbness or weakness in her arms or legs. Vital signs: Reviewed General: Alert and oriented x 3. No acute distress HEENT: Head is normocephalic and atraumatic, sinuses nontender, pupils equal round and reactive. Nares are patent. Oropharynx and throat exams normal. Neck: Supple without lymphadenopathy nontender. No midline cervical spinal tenderness to palpation. No step-offs or deformities. Range of motion of the neck is normal, able to flex and extend with no rigidity. There is tenderness to palpation at the right sided base of the skull extending along the paraspinal muscles of the cervical region on the right side. Cardiovascular: Tachycardic rate and regular rhythm, no murmurs. No rubs or gallops. Normal S1 and S2 Respiratory: Clear to auscultation bilaterally. No wheezes, rales, rhonchi Abdominal: Soft and nontender. Normal bowel sounds. No guarding or rebound. Nonsurgical abdomen Extremities: No tenderness. No bruising. Normal range of motion. Normal sensation. Skin: No rash or redness. Neurological: Cranial nerves II through XII are grossly intact. Normal strength and sensation. Normal cerebellar function The rest of the physical exam is unremarkable MDM Patient given Tylenol and Toradol for symptomatic control and started on a fluid bolus for her tachycardia. With the patient having tachycardia, shortness of breath and heart palpitations, will obtain an ACS workup as well as rule out a PE however I do think this is unlikely. She has had the neck pain for multiple weeks after an injury. She has no fevers. Has had headaches that have been worse in the past. No neurologic findings. Low concern for meningitis and subarachnoid. EKG shows normal sinus rhythm with a sinus arrhythmia. There is no ischemic changes. There is no ST elevation or depression. Troponin and reflex are both below 6. CBC with no leukocytosis and a normal hemoglobin. BMP with slightly elevated anion gap of 16, she is receiving fluids for this. TSH is low at 0.1 however free T4 is within normal limits. Urine is negative. Clear lung sounds throughout. Low suspicion for pneumonia or pneumothorax. Suspect that her headache is tension related to her right sided neck pain. Suspect that her palpitations and shortness of breath may be related to the muscle relaxer that she took given it was shortly after. She was reevaluated and her symptoms have resolved other than her neck pain. She is stable for outpatient management. Instructed to follow-up with her primary care doctor soon as possible and return to the ED with any new or worsening symptoms. Return precautions discussed. Patient feels comfortable with the plan. She was switched to Flexeril and instructed to stop taking the muscle relaxer that they prescribed her. Clinical impression Shortness of breath Palpitations Neck pain Lab Data Labs: Laboratory Results - last 24 hr 04/29/25 04/29/25 04/29/25 17:50 18:17 19:28 WBC 8.9 RBC 4.92 Hgb 13.9 Hct 40.7 MCV 82.7 MCH 28.3 MCHC 34.2 RDW Std Deviation 37.6 RDW Coeff of Alfonso 12.3 Plt Count 334 MPV 9.3 Immature Gran % (Auto) 0.400 Neut % (Auto) 92.7 H Lymph % (Auto) 6.2 L [place] % (Auto) 0.6 Eos % (Auto) 0.0 Baso % (Auto) 0.1 Absolute Neuts (auto) 8.3 H Absolute Lymphs (auto) 0.55 L Nucleated RBC % 0 D-Dimer Quant (PE/DVT) < 0.27 L Sodium 140 Potassium 3.3 Chloride 105 Carbon Dioxide 20.1 L Anion Gap 16 H BUN 10 Creatinine 0.72 Estim Creat Clear Calc 87.00 Est GFR (MDRD) Non-Af 107 BUN/Creatinine Ratio 13.9 Glucose 154 H Calcium 9.4 Magnesium 1.9 Troponin T High Sens < 6 Troponin T Hi Sens 2 Hr < 6 TSH 0.100 L Free T4 1.40 Serum , Qual NEGATIVE Discharge Plan Triage Chief Complaint: Hypertension ED Midlevel Provider: Rachel Denny ED Provider: Avelina Pagan Dx/Rx/DC Orders Clinical Impression: Heart palpitations, Acute tension headache, Dyspnea Instructions: ED Heart Palpitations Prescriptions: New cyclobenzaprine 10 mg tablet 10 mg PO BID Qty: 14 0RF No Action Probiotic 3 billion cell capsule 3,000 mmu cells PO QDAY Rx Instructions: administer with a meal multivitamin Tablet 1 tab PO QDAY ascorbic acid (vitamin C) 1,000 mg capsule 1,000 mg PO QDAY d-mannose 350 mg capsule PO .once a day albuterol sulfate [Ventolin HFA] 90 mcg/actuation HFA aerosol inhaler 2 puff inhalation Q4-6H PRN budesonide-formoterol [Symbicort] 80-4.5 mcg/actuation HFA aerosol inhaler 2 puff inhalation Q12H prednisone 10 mg tablet 10 mg PO QDAY Qty: 30 0RF Rx Instructions: 4 tablets daily x3 days, then 3 tablets daily x3 days, then 2 tablets daily x3 days, then 1 tablet daily x3 days metaxalone 800 mg tablet 800 mg PO TID PRN (Reason: muscle pain) Qty: 20 0RF Primary Care Provider: Sacha Martínez Referrals: Sacha Martínez MD [Primary Care Provider] - Activity Restrictions/Additional Instructions: I am not sure what caused caused your symptoms today. All of your screening blood work looks normal. I recommend you follow-up with the primary care doctor. Stop taking metaxalone and I prescribed a new muscle relaxer called Flexeril. I also recommend you take an [id number] pain reliever like Tylenol or Motrin for your neck. Print Language: Czech Disposition Disposition: Home, Self Care Discharge Date/Time: 04/29/25 20:18
[2025-04-29] MEDS: 0.9% Normal Saline (1000mL) 1,000 ML 999 ML IV (17:58)
[2025-04-29 17:59] LABS: Hematocrit 40.7 % (37-47); Hemoglobin 13.9 g/dL (12.0-15.0); Immature Granulocytes Count 0.040 X10^3/uL (0.0-0.0); Mean Corp Hgb Conc 34.2 g/dL (32-36); Mean Corpuscular Volume 82.7 fL (81-99); Mean Platelet Vol. 9.3 fl (6.2-12.0); NRBC Flagged by Analyzer 0 % (0-5); POSITIVE DIFFERENTIAL YES; Platelet Count 334 K/mm3 (150-450); RBC Distribution Width CV 12.3 % (11.6-14.6); RBC Distribution Width SD 37.6 fl (35.1-43.9); Red Blood Count 4.92 M/mm3 (4.2-5.4); White Blood Count 8.9 K/mm3 (4.4-11.0)
[2025-04-29 18:30] VITALS: BP 112/89
[2025-04-29 18:44] LABS: D-Dimer Quantitative (DVT/PE) < 0.27 FEU/ug/m (0.27-0.49)
[2025-04-29 18:45] LABS: Anion Gap 16 (5-15); BUN 10 mg/dL (4-19); BUN/Creat Ratio 13.9 RATIO (10-20); Calcium,Total 9.4 mg/dL (7.6-11.0); Carbon Dioxide 20.1 mmol/L (21.0-32.0); Chloride 105 mmol/L (98-108); Estimated Creatinine Clearance 87.00 ml/min (50-250); Glucose 154 mg/dL (70-99); Magnesium 1.9 mg/dL (1.5-2.2); Potassium 3.3 mmol/L (3.3-5.1)
[2025-04-29 18:56] LABS: Internal QC Validated? YES +Cl - CLEAR BKGD; Pregnancy, Serum, hCG Quali. NEGATIVE Negative; Record Kit Lot#, Serum Preg. 964736
[2025-04-29 18:57] LABS: Troponin T High Sensitivity < 6 ng/L (<=14)
[2025-04-29 19:12] VITALS: BP 128/91; PULSE 90; RESP 16; O2SAT 100
--- NOTE | 2025-04-29 19:36 | EKG12_ITS ---
Test Reason : DYSRHYTHMIA Blood Pressure : */* mmHG Vent. Rate : 82 BPM Atrial Rate : 82 BPM P-R Int : 122 ms QRS Dur : 82 ms QT Int : 394 ms P-R-T Axes : 71 81 65 degrees QTcB Int : 460 ms Normal sinus rhythm with sinus arrhythmia Normal ECG Confirmed by NYA HERNANDEZ, LANIE ([id number]), purchase request editor PETER HAIRSTON ([id number]) on 05/03/2025 6:37:39 AM Referred By: Confirmed By: LANIE FAY MD
[2025-04-29 19:57] LABS: Troponin T High Sens 2 HR < 6 ng/L (<=14)
[2025-04-29 20:17] VITALS: BP 125/89; PULSE 79; RESP 16; TEMP 36.5; O2SAT 100
== END 2025-04-29 20:18 | disposition home or self-care (01) ==
PROVIDERS: Physician Assistant; Emergency Provider Student in an Organized Health Care Education/Training Program; PCP Internal Medicine; Visit Provider Student in an Organized Health Care Education/Training Program
DX: R00.2 Palpitations (principal); J42 Unspecified chronic bronchitis; R06.00 Dyspnea, unspecified; M54.2 Cervicalgia; R00.0 Tachycardia, unspecified; G44.209 Tension-type headache, unspecified, not intractable; I49.8 Other specified cardiac arrhythmias; I10 Essential (primary) hypertension; F41.1 Generalized anxiety disorder; K21.9 Gastro-esophageal reflux disease without esophagitis; J45.909 Unspecified asthma, uncomplicated; F17.290 Nicotine dependence, other tobacco product, uncomplicated; Z79.899 Other long term (current) drug therapy
CPT/HCPCS: 80048; 83735; 84439; 84443; 84484; 84703; 85025; 85379; 93005; 96361; 96374; 99283; A4216

== ENCOUNTER → 2025-05-13 | Outpatient (CLI) | payer MEDICAID, SELFPAY ==
[2025-05-15 16:08] LABS: ANTINUCLEAR ANTIBODIES DIRECT Negative (Negative)
[2025-05-18 08:09] LABS: Immunoglobulin A 93 mg/dL (87-352)
== END | disposition home or self-care (01) ==
LOC: BIMLAB 15:00
PROVIDERS: Physician Assistant; PCP Internal Medicine; Referring Provider Internal Medicine; Visit Provider Internal Medicine
DX: R41.0 Disorientation, unspecified (principal); E05.90 Thyrotoxicosis, unspecified without thyrotoxic crisis or storm
CPT/HCPCS: 36415; 82784; 83516; 86038; 86225; 86235; 86255; 86376; 86800

== ENCOUNTER → 2025-07-23 | Outpatient (CLI) | payer MEDICAID, SELFPAY ==
--- NOTE | 2025-07-23 16:51 | RAD_ITS ---
PROCEDURE: CHEST PA AND LATERAL 07/23/2025 REASON FOR EXAM: COUGH TECHNIQUE: Procedure Code: RADCXR Modality: DX Procedure: CHEST PA AND LATERAL COMPARISON: 06/22/2024 FINDINGS: Hardware: None. Heart: The heart size is normal. Mediastinum: The mediastinal contour is unremarkable. Lungs: The lungs are clear. No pneumothorax or pleural effusion. Bones: The bones are unremarkable. RAD/Chest PA and Lateral IMPRESSION: NO ACUTE FINDINGS. Reading [facility]
== END | disposition home or self-care (01) ==
PROVIDERS: PCP Internal Medicine; Referring Provider Physician Assistant Surgical; Visit Provider Physician Assistant Surgical
DX: R05.9 Cough, unspecified (principal)
CPT/HCPCS: 71046